=== PATIENT | male | born 1945 | race Asian ===

== ENCOUNTER 2022-06-27 17:33 | Emergency (ER) | payer MEDICARE, MEDICAID, SELFPAY ==
[2022-06-27 17:59] VITALS: BP 133/79; PULSE 82; RESP 20; TEMP 37.4; O2SAT 97; BMI 23.4
--- NOTE | 2022-06-27 18:04 | ED_ITS ---
HPI - General Adult General Date Seen: 06/27/22 Chief complaint: Weakness Stated complaint: FATIGUE,BODY PAIN Time Seen by Provider: 06/27/22 17:37 Source: patient and family History of Present Illness HPI narrative: Patient is a 77-year-old male who I have seen on a number of occasions previously. He is here with his daughter who typically interprets for him. She notes that for the past couple of weeks he has been fatigued, somewhat weak, and his complained of diffuse body pain. He apparently had some gout flare in his fingers, last week they called his primary doctor who gave him a 5 day course of prednisone. He felt better while on the prednisone but now that that is done has been having trouble again. No reported fevers or focal chest pain. He has had some nausea, no vomiting. No diarrhea. No abdominal pain. Does not sound he has had any specific other joints which have been swollen or red. I have seen him in the past with similar symptoms, and he seems to get better while on prednisone. She says that up until today he had been up and walking around but today he did not want to get up, which is why she brought him in. Related Data Home Medications Medication Instructions Recorded Confirmed atorvastatin 20 mg tablet 20 mg PO .Bedtime 06/21/22 06/21/22 lisinopril 10 mg tablet 10 mg PO DAILY 06/21/22 06/21/22 metoprolol succinate 25 mg mg PO DAILY 06/21/22 06/21/22 tablet,extended release 24 hr nitroglycerin 0.4 mg sublingual 0.4 mg sublingual ONCE PRN 06/21/22 06/21/22 tablet triamcinolone acetonide 0.5 % 1 applic topical PRN 06/21/22 06/21/22 topical cream Allergies Allergy/AdvReac Type Severity Reaction Status Date / Time No Known Drug Allergies Allergy Verified 06/21/22 08:13 Review of Systems Status of ROS: Reports: 10 or more systems reviewed and unremarkable except as noted in History and below [facility] Medical History (Updated 06/27/22 @ 19:38 by Yola Staples MD) Arthritis CAD (coronary artery disease) Surgical History History of cataract extraction History of cholecystectomy Social History Smoking Status: Never smoker How often do you have a drink containing alcohol: never AUDIT-C Alcohol total score: 0 Non-prescribed substance use: denies use Exam Narrative: Exam Narrative: Vital signs as noted above. In general, an alert, nontoxic male. He was able to transfer from the wheelchair to the bed. Is lying in the bed with his eyes closed. Head: Normocephalic, atraumatic. Eyes: Pupils are equal reactive. Extraocular movements are full. Conjunctivae are normal. ENT: Mucous membranes are moist. Throat is normal. Neck: Supple without lymphadenopathy. Heart: Regular rate and rhythm. No murmur or rub. Lungs: Clear bilaterally. No increased work of breathing, crackles or wheezes. Abdomen: Soft and nontender. No organomegaly. Extremities: Well perfused. No edema. No calf tenderness. Pulses intact. Neurologic: Patient is alert and oriented to person and place. Speech is fluent. Face is symmetric. Moves all extremities equally. Affect: Normal. Skin: Warm and dry. Well perfused. Const: Vital Signs, click to edit/add: Vital Signs - 24 hr 06/27/22 17:59 Temperature 99.3 F Pulse Rate [Pulse Oximeter] 82 Respiratory Rate 20 Blood Pressure [Ri ght Upper Arm] 133/79 Pulse Oximetry 97 Oxygen Delivery Me thod Room Air Documenting provider has reviewed patient's vital signs: yes Course Course Hospital Course: We will place an IV and give 500 mL of normal saline while awaiting labs. EKG and troponin given his cardiac history though my suspicion for this being an acute cardiac event is rather low since his symptoms have been persistent for the past couple of weeks. Not febrile here, will rule out an acute infection, check COVID, flu and RSV swabs. Lungs are clear, O2 sats are normal. At this time I do not see reason to do a chest x-ray. Labs are all normal. EKG by my review showed a normal sinus rhythm, ventricular rate of 77. No acute ST segment changes. He has had fluids here, COVID is negative. We will give some Solu-Medrol IV and prescribed prednisone taper for home. This typically is helpful for him. If he is not feeling better, follow up with primary care. Return to the ER for acute worsening such as high fevers, vomiting, chest pain. Vital Signs Vital signs: Initial Vital Signs Temperature 99.3 F 06/27/22 17:59 Temperature Source Temporal Artery Scan 06/27/22 17:59 Pulse Rate 82 06/27/22 17:59 Respiratory Rate 20 06/27/22 17:59 Blood Pressure 133/79 06/27/22 17:59 Blood Pressure Mean 97 06/27/22 17:59 Blood Pressure Position Supine 06/27/22 17:59 Pulse Oximetry 97 06/27/22 17:59 Oxygen Delivery Method 06/27/22 17:59 Vital Signs Temperature 99.3 F 06/27/22 17:59 Pulse Rate 82 06/27/22 17:59 Respiratory Rate 20 06/27/22 17:59 Blood Pressure 133/79 06/27/22 17:59 Pulse Oximetry 97 06/27/22 17:59 Oxygen Delivery Method 06/27/22 17:59 Temperature 99.3 F 06/27/22 17:59 Pulse Rate 82 06/27/22 17:59 Respiratory Rate 20 06/27/22 17:59 Blood Pressure 133/79 06/27/22 17:59 Pulse Oximetry 97 06/27/22 17:59 Oxygen Delivery Method 06/27/22 17:59 Medical Decision Making Lab Data Labs: Lab Results 06/27/22 06/27/22 06/27/22 Range/Units 18:15 18:15 18:15 WBC 6.15 (4.50-11.00) K/uL RBC 4.84 (4.30-5.90) m/uL Hgb 13.8 (13.5-17.5) gm/dL Hct 41.3 (37.0-53.0) % MCV 85 (80-100) fL MCH 29 (26-34) pg MCHC 33 (32-36) gm/dL RDW Coeff of Mickey 13.1 (11.5-15.5) % Plt Count 212 (140-440) K/uL Neut % (Auto) 59.0 (42.0-72.0) % Lymph % (Auto) 31.4 (20-44) % Archer % (Auto) 7.6 (0.0-11.0) % Eos % (Auto) 1.3 (0.0-7.0) % Baso % (Auto) 0.5 (0.0-3.0) % Neut # (Auto) 3.63 (1.7-7.0) K/uL Lymph # (Auto) 1.93 (0.90-2.90) K/uL Archer # (Auto) 0.50 (0.00-0.90) K/UL Eos # (Auto) 0.08 (0.00-0.50) K/uL Baso # (Auto) 0.03 (0.00-0.30) K/uL Abs Immat Gran (auto) 0.01 (0.00-0.30) K/uL Sodium 136 (135-149) mmol/L Potassium 4.0 (3.6-5.1) mmol/L Chloride 107 (96-114) mmol/L Carbon Dioxide 25 (20-32) mmol/L BUN 14 (7-30) mg/dL Creatinine 0.9 (0.5-1.5) mg/dL Estimated Creat Clear 42.36 Estimated GFR 87 ml/min Glucose 99 (60-115) mg/dL Lactate (0.5-1.9) mmol/L Calcium 9.1 (8.4-10.6) mg/dL Total Bilirubin (0.1-1.5) mg/dL Direct Bilirubin (0.0-0.5) mg/dL AST (12-35) U/L ALT (4-50) U/L Alkaline Phosphatase (40-150) U/L C-Reactive Protein 0.7 (0.5-1.0) mg/dL Total Protein (6.0-8.3) g/dL Albumin (3.3-5.0) g/dL SARS-CoV-2 (PCR) Negative SARS-CoV-2 (Negative) Influenza Type A (PCR) Negative PCR FLU A (Negative) Influenza Type B (PCR) Negative PCR FLU B (Negative) RSV (PCR) Negative PCR RSV (Negative) POC Troponin I (0.01-0.04) ng/ml 06/27/22 06/27/22 06/27/22 Range/Units 18:15 18:15 18:15 WBC (4.50-11.00) K/uL RBC (4.30-5.90) m/uL Hgb (13.5-17.5) gm/dL Hct (37.0-53.0) % MCV (80-100) fL MCH (26-34) pg MCHC (32-36) gm/dL RDW Coeff of Mickey (11.5-15.5) % Plt Count (140-440) K/uL Neut % (Auto) (42.0-72.0) % Lymph % (Auto) (20-44) % Archer % (Auto) (0.0-11.0) % Eos % (Auto) (0.0-7.0) % Baso % (Auto) (0.0-3.0) % Neut # (Auto) (1.7-7.0) K/uL Lymph # (Auto) (0.90-2.90) K/uL Archer # (Auto) (0.00-0.90) K/UL Eos # (Auto) (0.00-0.50) K/uL Baso # (Auto) (0.00-0.30) K/uL Abs Immat Gran (auto) (0.00-0.30) K/uL Sodium (135-149) mmol/L Potassium (3.6-5.1) mmol/L Chloride (96-114) mmol/L Carbon Dioxide (20-32) mmol/L BUN (7-30) mg/dL Creatinine (0.5-1.5) mg/dL Estimated Creat Clear Estimated GFR ml/min Glucose (60-115) mg/dL Lactate 1.2 (0.5-1.9) mmol/L Calcium (8.4-10.6) mg/dL Total Bilirubin 0.4 (0.1-1.5) mg/dL Direct Bilirubin 0.2 (0.0-0.5) mg/dL AST 45 H (12-35) U/L ALT 22 (4-50) U/L Alkaline Phosphatase 97 (40-150) U/L C-Reactive Protein (0.5-1.0) mg/dL Total Protein 6.8 (6.0-8.3) g/dL Albumin 3.8 (3.3-5.0) g/dL SARS-CoV-2 (PCR) (Negative) Influenza Type A (PCR) (Negative) Influenza Type B (PCR) (Negative) RSV (PCR) (Negative) POC Troponin I 0.00 L (0.01-0.04) ng/ml Discharge Plan Discharge Clinical Impression: Malaise and fatigue Patient Disposition: Home, Self-Care Condition: Stable Instructions: Fatigue (ED) Additional Instructions: Prednisone taper as prescribed. Follow up with primary care as needed for ongoing symptoms. Return for worsening. Prednisone: 3 tabs daily x3 days, then 2 tabs daily x3 days, then 1 tab daily x3 days. Prescriptions: No Action nitroglycerin 0.4 mg tablet, sublingual 0.4 mg sublingual ONCE PRN Rx Instructions: Take 1 tab every 5 min as needed for chest pain. atorvastatin 20 mg tablet 20 mg PO .Bedtime triamcinolone acetonide 0.5 % cream 1 applic topical PRN metoprolol succinate 25 mg tablet extended release 24 hr PO DAILY lisinopril 10 mg tablet 10 mg PO DAILY Follow Up/Referrals: Florentino Luna MD [Primary Care Provider] - Stand Alone Forms: Dovetail Info Instructions
[2022-06-27] MEDS: 0.9 % SODIUM CHLORIDE 500 ML 500 ML IV (18:20)
[2022-06-27 18:30] LABS: Lactate* 1.2 mmol/L (0.5-1.9)
--- OUTSIDE RECORDS SUMMARY | 2022-06-27 18:31 | XMS_ITS | Clinical Summary ---
:1945 Author Organization [facility] Address [address] [place] [address]. [place] [address] Care Team Providers Name Role Phone Florentino Luna Primary Care Provider Allergies No known active allergies Medications Medication Sig Dispensed Refills Start Date End Date Status atorvastatin (LIPITOR) Take 20 mg by 0 Active 20 MG tablet mouth daily lisinopril (ZESTRIL) 10 Take 10 mg by 0 Active MG tablet mouth daily as needed nitroGLYcerin Place 0.4 mg 0 Act vaishnavi (NITROSTAT) 0.4 MG under the tongue sublingual tablet every 5 minutes as needed for chest pain For chest pain place 1 tablet under the tongue every 5 minutes for 3 doses. If symptoms persist 5 minutes after 1st dose call 911. acetaminophen (TYLENOL) Take 2 tablets 30 tablet 0 02/01/2022 Active 325 MG (650 mg) by mouth tabletIndications: every 6 hours as Abscess of finger of needed for mild left hand pain or other (and adjunct with moderate or severe pain or per patient request) aspirin (ASA) 81 MG EC Take 1 tablet (81 60 tablet 0 2 Active tabletIndications: VTE mg) by mouth 2 Prophylaxis times daily oxyCODONE (ROXICODONE) Take 0.5-1 10 tablet 0 02/01/2022 Active 5 MG tabletIndications: tablets (2.5-5 Abscess of finger of mg) by mouth left hand every 4 hours as needed for moderate to severe pain Active Problems Problem Noted Date Abdominal pain, generalized 01/29/2022 Acute renal insufficiency 01/29/2022 Abscess of finger of left hand 01/29/2022 Elevated lactic acid level 01/29/2022 Acute pancreatitis, unspecified 12/11/2015 Social History Tobacco Use Types Packs/Day Years Used Date Never Assessed Sex Assigned at Date Recorded Not on file Last Filed Vital Signs Vital Sign Reading Time Taken Comments Blood Pressure 116/86 02/01/2022 10:10 AM CDT Pulse 74 02/01/2022 10:10 AM CDT Temperature 36.8 ??C (98.3 ??F) 02/01/2022 10:10 AM CDT Respiratory Rate 20 02/01/2022 10:10 AM CDT Oxygen Saturation 97% 02/01/2022 10:10 AM CDT Inhaled Oxygen Concentration - - Weight 58.5 kg (129 lb) 01/30/2022 1:09 PM CDT Height 152.4 cm (5') 01/30/2022 1:09 PM CDT Body Mass Index 25.19 01/30/2022 1:09 PM CDT Plan of Treatment Health Maintenance Due Date Last Done Comments ADVANCE CARE PLANNING 1945 ANNUAL REVIEW OF HM ORDERS 1945 LIPID 1978 ZOSTER IMMUNIZATION (1 of 1993 2) FALL RISK ASSESSMENT 01/06/2008 MEDICARE ANNUAL WELLNESS 01/06/2008 VISIT COVID-19 Vaccine (3 - 05/01/2021 11/29/2020, 11/08/2020 Booster for Pfizer series) PHQ-2 (once per calendar 09/26/2021 year) INFLUENZA VACCINE (#1) 2022 11/11/2021, 07/28/2020, 06/18/2019, Additional history exists DTAP/TDAP/TD IMMUNIZATION 12/27/2027 12/26/2017, 02/22/1980 , (2 - Td or Tdap) 07/17/1979 HEPATITIS C SCREENING Completed 12/12/2015 Pneumococcal Vaccine: 65+ Completed 11/11/2021, 07/28/2020 , Years 12/26/2017 HEPATITIS B IMMUNIZATION Aged Out No long er eligible based on patient 's age to complete this topic IPV IMMUNIZATION Aged Out No longer eligi ble based on patient 's age to complete this topic MENINGITIS IMMUNIZATION Aged Out No longe r eligible based on patient 's age to complete this topic Insurance Payer Benefit Plan / Subscriber ID Effective Dates Phone Addre ss Type Group [facility] [id number] 2021-Nicanor [phone] [address] HMO t 0 [place] [address] MEDICARE MEDICARE [id number] 2015-Prese [phone] ATTN CL AIMS Medicare nt 0 [address] [place] [address] Advance Directives For more information, please contact: [phone] Latest Code Status on File Code Status Date Activated Date Inactivated Comments Full Code 01/30/2022 1:13 AM 02/01/2022 4:16 PM All basic and advanced life-sustaining interventions ar e performed as appropriate Code status determined by: Discussion with patient/ legal de cision maker Full Code 12/11/2015 4:17 AM 12/12/2015 6:39 PM Care Teams Pipe Joints Supervisor Relationship Specialty Start Date End Date Florentino Luna PCP - General Family Medicine 01/31/22 [facility] [address] [place] [id number]
--- OUTSIDE RECORDS SUMMARY | 2022-06-27 18:31 | XMS_ITS | Clinical Summary ---
:1945 Author Organization [facility] [place] [address] Care Team Providers Name Role Phone Feliciano Lynch MD Primary Care Provider Allergies No known active allergies Medications Medication Sig Dispensed Refills Start Date End Date Status atorvastatin (LIPITOR) Take 1 tablet by 30 tablet 2 05/31/2016 Active 20 mg mouth at bedtime. tabletIndications: ST elevation myocardial infarction involving right coronary artery (HC) nitroglycerin Place 1 tablet 25 tablet 2 05/31/2016 Active (NITROSTAT) 0.4 mg under the tongue sublingual every 5 minutes if tabletIndications: ST needed for Chest elevation myocardial Pain (first choice infarction involving for chest pain, up right coronary artery to 3 doses). (HC) metoprolol succinate Take 25 mg by 0 12/21/2017 Active (TOPROL XL) 25 mg mouth once daily. Sustained-Release tablet triamcinolone 0.5% Apply topically to 0 12/21/2017 Active (ARISTOCORT) 0.5 % affected area(s) 2 cream times daily if needed. diclofenac (VOLTAREN) Take 75 mg by 0 12/21/2017 Active 75 mg delayed-release mouth once daily tablet if needed. aspirin (ECOTRIN) 81 Take 81 mg by 0 Active mg enteric coated mouth once daily. tablet MAPAP ARTHRITIS PAIN TAKE 1 TABLET BY 4 05/04/2018 Active 650 mg MOUTH EVERY 6 8 Extended-Release HOURS NEEDED tablet FOR PAIN IB HNUB NOJ 1 LUB TXHUA 6 8 TEEV YOG MOB gabapentin (NEURONTIN) TAKE 1 CAPSULE BY 8 Active 300 mg capsule MOUTH TWICE DAILY NEEDED FOR NECK PAIN IB ZAUG NOJ 1 LUB, IB HNUB NOJ 2 ZAUG YOG MOB capsaicin (ZOSTRIX) APPLY TO THE 4 05/04/2018 Active 0.025 % cream AFFECTED AREA TWICE DAILY NEEDED 1 HNUB PLEEV 2 ZAUG SABINE THAJ TSHAM MOB LOS TAU clopidogrel (PLAVIX) TAKE 1 TABLET BY 4 05/04/2018 Active 75 mg tablet MOUTH EVERY DAY 1 HNUB NOJ 1 LUB KOM NTSHAV TXOB NPLAUM lisinopril (PRINIVIL; Take 10 mg by 0 Active ZESTRIL) 10 mg tablet mouth once daily. 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 onary artery 05/30/2016 ASHD (arteriosclerotic heart disease) 05/30/2016 CVA (cerebral infarction) 01/15/2010 Immunizations Name Administration Dates Next Due Influenza, IIV3 (Age >=3 years) 07/17/2012 Pneumococcal conj 13-Valent (Prevnar 13) 12/26/2017 Td (Age >=7 Years) 02/22/1980, 07/17/1979 Tdap 12/26/2017 Family History Medical History Relation Name Comments Unknown Father Unknown Mother Other Other No pertinent pas t family medical history Relation Name Status Comments Father Mother Other Social History Tobacco Use Types Packs/Day Years Used Date Never Smoker Smokeless Tobacco: Never Used Alcohol Use Standard Drinks/Week Comments Yes 0 (1 standard drink = 0.6 oz pure alcoho l) Sex Assigned at Date Recorded Not on file Obstetrics History Last Filed Vital Signs Vital Sign Reading Time Taken Comments Blood Pressure 142/67 09/11/2019 7:26 AM 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 Pulse 61 09/11/2019 7:26 AM 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 Temperature 36.7 ??C (98.1 ??F) 09/11/2019 7:26 AM 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 Respiratory Rate 16 09/11/2019 7:26 AM 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 Oxygen Saturation 96% 09/11/2019 7:26 AM 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 Inhaled Oxygen Concentration - - Weight 53.3 kg (117 lb 8.1 oz) 09/07/2019 6:00 AM 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 Height 155.6 cm (5' 1.25) 09/05/2019 10:49 PM 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 Body Mass Index 22.02 09/05/2019 10:49 PM 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 Plan of Treatment Health Maintenance Due Date Last Done Comments COVID-19 vaccine series (#1) 1945 Zoster (shingles) series for age 0401/05/1993 50+ (1 of 2) Medicare Wellness for age 65+ 01/06/2008 Depression screening for age 12+ 01/26/2018 01/26/2017 Pneumococcal series for age 65+ (2 12/26/2018 12/26/2017 - PPSV23 or PCV20) BMI (ht and wt on same day) for 06/01/2019 06/01/2018, 10/2017, age 18+ 01/26/2017, Additional history exists Influenza for age 65+ 05/27/2022 07/17/2012 Tetanus booster 12/27/2027 12/26/2017, 02/22/1980, 07/17/1979 Tdap Completed 12/26/2017 Hepatitis C screening for age Completed 09/06/2019 18-79 Medical Devices Implanted 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 Device Shelf Model / Identifier Expiration Serial / Lot Date Iol [place] +20.5 Tecnis Zcb00 - [id number] Left: Mojica M edical 09/05/2021 ZCB00# / Implanted: Qty: 1 on 01/04/2018 by Venkata Manning MD at [facility] [employer] [id number] / Iol [place] +20 Tecnis Zcb00 - [id number] Right: Mojica Med ical 10/15/2021 [id number]# / Implanted: Qty: 1 on 01/18/2018 by Venkata Manning MD at [facility] [employer] [id number] / Results Not on filefrom Last 3 Months Insurance Payer Benefit Plan / Subscriber ID Effective Dates Phone Addre ss Type Group MEDICARE PART A MEDICARE PART A [id number] 2007-Present ATTN: CLAIMS - HB USE ONLY HB ONLY [address] [place] [address] MEDICARE PART B MEDICARE PART B [id number] 2007-Present ATTN: CLAIMS - HB USE ONLY HB ONLY [address] [place] [address] MEDICARE - PB MEDICARE PB [id number] 2007-Present ATT N: CLAIMS USE ONLY ONLY [address] [facility] [place] [address] UCARE [place] [facility]ARE [facility] [id number] 2021-Present [address] [place] [address] Advance Directives Latest Code Status on File Code Status Date Activated Date Inactivated Comments Full Code 09/06/2019 1:37 AM 09/11/2019 3:05 PM With famil y Code Status Discussion: Discussed Full Code 01/18/2018 10:42 AM 01/18/2018 5:22 PM Full Code 01/04/2018 12:52 PM 01/04/2018 5:34 PM Full Code 05/29/2016 8:46 PM 05/31/2016 4:40 PM Full Code 01/14/2010 2:11 PM 01/15/2010 6:20 PM Care Teams Truck Farmer Relationship Specialty Start Date End Date Feliciano Lynch MD PCP - General Family Practice 01/26/[address] [place] [id number]
--- OUTSIDE RECORDS SUMMARY | 2022-06-27 18:32 | XMS_ITS | Encounter Summary ---
:1945 Author Organization [place] Address [facility] [place] [address] Care Team Providers Name Role Phone No Ref-Primary, Primary Care Provider [phone] Florentino Luna Primary Care Provider Reason for Visit Reason Comments Abdominal Pain Auth/Cert Specialty Diagnoses / Procedures Referred By Contact Refer red To Contact Med Surg Diagnoses Abdominal pain, generalized Acute renal insufficiency Abscess of finger of left hand Elevated lactic acid level Abdominal pain, generalized Acute renal insufficiency Elevated lactic acid level Abscess of finger of left hand Observation Dept [address] [place], [place] [address] Phone: Referral ID Status Reason Start Date Expiration Date Visits Requ ested Visits Authorized [id number] 1 1 Encounter Details Date Type Department Care Team Description [facility] [address] [place] [address] Abdominal pain, generalized; 02/01/2022 Encounter [facility] Alba Frey DO [facility] [address] [place] [address] Acute renal insufficiency; Dept Ashely Petit MD [address] [place], [place] [address] Elevated lactic acid level; [address] O[address]fe MD [facility] [address] [place] [address] Abscess of finger of left hand [place], [place] Dontae Lowe MD [address] [place], [place] [id number] Social History Tobacco Use Types Packs/Day Years Used Date Never Assessed Sex Assigned at Date Recorded Not on file COVID-19 Exposure Response Date Recorded In the last 10 days, have you been in contact with No / Unsu re 01/29/2022 8:39 PM CDT someone who was confirmed or suspected to have Coronavirus/COVID-19? documented as of this encounter Last Filed Vital Signs Vital Sign Reading [...] Mass Index 25.19 01/30/2022 1:09 PM CDT documented in this encounter Discharge Summaries Jessica Felix PA-C - 02/01/2022 1:33 PM CDT Patient's son expressed to me that patient wanted to leave this morning despite infectious disease recommendation to stay until final culture data from abscess drainage yesterday. Despite conversation through [facility] interpretor patient is adamant that he wants to leave. He understands that his infection could get worse or he could develop sepsis. He expresses understanding and would like to leave. Per Dr. Graf note I have prescribed 3 weeks of Augment and sent it to [facility] in [place]. Patient was discharged AGAINST MEDICAL ADVICE documented in this encounter Discharge Instructions Discharge InstructionsOlivia Armijo RN - 02/01/2022 1:47 PM CDT Keep dressings intact Abx per ID recs Recommend resuming allopurinol or discuss gouty treatment with primary care provider. Follow-up with Dr Jeong later this week for recheck. documented in this encounter Medications at Time of Discharge Medication Sig Dispensed Refills Start Date End Date acetaminophen (TYLENOL) Take 2 tablets (650 30 tablet 0 05/2022 325 MG tabletIndications: mg) by mouth every 6 Abscess of finger of left hours as needed for hand mild pain or other (and adjunct with moderate or severe pain or per patient request) aspirin (ASA) 81 MG EC Take 1 tablet (81 60 tablet 0 2021 tabletIndications: VTE mg) by mouth 2 times Prophylaxis daily atorvastatin (LIPITOR) 20 Take 20 mg by mouth 0 MG tablet daily lisinopril (ZESTRIL) 10 Take 10 mg by mouth 0 MG tablet daily as needed nitroGLYcerin (NITROSTAT) Place 0.4 mg under 0 0.4 MG sublingual tablet the tongue every 5 minutes as needed for chest pain For chest pain place 1 tablet under the tongue every 5 minutes for 3 doses. If symptoms persist 5 minutes after 1st dose call 911. oxyCODONE (ROXICODONE) 5 Take 0.5-1 tablets 10 tablet 0 05/2022 MG tabletIndications: (2.5-5 mg) by mouth Abscess of finger of left every 4 hours as hand needed for moderate to severe pain amoxicillin-clavulanate Take 1 tablet by 42 tablet 0 202102/22/2022 (AUGMENTIN) 875-125 MG mouth 2 times daily tabletIndications: for 21 days Abscess of finger of left hand documented as of this encounter Progress Notes Olivia Armijo RN - 02/01/2022 2:13 PM CDT Patient's After Visit Summary was reviewed with patient and/or son Patient verbalized understanding of After Visit Summary, recommended follow up and was given an opportunity to ask questions. Discharge medications sent home with patient/family: No Discharged with son Pt left AGAINST MEDICAL ADVISE. [facility] Worker used for through communications and discharge summary. Tavia Lauren PA-C - 02/01/2022 1:25 PM CDT Orthopedic Surgery Mery S Marva 02/01/2022 Admit Date: 01/29/2022 POD: 1 Day Post-Op Procedure(s): Left small finger (distal interphalangeal) joint irrigation, debridement, and primary fusion. Alert and oriented. Patient resting comfortably - reports no pain in finger Patient requesting to leave AMA. Vital Sign Ranges Temperature Temp Av.2 ??F (36.8 ??C) Min: 98 ??F (36.7 ??C) Max: 98.4 ??F (36.9 ??C) Blood pressure Systolic (24hrs), Av , Min:116 , Max:154 Diastolic (24hrs), Av, Min:61, Max:86 Pulse Pulse Av.5 Min: 54 Max: 74 Respirations Resp Av.7 Min: 16 Max: 20 Pulse oximetry SpO2 Av.8 % Min: 95 % Max: 97 % Dressings changed today Sutures intact - no purulent drainage or significant erythema. Unable to flex finger Labs: Recent Labs Lab Test 02/01/22 0809 01/31/22 0558 01/30/22 0804 WBC 16.4* 9.4 14.6* Recent Labs Lab Test 02/01/22 0809 01/31/22 0558 01/30/22 0804 HGB 14.8 11.8* 12.5* Recent Labs Lab Test 12/11/15 0012 INR 1.03 Recent Labs Lab Test 02/01/22 0809 01/31/22 0558 01/30/22 0804 PLT 255 172 192 1. PLAN: Keep dressings intact Abx per ID recs Recommend resuming allopurinol or discuss gouty treatment with primary care provider. Follow-up with Dr Jeong later this week for recheck. Tavia Lauren PA-C Skylar Avalos, OTR - 02/01/2022 9:52 AM CDT 02/01/22 0900 Quick Adds Type of Visit Initial Occupational Therapy Evaluation Living Environment People in Home child(kosta), adult Current Living Arrangements mobile home Home Accessibility stairs to enter home Number of Stairs, Main Entrance 4 Stair Railings, Main Entrance railings safe and in good condition Transportation Anticipated family or friend will provide Living Environment Comments Pt lives in a mobile home with son and his family. Pt has 4 steps to enter, home is all on one level once inside. Pt has tub shower and standard toilet, son reports his granddaughter acts as his caregiver and assists with bathing/dressing in the mornings as needed. Self-Care Usual Activity Tolerance moderate Current Activity Tolerance moderate Equipment Currently Used at Home cane, straight;walker, standard Fall history within last six months no Activity/Exercise/Self-Care Comment Pt owns a cane and walker, does not use at baseline. 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, has assistance with other IADLs from family General Information Onset of Illness/Injury or Date of Surgery 01/29/22 Referring Physician Lorena Padilla PA-C Patient/Family Therapy Goal Statement (OT) To return home this date Additional Occupational Profile Info/Pertinent History of Current Problem 77 year old Hmong speakingmale with PMH including CAD (prior stent), gout, DJD, HTN, HLD and prior pancreatitis who was admitted on 01/30/2022 with abdominal bloating and 2 days of constipation as well as 2 weeks of left fifth finger swelling and pain and drainage and was found to have acute kidney injury, lactic acidosis and abscess of the left fifth finger. Existing Precautions/Restrictions fall Limitations/Impairments (Language barrier) Left Upper Extremity (Weight-bearing Status) weight-bearing as tolerated (WBAT) Cognitive Status Examination Orientation Status orientation to person, place and time Affect/Mental Status (Cognitive) WFL Follows Commands WFL Cognitive Status Comments Pt appears cognitively intact, good safety awareness during mobility Visual Perception Visual Impairment/Limitations WFL Sensory Sensory Quick Adds No deficits were identified Pain Assessment Patient Currently in Pain No Posture Posture not impaired Range of Motion Comprehensive Comment, General Range of Motion LUE limited due to splint/post surgical precautions, LLE limited due to chronic L knee injury, RUE and LE WFL Strength Comprehensive (MMT) Comment, General Manual Muscle Testing (MMT) Assessment UE and LE WFL Coordination Coordination Comments Mild UE limitations due to splint Bed Mobility Comment (Bed Mobility) SBA Transfers Transfer Comments SBA Balance Balance Comments Intact Activities of Daily Living BADL Assessment/Intervention bathing;lower body dressing;toileting Bathing Assessment/Intervention Comment, (Bathing) Min assist for transfer Lower Body Dressing Assessment/Training Comment, (Lower Body Dressing) Min assist Toileting Comment, (Toileting) SBA Clinical Impression Criteria for Skilled Therapeutic Interventions Met (OT) Yes, treatment indicated OT Diagnosis Decline in ADL independence and safety Influenced by the following impairments L digit injury OT Problem List-Impairments impacting ADL problems related to;range of motion (ROM);post-surgical precautions Assessment of Occupational Performance 1-3 Performance Deficits Identified Performance Deficits Decline in ADL independence Planned Therapy Interventions (OT) ADL retraining;home program guidelines Clinical Decision Making Complexity (OT) low complexity Anticipated Equipment Needs Upon Discharge (OT) (N/A) Risk & Benefits of therapy have been explained evaluation/treatment results reviewed;care plan/treatment goals reviewed;risks/benefits reviewed;current/potential barriers reviewed;participants voiced agreement with care plan;participants included;patient;son OT Discharge Planning OT Discharge Recommendation (DC Rec) home with assist OT Rationale for DC Rec Patient appears safe and able to discharge home with intermittent assist from caregivers (as is his baseline) Defer to MD for further hand therapy recommendations. OT Brief overview of current status CGA-SBA for all transfers Total Evaluation Time (Minutes) Total Evaluation Time (Minutes) 9 OT Goals Therapy Frequency (OT) One time eval and treatment OT Predicted Duration/Target Date for Goal Attainment 02/01/22 OT Goals Lower Body Dressing;Toilet Transfer/Toileting;OT Goal 1 OT: Lower Body Dressing Supervision/stand-by assist;within precautions;Goal Met OT: Toilet Transfer/Toileting Supervision/stand-by assist;within precautions;Goal Met OT: Goal 1 Patient will demonstrate understanding of ROM exercises per MD to ensure joint mobility needed for ADL independence. (Goal met) Beryl Felix PA - 01/31/2022 12:07 PM CDT [facility] Hospitalist Progress Note ISAÍAS Currie 01/31/2022 Reason for Stay (Diagnosis): Finger abscess, constipation, acute kidney injury Assessment and Plan: Summary of Stay: Mery Durham is a 77 year old Hmong speaking male with PMH including CAD (prior stent), gout, DJD, HTN, HLD and prior pancreatitis who was admitted on 01/30/2022 with abdominal bloating and 2 days of constipation as well as 2 weeks of left fifth finger swelling and pain and drainage and was found to have acute kidney injury, lactic acidosis and abscess of the left fifth finger. He underwent I&D in the emergency room and started on Unasyn. Kidney function normalized with IVfluids. Abd pain resolved with several large sized BMs. ?? 1. Left 5th finger DIP septic arthritis with sepsis Patient developed pain and swelling in the left fifth finger about 2 weeks ago. Progressive. 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 XR showed degenerative changes and soft tissue swelling but no fracture or dislocation. Underwent limited I&D in ED and empirically started on Unasyn. While did not appear systemically ill, met sepsis criteria based on WBC 18.5, left shift, and lactate 4.9. Leukocytosis and lactic acidosis normalized with fluids and antibiotics. -- Going to OR today with [facility] Hand Surgeon Dr Jeong -- Continue Unasyn -- Follow blood and fluid cultures -- Keep finger elevated as above -- OT evaluation tomorrow ?? 2. Acute kidney injury, normalized Patient and family unaware of prior renal disease. Last creatinine in our system was 2016 and 0.79 and in Care everywhere was 0.88 in 2019. Cr on admission 2.05. Admission CT negative for acute intraabdominal process. -- Cr 2.05 >> 1.29 >> 0.92 with IV fluids -- Minimize nephrotoxins -- Continue to hold PRODUCT FINISHER lisinopril - BMP in the morning ?? 3. Coronary artery disease/hypertension/hyperlipidemia: H/o STEMI 11/2015 resulting in SD to dRCA. Echo at that time showed an EF of 61% and no valvular disease. -- PRODUCT FINISHER lisinopril on hold for NEETA. PRODUCT FINISHER atorvastatin on hold for mild transaminitis -- Compensated ?? 4. 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 Previously on allopurinol but has not been taking it. -- Defer to [facility] for crystal analysis -- If no e/o gout flare, consider resuming allopurinol. 5. Abdominal pain / Mild transaminitis: Mild ALT and AST elevation on admission although levels are improved from 2016 when he was hospitalized for pancreatitis. Prior cholecystectomy. Presented with abdominal pain and bloating however CT Abd/Pelv negative for acute intraabdominal process. -- Abd pain/bloating resolved after several large BMs -- PRODUCT FINISHER atorvastatin on hold for transaminitis -- Recheck LFTs in AM and if normalizing, consider restarting statin 6. Hypocalcemia Etiology unclear. Calcium 7.5. Asymptomatic thus far. Did not check ionized calcium level. -- Replace with 2g calcium gluconate -- Recheck calcium and ionized calcium in AM ?? Diet: ADAT after surgery DVT Prophylaxis: Low Risk/Ambulatory with no VTE prophylaxis indicated Code Status: Full code Disposition: Home in 1-3 days pending intraop findings, cultures, and ID recommendations JAH Lugo Pager: [phone] Interval History (Subjective): Patient doing relatively well. Abdominal pain/bloating has resolved with BMs. Going down to the OR today with [facility] for I&D of finger. Afebrile. Vital stable. On Unasyn. Physical Exam: Last Vital Signs: BP (!) 143/70 Pulse 74 Temp 97.9 ??F (36.6 ??C) (Oral) Resp 16 Ht 1.524 m (5') Wt 58.5 kg (129 lb) SpO2 94% BMI 25.19 kg/m?? GENERAL: Pleasant, cooperative, alert. Son at bedside acting as adjunct teacher HEENT: Normocephalic, atraumatic. Extra occular mm intact. Sclera clear. PERRL. PULMONOLOGY: Clear CARDIAC: Regular ABDOMEN: Soft, nontender MUSCULOSKELETAL: Moving x 4 spontaneously. Tophaceous deposits in hands/fingers. Left 5th digit swollen and erythematous but no purulence, fluctuance, or nail changes. NEURO: Alert and oriented to self and son. CN II-XII grossly intact and symmetric. No gross focal deficits. Medications: All current medications were reviewed with changes reflected in problem list. Data: All new lab and imaging data was reviewed. Labs: No results for input(s): CULT in the last 168 hours. Recent Labs Lab 01/31/22 0558 NA 144 POTASSIUM 4.0 CHLORIDE 115* CO2 23 ANIONGAP 6 GLC 90 BUN 28 CR 0.92 GFRESTIMATED 85 ALBERTA 7.5* Recent Labs Lab 01/31/22 0558 WBC 9.4 HGB 11.8* HCT 36.8* MCV 90 PLT 172 Imaging: Results for orders placed or performed during the hospital encounter of 01/29/22 Fingers XR, 2-3 views, left Narrative EXAM: XR FINGER LEFT G/E 2 VIEWS LOCATION: [facility] DATE/TIME: 01/29/2022 10:34 PM INDICATION: Left little finger swelling and pain. Evaluate for fracture. COMPARISON: None. Impression IMPRESSION: No acute fracture or dislocation. Degenerative changes involving several IP joints of the left hand, narrowing worse at the DIP joints of the 2-5 digits. Mild soft tissue swelling and deformity about the DIP joints of the 2-5 digits, more apparent at the fifth digit. Prior healed fracture deformity of the middle phalanx of the fifth digit and the fifth metacarpal. Degenerative changes at the radiocarpal, STT, first CMC and first MCP joints. CT Abdomen Pelvis w/o Contrast Narrative EXAM: CT ABDOMEN PELVIS W/O CONTRAST LOCATION: [facility] DATE/TIME: 01/29/2022 10:30 PM INDICATION: Abdominal distension COMPARISON: 12/11/2015 TECHNIQUE: CT scan of the abdomen and pelvis was performed without IV contrast. Multiplanar reformats were obtained. Dose reduction techniques were used. CONTRAST: None. FINDINGS: LOWER CHEST: Bibasilar atelectasis or scarring, unchanged. At least moderate coronary artery calcification. HEPATOBILIARY: No biliary dilatation. PANCREAS: Atrophic without ductal dilatation SPLEEN: Unremarkable ADRENAL GLANDS: Unremarkable KIDNEYS/BLADDER: No evidence of nephroureterolithiasis. Normal bladder contour. BOWEL: No bowel obstruction. Scattered uncomplicated colonic diverticula. LYMPH NODES: No significant retroperitoneal adenopathy. VASCULATURE: Moderate atherosclerotic calcification without abdominal aortic aneurysm. 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 PELVIC ORGANS: Mild prostatic hypertrophy. No free fluid. MUSCULOSKELETAL: Fat-containing bilateral inguinal hernias, left greater than right. Moderate multilevel spondylosis and facet arthropathy.. Impression IMPRESSION: 1. No evidence of nephroureterolithiasis or bowel obstruction. 2. Additional findings as above. Associated attestation - Dontae Lowe MD - 02/04/2022 8:56 AM CDT Physician Attestation I, Dontae Lowe MD, have reviewed and discussed with the advanced practice provider their history, physical and plan for Mery Durham. I did not participate in a shared visit by interviewing or examining the patient and this should be billed as an advanced practice provider only visit. Dontae Lowe MD Date of Service (when I saw the patient): I did not personally see this patient today. Irma Weston RN - 01/31/2022 11:34 AM CDT No primary MD listed. Son said to call his Dtg. I left her a . He thinks his primary MD is in [place]. Verena Weston RAISIN WASHER Director It Inpatient Care Coordination [facility] [phone] Sergei Dover MD - 01/30/2022 1:34 PM CDT [facility] Hospitalist Progress Note Sergei Dover MD 01/30/22 Reason for Stay (Diagnosis): Finger abscess, constipation, acute kidney injury Assessment and Plan: Summary of Stay: Mery Durham is a 77 year old Hmong speaking male with PMH including CAD (prior stent), gout, DJD, HTN, HLD and prior pancreatitis who was admitted on 01/30/2022 with abdominal bloating and 2 days of constipation as well as 2 weeks of left fifth finger swelling and pain and drainage and was found to have acute kidney injury, lactic acidosis and abscess of the left fifth finger. He underwent I&D in the emergency room and started on Unasyn. Kidney function appears to be normalizing with IV fluids. We are awaiting orthopedic surgery input regarding potential for further source control. ?? 1. Abscess of the left fifth finger status post I&D in the ER: Patient developed pain and swelling in the left fifth finger about 2 weeks prior to admission. It has been progressive. No known injury or trauma but does have significant underlying DJD. He also has history of tophaceous gout. X-ray showed degenerative changes and soft tissue swelling but no fracture or dislocation. Patient is statuspost I&D in the emergency room. He is afebrile and has not had systemic symptoms but WBC was 18.5 and lactic acid was elevated at 4.9. -Continue Unasyn -Follow-up blood culture (does not appear that anything from the finger was sent for culture and currently there is nothing draining) -Orthopedic consult to ensure no further procedures needed ?? 2. Acute kidney injury: Appears to be prerenal in nature Patient and his family are unaware of any renal disease. Last creatinine in our system was 2016 and 0.79. Care everywhere there is a creatinine from 2019 which is 0.88. Creatinine on admission elevated at 2.05 but this has trended down rapidly with IV fluids. CT obtained which shows no acute pathology. -Normal saline at 100 cc/h -BMP in the morning -Avoid nephrotoxic agents -Hold lisinopril ?? 3. Coronary artery disease/hypertension/hyperlipidemia: patient had an ST elevation PR in 11/2015. Hehad a 99% distal RCA lesion and is status post SD. Echo at that time showed an EF of 61% and no valvular disease. He has not had any recent chest pain or shortness of breath. Prior to admission he is on atorvastatin 20 mg daily and lisinopril 10 mg daily. As above he has acute kidney injury so we will hold lisinopril. Can continue atorvastatin. ?? 4. Gout: Patient reports he typically has gout symptoms and his toes, ankles and knees. Has never had a gout flare in his hand that he is aware of. He does have a prescription for allopurinol but has not been taking this recently. ?? 5. Lactic acidosis: Resolving. Lactic acid was elevated at 4.9. This seems out of a portion to his history and exam. CT abdomen showed no acute pathology. He does have an abscess of the left fifth finger which was drained as above. 6. Mild transaminitis: Mild elevation in his ALT and AST. This is improved from 2016 when he was here for pancreatitis. He does have history of cholecystectomy. He had abdominal bloating but no abdominal pain. CT abdomen benign. Can follow up in the OP setting. ?? Diet: Regular DVT Prophylaxis: Low Risk/Ambulatory with no VTE prophylaxis indicated Krueger Catheter: Not present Code Status: Full code Disposition: Home tomorrow with oral antibiotics if no surgery is planned. Interval History (Subjective): Patient was admitted by my colleague around midnight Seen and examined upon arrival to the medical floor as he was boarding in the ER Kidney function better, afebrile Family updated at the bedside Awaiting orthopedic surgery evaluation White blood count trending down Physical Exam: Last Vital Signs: BP (!) 153/70 (BP Location: Right arm) Pulse 65 Temp 97.9 ??F (36.6 ??C) (Oral) Resp 15 Ht 1.524 m (5') Wt 58.5 kg (129 lb) SpO2 99% BMI 25.19 kg/m?? General: Alert, awake, no acute distress. HEENT: NC/AT, eyes anicteric, external occular movements intact, face symmetric. Cardiac: RRR, S1, S2. No murmurs appreciated. Pulmonary: Normal chest rise, normal work of breathing. Lungs CTA BL Abdomen: soft, non-tender, non-distended. Bowel Sounds Present. No guarding. Extremities: Tophaceous deposits in hands/fingers. Left fifth finger with some erythema and swellingbut no discharge. No deformities. Warm, well perfused. Skin: no rashes or lesions noted. Warm and Dry. Neuro: No focal deficits noted. Speech clear. Coordination and strength grossly normal. Psych: Appropriate affect. Medications: All current medications were reviewed with changes reflected in problem list. Data: All new lab and imaging data was reviewed. Labs: No results for input(s): CULT in the last 168 hours. Recent Labs Lab 01/30/22 0804 NA 143 POTASSIUM 5.1 CHLORIDE 116* CO2 22 ANIONGAP 5 GLC 119* BUN 42* CR 1.29* GFRESTIMATED 56* ALBERTA 7.8* Recent Labs Lab 01/30/22 0804 WBC 14.6* HGB 12.5* HCT 38.7* MCV 89 PLT 192 Imaging: Results for orders placed or performed during the hospital encounter of 01/29/22 Fingers XR, 2-3 views, left Narrative EXAM: XR FINGER LEFT G/E 2 VIEWS LOCATION: [facility] DATE/TIME: 01/29/2022 10:34 PM INDICATION: Left little finger swelling and pain. Evaluate for fracture. COMPARISON: None. Impression IMPRESSION: No acute fracture or dislocation. Degenerative changes involving several IP joints of the left hand, narrowing worse at the DIP joints of the 2-5 digits. Mild soft tissue swelling and deformity about the DIP joints of the 2-5 digits, more apparent at the fifth digit. Prior healed fracture deformity of the middle phalanx of the fifth digit and the fifth metacarpal. Degenerative changes at the radiocarpal, STT, first CMC and first MCP joints. CT Abdomen Pelvis w/o Contrast Narrative EXAM: CT ABDOMEN PELVIS W/O CONTRAST LOCATION: [facility] DATE/TIME: 01/29/2022 10:30 PM INDICATION: Abdominal distension COMPARISON: 12/11/2015 TECHNIQUE: CT scan of the abdomen and pelvis was performed without IV contrast. Multiplanar reformats were obtained. Dose reduction techniques were used. CONTRAST: None. FINDINGS: LOWER CHEST: Bibasilar atelectasis or scarring, unchanged. At least moderate coronary artery calcification. HEPATOBILIARY: No biliary dilatation. PANCREAS: Atrophic without ductal dilatation SPLEEN: Unremarkable ADRENAL GLANDS: Unremarkable KIDNEYS/BLADDER: No evidence of nephroureterolithiasis. Normal bladder contour. BOWEL: No bowel obstruction. Scattered uncomplicated colonic diverticula. LYMPH NODES: No significant retroperitoneal adenopathy. VASCULATURE: Moderate atherosclerotic calcification without abdominal aortic aneurysm. 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 PELVIC ORGANS: Mild prostatic hypertrophy. No free fluid. MUSCULOSKELETAL: Fat-containing bilateral inguinal hernias, left greater than right. Moderate multilevel spondylosis and facet arthropathy.. Impression IMPRESSION: 1. No evidence of nephroureterolithiasis or bowel obstruction. 2. Additional findings as above. Sergei Dover MD , MD. documented in this encounter H&P Notes PetitAshely MD - 01/29/2022 11:50 PM CDT [facility] Hospitalist Admission Note Name: Mery Durham Date of : 1945 Age: [age] year old Date of admission: 01/29/2022 Primary care provider: No Ref-Primary, Physician Chief Complaint: Bloating, left 5th finger pain/infection Assessment and Plan: Mery Durham is a 77 year old Hmong speaking male with PMH including CAD (prior stent), gout, DJD, HTN, HLD and prior pancreatitis who was admitted on 01/30/2022 with abdominal bloating and 2 days of constipation as well as 2 weeks of left fifth finger swelling and pain and drainage and was found to have acute kidney injury, lactic acidosis and abscess of the left fifth finger. 1. Abscess of the left fifth finger status post I&D in the ER: Patient developed pain and swelling in the left fifth finger about 2 weeks ago. It has been progressive. No known injury or trauma butdoes have significant underlying DJD. He also has history of gout. X-ray showed degenerative changesand soft tissue swelling but no fracture or dislocation. Patient is status post I&D in the emergency room. He is afebrile and has not had systemic symptoms but WBC is 18.5 and lactic acid was elevated at 4.9. He was given Unasyn in the emergency room. -Continue Unasyn -Follow-up blood culture (does not appear that anything from the finger was sent for culture and currently there is nothing draining) -Orthopedic consult to ensure no further procedures needed 2. Acute kidney injury: Patient and his family are unaware of any renal disease. Last creatinine in our system was 2016 and 0.79. Care everywhere there is a creatinine from 2019 which is 0.88. The patient's daughter tells me he is supposed to go into clinic soon to check his kidney function. Creatinine today is elevated at 2.05. He reports he has been urinating fine. CT obtained which shows no acute pathology. He is on lisinopril which could be worsening his renal function. He received 2 L normal saline in the ER. -Normal saline at 125 cc/h -Check FeNa -BMP in the morning -Avoid nephrotoxic agents -Hold lisinopril 3. Coronary artery disease/hypertension/hyperlipidemia: P patient had an ST elevation PR in 11/2015. He had a 99% distal RCA lesion and is status post SD. Echo at that time showed an EF of 61% and no valvular disease. He has not had any recent chest pain or shortness of breath. Prior to admission he is on atorvastatin 20 mg daily and lisinopril 10 mg daily. As above he has acute kidney injury so we will hold lisinopril. Can continue atorvastatin. 4. Gout: Patient reports he typically has gout symptoms and his toes, ankles and knees. Has never had a gout flare in his hand that he is aware of. He does have a prescription for allopurinol but has not been taking this recently. 5. Lactic acidosis: Lactic acid was elevated at 4.9. This seems out of a portion to his history and exam. He does have acute kidney injury. CT abdomen showed no acute pathology. He does have an abscessof the left fifth finger which was drained as above. He received IV fluids in the emergency room andwe will recheck a lactic acid to ensure that it is improving. He is on Unasyn as above for his finger infection. His lactic acid was repeated after IV fluids and is improving to 2.1. -Repeat lactic acid upon arrival to the floor 6. Mild transaminitis: Mild elevation in his ALT and AST. This is improved from 2016 when he was here for pancreatitis. He does have history of cholecystectomy. He had abdominal bloating but no abdominal pain. CT abdomen benign. Can follow up in the OP setting. Diet: Regular DVT Prophylaxis: Low Risk/Ambulatory with no VTE prophylaxis indicated Krueger Catheter: Not present Code Status: Full code Disposition Plan Expected Discharge: Admit to observation status Anticipated discharge location: Awaiting care coordination huddle Delays: Entered: Ashely Petit MD 01/29/2022, 11:49 PM The patient's care was discussed with the Bedside Nurse, Patient and Patient's Family. Ashely Petit MD [facility] Clinically Significant Risk Factors Present on Admission # Hypoalbuminemia: Albumin = 2.8 g/dL (Ref range: 3.4 - 5.0 g/dL) on admission, will monitor as appropriate History of Present Illness: Mery Durham is a 77 year old Hmong speaking male with PMH including CAD (prior stent), gout, DJD, HTN, HLD and prior pancreatitis who was admitted on 01/30/2022 with abdominal bloating and 2 days of constipation as well as 2 weeks of left fifth finger swelling and pain and drainage and was found to have acute kidney injury, lactic acidosis and abscess of the left fifth finger. History was obtained through patient interview, chart review and discussion with Dr. Sky in the ER. The patient's daughter and are at the bedside. The patient's daughter does help interpret for the patient. He states that he had abdominal bloating. He has not had a bowel movement for the past 2 days. He has not had abdominal pain, nausea or vomiting. He also has pain in his left fifth finger. Pain and swelling started all of a sudden about 2 weeks ago. He does not recall any injury or trauma. Over that time it has been progressive and he had a spot that was raised and hurt. He used an herbal wrap and then tried poking it himself to relieve the tension. He did get a small amount of pus from that. He has never experienced a joint infection that he is aware of. He does have history of gout buttypically gets flares in his toes, ankles and knees. He has not had fevers, chills, chest pain, shortness of breath, dizziness, hematuria or dysuria. He does have chronic arthritis and when his neck pain is bothering him a lot he will get a little bit lightheaded. He states he has been eating and drinking fine. He has been urinating fine. His family is not aware of any kidney problems. His daughter states he is feels to going to see his primary care doctor soon to check his kidney function. Past Medical History: 1. Coronary artery disease 2. Gout 3. Hypertension 4. Hyperlipidemia Past Surgical History: 1. Cholecystectomy Social History: Social History Tobacco Use ??? Smoking status: Not on file ??? Smokeless tobacco: Not on file Substance Use Topics ??? Alcohol use: Not on file Social History Social History Narrative ??? Not on file Denies alcohol or tobacco use. Lives with . Family History: Unaware of any cardiac history in his parents. Allergies: No Known Allergies Medications: 1. Atorvastatin 20 mg daily 2. Lisinopril 10 mg daily Patient also has a prescription for allopurinol and nitroglycerin but has not been using either of these Review of Systems: A Comprehensive greater than 10 system review of systems was carried out. Pertinent positives and negatives are noted above. Otherwise negative for contributory information. Physical Exam: Blood pressure 128/69, pulse 72, temperature 97.5 ??F (36.4 ??C), temperature source Oral, resp. rate 20, SpO2 100 %. Wt Readings from Last 1 Encounters: 12/11/15 58.7 kg (129 lb 8 oz) Exam: General: Alert, awake, no acute distress. HEENT: NC/AT, eyes anicteric and without injection, EOMI, face symmetric. Dentition WNL, MMM. Cardiac: RRR, normal S1, S2. No murmurs/g/r. No LE edema Pulmonary: Normal chest rise, normal work of breathing. Lungs CTAB without crackles or wheezing Abdomen: soft, non-tender, non-distended. Normoactive BS. No guarding or rebound tenderness. Extremities: degenerative changes of fingers. Left 5th finger no longer with discernable abscess (s/p drainage in the ER). Warm, well perfused. Skin: Erythematous rash on the left arm. Warm and Dry. Neuro: No focal deficits noted. Speech clear. Coordination and strength grossly normal. Psych: Appropriate affect. Alert and oriented x3 Data Reviewed Today: Imaging: Results for orders placed or performed during the hospital encounter of 01/29/22 Fingers XR, 2-3 views, left Narrative EXAM: XR FINGER LEFT G/E 2 VIEWS LOCATION: [facility] DATE/TIME: 01/29/2022 10:34 PM INDICATION: Left little finger swelling and pain. Evaluate for fracture. COMPARISON: None. Impression IMPRESSION: No acute fracture or dislocation. Degenerative changes involving several IP joints of the left hand, narrowing worse at the DIP joints of the 2-5 digits. Mild soft tissue swelling and deformity about the DIP joints of the 2-5 digits, more apparent at the fifth digit. Prior healed fracture deformity of the middle phalanx of the fifth digit and the fifth metacarpal. Degenerative changes at the radiocarpal, STT, first CMC and first MCP joints. CT Abdomen Pelvis w/o Contrast Narrative EXAM: CT ABDOMEN PELVIS W/O CONTRAST LOCATION: [facility] DATE/TIME: 01/29/2022 10:30 PM INDICATION: Abdominal distension COMPARISON: 12/11/2015 TECHNIQUE: CT scan of the abdomen and pelvis was performed without IV contrast. Multiplanar reformats were obtained. Dose reduction techniques were used. CONTRAST: None. FINDINGS: LOWER CHEST: Bibasilar atelectasis or scarring, unchanged. At least moderate coronary artery calcification. HEPATOBILIARY: No biliary dilatation. PANCREAS: Atrophic without ductal dilatation SPLEEN: Unremarkable ADRENAL GLANDS: Unremarkable KIDNEYS/BLADDER: No evidence of nephroureterolithiasis. Normal bladder contour. BOWEL: No bowel obstruction. Scattered uncomplicated colonic diverticula. LYMPH NODES: No significant retroperitoneal adenopathy. VASCULATURE: Moderate atherosclerotic calcification without abdominal aortic aneurysm. 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 PELVIC ORGANS: Mild prostatic hypertrophy. No free fluid. MUSCULOSKELETAL: Fat-containing bilateral inguinal hernias, left greater than right. Moderate multilevel spondylosis and facet arthropathy.. Impression IMPRESSION: 1. No evidence of nephroureterolithiasis or bowel obstruction. 2. Additional findings as above. Labs: Recent Labs Lab 01/29/222037 WBC 18.5* HGB 14.1 HCT 43.8 MCV 90 PLT 202 Recent Labs Lab 01/29/222037 NA 140 POTASSIUM 4.0 CHLORIDE 107 CO2 22 ANIONGAP 11 GLC 229* BUN 44* CR 2.05* GFRESTIMATED 32* ALBERTA 8.6 PROTTOTAL 6.2* ALBUMIN 2.8* BILITOTAL 0.7 ALKPHOS 99 AST 65* ALT 91* Recent Labs Lab 01/29/228 01/29/222056 LACT 2.1* 4.9* Ashely Petit MD Hospitalist [facility] documented in this encounter Consult Notes Qasim Graf MD - 02/01/2022 2:13 PM CDT Consult Date: 02/01/2022 INFECTIOUS DISEASE CONSULTATION IMPRESSION: 1. A 77-year-old male, left fifth finger tophaceous gout worsening with now inflammatory process, probable secondary infection, likely tenosynovitis. He has had a full I and D with culture growing gram-positive organisms. Full information to follow. 2. Tophaceous gout, multiple joints. 3. Mild clinical sepsis at admission including renal insufficiency. Blood cultures negative. 4. Acute renal failure, clinically improved. 5. Coronary artery disease. RECOMMENDATIONS: 1. Lengthy discussion with the patient via son as an adjunct teacher. The patient is quite insistent he is going to leave the hospital no matter what we do. Obviously ideally stay until cultures back. IV antibiotics for now. Depending on culture results at least some potential outpatient IV antibiotics. The patient is resistant to this idea and insisting on going. 2. If the patient leaves currently, I would treat him orally with Augmentin 875 b.i.d. for 3 weeks. 3. If he stays, continue the IV and reconsider options as we go forward. 4. I will follow up on the culture as an outpatient and adjust if Augmentin not the right choice here, as well as on how he is doing clinically. Orthopedics obviously will follow up as well. If he is not clinically improving, we will have to reconsider including possible IV antibiotics. HISTORY OF PRESENT ILLNESS: This 77-year-old male is seen in consultation. He presented with progressive increasing left fifth finger inflammation and pain at presentation. He had trouble with tophaceous gout and indeed has crystals present, but also signs of tenosynovitis and deeper infection. He hadrenal insufficiency, some signs of clinical sepsis including leukocytosis. Admission blood cultures have been negative. No other signs of infected site. He feels completely well now including complete resolution of the pain in the finger and thus is quite insistent he is going to leave the hospital. Does not see why he needs to be here severe if the pain has been improved. He has not had a history ofmajor infection problems historically. PAST MEDICAL HISTORY: History of tophaceous gout, mainly in his lower extremities, history of coronary artery disease, and acute renal insufficiency. ALLERGIES: NONE. SOCIAL AND FAMILY HISTORY: A [place] immigrant, feels okay at this point. No recent exposures. No known TB. MEDICATIONS: As listed. REVIEW OF SYSTEMS: Pain has completely resolved. Denies any fevers, chills, sweats or other symptoms. PHYSICAL EXAMINATION: GENERAL: The patient appears his stated age, looks well. VITAL SIGNS: All normal, including being afebrile. HEART AND LUNGS: Unremarkable. ABDOMEN: Soft, nontender. EXTREMITIES: The finger is completely wrapped. No signs of proximal infection as to facial gout chains in other locations. LABORATORY DATA: Culture is pending, but preliminarily growing gram-positive organisms. Thank you very much for the consultation. I will follow the patient with you. Qasim Graf MD MT: CYRUS Name: MERY DURHAM Account: [id number] : 1945 Consult Date: 02/01/2022 Document: [id number] Qasim Graf MD - 02/01/2022 11:49 AM CDT ID consult dictated IMP 1 77 yo male L 5th finger gout and secondary infection I and D , gramstain +cx pending REc await cx unasyn for now , likely correct plan at least some Iv, Pt demanding to leave now if he goes AMA would do 3 weeks po augmentin will Follow-up on final cx and adjust, otherwise here on IV IAT Andrew Fischer MD - 01/30/2022 4:10 PM CDT Consult Date: 01/30/2022 REASON FOR CONSULTATION: Possible septic joint, left fifth finger DIP joint. This consult was asked for by Dr. Juni Dover. HISTORY OF PRESENT ILLNESS: Mr. Durham is a very pleasant 77-year-old gentleman with a history of goutand DJD, who was admitted to the hospital on 01/30/2022 with 2 days of constipation and 2 weeks of aleft 5th finger swelling and pain and drainage. He underwent I and D of the finger in the Emergency Room was started on Unasyn. He was somewhat dehydrated. Kidney function appears to be normalized withIV fluids, but he was admitted for evaluation. The pain in his finger has been somewhat progressive.He has a degenerative deformity of the DIP joint. He has also history of tophaceous gout, but he is still quite tender to palpation around the distal IP joint. We were asked to evaluate for definitive c are of the finger. PAST MEDICAL AND SURGICAL MEDICAL HISTORY: Significant for coronary artery disease, gout, hypertension, hyperlipidemia, and a history of cholecystectomy. SOCIAL HISTORY: Noncontributory. FAMILY HISTORY: Noncontributory. ALLERGIES: NO KNOWN DRUG ALLERGIES. MEDICATIONS: He is on: 1. Atorvastatin. 2. Lipitor. 3. He also is on allopurinol, but does not take it. REVIEW OF SYSTEMS: A 10-point review of systems is positive for recent constipation and progressive left finger pain at the DIP joint. PHYSICAL EXAMINATION: He is alert, oriented, lying in his hospital bed, in no apparent distress. He is afebrile. Vital signs are stable. No obvious head trauma. Right and left upper extremities: The hands have multiple angular deformities of all of the fingers at the DIP and PIP joints, but these are e ssentially nontender. He is unable to flex his left little finger. He is tender over the DIP joint. There is a small radial opening with some purulent drainage from it. Otherwise, sensation is intact radial, ulnar, median nerve distribution throughout and he has otherwise full function. No other tenderness to palpation. Right and left lower extremities are within normal limits. Skin is clean, dry, and intact. Palpable dorsalis pedis pulses. Superficial peroneal, deep peroneal, saphenous, tibial, andsural nerves all function. He has palpable radial pulses as well in both upper extremities. IMAGING: X-rays of his left hand show no acute fracture or dislocation. Degenerative changes of the IP joints and worse at the DIP joints of especially digits 2 through 5. Degenerative changes in the mid carpal joint as well. LABORATORY DATA: On admission, white blood cell count 18.5, hemoglobin 14.1. Sodium 140, potassium 4.0. Lactic acid 2.1. IMPRESSION AND PLAN: I had a long discussion with the patient and his son as well as my partner, Yesenia Jeong MD he is currently on Unasyn. If the antibiotics fail to improve the situation, I think with the drainage of purulent material from his wound, he likely needs an incision and drainage. We will plan for surgery tomorrow with my partner, Yesenia Jeong MD. Discussed the situation with Dr. Jeong. Will reevaluate in the morning. If his symptoms significantly improve just on antibiotics alone, he will maybe be able to avoid surgical intervention. They are happy with this plan of care. I will make the patient n.p.o. tomorrow with a plan for surgery if necessary. Andrew Fischer MD MT: GABBY Name: MERY DURHAM Account: [id number] : 1945 Consult Date: 01/30/2022 Document: [id number] documented in this encounter ED Notes Thi Lovell RN - 01/30/2022 9:01 AM CDT Pt resting in bed. Son at bedside. Pt ambulated to bathroom independently. BMX1, soft. Pt tolerated breakfast, Regular diet. IVF infusing at 125ml/hr. Call light within reach. 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 Transfer: are SBA with no assistive devices Bathroom: Luz Maria Pain: denying pain. Telemetry Monitoring: No Treatment:Unasyn, IVF, Ortho surgery consult Discharge Plans: tbd - Blood pressure 133/68, pulse 77, temperature 97.9 ??F (36.6 ??C), temperature source Oral, resp. rate 18, height 1.524 m (5'), weight 56.7 kg (125 lb), SpO2 97 %. Brandyn Padilla RN - 01/30/2022 1:04 AM CDT Bed: ED27 Expected date: Expected time: Means of arrival: Comments: 37 Chacha Stoner RN - 01/30/2022 12:41 AM CDT [facility] ED Nurse Handoff Report Mery Durham is a 77 year old male ED Chief complaint: Abdominal Pain . ED Diagnosis: Final diagnoses: Abdominal pain, generalized Acute renal insufficiency Elevated lactic acid level Abscess of finger of left hand Allergies: No Known Allergies Code Status: Full Code Activity level - Baseline/Home: Independent. Activity Level - Current: Independent. Lift room needed: No. Bariatric: No Leadite Worker Needed: Yes Isolation: No. Infection: Not Applicable COVID r/o and special precautions. Vital Signs: Vitals: 01/29/22 2330 01/29/22 2345 01/30/22 0000 01/30/22 0040 BP: 125/73 (!) 152/73 130/66 Pulse: 79 86 78 Resp: Temp: TempSrc: SpO2: 99% 99% 100% Weight: 56.7 kg (125 lb) Height: 1.524 m (5') Cardiac Rhythm: , Pain level: Patient confused: No. Patient Falls Risk: Yes. Elimination Status: Has voided Patient Report - Initial Complaint: Abdominal pain. Focused Assessment: Mery Durham is a 77 year old male with history of acute pancreatitis who presents abdominal pain, constipation. Pt. Also states pain to left hand 5th digit swelling, with discharge after poking with a needle at home. VVS. Tests Performed: labs, x-ray, CT. Abnormal Results: Labs Ordered and Resulted from Time of ED Arrival to Time of ED Departure COMPREHENSIVE METABOLIC PANEL - Abnormal Result Value Sodium 140 Potassium 4.0 Chloride 107 Carbon Dioxide (CO2) 22 Anion Gap 11 Urea Nitrogen 44 (*) Creatinine 2.05 (*) Calcium 8.6 Glucose 229 (*) Alkaline Phosphatase 99 AST 65 (*) ALT 91 (*) Protein Total 6.2 (*) Albumin 2.8 (*) Bilirubin Total 0.7 GFR Estimate 32 (*) CBC WITH PLATELETS AND DIFFERENTIAL - Abnormal WBC Count 18.5 (*) RBC Count 4.89 Hemoglobin 14.1 Hematocrit 43.8 MCV 90 MCH 28.8 MCHC 32.2 RDW 12.7 Platelet Count 202 % Neutrophils 80 % Lymphocytes 7 % Monocytes 9 % Eosinophils 0 % Basophils 0 % Immature Granulocytes 4 NRBCs per 100 WBC 0 Absolute Neutrophils 14.8 (*) Absolute Lymphocytes 1.2 Absolute Monocytes 1.7 (*) Absolute Eosinophils 0.0 Absolute Basophils 0.0 Absolute Immature Granulocytes 0.7 (*) Absolute NRBCs 0.0 LACTIC ACID WHOLE BLOOD - Abnormal Lactic Acid 4.9 (*) LACTIC ACID WHOLE BLOOD - Abnormal Lactic Acid 2.1 (*) LIPASE - Normal Lipase 226 TROPONIN I - Normal Troponin I High Sensitivity 18 BLOOD CULTURE BLOOD CULTURE Fingers XR, 2-3 views, left Final Result IMPRESSION: No acute fracture or dislocation. Degenerative changes involving several IP joints of the left hand, narrowing worse at the DIP joints of the 2-5 digits. Mild soft tissue swelling and deformity about the DIP joints of the 2-5 digits, more apparent at the fifth digit. Prior healed fracture deformity of the middle phalanx of the fifth digit and the fifth metacarpal. Degenerative changes at the radiocarpal, STT, first CMC and first MCP joints. CT Abdomen Pelvis w/o Contrast Final Result IMPRESSION: 1. No evidence of nephroureterolithiasis or bowel obstruction. 2. Additional findings as above. Treatments provided: IV abx, IV fluids Family Comments: at bedside OBS brochure/video discussed/provided to patient: Yes ED Medications: Medications bupivacaine (MARCAINE) 0.5 % injection (has no administration in time range) lidocaine 1 % 0.1-1 mL (has no administration in time range) lidocaine (LMX4) cream (has no administration in time range) sodium chloride (PF) 0.9% PF flush 3 mL (has no administration in time range) sodium chloride (PF) 0.9% PF flush 3 mL (3 mLs Intracatheter Given 01/29/222117) 0.9% sodium chloride BOLUS (0 mLs Intravenous Stopped 5/6/22 2241) ampicillin-sulbactam (UNASYN) 3 g vial to attach to NS 100 mL bag (0 g Intravenous Stopped 01/29/22 2350) 0.9% sodium chloride BOLUS (1,000 mLs Intravenous New Bag 01/29/22 2300) Drips infusing: No For the majority of the shift, the patient's behavior Green. Interventions performed were n/a. Sepsis treatment initiated: No Patient tested for COVID 19 prior to admission: NO ED Nurse Name/Phone Number: Chacha Stoner RN, 12:41 AM Chacha Stoner RN - 01/29/2022 8:02 PM CDT Triage Assessment Row Name 01/29/222001 Triage Assessment (Adult) Airway WDL WDL Respiratory WDL Respiratory WDL WDL Skin Circulation/Temperature WDL Skin Circulation/Temperature WDL X Cognitive/Neuro/Behavioral WDL Cognitive/Neuro/Behavioral WDL WDL Chacha Stoner RN - 01/29/2022 7:57 PM CDT Pt. Brought in via ambulance. No BM for 72 hours. Pt. States LLQ- to mid abdominal pain. IV started and IV fluids given. Pt. Left hand fifth digit swollen, pt. Unable to move distal end. Latosha Simmons RN - 01/29/2022 7:54 PM CDT Bed: ED37 Expected date: Expected time: Means of arrival: Comments: M health-77 y/o M Tor Sky MD - 01/29/2022 7:54 PM CDTAssociated Order(s): - Incision/Drainage; Digital Block History Chief Complaint: Abdominal Pain The patient was interviewed via the mom adjunct teacher however the patient's daughter also interpreted. ANAID Durham is a 77 year old male with history of acute pancreatitis who presents with week of abdominal swelling without pain and constipation and left fifth finger pain for past few days. He has had drainage from his left right finger after poking it. He endorses body aches but denies fever and chills. Patient's had no nausea or vomiting some slight decrease in his p.o. intake. There is been no recent trauma. His daughter denies that there is been any recent new medicines. The patient said that he has had deformity of his left hand since the war but it looks more swollen and more painful and worsewhen he uses it. Review of Systems Constitutional: Negative for chills and fever. Gastrointestinal: Positive for abdominal distention and constipation. Musculoskeletal: Positive for myalgias. All other systems reviewed and are negative. Allergies: No known drug allergies Medications: Lipitor Nitrostat Toprol Gabapentin Plavix Lisinopril Past Medical History: Acute pancreatitis arteriosclerotic heart disease CVA Suicidal ideation PR Past Surgical History: Cholecystectomy Cataract extraction Social History: Marital status: Presents via EMS Presents with daughter Physical Exam Patient Vitals for the past 24 hrs: BP Temp Temp src Pulse Resp SpO2 01/29/22 2300 128/69 -- -- 72 -- -- 01/29/22 2200 117/59 -- -- 77 -- 100 % 01/29/22 2100 123/60 -- -- 78 -- 97 % 01/29/22 2000 107/61 97.5 ??F (36.4 ??C) Oral 76 20 99 % Physical Exam General: The patient is alert, in no respiratory distress. HENT: Mucous membranes moist. Cardiovascular: Regular rate and rhythm. Good pulses in all four extremities. Normal capillary refill and skin turgor. Respiratory: Lungs are clear. No nasal flaring. No retractions. No wheezing, no crackles. Gastrointestinal: Abdomen soft. No guarding, no rebound. No palpable hernias. Abdominal was full butnon tender. Musculoskeletal: left 5th finger distal phalanx dorsal swelling with erythema, tenderness, and smallpus laterally. Skin: No rashes or petechiae. Neurologic: The patient is alert. GCS 15. No testable cranial nerve deficit. Follows commands. Good strength in all extremities. No gross neurologic deficit. Gross sensation intact. Pupils are round and reactive. No meningismus. Lymphatic: No cervical adenopathy. No lower extremity swelling. Psychiatric: The patient is non-tearful. Emergency Department Course Imaging: Fingers XR, 2-3 views, left Final Result IMPRESSION: No acute fracture or dislocation. Degenerative changes involving several IP joints of the left hand, narrowing worse at the DIP joints of the 2-5 digits. Mild soft tissue swelling and deformity about the DIP joints of the 2-5 digits, more apparent at the fifth digit. Prior healed fracture deformity of the middle phalanx of the fifth digit and the fifth metacarpal. Degenerative changes at the radiocarpal, STT, first CMC and first MCP joints. CT Abdomen Pelvis w/o Contrast Final Result IMPRESSION: 1. No evidence of nephroureterolithiasis or bowel obstruction. 2. Additional findings as above. Report per radiology Laboratory: Labs Ordered and Resulted from Time of ED Arrival to Time of ED Departure COMPREHENSIVE METABOLIC PANEL - Abnormal Result Value Sodium 140 Potassium 4.0 Chloride 107 Carbon Dioxide (CO2) 22 Anion Gap 11 Urea Nitrogen 44 (*) Creatinine 2.05 (*) Calcium 8.6 Glucose 229 (*) Alkaline Phosphatase 99 AST 65 (*) ALT 91 (*) Protein Total 6.2 (*) Albumin 2.8 (*) Bilirubin Total 0.7 GFR Estimate 32 (*) CBC WITH PLATELETS AND DIFFERENTIAL - Abnormal WBC Count 18.5 (*) RBC Count 4.89 Hemoglobin 14.1 Hematocrit 43.8 MCV 90 MCH 28.8 MCHC 32.2 RDW 12.7 Platelet Count 202 % Neutrophils 80 % Lymphocytes 7 % Monocytes 9 % Eosinophils 0 % Basophils 0 % Immature Granulocytes 4 NRBCs per 100 WBC 0 Absolute Neutrophils 14.8 (*) Absolute Lymphocytes 1.2 Absolute Monocytes 1.7 (*) Absolute Eosinophils 0.0 Absolute Basophils 0.0 Absolute Immature Granulocytes 0.7 (*) Absolute NRBCs 0.0 LACTIC ACID WHOLE BLOOD - Abnormal Lactic Acid 4.9 (*) LIPASE - Normal Lipase 226 TROPONIN I - Normal Troponin I High Sensitivity 18 LACTIC ACID WHOLE BLOOD BLOOD CULTURE BLOOD CULTURE [facility] Digital Block Date/Time: 01/29/2022 11:08 PM Performed by: Tor Sky MD Authorized by: Tor Sky MD INDICATION Indications: Pain relief LOCATION Block location: Finger Finger blocked: L little finger PRE-PROCEDURE DETAILS Neurovascular status: intact Skin preparation: Alcohol and povidone-iodine ANESTHESIA (see MAR for exact dosages) Needle gauge: 24 G Anesthetic injected: Procaine 0.5% w/o epi Technique: volar entry. Injection procedure: Negative aspiration for blood POST-PROCEDURE DETAILS Outcome: Anesthesia achieved [facility] PROCEDURE: -Incision/Drainage Date/Time: 01/29/2022 11:10 PM Performed by: Tor Sky MD Authorized by: Tor Sky MD Risks, benefits and alternatives discussed. LOCATION: Type: Abscess Location: Upper extremity Upper extremity location: Finger Finger location: L small finger PRE-PROCEDURE DETAILS: Skin preparation: Betadine PROCEDURE TYPE: Complexity: Simple ANESTHESIA (see [facility] for exact dosages): Anesthesia method: None PROCEDURE DETAILS: Needle aspiration: yes Needle size: 18 G Incision types: Stab incision Incision depth: Subcutaneous Scalpel blade: 11 Wound management: Probed and deloculated Drainage: Purulent Drainage amount: Scant Wound treatment: Wound left open Packing materials: None PROCEDURE Describe Procedure: mediolateral surface Emergency Department Course: Reviewed: I reviewed nursing notes, vitals, past medical history and Care Everywhere Assessments: 1955 I obtained history and examined the patient as noted above. 2023 I rechecked the patient. Performed rectal exam. 2201 I rechecked the patient. Consults: [address] Petit of the Hospitalist service from [facility] regarding patient's presentation, findings, and plan of care. Interventions: 2117 Sodium chloride bolus, 1000 ml, IV 2299 Sodium chloride bolus, 1000 ml, IV 2310 Unasyn, 3 g, IV Disposition: The patient was admitted to the hospital under the care of Dr. Petit. Impression & Plan [facility] Diagnoses: The Lactic acid level is elevated due to infection of finger, at this time there is no sign of severe sepsis or septic shock. and None Medical Decision Making: The patient reported that he felt bloated and uncomfortable. With the patient not passing stool I was concerned about things such as obstruction especially with his positive lactic acid. I did considermesenteric ischemia UTI URI however I felt most likely his infection was located in his left small finger. The patient has been attributing it to gout but has been poking it with a needle which may have caused a secondary infection. When I did drain the area after the digital block I went through the same area the patient had punctured already. Pus was obtained I went laterally as well to make sure there was not a second pocket. It all appeared to be external to the joint. It was on the dorsal surfac e and did not appear to be related to the tendon. An x-ray was performed look for signs of fracture due to sitting a little pain. I did extensively cleaned the dirt off his finger with alcohol prior toany of the drainage above. The patient's lactic acid level is elevated and he has acute renal insufficiency. I wonder if this may not be dehydration related. He does not meet sepsis criteria but antibiotics were started early and the patient was admitted to observation status to ensure his condition improves. Aggressive hydration was started due to his renal insufficiency. Diagnosis: ICD-10-CM 1. Abdominal pain, generalized R10.84 2. Acute renal insufficiency N28.9 3. Elevated lactic acid level R79.89 4. Abscess of finger of left hand L02.512 Scribe Disclosure: I, Daniel Luisa, am serving as a scribe at 7:55 PM on 01/29/2022 to document services personally performed by Tor Sky MD based on my observations and the provider's statements to me. Tor Sky MD 01/29/22 5013 documented in this encounter Miscellaneous Notes Plan of Care - Skylar Avalos OTR - 02/01/2022 1:28 PM CDT Occupational Therapy Discharge Summary Reason for therapy discharge: All goals and outcomes met, no further needs identified. Progress towards therapy goal(s). See goals on Care Plan in [facility] electronic health record for goal details. Goals met Therapy recommendation(s): Defer to MD regarding further hand therapy needs. Pt appears safe and able to return home with intermittent family assist as is his baseline. Pt has met all OT inpatient goals at this time. Plan of Care - KALPANA OCAMPO - 02/01/2022 5:14 AM CDT Care from [id number] Inpatient Progress Note: For complete assessment see flow sheet documentation. Vital signs: Temp: 98 ??F (36.7 ??C) Temp src: Oral BP: 128/67 Pulse: 54 Resp: 16 SpO2: 96 % O2 Device: Nasal cannula Oxygen Delivery: 2 LPM Height: 152.4 cm (5') Weight: 58.5 kg (129 lb) Estimated body mass index is 25.19 kg/m?? as calculated from the following: Height as of this encounter: 1.524 m (5'). Weight as of this encounter: 58.5 kg (129 lb). Orientation: A&O x 4 Hmong speaking. Indep in the room. Left fifth finger had I & D . Unableto assess as remains in cast/wrap. No discharge seen or noted. Pt remains afebrile. Scheduled Unasyngiven. Orthopedic following. Pt denies having any pain and said he feels all better. Pt urinating WNL. Will continue to monitor and provide cares. Kalpana Ocampo RN Plan of Care - Chava Mcghee RN - 01/31/2022 10:40 PM CDT BP (!) 153/68 (BP Location: Right arm) Pulse 57 Temp 98.1 ??F (36.7 ??C) (Oral) Resp 18 Ht 1.524 m (5') Wt 58.5 kg (129 lb) SpO2 95% BMI 25.19 kg/m?? Neuro: alert and orientedx4 Cardiac: WDL Lungs: WDL GI: WDL : WDL Pain: denies pain this evening IV: SL between abx Meds: unasyn, miralax Labs/tests: Diet: clears advance as tolerated Activity: independent Misc: pt to keep L hand elevated, can apply ice as needed Plan: continue unasyn, cultures pending Spoke with pt's daughter this evening, would like an update in the AM after doctors complete rounds.Name: Silver #[phone] [address] has [address]no in place, O2 sats 95% on RA. Pt was a bit hypertensive this evening 157/68. Has PRN hydralazine ordered for SBP >180. Pt and family requested melatonin for bedtime. Pt is resting now. Continuing to monitor and provide cares. Plan of Care - Dominique Jaimes RN - 01/31/2022 2:49 PM CDT PRIMARY DIAGNOSIS: SOFT TISSUE INFECTIONS OUTPATIENT/OBSERVATION GOALS TO BE MET BEFORE DISCHARGE: 1. Vitals sign stable or return to baseline: Yes 2. Tolerating oral antibiotics or has home infusion set up if applicable: Yes 3. Pain status: Improved-controlled with oral pain medications. 4. 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 Nurse to notify provider when observation goals have been met and patient is ready for discharge.Goal Outcome Evaluation: Pt resting after I and d procedure of left fourth digit. Pt dressing remains dry and intact, fingerswarm and good cmv. Pt tolerating iv abx. Pt son at bedside to assist with interpretation. Op Note - Mandi Jeong MD - 01/31/2022 10:33 AM CDT Procedure Date: 01/31/2022 PREOPERATIVE DIAGNOSIS: Left small finger DIP (distal interphalangeal) septic joint. POSTOPERATIVE DIAGNOSES: 1. Gout. 2. Secondary septic joint of the DIP (distal interphalangeal) joint. 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 PROCEDURES: Left small finger DIP (distal interphalangeal) joint irrigation, debridement, and primary fusion. SURGEON: Mandi Jeong MD OPEN CLAIMS REPRESENTATIVE: Lorena Padilla PA-C ANESTHESIA: General with a digital block. Surgical site was signed by me and confirmed at the timeout. Informed consent was obtained in the holding area with an adjunct teacher and his son present. Prophylactic antibiotics as the patient had been on antibiotics over the last 24 hours, but preoperative antibiotics were held for cultures. SPECIMENS: Gouty tissue was sent for identification, as well as the joint aspirate for Gram stain, aerobic and anaerobic cultures. DESCRIPTION OF PROCEDURE: The patient was brought to the operating room, given a general anesthetic,then his left hand was prepped and draped in the normal standard manner with a Betadine scrub and prep. A digital block was given of lidocaine and Marcaine, no epinephrine. An H-type incision was made distally over the DIP joint, and on the ulnar side, he had a broken, open wound and once we entered the subcutaneous tissue, white classic gouty tophi were immediately evident. So, the skin was elevatedup proximally and distally. The extensor mechanism was basically completely gone and eroded away from the tophi, except for just a small band on the radial side, which was insufficient for extending the finger. There was no articular cartilage on either side of the joint, so that extensor mechanism and all gouty tophi were debrided. The joint was completely debrided down to good bleeding subchondral bone. The area was irrigated out copiously, as he did have indra pus in the joint as well. Once this was done and the soft tissues that contained gouty tophi were debrided, including the skin in that corner, we had to shift the skin ulnarly to cover the defect where the tophi broke through and given the fact that it was slightly shortened up, allowed us to get skin coverage over the joint. He will be held in extension in a solid splint for 3 months in hopes to create a solid fusion there, given that he had no extensor mechanism prior with the gouty tophi. He was given a digital block of Marcaine. The tourniquet was let down. He did have healthy, bleeding tissue. The skin was closed with 4-0 nylon. Sterile dressing and a splint were applied. The patient was transferred to recovery room in stable condition. He will need to be seen by Infectious Disease due to the fact that he had a septic arthritison top of the gouty arthritis, so he will need antibiotic coverage for that in order to prevent osteomyelitis. Mandi Jeong MD MT: [facility] Name: MERY DURHAM MRN: [id number] Account: [id number] : 1945 Procedure Date: 01/31/2022 Document: [id number] Brief Op Note - Mandi Jeong MD - 01/31/2022 10:26 AM CDT [facility] Brief Operative Note Pre-operative diagnosis: Septic finger, left [L03.012] Post-operative diagnosis Gout, severe arthritis at DIP joint Procedure: Procedure(s): Irrigation and debridement left fifth finger and primary fusion of left 5th finger joint Surgeon: Surgeon(s) and Role: * Mandi Jeong MD - Primary * Lorena Padilla PA-C - Assisting Anesthesia: General Estimated Blood Loss: Less than 10 ml Drains: None Specimens: ID Type Source Tests Collected by Time Destination A : Left 5th DIP joint Synovial fluid Finger, Left CRYSTAL ID SYNOVIAL FLUID Mandi Jeong MD 01/31/2022 8:35 AM B : Left 5th DIP Joint Tissue Finger, Left ANAEROBIC BACTERIAL CULTURE ROUTINE, GRAM STAIN, AEROBIC BACTERIAL CULTURE ROUTINE Mandi Jeong MD 01/31/2022 9:50 AM BREVISED : Left 5th DIP Joint Tissue Finger, Left AFB CULTURE AND STAIN NON BLOOD, ANAEROBIC BACTERIAL CULTURE ROUTINE, GRAM STAIN, AEROBIC BACTERIAL CULTURE ROUTINE Mandi Jeong MD 01/31/2022 10:09 AM Findings: None. Complications: None. Implants: * No implants in log * Plan of Care - KALPANA OCAMPO - 01/31/2022 12:10 AM CDT Care from [id number] Inpatient Progress Note: For complete assessment see flow sheet documentation. Vital signs: Temp: 98.4 ??F (36.9 ??C) Temp src: Oral BP: 123/52 Pulse: 54 Resp: 18 SpO2: 96 % O2 Device: None (Room air) Height: 152.4 cm (5') Weight: 58.5 kg (129 lb) Estimated body mass index is 25.19 kg/m?? as calculated from the following: Height as of this encounter: 1.524 m (5'). Weight as of this encounter: 58.5 kg (129 lb). Orientation: A&O x 4 Hmong speaking. Indep in the room. Left fifth finger possible I & D today. Finger farzana in color. Pt remains afebrile. Scheduled Unasyn given. NPO since midnight for potential procedure. Orthopedic following. Pt has been resting thru the night until 5 aly when pain in his finger was too much for him not allowing him to sleep. PRN Tylenol given. Pt offered ice as well to try to help with the swelling, but pt declined stating ice makes it feel worse. Will continue to monitor and provide cares. Kalpana Ocampo RN Plan of Care - Chava Mcghee RN - 01/30/2022 10:11 PM CDT Goal Outcome Evaluation: [id number] VSS on RA. A&Ox4. Pt received dose of unasyn this evening. Denies pain. Has been resting comfortably in room this evening. Up independently in room. Plan for pt to possibly get I&D tomorrow. Will continue monitoring and providing cares. Utilization Review - Angela Lozano MD - 01/30/2022 4:13 PM CDT Admission Status; Secondary Review Determination Under the authority of the Utilization Management Committee, the utilization review process indicated a secondary review on the above patient. The review outcome is based on review of the medical records, discussions with staff, and applying clinical experience noted on the date of the review. (x) Inpatient Status Appropriate - This patient's medical care is consistent with medical managementfor inpatient care and reasonable inpatient medical practice. RATIONALE FOR DETERMINATION 77 yo man with CAD h/o stent placement, hypertension, gout who presented with 10/10 finger pain, leukocytosis to 18,500, lactate 4.9 and acute renal failure with creatinine 2.05. I&D performed in Emergency Department. Blood cultures pending. Started on IV unasyn q 6 hours. Orthopedic surgery consultation requested. Remains on continuous IV fluids due to acute renal failure with suspected prerenaletiology plus being on SAM inhibitor and initial lactate 4.9. Not discharging today since has ongoing need for IV fluids due to tenuous renal function and for IV antibiotics 4 times daily. Inpatient admission is appropriate based on the Medicare guidelines. This document was produced using voice recognition software. The information on this document is developed by the utilization review team in order for the business office to ensure compliance. This only denotes the appropriateness of proper admission status and does not reflect the quality of care rendered. The definitions of Inpatient Status and Observation Status used in making the determination above are those provided in the CMS Coverage Manual, Chapter 1 and Chapter 6, section 70.4. Sincerely, Angela Lozano MD Utilization Review Physician Advisor [facility]. Plan of Care - Amelia Bruce RN - 01/30/2022 3:00 PM CDT PRIMARY DIAGNOSIS: SOFT TISSUE INFECTIONS OUTPATIENT/OBSERVATION GOALS TO BE MET BEFORE DISCHARGE: 1. Vitals sign stable or return to baseline: Yes 2. Tolerating oral antibiotics or has home infusion set up if applicable: No 3. Pain status: Pain free. 4. 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 Son at bedside, assisted with interpreting as no iPads were available. Denies pain. (L) pinky swollen, skin darkened. VSS. Tolerating regular diet. Up with SBA. IVF continued. Unasyn continued. Ortho saw; likely I&D tomorrow. Please review provider order for any additional goals. Nurse to notify provider when observation goals have been met and patient is ready for discharge. Pharmacy-Admission Medication History - Angie Tenorio - 01/30/2022 11:20 AM CDT Admission medication history interview status for this patient is complete. See [facility] admission navigator for allergy information, prior to admission medications and immunization status. 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 Additional medication history information: Patient said that he takes 2 medications, one for blood pressure and one for his heart. He confirmed he takes his atorvastatin daily, but only takes his lisinopril prn if his systolic blood pressure is above goal range 120-150 mmHg. He said he takes his bloodpressure daily and his last dose of lisinopril was a few days ago. Medication reconciliation/reorder completed by provider prior to medication history? Y (Y/N) Prior to Admission medications Medication Sig Last Dose Taking? Auth Provider atorvastatin (LIPITOR) 20 MG tablet Take 20 mg by mouth daily 01/29/2022 at Unknown time Yes Unknown, Entered By History lisinopril (ZESTRIL) 10 MG tablet Take 10 mg by mouth daily as needed Past Week at Unknown time Yes Unknown, Entered By History nitroGLYcerin (NITROSTAT) 0.[address] 0.4 mg under the tongue every 5 minutes as needed for chest pain For chest pain place 1 tablet under the tongue every 5 minutes for 3 doses. If symptoms persist 5 minutes after 1st dose call 911. 01/30/2022 at Unknown time Yes Unknown, Entered By History Associated attestation - Raymond Whitehead RP - 01/30/2022 12:28 PM CDT Medication reconciliation completed by clinical pharmacy manager. documented in this encounter Plan of Treatment Not on filedocumented as of this encounter Procedures Procedure Name Priority Date/Time Associated Comments Diagnosis CBC WITH PLATELETS AND Routine 02/01/2022 8:09 AM Results for this DIFFERENTIAL CDT procedure are i n the results section. CBC WITH PLATELETS & Routine 02/01/2022 8:09 AM R esults for this DIFFERENTIAL CDT procedure are i n the results section. ERYTHROCYTE Add-On 02/01/2022 8:09 AM Results f or this SEDIMENTATION RATE CDT procedure are in AUTO the results section. CRP INFLAMMATION Add-On 02/01/2022 8:09 AM Resul ts for this CDT procedure are i n the results section. COMPREHENSIVE Routine 02/01/2022 8:09 AM Results for this METABOLIC PANEL CDT procedure ar e in the results section. IONIZED CALCIUM Routine 02/01/2022 8:09 AM Result s for this CDT procedure are i n the results section. AFB CULTURE AND STAIN STAT 01/31/2022 9:50 AM Results for this NON-BLOOD CDT procedure are i n NON-RESPIRATORY the results section. AEROBIC BACTERIAL STAT 01/31/2022 9:50 AM Resu lts for this CULTURE ROUTINE CDT procedure ar e in the results section. GRAM STAIN STAT 01/31/2022 9:50 AM Results f or this CDT procedure are i n the results section. ANAEROBIC BACTERIAL STAT 01/31/2022 9:50 AM Re sults for this CULTURE ROUTINE CDT procedure ar e in the results section. AFB CULTURE AND STAIN STAT 01/31/2022 9:50 AM Results for this NON BLOOD CDT procedure are i n the results section. IRRIGATION AND 01/31/2022 9:04 AM Septic finger, left DEBRIDEMENT, FINGER CDT CRYSTAL ID SYNOVIAL STAT 01/31/2022 8:35 AM Re sults for this FLUID CDT procedure are i n the results section. MAGNESIUM Add-On 01/31/2022 5:58 AM Results f or this CDT procedure are i n the results section. LACTIC ACID WHOLE Routine 01/31/2022 5:58 AM Resu lts for this BLOOD CDT procedure are i n the results section. BASIC METABOLIC PANEL Routine 01/31/2022 5:58 AM Results for this CDT procedure are i n the results section. CBC WITH PLATELETS Routine 01/31/2022 5:58 AM Res ults for this CDT procedure are i n the results section. BASIC METABOLIC PANEL STAT 01/30/2022 8:04 AM Results for this CDT procedure are i n the results section. CBC WITH PLATELETS STAT 01/30/2022 8:04 AM Res ults for this CDT procedure are i n the results section. FRACTIONAL EXCRETION STAT 01/30/2022 6:26 AM R esults for this OF SODIUM CDT procedure are i n the results section. FRACTIONAL EXCRETION STAT 01/30/2022 6:26 AM R esults for this OF SODIUM CDT procedure are i n the results section. COVID-19 VIRUS STAT 01/30/2022 12:57 Results f or this (CORONAVIRUS) BY PCR AM CDT procedu re are in the results section. LACTIC ACID WHOLE STAT 01/29/2022 11:38 Result s for this BLOOD PM CDT procedure are i n the results section. MS DRAINAGE FINGER Routine 01/29/2022 11:10 Resul ts for this ABSCESS, SIMPLE PM CDT procedure ar e in the results section. DIGITAL BLOCK Routine 01/29/2022 11:08 Results fo r this PM CDT procedure are i n the results section. XR FINGER LEFT G/E 2 STAT 01/29/2022 10:46 Res ults for this VIEWS PM CDT procedure are i n the results section. CT ABDOMEN PELVIS W/O STAT 01/29/2022 10:37 Re sults for this CONTRAST PM CDT procedure are i n the results section. BLOOD CULTURE STAT 01/29/2022 9:02 PM Results for this CDT procedure are i n the results section. LACTIC ACID WHOLE STAT 01/29/2022 8:57 PM Resu lts for this BLOOD CDT procedure are i n the results section. BLOOD CULTURE STAT 01/29/2022 8:57 PM Results for this CDT procedure are i n the results section. CBC WITH PLATELETS AND STAT 01/29/2022 8:38 PM Results for this DIFFERENTIAL CDT procedure are i n the results section. CBC WITH PLATELETS & STAT 01/29/2022 8:38 PM R esults for this DIFFERENTIAL CDT procedure are i n the results section. TROPONIN I STAT 01/29/2022 8:38 PM Results f or this CDT procedure are i n the results section. LIPASE STAT 01/29/2022 8:38 PM Results f or this CDT procedure are i n the results section. COMPREHENSIVE STAT 01/29/2022 8:38 PM Results for this METABOLIC PANEL CDT procedure ar e in the results section. documented in this encounter Results CRP inflammation (02/01/2022 8:09 AM CDT) Analysis Performed At Patho logist Time Signature CRP Inflammation 7.0 0.0 - 8.0 02/01/2022 [facility] Y mg/L 1:39 PM CDT Specimen Anatomical Collection Method / Collection Time Recei logan Time (Source) Location / Volume Laterality Blood STRUCTURE OF RIGHT Venipuncture / 02/01/2022 8:09 05/0 05/2022 8:45 UPPER LIMB / Unknown AM CDT AM CDT Unknown Qasim Grfa MD LAB - BLOOD ORDERABLES Performing Organization Address City/[facility]/[place] [address] Care Lab [address] Lab (1st floor, no room number) Erythrocyte sedimentation rate auto (02/01/2022 8:09 AM CDT) [facility] gist Method Time Signature Erythrocyte 13 0 - 20 02/01/2022 LABORATORY Sedimentation Rate mm/hr 2:10 PM CDT Specimen Anatomical Collection Method / Collection Time Recei logan Time (Source) Location / Volume Laterality Blood STRUCTURE OF RIGHT Venipuncture / 02/01/2022 8:09 05/0 05/2022 8:45 UPPER LIMB / Unknown AM CDT AM CDT Unknown Qasim Graf MD LAB - BLOOD ORDERABLES Performing Organization Address City/[facility]/[place] [address] Care Lab [address] Lab (1st floor, no room number) (ABNORMAL) CBC with platelets and differential (02/01/2022 8:09 AM CDT) [facility] Signature WBC Count 16.4 (H) 4.0 - 02/01/2022 [facility] 11.0 10:17 AM CDT 10e3/uL RBC Count 5.14 4.40 - 02/01/2022 [facility] 5.90 10:17 AM CDT 10e6/uL Hemoglobin 14.8 13.3 - 02/01/2022 [facility] 17.7 g/dL 10:17 AM CDT Hematocrit 45.5 40.0 - 02/01/2022 [facility] 53.0 % 10:17 AM CDT MCV 89 78 - 100 02/01/2022 [facility] fL 10:17 AM CDT MCH 28.8 26.5 - 02/01/2022 [facility] 33.0 pg 10:17 AM CDT MCHC 32.5 31.5 - 02/01/2022 [facility] 36.5 g/dL 10:17 AM CDT RDW 12.6 10.0 - 02/01/2022 [facility] 15.0 % 10:17 AM CDT Platelet Count 255 150 - 450 02/01/2022 [facility] 10e3/uL 10:17 AM CDT % Neutrophils 82 % 02/01/2022 [facility] 10:17 AM CDT % Lymphocytes 13 % 02/01/2022 [facility] 10:17 AM CDT % Monocytes 4 % 02/01/2022 [facility] 10:17 AM CDT % Eosinophils 0 % 02/01/2022 [facility] 10:17 AM CDT % Basophils 0 % 02/01/2022 [facility] 10:17 AM CDT % Immature 1 % 02/01/2022 [facility] Granulocytes 10:17 AM CDT NRBCs per 100 0 <1 /100 02/01/2022 [facility] WBC 10:17 AM CDT Absolute 13.5 (H) 1.6 - 8.3 02/01/2022 [facility] Neutrophils 10e3/uL 10:17 AM CDT Absolute 2.1 0.8 - 5.3 02/01/2022 [facility] Lymphocytes 10e3/uL 10:17 AM CDT Absolute 0.7 0.0 - 1.3 02/01/2022 [facility] Monocytes 10e3/uL 10:17 AM CDT Absolute 0.0 0.0 - 0.7 02/01/2022 [facility] Eosinophils 10e3/uL 10:17 AM CDT Absolute 0.0 0.0 - 0.2 02/01/2022 [facility] Basophils 10e3/uL 10:17 AM CDT Absolute 0.1 <=0.4 02/01/2022 [facility] Immature 10e3/uL 10:17 AM CDT Granulocytes Absolute NRBCs 0.0 10e3/uL 02/01/2022 [facility] 10:17 AM CDT Specimen Anatomical Collection Method / Collection Time Recei logan Time (Source) Location / Volume Laterality Blood STRUCTURE OF RIGHT Venipuncture / 02/01/2022 8:09 05/0 05/2022 8:45 UPPER LIMB / Unknown AM CDT AM CDT Unknown Beryl METZ LAB - BLOOD ORDERABLES Performing Organization Address City/State/ZIP Code [place] [address] Care Lab [address] Lab (1st floor, no room number) Ionized Calcium (02/01/2022 8:09 AM CDT) P athologist Signature Calcium Ionized 4.5 4.4 - 5.2 02/01/2022 [facility] mg/dL 8:49 AM CDT Specimen Anatomical Collection Method / Collection Time Recei logan Time (Source) Location / Volume Laterality Blood STRUCTURE OF RIGHT Venipuncture / 02/01/2022 8:09 05/0 05/2022 8:45 UPPER LIMB / Unknown AM CDT AM CDT Unknown Beryl METZ LAB - BLOOD ORDERABLES Performing Organization Address City/State/ZIP Code [place] [address] Care Lab [address] Lab (1st floor, no room number) (ABNORMAL) Comprehensive metabolic panel (02/01/2022 8:09 AM CDT) Patholo gist Method Time Signature Sodium 136 133 - 144 02/01/2022 [facility] mmol/L 9:17 AM CDT Potassium 4.2 3.4 - 5.3 02/01/2022 [facility] mmol/L 9:17 AM CDT Chloride 106 94 - 109 02/01/2022 [facility] mmol/L 9:17 AM CDT Carbon Dioxide 24 20 - 32 02/01/2022 [facility] (CO2) mmol/L 9:17 AM CDT Anion Gap 6 3 - 14 02/01/2022 [facility] mmol/L 9:17 AM CDT Urea Nitrogen 29 7 - 30 02/01/2022 [facility] mg/dL 9:17 AM CDT Creatinine 1.06 0.66 - 02/01/2022 [facility] 1.25 mg/dL 9:17 AM CDT Calcium 8.6 8.5 - 10.1 02/01/2022 LABORATORY mg/dL 9:17 AM CDT Glucose 216 (H) 70 - 99 02/01/2022 [facility] mg/dL 9:17 AM CDT Alkaline 93 40 - 150 02/01/2022 LABORATORY Phosphatase U/L 9:17 AM CDT AST 31 0 - 45 U/L 02/01/2022 [facility] 9:17 AM CDT ALT 54 0 - 70 U/L 02/01/2022 [facility] 9:17 AM CDT Protein Total 6.2 (L) 6.8 - 8.8 02/01/2022 [facility] g/dL 9:17 AM CDT Albumin 2.7 (L) 3.4 - 5.0 02/01/2022 [facility] g/dL 9:17 AM CDT Bilirubin Total 1.0 0.2 - 1.3 02/01/2022 [facility] mg/dL 9:17 AM CDT GFR Estimate 71 >60 02/01/2022 LABORATORY mL/min/1.7 9:17 AM CDT 3m2 Comment: Effective September 15, 2021 eGF Rcr in adults is calculated using the 2020 CKD-EPI creatinine equation which includ es age and gender (Jacobo et al., NEJM, DOI: 10.1056/MWWDrx4623756) Specimen Anatomical Collection Method / Collection Time Recei logan Time (Source) Location / Volume Laterality Blood STRUCTURE OF RIGHT Venipuncture / 02/01/2022 8:09 05/0 05/2022 8:45 UPPER LIMB / Unknown AM CDT AM CDT Unknown Beryl METZ LAB - BLOOD ORDERABLES Performing Organization Address City/State/ZIP Code [place] [phone] Care Lab [address] Lab (1st floor, no room number) Acid-Fast Bacilli Culture and Stain (01/31/2022 9:50 AM CDT) P athologist Signature Acid Fast Stain 03/29/2022 [facility] 11:01 PM CDT Comment: Quantity of specimen not suffic ient for Acid Fast Stain. No stain performed. Acid Fast Stain 03/29/2022 11:01 PM CDT [facility] Comment: Quantity of specimen not suffic ient for Acid Fast Stain. No stain performed. Acid Fast Stain 03/29/2022 11:01 PM CDT [facility] Comment: Quantity of specimen not suffic ient for Acid Fast Stain. No stain performed. Acid Fast Stain 03/29/2022 11:01 PM CDT [facility] Comment: Quantity of specimen not suffic ient for Acid Fast Stain. No stain performed. Specimen (Source) Anatomical Collection Method Collection Time Re ceived Time Location / / Volume Laterality Tissue STRUCTURE OF Non-blood 01/31/2022 9:50 AM FINGER OF LEFT Collection / CDT HAND / Unknown Unknown Narrative [facility] - 03/29/2022 11:01 PM CDT Culture negative for acid fast bacilli Performed by [employer] [address] [place] [address] [email or web address], Stanislav Poon MD, PHD, Lab. Director Mandi Jeong MD LAB - [facility] Organization Address City/State/ZIP Code Phon e Number [employer] LICENSE OF [facility] [employer] [place], [place] [phone] [address] [facility] [phone] (ABNORMAL) Tissue Aerobic Bacterial Culture Routine (01/31/2022 9:50 AM CDT) Patholo gist Method Time Signature Culture 3+ Streptococcus MARCO ANTONIO 02/03/2022 [facility] agalactiae (Group 10:29 AM LABORATORY B Streptococcus) CDT (A) Culture 1+ Staphylococcus 02/03/2022 [facility] aureus (A) 10:29 AM LABORATORY CDT Culture 1+ Staphylococcus 02/03/2022 [facility] haemolyticus (A) 10:29 AM LABORATORY CDT Comment: Susceptibilities not routinely done Specimen Anatomical Collection Method Collection Time Receive d Time (Source) Location / / Volume Laterality Tissue STRUCTURE OF Non-blood 01/31/2022 9:50 AM 9:56 FINGER OF LEFT Collection / CDT AM CDT HAND / Unknown Unknown Organism Antibiotic Method Susceptibility Streptococcus agalactiae (Group B Ampicillin MARCO ANTONIO 0.12 ug/mL: Susceptible Streptococcus) Streptococcus agalactiae (Group B Penicillin MARCO ANTONIO 0.06 ug/mL: Susceptible Streptococcus) Streptococcus agalactiae (Group B Clindamycin MARCO ANTONIO <=0.06 ug/mL: Susceptible Streptococcus) Streptococcus agalactiae (Group B Erythromycin MARCO ANTONIO <=0.06 ug/mL: Susceptible Streptococcus) Streptococcus agalactiae (Group B Cefotaxime MARCO ANTONIO <=0.25 ug/mL: Susceptible Streptococcus) Streptococcus agalactiae (Group B Ceftriaxone MARCO ANTONIO <=0.25 ug/mL: Susceptible Streptococcus) Streptococcus agalactiae (Group B Vancomycin MARCO ANTONIO 0.5 ug/mL: Susceptible Streptococcus) Staphylococcus aureus Oxacillin MARCO ANTONIO 0.5 ug/mL: Susceptible Comment: Oxacillin susceptib le isolates are susceptible to cephalosporins (example: cefazolin and cephalexin) an d beta lactam combination agents. Oxacillin resistant isolates are resistant to th marcela agents. Staphylococcus aureus Gentamicin MARCO ANTONIO <=0.5 ug/m L: Susceptible Staphylococcus aureus Erythromycin MARCO ANTONIO <=0.25 ug/ mL: Susceptible Staphylococcus aureus Clindamycin MARCO ANTONIO <=0.25 ug/ mL: Susceptible Staphylococcus aureus Vancomycin MARCO ANTONIO 1.0 ug/mL: Susceptible Staphylococcus aureus Tetracycline MARCO ANTONIO <=1.0 ug/m L: Susceptible Staphylococcus aureus Trimethoprim/Sulfamethoxazole MARCO ANTONIO <=0.5/9.5 ug/mL: Susceptible Mandi Jeong MD LAB - MICRO GENERAL [facility] Performing Organization Address City/State/ZIP Code Phon e Number [facility]ORATORY [facility] [place] [phone] Diag. Lab [address] [facility], [address] (ABNORMAL) Gram Stain (01/31/2022 9:50 AM CDT) [facility] Method Time Signature Gram Stain 2+ Gram 01/31/2022 [facility] Result positive 12:45 PM CDT LABORATORY cocci (A) Gram Stain 2+ WBC seen 01/31/2022 [facility] Result (A) 12:45 PM CDT LABORATORY Specimen Anatomical Collection Method Collection Time Receive d Time (Source) Location / / Volume Laterality Tissue STRUCTURE OF Non-blood 01/31/2022 9:50 AM 2 9:56 FINGER OF LEFT Collection / CDT AM CDT HAND / Unknown Unknown Mandi Jeong MD LAB - MICRO [facility] Performing Organization Address City/State/ZIP Code Phon e Number [facility]ORATORY [facility] [place] [address] Diag. Lab [address] [facility], [address] Anaerobic Bacterial Culture Routine (01/31/2022 9:50 AM CDT) [facility] [place] Method Time Signature Culture No anaerobic MARCO ANTONIO 02/07/2022 [facility] organisms 8:31 AM CDT LABORATORY isolated Specimen Anatomical Collection Method Collection Time Receive d Time (Source) Location / / Volume Laterality Tissue STRUCTURE OF Non-blood 01/31/2022 9:50 AM 2 9:55 FINGER OF LEFT Collection / CDT AM CDT HAND / Unknown Unknown Mandi Jeong MD LAB - MICRO [facility] Performing Organization Address City/[facility] Code Phon e Number [facility]ORATORY [facility] [place] [address] Diag. Lab [address] [facility], [address] (ABNORMAL) Crystal ID Synovial Fluid (01/31/2022 8:35 AM CDT) [facility] Method Time Signature Crystals Positive for No clinically MARCO ANTONIO 01/31/2022 [facility] Analysis extracellular significant 11:43 AM LABORATORY crystals, crystals seen. CDT consistent with monosodium urate crystals. (A) Specimen Anatomical Collection Method Collection Time Receive d Time (Source) Location / / Volume Laterality Synovial fluid STRUCTURE OF Non-blood 01/31/2022 8:35 AM 022 9:56 FINGER OF LEFT Collection / CDT AM CDT HAND / Unknown Unknown Narrative [facility] - 01/31/2022 11:43 AM CDT Examination of slide preparation(s) of the specimen under polarized light demonstrates needle-shaped crystals with a birefringent pattern consistent with gout (monosodium urate). ??Clinical correlation is recommended. Mandi Jeong MD LAB - BODY FLUIDS ORDERA BLES Performing Organization Address City/State/ZIP Code [place] [address] Care Lab [address] Lab (1st floor, no room number) Magnesium (01/31/2022 5:58 AM CDT) P athologist Signature Magnesium 1.9 1.6 - 2.3 01/31/2022 [facility] mg/dL 1:31 PM CDT Specimen Anatomical Collection Method / Collection Time Recei logan Time (Source) Location / Volume Laterality Blood STRUCTURE OF RIGHT Venipuncture / 01/31/2022 5:58 05/0 04/2022 6:18 UPPER LIMB / Unknown AM CDT AM CDT Unknown Beryl METZ LAB - BLOOD ORDERABLES Performing Organization Address City/State/ZIP Code [place] [address] Care Lab [address] Lab (1st floor, no room number) (ABNORMAL) CBC with platelets (01/31/2022 5:58 AM CDT) Patholo gist Method Time Signature WBC Count 9.4 4.0 - 11.0 01/31/2022 [facility] 10e3/uL 6:21 AM CDT RBC Count 4.10 (L) 4.40 - 01/31/2022 [facility] 5.90 6:21 AM CDT 10e6/uL Hemoglobin 11.8 (L) 13.3 - 01/31/2022 [facility] 17.7 g/dL 6:21 AM CDT Hematocrit 36.8 (L) 40.0 - 01/31/2022 [facility] 53.0 % 6:21 AM CDT MCV 90 78 - 100 01/31/2022 [facility] fL 6:21 AM CDT MCH 28.8 26.5 - 01/31/2022 [facility] 33.0 pg 6:21 AM CDT MCHC 32.1 31.5 - 01/31/2022 [facility] 36.5 g/dL 6:21 AM CDT RDW 13.0 10.0 - 01/31/2022 [facility] 15.0 % 6:21 AM CDT Platelet Count 172 150 - 450 01/31/2022 [facility] 10e3/uL 6:21 AM CDT Specimen Anatomical Collection Method / Collection Time Recei logan Time (Source) Location / Volume Laterality Blood STRUCTURE OF RIGHT Venipuncture / 01/31/2022 5:58 05/0 04/2022 6:18 UPPER LIMB / Unknown AM CDT AM CDT Unknown Sergei Dover MD LAB - BLOOD ORDERABLES Performing Organization Address City/State/ZIP Code [place] [phone] Care Lab [address] Lab (1st floor, no room number) (ABNORMAL) Basic metabolic panel (01/31/2022 5:58 AM CDT) Analysis Performed At Patho logist Time Signature Sodium 144 133 - 144 01/31/2022 LABORATORY mmol/L 6:35 AM CDT Potassium 4.0 3.4 - 5.3 01/31/2022 LABORATORY mmol/L 6:35 AM CDT Chloride 115 (H) 94 - 109 01/31/2022 LABORATORY mmol/L 6:35 AM CDT Carbon Dioxide 23 20 - 32 01/31/2022 LABORATORY (CO2) mmol/L 6:35 AM CDT Anion Gap 6 3 - 14 01/31/2022 LABORATORY mmol/L 6:35 AM CDT Urea Nitrogen 28 7 - 30 01/31/2022 LABORATORY mg/dL 6:35 AM CDT Creatinine 0.92 0.66 - 01/31/2022 LABORATORY 1.25 mg/dL 6:35 AM CDT Calcium 7.5 (L) 8.5 - 10.1 01/31/2022 LABORATORY mg/dL 6:35 AM CDT Glucose 90 70 - 99 01/31/2022 LABORATORY mg/dL 6:35 AM CDT GFR Estimate 85 >60 01/31/2022 LABORATORY mL/min/1.7 6:35 AM CDT 3m2 Comment: Effective September 15, 2021 eGF Rcr in adults is calculated using the 2020 CKD-EPI creatinine equation which includ es age and gender (Jacobo et al., NEJM, DOI: 10.1056/QCLSzf6403212) Specimen Anatomical Collection Method / Collection Time Recei logan Time (Source) Location / Volume Laterality Blood STRUCTURE OF RIGHT Venipuncture / 01/31/2022 5:58 05/0 04/2022 6:18 UPPER LIMB / Unknown AM CDT AM CDT Unknown Sergei Dover MD LAB - BLOOD ORDERABLES Performing Organization Address City/State/ZIP Code [place] [phone] Care Lab [address] Lab (1st floor, no room number) Lactic acid whole blood (01/31/2022 5:58 AM CDT) P athologist Signature Lactic Acid 0.8 0.7 - 2.0 01/31/2022 [facility] mmol/L 6:11 AM CDT Specimen Anatomical Collection Method / Collection Time Recei logan Time (Source) Location / Volume Laterality Blood STRUCTURE OF RIGHT Venipuncture / 01/31/2022 5:58 05/0 04/2022 6:09 UPPER LIMB / Unknown AM CDT AM CDT Unknown Ashely Petit MD LAB - BLOOD ORDERABLES Performing Organization Address City/[facility]/ZIP Code [place] [address] Care Lab [address] Lab (1st floor, no room number) (ABNORMAL) CBC with platelets (01/30/2022 8:04 AM CDT) Patholo gist Method Time Signature WBC Count 14.6 (H) 4.0 - 11.0 01/30/2022 [facility] 10e3/uL 8:16 AM CDT RBC Count 4.36 (L) 4.40 - 01/30/2022 [facility] 5.90 8:16 AM CDT 10e6/uL Hemoglobin 12.5 (L) 13.3 - 01/30/2022 [facility] 17.7 g/dL 8:16 AM CDT Hematocrit 38.7 (L) 40.0 - 01/30/2022 [facility] 53.0 % 8:16 AM CDT MCV 89 78 - 100 01/30/2022 [facility] fL 8:16 AM CDT MCH 28.7 26.5 - 01/30/2022 [facility] 33.0 pg 8:16 AM CDT MCHC 32.3 31.5 - 01/30/2022 [facility] 36.5 g/dL 8:16 AM CDT RDW 13.0 10.0 - 01/30/2022 [facility] 15.0 % 8:16 AM CDT Platelet Count 192 150 - 450 01/30/2022 [facility] 10e3/uL 8:16 AM CDT Specimen Anatomical Collection Method / Collection Time Recei logan Time (Source) Location / Volume Laterality Blood STRUCTURE OF LEFT Venipuncture / 01/30/2022 8:04 01/30 8:12 HAND / Unknown Unknown AM CDT AM CDT Ashely Petit MD LAB - BLOOD ORDERABLES Performing Organization Address City/State/ZIP Code [place] [phone] Care Lab [address] Lab (1st floor, no room number) (ABNORMAL) Basic metabolic panel (01/30/2022 8:04 AM CDT) P athologist Signature Sodium 143 133 - 144 01/30/2022 [facility] mmol/L 8:41 AM CDT Potassium 5.1 3.4 - 5.3 01/30/2022 [facility] mmol/L 8:41 AM CDT Comment: Specimen slightly hemolyzed, po tassium may be falsely elevated. Chloride 116 (H) 94 - 109 mmol/L 01/30/2022 8:41 AM [facility] BORATORY CDT Carbon Dioxide (CO2) 22 20 - 32 mmol/L 01/30/2022 8:4 1 AM [facility] LABORATORY CDT Anion Gap 5 3 - 14 mmol/L 01/30/2022 8:41 AM RH LABO RATORY CDT Urea Nitrogen 42 (H) 7 - 30 mg/dL 01/30/2022 8:41 AM RH L ABORATORY CDT Creatinine 1.29 (H) 0.66 - 1.25 mg/dL 01/30/2022 8:41 AM [facility] LABORATORY CDT Calcium 7.8 (L) 8.5 - 10.1 mg/dL 01/30/2022 8:41 AM RH L ABORATORY CDT Glucose 119 (H) 70 - 99 mg/dL 01/30/2022 8:41 AM [facility] LABO RATORY CDT GFR Estimate 56 (L) >60 mL/min/1.73m2 01/30/2022 8:41 AM [facility] CDT Comment: Effective September 15, 2021 eGF Rcr in adults is calculated using the 2020 CKD-EPI creatinine equation which includ es age and gender (Jacobo et al., NEJM, DOI: 10.1056/EOEWxd5819875) Specimen Anatomical Collection Method / Collection Time Recei logan Time (Source) Location / Volume Laterality Blood STRUCTURE OF LEFT Venipuncture / 01/30/2022 8:04 01/30 8:11 HAND / Unknown Unknown AM CDT AM CDT Ashely Petit MD LAB - BLOOD ORDERABLES Performing Organization Address City/State/ZIP Code [place] [address] Care Lab [address] Lab (1st floor, no room number) Fractional Excretion of Sodium (01/30/2022 6:26 AM CDT) P athologist Signature %FENA 0.8 % 01/30/2022 9:39 [facility] LAB[facility] AM CDT Comment: Adult: ?<1 percent Indicates prerenal azotemia >3 percent Suggests acute tubular necrosis Neonates: <2.5 percent Suggest prerenal azotemia >2.5 percent Suggest acute tubular necrosis Sodium Urine mmol/L 82 mmol/L 01/30/2022 9:39 AM C DT [facility] LAB[facility] Creatinine Urine mg/dL 90 mg/dL 01/30/2022 9:39 A M CDT [facility] Specimen Anatomical Collection Method Collection Time Receive d Time (Source) Location / / Volume Laterality Urine URINE SPECIMEN Non-blood 01/30/2022 6:26 AM 022 6:49 OBTAINED BY CLEAN Collection / CDT AM CDT CATCH PROCEDURE / Unknown Unknown Ashely Petit MD LAB - URINE ORDERABLES Performing Organization Address City/[facility]/ZIP Code [place] [phone] Care Lab [address] Lab (1st floor, no room number) Asymptomatic COVID-19 Virus (Coronavirus) by PCR Nasopharyngeal (01/30/2022 12:57 AM CDT) Analysis Performed At Patho logist Time Signature SARS CoV2 PCR Negative Negative 01/30/2022 LABORATORY 1:45 AM CDT Comment: NEGATIVE: SARS-CoV-2 (COVID-19) RNA not detected, presumed negative. Specimen Anatomical Location / Collection Method Collection Kyle e Received Time (Source) Laterality / Volume Swab NASOPHARYNGEAL Non-blood 01/30/2022 12:57 1:08 STRUCTURE / Unknown Collection / AM CDT AM CDT Unknown Narrative LABORATORY - 01/30/2022 1:45 AM CDT Testing was performed using the Xpert Xpress SARS-CoV-2 Assay on the [employer]. A dditional information about this Emergency Use Authorization (EUA) a ssay can be found via the Lab Guide. This test should be ordered for t he detection of SARS-CoV-2 in individuals who meet SARS-CoV-2 clinical and/or epidemiological criteria. Test performance is unknown in asymptomatic patients. This test is for in vitro diagnostic use unde r the FDA EUA for laboratories certified under CLIA to per form high complexity testing. This test has not been FDA cleared or ap proved. A negative result does not rule out the presence of PCR in hibitors in the specimen or target RNA in concentration below the li armin of detection for the assay. The possibility of a false negati ve should be considered if the patient's recent exposure or clinica l presentation suggests COVID-19. This test was validated by the [facility]. This laboratory is certified under the Clinical Laboratory Improvement Amendments of 1988 (CLIA-88) as qualified to perform high complexity laboratory testing. Ashely Petit MD LAB - MICRO GENERAL ORDERABL ES Performing Organization Address City/[facility]/ZIP Code [place] [address] Care Lab [address] Lab (1st floor, no room number) (ABNORMAL) Lactic acid whole blood (01/29/2022 11:38 PM CDT) P athologist Signature Lactic Acid 2.1 (H) 0.7 - 2.0 01/30/2022 LABORATORY mmol/L 12:24 AM CDT Specimen Anatomical Collection Method / Collection Time Recei logan Time (Source) Location / Volume Laterality Blood STRUCTURE OF RIGHT Venipuncture / 01/29/2022 11:38 02/2022 UPPER LIMB / Unknown PM CDT 11:42 PM CDT Unknown Tor Sky MD LAB - BLOOD ORDERABLES Performing Organization Address City/State/ZIP Code [place] [address] Care Lab [address] Lab (1st floor, no room number) MS DRAINAGE FINGER ABSCESS, SIMPLE (01/29/2022 11:10 PM CDT) Narrative Tor Sky MD - 01/29/2022 1 1:10 PM CDT Tor Sky MD ? 01/29/2022 11:54 PM [facility] PROCEDURE: -Incision/Drainage Date/Time: 01/29/2022 11:10 PM Performed by: Tor Sky MD Authorized by: Tor Sky MD Risks, benefits and alternatives discuss ed. LOCATION: ?Type: ??Abscess ??Location: ??Upper extremity ??Upper extremity location: ??Finger ??Finger location: ??L small finger PRE-PROCEDURE DETAILS: ??Skin preparation: ??Betadine PROCEDURE TYPE: ??Complexity: ??Simple ANESTHESIA (see MAR for exact dosages): ??Anesthesia method: ??None PROCEDURE DETAILS: ??Needle aspiration: yes ?Needle size: ??18 G ??Incision types: ??Stab incision ??Incision depth: ??Subcutaneous ??Scalpel blade: ??11 ??Wound management: ??Probed and delocu lated ??Drainage: ??Purulent ??Drainage amount: ??Scant ??Wound treatment: ??Wound left open ??Packing materials: ??None PROCEDURE Describe Procedure: mediolateral surface Tor Sky MD PROCEDURE/MINOR SURGICAL ORD ERABLES Digital Block (01/29/2022 11:08 PM CDT) Narrative Tor Sky MD - 01/29/2022 1 1:08 PM CDT Tor Sky MD ? 01/29/2022 11:54 PM [facility] Digital Block Date/Time: 01/29/2022 11:08 PM Performed by: Tor Sky MD Authorized by: Tor Sky MD INDICATION ??Indications: ??Pain relief LOCATION ??Block location: ??Finger ??Finger blocked: ??L little finger PRE-PROCEDURE DETAILS ??Neurovascular status: intact ?Skin preparation: ??Alcohol and povid one-iodine ANESTHESIA (see MAR for exact dosages) ??Needle gauge: ??24 G ??Anesthetic injected: ??Procaine 0.5% w/o epi ??Technique: volar entry. ??Injection procedure: ??Negative aspir ation for blood POST-PROCEDURE DETAILS ??Outcome: ??Anesthesia achieved Tor Sky MD PROCEDURE/MINOR SURGICAL ORD ERABLES Fingers XR, 2-3 views, left (01/29/2022 10:46 PM CDT) Anatomical Region Laterality Modality Hand, Left Hand Left Digital Radiography Specimen (Source) Anatomical Collection Method Collection Time Re ceived Time Location / / Volume Laterality 01/29/2022 10:34 PM CDT Impressions 01/29/2022 11:03 PM CDT IMPRESSION: No acute fracture or dislocation. Degenerative changes involving several IP joints of the left hand, narrowing worse at the DIP joints of the 2-5 digits. Mild soft tissue swelling and deform ity about the DIP joints of the 2-5 digi ts, more apparent at the fifth digit. Prior heale d fracture deformity of the middle phalanx of the fifth digit and the fifth metacarpal. Degenerative changes at the radiocarpal, STT, first CMC and first MCP joints. Narrative 01/29/2022 11:03 PM CDT EXAM: XR FINGER LEFT G/E 2 VIEWS LOCATION: [facility] DATE/TIME: 01/29/2022 10:34 PM INDICATION: Left little finger swelling and pain. Evaluate for fracture. COMPARISON: None. Procedure Note Zeny Hinton MD - 01/29/2022Formatt ing of this note might be different from the original. EXAM: XR FINGER LEFT G/E 2 VIEWS LOCATION: [facility] DATE/TIME: 01/29/2022 10:34 PM INDICATION: Left little finger swelling and pain. Evaluate for fracture. COMPARISON: None. IMPRESSION: No acute fracture or disloca tion. Degenerative changes involving several IP joints of the left hand, narrowing worse at the DIP joints of the 2-5 digits. Mild soft tissue swelling and deformity about the DIP joints of the 2-5 digits, more apparent at the fifth digit. Prior heale d fracture deformity of the middle phalanx of the fifth digit and the fifth metacarpal. Degenerative changes at the radiocarpal, STT, first CMC and first MCP joints. Tor Sky MD IMG DIAGNOSTIC IMAGING ORDER [place] CT Abdomen Pelvis w/o Contrast (01/29/2022 10:37 PM CDT) Anatomical Region Laterality Modality Abdomen/Pelvis, SUBRAD CT BODY, UMP CT ABDOMEN PELVIS, Computed Tomography RAD CT Specimen (Source) Anatomical Collection Method Collection Time Re ceived Time Location / / Volume Laterality 01/29/2022 10:30 PM CDT Impressions 01/29/2022 10:46 PM CDT IMPRESSION: 1. ??No evidence of nephroureterolithias is or bowel obstruction. 2. ??Additional findings as above. Narrative 01/29/2022 10:46 PM CDT EXAM: CT ABDOMEN PELVIS W/O CONTRAST LOCATION: [facility] DATE/TIME: 01/29/2022 10:30 PM INDICATION: Abdominal distension COMPARISON: 12/11/2015 TECHNIQUE: CT scan of the abdomen and pe lvis was performed without IV contrast. Multiplanar reformats were obtained. Dose reduction techniques were used. CONTRAST: None. FINDINGS: LOWER CHEST: Bibasilar atelectasis or sc arring, unchanged. At least moderate coronary artery calcification. HEPATOBILIARY: No biliary dilatation. PANCREAS: Atrophic without ductal dilata tion SPLEEN: Unremarkable ADRENAL GLANDS: Unremarkable KIDNEYS/BLADDER: No evidence of nephrour eterolithiasis. Normal bladder contour. BOWEL: No bowel obstruction. Scattered u ncomplicated colonic diverticula. LYMPH NODES: No significant retroperiton eal adenopathy. VASCULATURE: Moderate atherosclerotic ca lcification without abdominal aortic aneurysm. 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 PELVIC ORGANS: Mild prostatic hypertroph y. No free fluid. MUSCULOSKELETAL: Fat-containing bilatera l inguinal hernias, left greater than right. Moderate multilevel spondylosis and facet arthropathy.. Procedure Note Jarret Mackenzie MD - 01/29/2022Formatt ing of this note might be different from the original. EXAM: CT ABDOMEN PELVIS W/O CONTRAST LOCATION: [facility] DATE/TIME: 01/29/2022 10:30 PM INDICATION: Abdominal distension COMPARISON: 12/11/2015 TECHNIQUE: CT scan of the abdomen and pe lvis was performed without IV contrast. Multiplanar reformats were obtained. Dose reduction techniques were used. CONTRAST: None. FINDINGS: LOWER CHEST: Bibasilar atelectasis or sc arring, unchanged. At least moderate coronary artery calcification. HEPATOBILIARY: No biliary dilatation. PANCREAS: Atrophic without ductal dilata tion SPLEEN: Unremarkable ADRENAL GLANDS: Unremarkable KIDNEYS/BLADDER: No evidence of nephrour eterolithiasis. Normal bladder contour. BOWEL: No bowel obstruction. Scattered u ncomplicated colonic diverticula. LYMPH NODES: No significant retroperiton eal adenopathy. VASCULATURE: Moderate atherosclerotic ca lcification without abdominal aortic aneurysm. 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 PELVIC ORGANS: Mild prostatic hypertroph y. No free fluid. MUSCULOSKELETAL: Fat-containing bilatera l inguinal hernias, left greater than right. Moderate multilevel spondylosis and facet arthropathy.. IMPRESSION: 1. No evidence of nephroureterolithiasis or bowel obstruction. 2. Additional findings as above. Tor Sky MD IMG CT ORDERABLES Blood Culture Arm, Right (01/29/2022 9:02 PM CDT) athologist Signature Culture No Growth 02/04/2022 [facility] ID[facility] 1:18 AM CDT LABORATORY Specimen Anatomical Collection Method / Collection Time Recei logan Time (Source) Location / Volume Laterality Blood STRUCTURE OF RIGHT Venipuncture / 01/29/2022 9:02 05/0 02/2022 9:16 UPPER LIMB / Unknown PM CDT PM CDT Unknown Tor Sky MD LAB - MICRO GENERAL ORDERABL ES Performing Organization Address City/[facility]/ZIP Code Phon e Number [facility] ID[facility] LABORATORY [facility] [place] [address] Diag. Lab [address] [facility], [address] Blood Culture Hand, Left (01/29/2022 8:57 PM CDT) P athologist Signature Culture No Growth 02/04/2022 [facility] IDD 1:18 AM CDT LABORATORY Specimen Anatomical Collection Method / Collection Time Recei logan Time (Source) Location / Volume Laterality Blood STRUCTURE OF LEFT Venipuncture / 01/29/2022 8:57 01/29 9:16 HAND / Unknown Unknown PM CDT PM CDT Tor Sky MD LAB - MICRO GENERAL ORDERABL ES Performing Organization Address City/[facility]/ZIP Code Phon e Number [facility] ID[facility] LABORATORY [facility] [place] [phone] Diag. Lab [address] [facility], [address] (ABNORMAL) Lactic acid whole blood (01/29/2022 8:57 PM CDT) P athologist Signature Lactic Acid 4.9 (HH) 0.7 - 2.0 01/29/2022 [facility]AT[facility] mmol/L 10:19 PM CDT Specimen Anatomical Collection Method / Collection Time Recei logan Time (Source) Location / Volume Laterality Blood STRUCTURE OF LEFT Venipuncture / 01/29/2022 8:57 01/29 9:16 HAND / Unknown Unknown PM CDT PM CDT Tor Sky MD LAB - BLOOD ORDERABLES Performing Organization Address City/State/ZIP Code Phon [place] [address] Care Lab [address] Lab (1st floor, no room number) (ABNORMAL) CBC with platelets and differential (01/29/2022 8:38 PM CDT) [facility] Method Time Signature WBC Count 18.5 (H) 4.0 - 01/29/2022 [facility] 11.0 8:52 PM CDT 10e3/uL RBC Count 4.89 4.40 - 01/29/2022 [facility] 5.90 8:52 PM CDT 10e6/uL Hemoglobin 14.1 13.3 - 01/29/2022 [facility] 17.7 g/dL 8:52 PM CDT Hematocrit 43.8 40.0 - 01/29/2022 [facility] 53.0 % 8:52 PM CDT MCV 90 78 - 100 01/29/2022 [facility] fL 8:52 PM CDT MCH 28.8 26.5 - 01/29/2022 [facility] 33.0 pg 8:52 PM CDT MCHC 32.2 31.5 - 01/29/2022 [facility] 36.5 g/dL 8:52 PM CDT RDW 12.7 10.0 - 01/29/2022 [facility] 15.0 % 8:52 PM CDT Platelet Count 202 150 - 450 01/29/2022 [facility] 10e3/uL 8:52 PM CDT % Neutrophils 80 % 01/29/2022 [facility] 8:52 PM CDT % Lymphocytes 7 % 01/29/2022 [facility] 8:52 PM CDT % Monocytes 9 % 01/29/2022 [facility] 8:52 PM CDT % Eosinophils 0 % 01/29/2022 [facility] 8:52 PM CDT % Basophils 0 % 01/29/2022 [facility] 8:52 PM CDT % Immature 4 % 01/29/2022 [facility] Granulocytes 8:52 PM CDT NRBCs per 100 0 <1 /100 01/29/2022 [facility] WBC 8:52 PM CDT Absolute 14.8 (H) 1.6 - 8.3 01/29/2022 [facility] Neutrophils 10e3/uL 8:52 PM CDT Absolute 1.2 0.8 - 5.3 01/29/2022 [facility] Lymphocytes 10e3/uL 8:52 PM CDT Absolute 1.7 (H) 0.0 - 1.3 01/29/2022 [facility] Monocytes 10e3/uL 8:52 PM CDT Absolute 0.0 0.0 - 0.7 01/29/2022 [facility] Eosinophils 10e3/uL 8:52 PM CDT Absolute 0.0 0.0 - 0.2 01/29/2022 [facility] Basophils 10e3/uL 8:52 PM CDT Absolute 0.7 (H) <=0.4 01/29/2022 [facility] Immature 10e3/uL 8:52 PM CDT Granulocytes Absolute NRBCs 0.0 10e3/uL 01/29/2022 [facility] 8:52 PM CDT Specimen Anatomical Collection Method / Collection Time Recei logan Time (Source) Location / Volume Laterality Blood STRUCTURE OF LEFT Venipuncture / 01/29/2022 8:38 01/29 8:49 UPPER LIMB / Unknown PM CDT PM CDT Unknown Tor Sky MD LAB - BLOOD ORDERABLES Performing Organization Address City/[facility] Code Ph[place] [phone] Care Lab [address] Lab (1st floor, no room number) Troponin I (01/29/2022 8:38 PM CDT) P athologist Signature Troponin I High 18 <79 ng/L 01/29/2022 [facility] Sensitivity 9:12 PM CDT Comment: This Troponin-I result was obta ined using a Siemens Dimension [place] High Sensitivity Troponin-I assay (TNIH). Eff ective 08/18/21, nine labs/sites in the [facility] switched from a Siemens [place] Contemporary Troponin I assay (CTNI) to a Siemens [place] High-Sensitivity Troponi n I assay (TNIH). Specimen Anatomical Collection Method / Collection Time Recei logan Time (Source) Location / Volume Laterality Blood STRUCTURE OF LEFT Venipuncture / 01/29/2022 8:38 01/29 8:49 UPPER LIMB / Unknown PM CDT PM CDT Unknown Tor Sky MD LAB - BLOOD ORDERABLES Performing Organization Address City/[facility]/ZIP Code [place] [phone] Care Lab [address] Lab (1st floor, no room number) Lipase (01/29/2022 8:38 PM CDT) athologist Signature Lipase 226 73 - 393 U/L 01/29/2022 [facility] 9:12 PM CDT Specimen Anatomical Collection Method / Collection Time Recei logan Time (Source) Location / Volume Laterality Blood STRUCTURE OF LEFT Venipuncture / 01/29/2022 8:38 01/29 8:49 UPPER LIMB / Unknown PM CDT PM CDT Unknown Tor Sky MD LAB - BLOOD ORDERABLES Performing Organization Address City/State/ZIP Code [place] [address] Care Lab [address] Lab (1st floor, no room number) (ABNORMAL) Comprehensive metabolic panel (01/29/2022 8:38 PM CDT) athologist Signature Sodium 140 133 - 144 01/29/2022 [facility] mmol/L 9:12 PM CDT Potassium 4.0 3.4 - 5.3 01/29/2022 [facility] mmol/L 9:12 PM CDT Comment: Specimen slightly hemolyzed, po tassium may be falsely elevated. Chloride 107 94 - 109 mmol/L 01/29/2022 9:12 PM [facility] BORATORY CDT Carbon Dioxide (CO2) 22 20 - 32 mmol/L 01/29/2022 9:1 2 PM [facility] LABORAT[facility] CDT Anion Gap 11 3 - 14 mmol/L 01/29/2022 9:12 PM [facility] LABO RATORY CDT Urea Nitrogen 44 (H) 7 - 30 mg/dL 01/29/2022 9:12 PM RH L ABORATORY CDT Creatinine 2.05 (H) 0.66 - 1.25 mg/dL 01/29/2022 9:12 PM [facility] CDT Calcium 8.6 8.5 - 10.1 mg/dL 01/29/2022 9:12 PM [facility] L ABORATORY CDT Glucose 229 (H) 70 - 99 mg/dL 01/29/2022 9:12 PM [facility] LAB[facility]AT[facility] CDT Alkaline Phosphatase 99 40 - 150 U/L 01/29/2022 9:12 PM [facility] CDT AST 65 (H) 0 - 45 U/L 01/29/2022 9:12 PM [facility] LABORAT ORY CDT ALT 91 (H) 0 - 70 U/L 01/29/2022 9:12 PM [facility] LABORAT ORY CDT Protein Total 6.2 (L) 6.8 - 8.8 g/dL 01/29/2022 9:12 PM [facility] CDT Albumin 2.8 (L) 3.4 - 5.0 g/dL 01/29/2022 9:12 PM [facility] LAB ORATORY CDT Bilirubin Total 0.7 0.2 - 1.3 mg/dL 01/29/2022 9:12 PM [facility] CDT GFR Estimate 32 (L) >60 mL/min/1.73m2 01/29/2022 9:12 PM [facility] CDT Comment: Effective September 15, 2021 eGF Rcr in adults is calculated using the 2020 CKD-EPI creatinine equation which includ es age and gender (Jacobo et al., NEJM, DOI: 10.1056/HMSIsx8046664) Specimen Anatomical Collection Method / Collection Time Recei logan Time (Source) Location / Volume Laterality Blood STRUCTURE OF LEFT Venipuncture / 01/29/2022 8:38 01/29 8:49 UPPER LIMB / Unknown PM CDT PM CDT Unknown Tor Sky MD LAB - BLOOD ORDERABLES Performing Organization Address City/State/ZIP Code [place] [phone] Care Lab [address] Lab (1st floor, no room number) documented in this encounter Visit Diagnoses Diagnosis Abscess of finger of left hand - Primary Cellulitis and abscess of finger, unspec ified Abdominal pain, generalized Acute renal insufficiency Unspecified disorder of kidney and urete r Elevated lactic acid level Other nonspecific abnormal serum enzyme levels documented in this encounter Admitting Diagnoses Diagnosis Abscess of finger of left hand Cellulitis and abscess of finger, unspec ified documented in this encounter Administered Medications Inactive Administered Medications - up to 3 most recent administrations Medication Order MAR Action Action Date Dose Rate Site 0.9% sodium chloride BOLUS New Bag 01/29/2022 9:18 PM CDT 1,000 mLs 1000 mL/hr Intravenous, 1,000 mL, ONCE, at 1,000 mL/hr, Administer over 1 Hours, On Tue01/29/22 at 2045, For 1 dose 0.9% sodium chloride BOLUS New Bag 01/29/2022 11:00 PM 1,000 mLs 1000 mL/hr Intravenous, 1,000 mL, ONCE, at CDT 1,000 mL/hr, Administer over 1 Hours, On Tue01/29/22 at 2240, For 1 dose acetaminophen (TYLENOL) Suppository 650 mg 650 mg, Rectal, EVERY 6 HOURS PRN, mild pain, other, and adjunct with moderate or severe pain or per patient request, Star ting on 01/30/22 at 0113, Alternate with ibuprofen if ordered. Maximum acetaminop hen dose from all sources = 75 mg/kg/day not to exceed 4 grams/day. acetaminophen (TYLENOL) tablet 650 mg Given 01/31/2022 5:35 AM CDT 650 mg 650 mg, Oral, EVERY 6 HOURS PRN, mild pain, other, and adjunct with moderate or severe pain or per patient request, Starting on 01/30/22 at 0113, Alternate with ibuprofen if ordered. Maximum acetaminophen dose from all sources = 75 mg/kg/day not to exceed 4 grams/day. ampicillin-sulbactam (UNASYN) 3 g vial to New Bag 01/29/2022 11:11 PM CDT 3 g attach to NS 100 mL bag STAT, 3 g, Intravenous, ONCE, On Tue01/29/22 at 2245, For 1 dose, Indications: Skin and Soft Tissue Infection ampicillin-sulbactam (UNASYN) 3 g vial to New Bag 02/01/2022 6:32 AM CDT 3 g attach to NS 100 mL bag Routine, 3 g, Intravenous, EVERY 6 HOURS, First dose on 01/30/22 at 0115, Indications: Abscess New Bag 02/01/2022 12:47 AM CDT 3 g New Bag 01/31/2022 6:09 PM CDT 3 g ampicillin-sulbactam (UNASYN) 3 g vial to New Bag 02/01/2022 1:19 PM CDT 3 g attach to NS 100 mL bag Routine, 3 g, Intravenous, EVERY 6 HOURS, First dose on Tue02/01/22 at 1200, Indications: Bone and/or Joint Infection aspirin EC tablet 81 mg Given 02/01/2022 7:46 AM CDT 81 mg 81 mg, Oral, 2 TIMES DAILY, First dose on Tue02/01/22 at 0800, Indications: VTE Prophylaxis, DO NOT CRUSH. bisacodyl (DULCOLAX) Suppository 10 mg 10 mg, Rectal, DAILY PRN, constipation, Starting on Tue01/31/22 at 1204, Hold for loose stools. calcium gluconate 2 g in 100 mL sodium chloride Given 01/31/2022 1:10 PM CDT 2 g intermittent infusion (premix) 2 g, Intravenous, Administer over 60 Minutes, ONCE, On Tue01/31/22 at 1200, For 1 dose, Do not infuse in the same IV line as phosphate-containing solutions ceFAZolin (ANCEF) 1 g vial to attach to NS 100 New Bag 0 02/01/2022 5:48 AM CDT 1 g ml bag for ADULT or 50 ml bag for PEDS Routine, 1 g, Intravenous, EVERY 8 HOURS, First dose on Tue02/01/22 at 0530, For 2 doses, First post-op dose due 8 hours after intra-op dose, see eMAR., Indications: Perioperative Pharmacoprophylaxis fentaNYL (PF) (SUBLIMAZE) injection 50 m cg Given 01/31/2022 10:53 AM CDT 50 mcg 50 mcg, Intravenous, EVERY 5 MIN PRN, moderate to severe pain, Starting on Tue01/31/22 at 0830, Administer fentaNYL (SUBLIMAZE) for acute pain control. Move to HYDROmorphone (DILAUDID): - IF patient has received up to 6 doses (300 mcg) of fentaNYL (SUBLIMAZE), OR - IF severe pain (pain score greater than or equal to seven (7) or inability of patient to participate in post op recovery due to pain) AFTER 2 doses fentaNYL (SUBLIMAZE). WAIT 5 minutes AFTER last fentaNYL (SUBLIMAZE) dose before administering HYDROmorphone (DILAUDID). Postop Anesthesia Phase I only. Notify Provider to assess for uncontrolled pain or analgesic side effects. Do NOT revert back to fentanyl (SUBLIMAZE) after moving to HYDROmorphone (DILAUDID)., PACU Given 01/31/2022 10:38 AM CDT 50 mcg Given 01/31/2022 10:32 AM CDT 50 mcg hydrALAZINE (APRESOLINE) injection 10 mg 10 mg, Intravenous, EVERY 4 HOURS PRN, high blood pres sure, give for SBP > 180, Starting on Tue01/31/22 at 1839 hydrALAZINE (APRESOLINE) injection 5-10 mg Given 01/31/2022 10:28 AM CDT 10 mg 5-10 mg, Intravenous, EVERY 10 MIN PRN, other, for Systolic Blood Pressure greater than 160 mmHg, HR less than 60, Administer over 1 Minutes, Starting on Tue01/31/22 at 0830, Max cumulative dose = 20 mg. FOR USE IN PACU ONLY., PACU HYDROmorphone (DILAUDID) injection 0.2 m g 0.2 mg, Intravenous, EVERY 2 HOURS PRN, other, moderate pain (pain rating 4-6) IF patient unable to take oral pain medication or pain no t controlled with oral analgesics, Starting on Tue02/01/22 at 05 00, Hold IV PRN opioid dose for analgesic side effects. Notify provider to assess for uncontroll ed pain or analgesic side effects. HYDROmorphone (DILAUDID) injection 0.4 m g 0.4 mg, Intravenous, EVERY 2 HOURS PRN, other, severe pain (pain rating 7-10) IF patient unable to take oral pain medication or pain no t controlled with oral analgesics, Starting on Tue02/01/22 at 05 00, Hold IV PRN opioid dose for analgesic side effects. Notify provider to assess for uncontroll ed pain or analgesic side effects. lidocaine (LMX4) cream Topical, EVERY 1 HOUR PRN, pain, with VAD insertion, S tarting on Tue01/29/22 at 2039, Apply at least 30 minutes prior to VAD insertion in divided doses as needed for size of site for insertion. MAX Dose: 2.5 g (?? of 5 g tube) Do NOT give if patient has a history of allergy to any local anesthetic or any liliya product. Do NOT use both lidocaine intradermal/subcu taneous injection and the lidocaine cream on the same site. lidocaine 1 % 0.1-1 mL 0.1-1 mL, Other, EVERY 1 HOUR PRN, mild pain with VAD insertion, Starting on Tue01/29/22 at 2039, MAX dose 1 mL subcutaneous OR intrader mal along the side of the vein in divided doses as needed for VAD insertion. Do NOT give if patient has a history of allergy to any local anesthet ic or any liliya product. Do NOT use both lidocaine intradermal/subcutaneous injec tion and the lidocaine cream on the same site. lisinopril (ZESTRIL) tablet 2.5 mg 2.5 mg, Oral, DAILY, First dose on 01/31/22 at 1200 melatonin tablet 1 mg Given 01/31/2022 8:08 PM CDT 1 mg 1 mg, Oral, AT BEDTIME PRN, sleep, Starting on 01/30/22 at 0113, Do not give unless at least 6 hours of uninterrupted sleep is expected. naloxone (NARCAN) injection 0.2 mg 0.2 mg, Intravenous, EVERY 2 MIN PRN, op ioid reversal, Starting on 01/31/22 at 0844, Administer intravenous route when available and notify provider when administered. For unintended sedation or respiratory depression if all of the below criteria are met: ~ respiratory rate LES S than or EQUAL to 8. ~SaO2 less than 92% and or/end-tidal CO2 is greater than 50. ~ the patient is receiving an opioid, has unintended sedations assessed as RASS (-3), and is cur rently not on mechanical ventilation. RASS scale moderate (-3) is movement or eye opening to voice but no eye contact. Patient Monitoring Once the patient has demonstrated a response to the naloxone, continue to monitor respiratory rate, depth, oxygen saturation and end-tidal CO2 (if available) every 15 mi nutes x 2, then every 30 minutes x 2, then every 1 hour x 1 after each naloxone dose. Consider tr ansfer to ICU if patient respiratory parameters have not improved after 4 nalox one doses. naloxone (NARCAN) injection 0.2 mg 0.2 mg, Intramuscular, EVERY 2 MIN PRN, opioid reversal, Starting on 01/31/22 at 0844, Administer intramuscular if an int ravenous route is not available and notify provider when administered. For unintend ed sedation or respiratory depression if all of the below criteria are met: ~ respiratory rate LESS than or EQUAL to 8. ~SaO2 less than 92% and or/end-tidal CO2 is greater th an 50. ~ the patient is receiving an opioid, has unintended sedations assessed as RASS (-3), and is currently not on mechanical ventilation. RASS scale moderate (-3) is movement or eye opening to voice but no eye contact. Patient Monitoring Once the patient has demonstrated a response to the naloxone, continue to m onitor respiratory rate, depth, oxygen saturation and end-tidal CO2 (if availab le) every 15 minutes x 2, then every 30 minutes x 2, then every 1 hour x 1 after each naloxone dose. Consider transfer to ICU if patient respiratory parameters have not improved after 4 naloxone doses. naloxone (NARCAN) injection 0.4 mg 0.4 mg, Intravenous, EVERY 2 MIN PRN, op ioid reversal, Starting on 01/31/22 at 0844, Administer intravenous route when available and notify provider when administered. For unintended sedation or respiratory depression if all of the below criteria are met: ~ respiratory rate LES S than or EQUAL to 8. ~ SaO2 less than 92% and or/end-tidal CO2 is greater than 50. ~ the patient is receiving an opioid, has unintended sedation assessed as RASS (-4 ) or (-5) and patient is currently not on mechanical ventilation. RASS scale (-4) is deep sedation with no response to voice but movement or eye opening to physical stimulation. R ASS scale (-5) is unarousable. Patient Monitoring Once the patient has demonstrated a response to the naloxone, continue to monitor respiratory rate, depth, oxygen saturation and end-tidal CO2 (if available) every 15 mi nutes x 2, then every 30 minutes x 2, then every 1 hour x 1 after each naloxone dose. Consider tr ansfer to ICU if patient respiratory parameters have not improved after 4 nalox one doses. naloxone (NARCAN) injection 0.4 mg 0.4 mg, Intramuscular, EVERY 2 MIN PRN, opioid reversal, Starting on 01/31/22 at 0844, Administer intramuscular if an int ravenous route is not available and notify provider when administered. For unintend ed sedation or respiratory depression if all of the below criteria are met: ~ res piratory rate LESS than or EQUAL to 8. ~ SaO2 less than 92% and or/end-tidal CO2 is greater bashir n 50. ~ the patient is receiving an opioid, has unintended sedation assessed as RASS (-4) or (-5) and patient is currently not on mechanical ventilation. RA SS scale (-4) is deep sedation with no response to voice but movement or eye opening to physical stimulation. RASS scale (-5) is unarousa ble. Patient Monitoring Once the patient has demonstrated a response to the nalox one, continue to monitor respiratory rate, depth, oxygen saturation and end-tidal CO2 (if availab le) every 15 minutes x 2, then every 30 minutes x 2, then every 1 hour x 1 after each naloxone dose. Consider transfer to ICU if patient respiratory parameters have not improved after 4 naloxone doses. ondansetron (ZOFRAN ODT) ODT tab 4 mg 4 mg, Oral, EVERY 6 HOURS PRN, nausea, v omiting, Starting on Tue02/01/22 at 0500, This is Step 1 of nausea and vomiting management. If n ausea not resolved in 15 minutes, go to Step 2 prochlorperazine (COMPAZINE). Do not push through foil backing. Peel back foil and gently remove. Place on to ngue immediately. Administration with liquid unnecessary W ith dry hands, peel back foil backing and gently remove tablet. Do not push oral d isintegrating tablet through foil backing. Administer immediately on tongue and oral disintegrati ng tablet dissolves in seconds, then swallow with saliva. Liquid not required . ondansetron (ZOFRAN) injection 4 mg 4 mg, Intravenous, EVERY 6 HOURS PRN, nausea, vomiting , Administer over 2-5 Minutes, Starting on Tue02/01/22 at 0500, This is Step 1 of nausea and vomiting management. If nausea not resolved in 15 minutes, go t o Step 2 prochlorperazine (COMPAZINE). Irritant. oxyCODONE IR (ROXICODONE) half-tab 2.5-5 mg 2.5-5 mg, Oral, EVERY 4 HOURS PRN, moder ate to severe pain, Starting on 01/31/22 at 1207 polyethylene glycol (MIRALAX) Packet 17 g Given 02/01/2022 7:46 AM CDT 17 g 17 g, Oral, 2 TIMES DAILY, First dose (after last modification) on 01/31/22 at 2000, IF more than 1 constipation PRN medication is ordered, administer step-tavera as indicated, moving to the next step ONLY if prior step ineffective. Step 1: senna-docusate (SENOKOT-S; PERICOLACE) OR bisacodyl (DULCOLAX) EC tablet Step 2: magnesium hydroxide (MILK OF MAGNESIA) OR polyethylene glycol (MIRALAX/GLYCOLAX) Step 3: bisacodyl (DULCOLAX) suppository Step 4: sodium phosphate (FLEET ENEMA) 1 Packet = 17 grams. Mix each gram with at least 1/2 ounce (15 mL) of water - 8 ounces for 17 g dose, 4 ounces for 8.5 g dose, 2 ounces for 4 g dose. Follow with the same volume of water. Hold for loose stools unless being administered as part of a bowel prep regimen or bowel clean out. Given 01/31/2022 8:08 PM CDT 17 g prochlorperazine (COMPAZINE) injection 5 mg 5 mg, Intravenous, EVERY 6 HOURS PRN, nausea, vomiting , Administer over 1-2 Minutes, Starting on 01/30/22 at 0113, Give IF patient unable to tolerate oral medication. This is Step 2 of nausea and vomiting management. Give if nausea not resolved 15 minutes after giving ondanse jake (ZOFRAN). If nausea not resolved in 15-30 minutes, Notify provider. prochlorperazine (COMPAZINE) suppository 12.5 mg 12.5 mg, Rectal, EVERY 12 HOURS PRN, toño sea, vomiting, Starting on 01/30/22 at 0113, This is Step 2 of nausea and vomit ing management. Give if nausea not resolved 15 minutes after giving ondansetron (ZOFRAN). If nause a not resolved in 15-30 minutes, Notify provider. prochlorperazine (COMPAZINE) tablet 5 mg 5 mg, Oral, EVERY 6 HOURS PRN, vomiting, Starting on 01/30/22 at 0113, This is Step 2 of nausea and vomiting management . Give if nausea not resolved 15 minutes after giving ondansetron (ZOFRAN). If na usea not resolved in 15-30 minutes, Notify provider. senna-docusate (SENOKOT-S/PERICOLACE) 8. 6-50 MG per tablet 1 tablet 1 tablet, Oral, 2 TIMES DAILY PRN, const ipation, Starting on 01/30/22 at 0113, If no bowel movement in 24 hours, increase to 2 tablets b y mouth. IF more than 1 constipation PRN medication is ordered, administer step-tavera as indicated, moving to the next step ONLY if prior step inef fective. Step 1: senna-docusate (SENOKOT-S; PERICOLACE) OR bisacodyl (DULCOLAX) EC t ablet Step 2: magnesium hydroxide (MILK OF MAGNESIA) OR polyethylene glycol (MIRALA X/GLYCOLAX) Step 3: bisacodyl (DULCOLAX) suppository Step 4: sodium phosphate (FLEET ENEMA) Hol d for loose stools. senna-docusate (SENOKOT-S/PERICOLACE) Given 02/01/2022 7:46 AM C DT 1 tablet 8.6-50 MG per tablet 1 tablet 1 tablet, Oral, 2 TIMES DAILY, First dose on 02/01/22 at 0800, To prevent constipation. Hold for loose stools Hold for loose stools. senna-docusate (SENOKOT-S/PERICOLACE) 8. 6-50 MG per tablet 2 tablet 2 tablet, Oral, 2 TIMES DAILY PRN, const ipation, Starting on 01/30/22 at 0113, IF more than 1 constipation PRN medication is ordered, ad brand designer step-tavera as indicated, moving to the next step ONLY if prior step ineffective. Step 1: senna-docusate (SENOKOT-S; PERICOLACE) O R bisacodyl (DULCOLAX) EC tablet Step 2: magnesium hydroxide (MILK OF MAGNESIA) O R polyethylene glycol (MIRALAX/GLYCOLAX) Step 3: bisacodyl (DULCOLAX) suppository Step 4: sodiu m phosphate (FLEET ENEMA) Hold for loose stools. sodium chloride (PF) 0.9% PF flush 3 mL 3 mL, Intracatheter, EVERY 8 HOURS, First dose on Tue01/29/22 at 2044, to lock peripheral IV dormant line sodium chloride (PF) 0.9% PF flush 3 mL Given 01/29/2022 9:18 PM CDT 3 mLs 3 mL, Intracatheter, EVERY 1 MIN PRN, line flush, other, to ensure patency or to lock dormant line, Starting on Tue01/29/22 at 2040 sodium chloride 0.9% infusion New Bag 01/30/2022 10:26 PM CDT 100 mL/hr at 100 mL/hr, Intravenous, CONTINUOUS, Starting on 01/30/22 at 0115, Until 01/31/22 at 1156 Rate/Dose Verify 01/30/2022 7:49 PM CDT 100 mL/hr Rate/Dose Change 01/30/2022 2:31 PM CDT 100 mL/hr documented in this encounter Active and Recently Administered Medications Times are shown in CDT. Scheduled Medication Order 01/30/2022 01/31/2022 02/01/2022 ampicillin-sulbactam (UNASYN) 3 g vial to attach to NS 100 mL bag (CANCELED) 0424 (Canceled Entry - Provider: Hernandez Valdovinos)0625 (New Bag - Provider: Hernandez Valdovinos)0734 (Stopped - Provider: Thi Lovell, RN)1229 (New Bag - Provider: Thi Lovell, DIANE)1315 (Stopped - Provider: Amelia Bruce RN) 0000 (New Bag - Provider: KALPANA OCAMPO)0535 (New Bag - Provider: KALPANA OCAMPO)0810 (Auto Hold - Provider: Orders Generic Provider - Reason: Transfer to a procedural area)1128 (Unhold - Provider: Orders Generic Provider) 0047 (New Bag - Provider: KALPANA OCAMPO)0632 (New Bag - Provider: KALPANA OCAMPO) Routine, 3 g, Intravenous, EVERY 6 HOURS , First dose on 01/30/22 at 0115, Indications: Abscess 1759 (New Bag - Provider: Chava Mcghee, DIANE) 1428 ( New Bag - Provider: Dominique Jaimes, DIANE)1809 (New Bag - Provider: Chava Mcghee, DIANE) ampicillin-sulbactam (UNASYN) 3 g vial to attach to NS 100 mL ba g 1319 (New Bag - Provider: Olivia Armijo, RN) Routine, 3 g, Intravenous, EVERY 6 HOURS , First dose on 02/01/22 at 1200, Indications: Bone and/or Joint Infection aspirin EC tablet 81 mg 0746 (Gi jimena - Provider: Olivia Armijo, RN) 81 mg, Oral, 2 TIMES DAILY, First dose o n Tue02/01/22 at 0800, Indications: VTE Prophylaxis, DO NOT CRUSH. atorvastatin (LIPITOR) tablet 20 mg 20 mg, Oral, DAILY, First dose on Tue02/01/22 at 2000 calcium gluconate 2 g in 100 mL sodium c hloride intermittent infusion (premix) (COMPLETED) 1310 (Given - Provider: Dominique soto RN) 2 g, Intravenous, Administer over 60 Min utes, ONCE, On Tue01/31/22 at 1200, For 1 dose, Do not infuse in the same IV line as phosphate-containing solutions ceFAZolin (ANCEF) 1 g vial to attach to NS 100 ml bag for ADULT or 50 ml bag for PEDS (CANCELED) 0548 (New Bag - Prov ider: KALPANA OCAMPO) Routine, 1 g, Intravenous, EVERY 8 HOURS , First dose on Tue02/01/22 at 0530, For 2 doses, First post-op dose due 8 hours after intra-op dose, see eMAR., Indications: Perioperative Pharmacoprophylaxis ceFAZolin Sodium (ANCEF) injection 2 g (COMPLETED) 920 (Given - Provider: Sergei Funes, SURESH MARIN) Routine, 2 g, Intravenous, PRE-OP/PRE-MS OCEDURE, Starting on Tue01/31/22 at 0828, For 1 dose, Give first dose within 1 hour PRIOR to incision. If patient weight is greater than or equal to 120 kg increas e dose to 3 g., Indications: Perioperative Pharmacoprophylaxis, Pre-procedure lisinopril (ZESTRIL) tablet 2.5 mg 1157 (Held by provider - Provider: ISAÍAS Childress - Reason: Acute Kidney Injury)1200 (Automatically Held - Provider: ISAÍAS Childress) 0800 (Automatically Held - Provider: ISAÍAS Ortiz)1616 (Unheld by provider - Provider: Orders Generic Provider) 2.5 mg, Oral, DAILY, First dose on Tue01/31/22 at 1200 polyethylene glycol (MIRALAX) Packet 17 g 2007 (Given - Provider: Chava Mcghee, RN) 07 (Given - Provider: Olivia Armijo, DIANE) 17 g, Oral, 2 TIMES DAILY, First dose (a fter last modification) on Tue01/31/22 at 2000, IF more than 1 constipation PRN medication is ordered, administer step- tavera as indicated, moving to the next step O NLY if prior step ineffective. Step 1: s ralph-docusate (SENOKOT-S; PERICOLACE) OR bisacodyl (DULCOLAX) EC tablet Step 2: magnesium hydroxide (MILK OF MAGNESIA) OR polyethylene glycol (MIRALAX/GLYCOLAX) S tep 3: bisacodyl (DULCOLAX) suppository Step 4: sodium phosphate (FLEET ENEMA) 1 Packet = 17 grams. Mix each gram with at least 1/2 ounce (15 mL) of water - 8 ounces for 17 g dose, 4 ounces for 8.5 g do se, 2 ounces for 4 g dose. Follow with t he same volume of water. Hold for loose stools unless being administered as part of a bowel prep regimen or bowel clean out. senna-docusate (SENOKOT-S/PERICOLACE) 8.6-50 MG per tablet 1 tab let 0746 (Given - Provider: Olivia Armijo, DIANE) 1 tablet, Oral, 2 TIMES DAILY, First dos e on Tue02/01/22 at 0800, To prevent constipation. Hold for loose stools Hold for loose stools. sodium chloride (PF) 0.9% PF flush 3 mL 0357 (Not Give n - Provider: Hernandez Valdovinos - Reason: IV Infusing)1353 (Not Given - Provider: Amelia Bruce, DIANE - Reason: IV Infusing)1354 (Canceled Entry - Provider: Amelia Bruce RN) 0404 (Not Given - Provider: KALPANA OCAMPO - Reason: IV Infusing)0810 (Auto Hold - Provider: Orders Generic Provider - Reason: Transfer to a procedural area)1128 (Unhold - Provider: Orders Generic Provider) 0444 (Canceled Entry - Provider: KALPANA OCAMPO)1245 (Canceled Entry - Provider: Orders Generic Provider - Comment: Automatically canceled at discontinue of medication order) 3 mL, Intracatheter, EVERY 8 HOURS, Firs t dose on Tue01/29/22 at 2045, to lock peripheral IV dormant line 2016 (Not Given - Provider: Chava lala RN - Reason: IV Infusing) 1445 (Not Given - Provider: Dominique woods RN - Reason: IV Infusing)2009 (Not Given - Provider: Chava Mcghee RN - Reason: Other - Comment: had NS running with abx) sodium chloride (PF) 0.9% PF flush 3 mL 0501 (Canceled Entry - Provider: KALPANA OCAMPO)1330 (Canceled Entry - Provider: Orders Generic Provider - Comment: Automatically canceled at discontinue of medication order) 3 mL, Intracatheter, EVERY 8 HOURS, Firs t dose on 02/01/22 at 0530, to lock peripheral IV dormant line Continuous Medication Order 01/30/2022 01/31/2022 02/01/2022 lactated ringers infusion 0500 ( Canceled Entry - Provider: KALPANA OCAMPO) at 10 mL/hr, Intravenous, CONTINUOUS, Ch mauricio to saline lock when PO well tolerated., Starting on Tue02/01/22 at 0530, Until Tue02/01/22 at 1616 sodium chloride 0.9% infusion (CANCELED) 0144 (New Bag - Provider: Hernandez Valdovinos)1030 (New Bag - Provider: Thi Lovell, DIANE)1431 (Rate/Dose Change - Provider: Amelia Bruce, RN)1949 (Rate/Dose Verify - Provider: Chava Mcghee, RN)2226 (New Bag - Provider: Chava Mcghee, RN) 1455 (Stopped - Provider: Dominique Jaimes, DIANE) at 100 mL/hr, Intravenous, CONTINUOUS, S tarting on 01/30/22 at 0115, Until 01/31/22 at 1156 PRN Medication Order 01/30/2022 01/31/2022 02/01/2022 acetaminophen (TYLENOL) Suppository 650 mg(Linked Group 1) 0535 (See Alternative - Provider: KALPANA OCAMPO)0810 (Auto Hold - Provider: Orders Generic Provider - Reason: Transfer to a procedural area)1128 (Unhold - Provider: Orders Generic Provider) 650 mg, Rectal, EVERY 6 HOURS PRN, mild pain, other, and adjunct with moderate or severe pain or per patient request, Starting on 01/30/22 at 0113, Alternate with ibuprofen if ordered. Maximum acetami nophen dose from all sources = 75 mg/kg/day not to exceed 4 gram s/day. acetaminophen (TYLENOL) tablet 650 mg(Linked Group 1) 0535 (Given - Provider: KALPANA OCAMPO)0810 (Auto Hold - Provider: Orders Generic Provider - Reason: Transfer to a procedural area)1128 (Unhold - Provider: Orders Generic Provider) 650 mg, Oral, EVERY 6 HOURS PRN, mild pa in, other, and adjunct with moderate or severe pain or per patient request, Starting on 01/30/22 at 0113, Alternate with ibuprofen if ordered. Maximum acetamino phen dose from all sources = 75 mg/kg/day not to exceed 4 grams/ day. bacitracin ointment (CANCELED) 1000 (Giv en - Provider: Mandi Jeong MD) PRN, Starting on 01/31/22 at 1000, Intra-procedure benzocaine-menthol (CHLORASEPTIC) 6-10 MG lozenge 1 lozenge 1 lozenge, Buccal, EVERY 1 HOUR PRN, sor e throat, sore throat without fever, Starting on 02/01/22 at 0500 bisacodyl (DULCOLAX) Suppository 10 mg 10 mg, Rectal, DAILY PRN, constipation, Use if Magnesium hydroxide (MILK of MAGNESIA) not effective after 24 hours. May discontinue if patient having bowel movement., Starting on 02/01/22 at 0500, Hold for loose stools. bisacodyl (DULCOLAX) Suppository 10 mg 10 mg, Rectal, DAILY PRN, constipation, Starting on 01/31/22 at 1204, Hold for loose stools. bupivacaine (MARCAINE) 0.25% preservative free injection (CA NCELED) 1000 (Given - Provider: Mandi Jeong MD) PRN, Starting on 01/31/22 at 1000, Intra-procedure fentaNYL (PF) (SUBLIMAZE) injection 50 mcg (CANCELED) 1032 (Given - Provider: Juni Pacheco RN)1038 (Given - Provider: Juni Pacheco RN)1053 (Given - Provider: Juni Pacheco RN) 50 mcg, Intravenous, EVERY 5 MIN PRN, mo derate to severe pain, Starting on Tue01/31/22 at 0830, Administer fentaNYL (SUBLIMAZE) for acute pain control. Move to HYDROmorphone (DILAUDID): - IF patient has received up to 6 doses (300 mcg) of fent aNYL (SUBLIMAZE), OR - IF severe pain (pain score greater than or equal to seven (7) or inability of patient to participate in post op recovery due to pain) AFTER 2 doses fentaNYL (SUBLIMAZE). WAIT 5 mi nutes AFTER last fentaNYL (SUBLIMAZE) dose before administering HYDROmorphone (DILAUDID). Postop Anesthesia Phase I only. Notify Provider to assess for uncontroll ed pain or analgesic side effects. Do NO T revert back to fentanyl (SUBLIMAZE) after moving to HYDROmorphone (DILAUDID)., PACU hydrALAZINE (APRESOLINE) injection 10 mg 10 mg, Intravenous, EVERY 4 HOURS PRN, h igh blood pressure, give for SBP > 180, Starting on Tue01/31/22 at 1839 hydrALAZINE (APRESOLINE) injection 5-10 mg (CANCELED) 1028 (Given - Provider: Juni Pacheco RN) 5-10 mg, Intravenous, EVERY 10 MIN PRN, other, for Systolic Blood Pressure greater than 160 mmHg, HR less than 60, Administer over 1 Minutes, Starting on Tue01/31/22 at 0830, Max cumulative dose = 20 mg. FOR USE IN PACU ONLY., PACU HYDROmorphone (DILAUDID) injection 0.2 mg(Linked Group 2) 0.2 mg, Intravenous, EVERY 2 HOURS PRN, other, moderate pain (pain rating 4-6) IF patient unable to take oral pain medication or pain not controlled with oral analgesics, Starting on Tue02/01/22 at 0500, Hold IV PRN opioid dose for analgesic s farida effects. Notify provider to assess for uncontrolled pain or analgesic side effects. HYDROmorphone (DILAUDID) injection 0.4 mg(Linked Group 2) 0.4 mg, Intravenous, EVERY 2 HOURS PRN, other, severe pain (pain rating 7-10) IF patient unable to take oral pain medication or pain not controlled with oral analgesics, Starting on Tue02/01/22 at 0500, Hold IV PRN opioid dose for analgesic si de effects. Notify provider to assess for uncontrolled pain or analgesic side effects. lidocaine (LMX4) cream 0810 (Auto Hold - Provider: Orders Generic Provider - Reason: Transfer to a procedural area)1128 (Unhold - Provider: Orders Generic Provider) Topical, EVERY 1 HOUR PRN, pain, with VA D insertion, Starting on Tue01/29/22 at 2040, Apply at least 30 minutes prior to VAD insertion in divided doses as needed for size of site for insertion. MAX Dose: 2.5 g (?? of 5 g tube) Do NOT give if p atient has a history of allergy to any local anesthetic or any liliya product. Do NOT use both lidocaine intradermal/subcutaneous injection and the lidocaine cream on the same site. lidocaine (LMX4) cream Topical, EVERY 1 HOUR PRN, pain, with VA D insertion, Starting on Tue02/01/22 at 0500, Apply at least 30 minutes prior to VAD insertion in divided doses as needed for size of site for insertion. MAX Dose: 2.5 g (?? of 5 g tube) Do NOT give if p atient has a history of allergy to any local anesthetic or any liliya product. Do NOT use both lidocaine intradermal/subcutaneous injection and the lidocaine cream on the same site. lidocaine 1 % 0.1-1 mL 0810 (Auto Hold - Provider: Orders Generic Provider - Reason: Transfer to a procedural area)1128 (Unhold - Provider: Orders Generic Provider) 0.1-1 mL, Other, EVERY 1 HOUR PRN, mild pain with VAD insertion, Starting on Tue01/29/22 at 2040, MAX dose 1 mL subcutaneous OR intradermal along the side of the vein in divided doses as needed for VAD i nsertion. Do NOT give if patient has a h istory of allergy to any local anesthetic or any liliya product. Do NOT use both lidocaine intradermal/subcutaneous injection and the lidocaine cream on the same site. lidocaine 1 % 0.1-1 mL 0.1-1 mL, Other, EVERY 1 HOUR PRN, mild pain with VAD insertion, Starting on Tue02/01/22 at 0500, MAX dose 1 mL subcutaneous OR intradermal along the side of the vein in divided doses as needed for VAD i nsertion. Do NOT give if patient has a h istory of allergy to any local anesthetic or any liliya product. Do NOT use both lidocaine intradermal/subcutaneous injection and the lidocaine cream on the same site. lisinopril (ZESTRIL) tablet 10 mg 0725 (Held by provider - Provider: Olivia Armijo RN - Reason: Acute Kidney Injury)1616 (Unheld by provider - Provider: Orders Generic Provider) 10 mg, Oral, DAILY PRN, hypertension, Starting on 02/01/22 at 0725 magnesium hydroxide (MILK OF MAGNESIA) suspension 30 mL 30 mL, Oral, DAILY PRN, constipation, Us e if preventive measures (senna- docusate, docusate, and polyethylene glycol) are not effective., Starting on 02/01/22 at 0500, Shake well. Hold for loose stools. melatonin tablet 1 mg 0810 (Auto Hold - Provider: Orders Generic Provider - Reason: Transfer to a procedural area)1128 (Unhold - Provider: Orders Generic Provider)2007 (Given - Provider: Chava Mcghee RN) 1 mg, Oral, AT BEDTIME PRN, sleep, Start ing on 01/30/22 at 0113, Do not give unless at least 6 hours of uninterrupted sleep is expected. naloxone (NARCAN) injection 0.2 mg(Linked Group 3) 0.2 mg, Intravenous, EVERY 2 MIN PRN, op ioid reversal, Starting on 01/31/22 at 0844, Administer intravenous route when available and notify provider when administered. For unintended sedation or respi ratory depression if all of the below cr iteria are met: ~ respiratory rate LESS than or EQUAL to 8. ~SaO2 less than 92% and or/end-tidal CO2 is greater than 50. ~ the patient is receiving an opioid, has unintended sedations assessed as RASS ( -3), and is currently not on mechanical ventilation. RASS scale moderate (-3) is movement or eye opening to voice but no eye contact. Patient Monitoring Once the patient has demonstrated a response to t he naloxone, continue to monitor respiratory rate, depth, oxygen saturation and end-tidal CO2 (if available) every 15 minutes x 2, then every 30 minutes x 2, then every 1 hour x 1 after each naloxone do se. Consider transfer to ICU if patient respiratory parameters have not improved after 4 naloxone doses. naloxone (NARCAN) injection 0.2 mg(Linked Group 3) 0.2 mg, Intramuscular, EVERY 2 MIN PRN, opioid reversal, Starting on 01/31/22 at 0844, Administer intramuscular if an intravenous route is not available and notify provider when administered. For unin tended sedation or respiratory depressio n if all of the below criteria are met: ~ respiratory rate LESS than or EQUAL to 8. ~SaO2 less than 92% and or/end-tidal CO2 is greater than 50. ~ the patient is receiving an opioid, has unintended kourtney tions assessed as RASS (-3), and is currently not on mechanical ventilation. RASS scale moderate (-3) is movement or eye opening to voice but no eye contact. Luciana ent Monitoring Once the patient has demo nstrated a response to the naloxone, continue to monitor respiratory rate, depth, oxygen saturation and end-tidal CO2 (if available) every 15 minutes x 2, then ev humera 30 minutes x 2, then every 1 hour x 1 after each naloxone dose. Consider transfer to ICU if patient respiratory parameters have not improved after 4 naloxone doses. naloxone (NARCAN) injection 0.4 mg(Linked Group 3) 0.4 mg, Intravenous, EVERY 2 MIN PRN, op ioid reversal, Starting on 01/31/22 at 0844, Administer intravenous route when available and notify provider when administered. For unintended sedation or respi ratory depression if all of the below cr iteria are met: ~ respiratory rate LESS than or EQUAL to 8. ~ SaO2 less than 92% and or/end-tidal CO2 is greater than 50. ~ the patient is receiving an opioid, singh s unintended sedation assessed as RASS ( -4) or (-5) and patient is currently not on mechanical ventilation. RASS scale (-4) is deep sedation with no response to voice but movement or eye opening to phys ical stimulation. RASS scale (-5) is annie rousable. Patient Monitoring Once the patient has demonstrated a response to the naloxone, continue to monitor respiratory rate, depth, oxygen saturation and end- tidal CO2 (if available) every 15 minute s x 2, then every 30 minutes x 2, then every 1 hour x 1 after each naloxone dose. Consider transfer to ICU if patient respiratory parameters have not improved after 4 naloxone doses. naloxone (NARCAN) injection 0.4 mg(Linked Group 3) 0.4 mg, Intramuscular, EVERY 2 MIN PRN, opioid reversal, Starting on Tue01/31/22 at 0844, Administer intramuscular if an intravenous route is not available and notify provider when administered. For unin tended sedation or respiratory depressio n if all of the below criteria are met: ~ respiratory rate LESS than or EQUAL to 8. ~ SaO2 less than 92% and or/end- tidal CO2 is greater than 50. ~ the patient is receiving an opioid, has unintended sed ation assessed as RASS (-4) or (-5) and patient is currently not on mechanical ventilation. RASS scale (-4) is deep sedation with no response to voice but movemen t or eye opening to physical stimulation . RASS scale (-5) is unarousable. Patient Monitoring Once the patient has demonstrated a response to the naloxone, continue to monitor respiratory rate, depth, ox ygen saturation and end-tidal CO2 (if av ailable) every 15 minutes x 2, then every 30 minutes x 2, then every 1 hour x 1 after each naloxone dose. Consider transfer to ICU if patient respiratory parameters have not improved after 4 naloxone doses. nitroGLYcerin (NITROSTAT) sublingual tablet 0.4 mg 0.4 mg, Sublingual, EVERY 5 MIN PRN, chest pain, Start ing on Tue02/01/22 at 0725 ondansetron (ZOFRAN ODT) ODT tab 4 mg(Linked Group 4) 4 mg, Oral, EVERY 6 HOURS PRN, nausea, v omiting, Starting on Tue02/01/22 at 0500, This is Step 1 of nausea and vomiting management. If nausea not resolved in 15 minutes, go to Step 2 prochlorperazine (CO MPAZINE). Do not push through foil backi ng. Peel back foil and gently remove. Place on tongue immediately. Administration with liquid unnecessary With dry hands, peel back foil backing and gently remove tablet. Do not push oral disintegrating tablet through foil backing. Administer immediately on tongue and oral disintegrating tablet dissolves in seconds, then swallow with saliva. Liquid not required. ondansetron (ZOFRAN) injection 4 mg(Linked Group 4) 4 mg, Intravenous, EVERY 6 HOURS PRN, na usea, vomiting, Administer over 2-5 Minutes, Starting on Tue02/01/22 at 0500, This is Step 1 of nausea and vomiting management. If nausea not resolved in 15 minute s, go to Step 2 prochlorperazine (COMPAZINE). Irritant. oxyCODONE IR (ROXICODONE) half-tab 2.5-5 mg 2.5-5 mg, Oral, EVERY 4 HOURS PRN, moder ate to severe pain, Starting on 01/31/22 at 1207 prochlorperazine (COMPAZINE) injection 5 mg(Linked Group 5) 0810 (Auto Hold - Provider: Orders Generic Provider - Reason: Transfer to a procedural area)1128 (Unhold - Provider: Orders Generic Provider) 5 mg, Intravenous, EVERY 6 HOURS PRN, na usea, vomiting, Administer over 1-2 Minutes, Starting on 01/30/22 at 0113, Give IF patient unable to tolerate oral medication. This is Step 2 of nausea and vomi ting management. Give if nausea not reso lved 15 minutes after giving ondansetron (ZOFRAN). If nausea not resolved in 15-30 minutes, Notify provider. prochlorperazine (COMPAZINE) suppository 12.5 mg(Linked Grou p 5) 0810 (Auto Hold - Provider: Orders Generic Provider - Reason: Transfer to a procedural area)1128 (Unhold - Provider: Orders Generic Provider) 12.5 mg, Rectal, EVERY 12 HOURS PRN, toño sea, vomiting, Starting on 01/30/22 at 0113, This is Step 2 of nausea and vomiting management. Give if nausea not resolved 15 minutes after giving ondansetron ( ZOFRAN). If nausea not resolved in 15-30 minutes, Notify provide r. prochlorperazine (COMPAZINE) tablet 5 mg(Linked Group 5) 0810 (Auto Hold - Provider: Orders Generic Provider - Reason: Transfer to a procedural area)1128 (Unhold - Provider: Orders Generic Provider) 5 mg, Oral, EVERY 6 HOURS PRN, vomiting, Starting on 01/30/22 at 0113, This is Step 2 of nausea and vomiting management. Give if nausea not resolved 15 minutes after giving ondansetron (ZOFRAN). If na usea not resolved in 15-30 minutes, Notify provider. senna-docusate (SENOKOT-S/PERICOLACE) 8. 6-50 MG per tablet 1 tablet(Linked Group 6) 0810 (Auto Hold - Provider: Orders Generic Provider - Reason: Transfer to a procedural area)1128 (Unhold - Provider: Orders Generic Provider) 1 tablet, Oral, 2 TIMES DAILY PRN, const ipation, Starting on 01/30/22 at 0113, If no bowel movement in 24 hours, increase to 2 tablets by mouth. IF more than 1 constipation PRN medication is ordered, administer step-tavera as indicated, movin g to the next step ONLY if prior step ineffective. Step 1: senna-docusate (SENOKOT-S; PERICOLACE) OR bisacodyl (DULCOLAX) EC tablet Step 2: magnesium hydroxide (M ILK OF MAGNESIA) OR polyethylene glycol (MIRALAX/GLYCOLAX) Step 3: bisacodyl (DULCOLAX) suppository Step 4: sodium phosphate (FLEET ENEMA) Hold for loose stools. senna-docusate (SENOKOT-S/PERICOLACE) 8. 6-50 MG per tablet 2 tablet(Linked Group 6) 0810 (Auto Hold - Provider: Orders Generic Provider - Reason: Transfer to a procedural area)1128 (Unhold - Provider: Orders Generic Provider) 2 tablet, Oral, 2 TIMES DAILY PRN, const ipation, Starting on 01/30/22 at 0113, IF more than 1 constipation PRN medication is ordered, administer step-tavera as indicated, moving to the next step ONLY if prior step ineffective. Step 1: senna-d ocusate (SENOKOT-S; PERICOLACE) OR bisacodyl (DULCOLAX) EC tablet Step 2: magnesium hydroxide (MILK OF MAGNESIA) OR polyethylene glycol (MIRALAX/GLYCOLAX) Step 3: bisacodyl (DULCOLAX) suppository Step 4 : sodium phosphate (FLEET ENEMA) Hold for loose stools. sodium chloride (PF) 0.9% PF flush 3 mL 0810 (Auto Hold - Provider: Orders Generic Provider - Reason: Transfer to a procedural area)1128 (Unhold - Provider: Orders Generic Provider) 3 mL, Intracatheter, EVERY 1 MIN PRN, li ne flush, other, to ensure patency or to lock dormant line, Starting on Tue01/29/22 at 2040 sodium chloride (PF) 0.9% PF flush 3 mL 3 mL, Intracatheter, EVERY 1 MIN PRN, li ne flush, other, to ensure patency or to lock dormant line, Starting on Tue02/01/22 at 0500 Linked Groups Order Group 1: acetaminophen (TYLENOL) tablet 650 mgJump to med 650 mg, Oral, EVERY 6 HOURS PRN, mild pa in, other, and adjunct with moderate or severe pain or per patient request, Starting on 01/30/22 at 0113
Alternate with ibuprofen if ordered. Maximum acetaminophen dose from all sour darron = 75 mg/kg/day not to exceed 4 grams/day.
Or acetaminophen (TYLENOL) Suppository 650 mgJump to med 650 mg, Rectal, EVERY 6 HOURS PRN, mild pain, other, and adjunct with moderate or severe pain or per patient request, Starting on 01/30/22 at 0113
Alternate with ibuprofen if ordered.&nbs p;Maximum acetaminophen dose from all so urces = 75 mg/kg/day not to exceed 4 grams/day.
Group 2: HYDROmorphone (DILAUDID) injection 0.2 mgJump to med 0.2 mg, Intravenous, EVERY 2 HOURS PRN, other, moderate pain (pain rating 4-6) IF patient unable to take oral pain medication or pain not controlled with oral analgesics, Starting on Tue02/01/22 at 0500& lt;br>Hold IV PRN opioid dose for analge sic side effects. Notify provider to assess for uncontrolled pain or analgesic side effects.
Or HYDROmorphone (DILAUDID) injection 0.4 mgJump to med 0.4 mg, Intravenous, EVERY 2 HOURS PRN, other, severe pain (pain rating 7-10) IF patient unable to take oral pain medication or pain not controlled with oral analgesics, Starting on Tue02/01/22 at 0500&l t;br>Hold IV PRN opioid dose for analges ic side effects. Notify provider to assess for uncontrolled pain or analgesic side effects.
Group 3: naloxone (NARCAN) injection 0.2 mgJump to med 0.2 mg, Intravenous, EVERY 2 MIN PRN, op ioid reversal, Starting on 01/31/22 at 0844
Administer intravenous route when available and notify provider when administered. For unintended sedation or respiratory depression if al l of the below criteria are met: ~ respiratory rate LESS than or EQUAL to 8. ~SaO2 less than 92% and or/end- tidal CO2 is greater than 50.&n bsp;~ the patient is receiving an opioid , has unintended sedations assessed as RASS (-3), and is currently not on mechanical ventilation. RASS scale moderate (-3) is movement or eye o pening to voice but no eye contact.&nbsp ; Patient Monitoring Once the patient has demonstrated a response to the naloxone, continue to monitor respiratory rate, depth, oxygen satur ation and end-tidal CO2 (if available) e very 15 minutes x 2, then every 30 minutes x 2, then every 1 hour x 1 after each naloxone dose. Consider transfer to ICU if patient respiratory parameters have not improved after 4 na loxone doses.
Or naloxone (NARCAN) injection 0.4 mgJump to med 0.4 mg, Intravenous, EVERY 2 MIN PRN, op ioid reversal, Starting on 01/31/22 at 0844
Administer intravenous route when available and notify provider when administered. For unintended sedation or respiratory depression if al l of the below criteria are met: ~ respiratory rate LESS than or EQUAL to 8. ~ SaO2 less than 92% and or/end- tidal CO2 is greater than 50.&n bsp;~ the patient is receiving an opioid , has unintended sedation assessed as RASS (-4) or (-5) and patient is currently not on mechanical ventilation. RASS scale (-4) is deep sedatio n with no response to voice but movement or eye opening to physical stimulation. RASS scale (-5) is unarousable. Patient Monitoring Onc e the patient has demonstrated a respons e to the naloxone, continue to monitor respiratory rate, depth, oxygen saturation and end-tidal CO2 (if available) every 15 minutes x 2, then every 30 minutes x 2 , then every 1 hour x 1 after each nalox one dose. Consider transfer to ICU if patient respiratory parameters have not improved after 4 naloxone doses.
Or naloxone (NARCAN) injection 0.2 mgJump to med 0.2 mg, Intramuscular, EVERY 2 MIN PRN, opioid reversal, Starting on 01/31/22 at 0844
Administer intramuscular if an intravenous route is not available and notify provider when administered.& amp;nbsp;For unintended sedation or resp iratory depression if all of the below criteria are met: ~ respiratory rate LESS than or EQUAL to 8. ~SaO2 less than 92% and or/end-tidal CO2 i s greater than 50. ~ the patient is receiving an opioid, has unintended sedations assessed as RASS (-3), and is currently not on mechanical ventilation. RASS scale moderate ( -3) is movement or eye opening to voice but no eye contact. Patient Monitoring Once the patient has demonstrated a response to the naloxone, continue to monitor respiratory r ate, depth, oxygen saturation and end-ti claudia CO2 (if available) every 15 minutes x 2, then every 30 minutes x 2, then every 1 hour x 1 after each naloxone dose. Consider transfer to IC U if patient respiratory parameters have not improved after 4 naloxone doses.
Or naloxone (NARCAN) injection 0.4 mgJump to med 0.4 mg, Intramuscular, EVERY 2 MIN PRN, opioid reversal, Starting on 01/31/22 at 0844
Administer intramuscular if an intravenous route is not available and notify provider when administered.& amp;nbsp;For unintended sedation or resp iratory depression if all of the below criteria are met: ~ respiratory rate LESS than or EQUAL to 8. ~ SaO2 less than 92% and or/end-tidal CO2 i s greater than 50. ~ the patient is receiving an opioid, has unintended sedation assessed as RASS (-4) or (-5) and patient is currently not on mechanical ventilation. RASS sc elodia (-4) is deep sedation with no respon se to voice but movement or eye opening to physical stimulation. RASS scale (-5) is unarousable. Patient Monitoring Once the patient has de monstrated a response to the naloxone, continue to monitor respiratory rate, depth, oxygen saturation and end-tidal CO2 (if available) every 15 minutes x 2, t hen every 30 minutes x 2, then every 1 h our x 1 after each naloxone dose. Consider transfer to ICU if patient respiratory parameters have not improved after 4 naloxone doses.
Group 4: ondansetron (ZOFRAN ODT) ODT tab 4 mgJump to med 4 mg, Oral, EVERY 6 HOURS PRN, nausea, v omiting, Starting on 02/01/22 at 0500
This is Step 1 of nausea and vomiting management. If nausea not resolved in 15 minutes, go to Step 2 prochlorperazine (COMPAZINE). Do not push through foil backing. Peel back foil and gently remove. Place on tongue immediately. Administration with liquid unnecessary With dry hands, peel back foil backing and gently remove tab let. Do not push oral disintegrating tablet through foil backing. Administer immediately on tongue and oral disintegrating tablet dissolves in seconds, then swallow with saliva. Liquid not required.
Or ondansetron (ZOFRAN) injection 4 mgJump to med 4 mg, Intravenous, EVERY 6 HOURS PRN, na usea, vomiting, Administer over 2-5 Minutes, Starting on 02/01/22 at 0500
This is Step 1 of nausea and vomiting management. If nause a not resolved in 15 minutes, go to Step 2 prochlorperazine (COMPAZINE). Irritant.
Group 5: prochlorperazine (COMPAZINE) injection 5 mgJump to med 5 mg, Intravenous, EVERY 6 HOURS PRN, na usea, vomiting, Administer over 1-2 Minutes, Starting on Tue01/30/22 at 0113
Give IF patient unable to tolerate oral medication. This is Step 2 o f nausea and vomiting management. Give i f nausea not resolved 15 minutes after giving ondansetron (ZOFRAN). If nausea not resolved in 15-30 minutes, Notify provider.
Or prochlorperazine (COMPAZINE) tablet 5 mgJump to med 5 mg, Oral, EVERY 6 HOURS PRN, vomiting, Starting on 01/30/22 at 0113
This is Step 2 of nausea and vomiting management. Give if nausea not resolved 15 minutes after giving ondansetron (ZOFRAN ). If nausea not resolved in 15-30 minutes, Notify provider.
Or prochlorperazine (COMPAZINE) suppository 12.5 mgJump to med 12.5 mg, Rectal, EVERY 12 HOURS PRN, toño sea, vomiting, Starting on 01/30/22 at 0113
This is Step 2 of nausea and vomiting management. Give if nausea not resolved 15 minutes after giving ondan setron (ZOFRAN). If nausea not reso lved in 15-30 minutes, Notify provider.
Group 6: senna-docusate (SENOKOT-S/PERICOLACE) 8.6-50 MG per tablet 1 tabletJump to med 1 tablet, Oral, 2 TIMES DAILY PRN, const ipation, Starting on 01/30/22 at 0113
If no bowel movement in 24 hours, increase to 2 tablets by mouth. IF more than 1 constipation PRN medica tion is ordered, administer step-tavera as indicated, moving to the next step ONLY if prior step ineffective. Step 1: senna-docusate (SENOKOT-S; PERICOLACE) OR bisacodyl (DULCOLAX) EC tablet& nbsp;Step 2: magnesium hydroxide (MILK O F MAGNESIA) OR polyethylene glycol (MIRALAX/GLYCOLAX) Step 3: bisacodyl (DULCOLAX) suppository Step 4: sodium phosphate (FLEET ENEMA) Hold for loose stools.
Or senna-docusate (SENOKOT-S/PERICOLACE) 8.6-50 MG per tablet 2 tabletJump to med 2 tablet, Oral, 2 TIMES DAILY PRN, const ipation, Starting on 01/30/22 at 0113
IF more than 1 constipation PRN medication is ordered, administer step- tavera as indicated, moving to the next step ONLY if prior step ineffective. St ep 1: senna-docusate (SENOKOT-S; PERICOLACE) OR bisacodyl (DULCOLAX) EC tablet Step 2: magnesium hydroxide (MILK OF MAGNESIA) OR polyethylene glycol (MIRALAX/GLYCOLAX) Step 3: bisacody l (DULCOLAX) suppository Step 4: sodium phosphate (FLEET ENEMA) Hold for loose stools.
documented in this encounter Care Teams [employer] Relationship Specialty Start Date End Date No Ref-Primary, Physician PCP - General 12/11/15 01/30/22 Florentino Luna PCP - General Family Medicine 01/31/22 [facility] [address] [place] [address] documented as of this encounter
--- OUTSIDE RECORDS SUMMARY | 2022-06-27 18:32 | XMS_ITS | Encounter Summary ---
:1945 Author Organization [place] Address [facility] [place] [address] Care Team Providers Name Role Phone Florentino Luna Primary Care Provider Reason for Visit Reason Comments Abdominal Pain Auth/Cert Specialty Diagnoses / Procedures Referred By Contact Refer red To Contact Med Surg Diagnoses Abdominal pain, generalized Acute renal insufficiency Abscess of finger of left hand Elevated lactic acid level Abdominal pain, generalized Acute renal insufficiency Elevated lactic acid level Abscess of finger of left hand Observation Dept [address] [place], [place] [address] Phone: Referral ID Status Reason Start Date Expiration Date Visits Requ ested Visits Authorized [id number] 1 1 Encounter Details Date Type Department Care Team Description 01/31/2022 Surgery [facility] Mandi Jeong Left sma ll finger [place] [facility] Yesenia Ding MD (distal interphalangeal) [address] [facility] joint irrigation, [place], [place] ORTHOPEDICS debridement, and primary [id number] [place] [address] fusion. [phone] [place], [place] [address] (Wo rk) Surgery Details Date/Time Status Location OR Service Patient Class Case Case Trauma Class Type Case? 01/31/22 8:50 Posted [facility] OR OR 02 Orthopedics Inpatient AM Panel 1 Procedure LRB Anes Op Region Wound Class Commen ts Left small finger (distal Left General Hand IV-Dirty o r Infected interphalangeal) joint irrigation, debridement, and primary fusion. Surgeon Surgeon Role Service Panel Mandi Jeong MD Primary Orthopedics 1 Lorena Padilla PA-C Assisting 1 documented in this encounter Social History Tobacco Use Types Packs/Day Years [...] Sign Reading Time Taken Comments Blood Pressure 186/85 01/31/2022 10:25 AM CDT Pulse 65 01/31/2022 10:25 AM CDT Temperature 36.2 ??C (97.2 ??F) 01/31/2022 8:19 AM CDT Respiratory Rate 27 01/31/2022 10:25 AM CDT Oxygen Saturation 100% 01/31/2022 10:25 AM CDT Inhaled Oxygen Concentration - - [...] from abscess drainage yesterday. [place] [facility] [place] is adamant that he wants to leave. He understands that his infection could get worse or he could develop sepsis. He expresses understanding and would like to leave. Per Dr. Graf note I have prescribed 3 weeks of Augment and sent it to [facility] in [place]. Patient was discharged AGAINST MEDICAL ADVICE documented in this encounter Discharge Instructions Discharge Olivia Candelaria RN - 02/01/2022 1:47 PM CDT Keep [...] with son Pt left AGAINST MEDICAL ADVISE. ong Railway Patrol Officer used for through communications and discharge summary. Tavia Lauren PA-C - 02/01/2022 1:25 PM CDT Orthopedic Surgery Mery Dmitriy Marva 02/01/2022 Admit Date: 01/29/2022 POD: 1 [...] this week for recheck. Tavia Lauren PA-C IAT Skylar Avalos OTR - 02/01/2022 9:52 AM CDT 02/01/22 [...] Felix PA - 01/31/2022 12:07 PM CDT [facility] Hospitalist Progress Note SIAÍAS Currie 01/31/2022 Reason for Stay (Diagnosis): Finger [...] -- Minimize nephrotoxins -- Continue to hold CAREER DEVELOPMENT COUNSELOR lisinopril - BMP in the morning ?? 3. Coronary artery disease/hypertension/hyperlipidemia: H/o STEMI 11/2015 resulting in SD to dRCA. Echo at that time showed an EF of 61% and no valvular disease. -- CAREER DEVELOPMENT COUNSELOR lisinopril on hold for NEETA. CAREER DEVELOPMENT COUNSELOR atorvastatin on hold for mild transaminitis -- [...] pain/bloating resolved after several large BMs -- CAREER DEVELOPMENT COUNSELOR atorvastatin on hold for transaminitis -- Recheck [...] cultures, and ID recommendations JAH Lugo Pager: [phone] Interval History (Subjective): Patient doing relatively well. [...] cooperative, alert. Son at bedside acting as conference interpreter HEENT: Normocephalic, atraumatic. Extra occular mm intact. [...] XR FINGER LEFT G/E 2 VIEWS LOCATION: [facility] DATE/TIME: 01/29/2022 10:34 PM INDICATION: Left [...] EXAM: CT ABDOMEN PELVIS W/O CONTRAST LOCATION: [facility] DATE/TIME: 01/29/2022 10:30 PM INDICATION: Abdominal [...] call his Dtg. I left her a VM. He thinks his primary MD is in [place]. Verena Weston MANAGER OFFICE SERVICES Street Photographer Inpatient Care Coordination [facility] [phone] Sergei Dover MD - 01/30/2022 1:34 PM CDT [facility] Hospitalist Progress Note Sergei Dover MD [...] artery disease/hypertension/hyperlipidemia: patient had an ST elevation DC in 11/2015. Hehad a 99% distal RCA [...] XR FINGER LEFT G/E 2 VIEWS LOCATION: [facility] DATE/TIME: 01/29/2022 10:34 PM INDICATION: Left [...] EXAM: CT ABDOMEN PELVIS W/O CONTRAST LOCATION: [facility] DATE/TIME: 01/29/2022 10:30 PM INDICATION: Abdominal [...] MD. documented in this encounter H&P Notes Ashely Petit MD - 01/29/2022 11:50 PM CDT [facility] Hospitalist Admission Note Name: Mery Durham [...] disease/hypertension/hyperlipidemia: P patient had an ST elevation DC in 11/2015. He had a 99% distal [...] Patient and Patient's Family. Ashely Petit MD [facility] Clinically Significant Risk Factors Present on Admission [...] XR FINGER LEFT G/E 2 VIEWS LOCATION: [facility] DATE/TIME: 01/29/2022 10:34 PM INDICATION: Left [...] EXAM: CT ABDOMEN PELVIS W/O CONTRAST LOCATION: [facility] DATE/TIME: 01/29/2022 10:30 PM INDICATION: Abdominal [...] AST 65* ALT 91* Recent Labs Lab 01/29/22 2338 01/29/227 LACT 2.1* 4.9* Ashely Petit MD Hospitalist [facility] documented in this encounter Consult Notes [...] with the patient via son as an conference interpreter. The patient is quite insistent he is [...] ALLERGIES: NONE. SOCIAL AND FAMILY HISTORY: A [place] immigrant, feels okay at this point. No [...] Graf MD MT: CYRUS Name: MERY DURHAM MRN: [id number] Account: [id number] : 1945 Consult Date: 02/01/2022 Document: [id number] Qasim Graf MD - 02/01/2022 11:49 AM [...] cx and adjust, otherwise here on IV Andrew Fischer MD - 01/30/2022 4:10 PM [...] Fischer MD MT: GABBY Name: MERY DURHAM MRN: [id number] Account: [id number] : 1945 Consult Date: 01/30/2022 Document: [id number] documented in this encounter ED Notes Thi [...] A/O: Alert and Oriented x4 - hmong conference interpreter Diet: Regular Fluids: has Normal Saline 0.9% [...] Stoner RN - 01/30/2022 12:41 AM CDT [facility] ED Nurse Handoff Report Mery Durham is a 77 year old male ED Chief complaint: Abdominal Pain . ED Diagnosis: Final diagnoses: Abdominal pain, generalized Acute renal insufficiency Elevated lactic acid level Abscess of finger of left hand Allergies: No Known Allergies Code Status: Full Code Activity level - Baseline/Home: Independent. Activity Level - Current: Independent. Lift room needed: No. Bariatric: No Railway Patrol Officer Needed: Yes Isolation: No. Infection: Not Applicable [...] sodium chloride BOLUS (0 mLs Intravenous Stopped 01/29/22 2241) ampicillin-sulbactam (UNASYN) 3 g vial to [...] WDL X Cognitive/Neuro/Behavioral WDL Cognitive/Neuro/Behavioral WDL WDL Chacah Stoner RN - 01/29/2022 7:57 PM CDT [...] The patient was interviewed via the mom conference interpreter however the patient's daughter also interpreted. ANAID [...] pancreatitis arteriosclerotic heart disease CVA Suicidal ideation DC Past Surgical History: Cholecystectomy Cataract extraction Social History: Marital status: Presents via EMS Presents with daughter Physical Exam Patient Vitals for the past 24 hrs: BP Temp Temp src Pulse Resp SpO2 01/29/22 2300 128/69 -- -- 72 -- -- 01/29/22 2200 117/59 -- -- 77 -- 100 % 01/29/222099 123/60 -- -- 78 -- 97 % 01/29/221999 107/61 97.5 ??F (36.4 ??C) Oral 76 [...] ACID WHOLE BLOOD BLOOD CULTURE BLOOD CULTURE [facility] Digital Block Date/Time: 01/29/2022 11:08 PM Performed [...] for blood POST-PROCEDURE DETAILS Outcome: Anesthesia achieved [facility] PROCEDURE: -Incision/Drainage Date/Time: 01/29/2022 11:10 PM Performed by: Tor Sky MD Authorized by: Tor Sky MD Risks, benefits and alternatives discussed. LOCATION: Type: Abscess Location: Upper extremity Upper extremity location: Finger Finger location: L small finger PRE-PROCEDURE DETAILS: Skin preparation: Betadine PROCEDURE TYPE: Complexity: Simple ANESTHESIA (see MAR for exact dosages): Anesthesia method: None PROCEDURE [...] Dr. Petit of the Hospitalist service from [facility] regarding patient's presentation, findings, and plan of care. Interventions: 2117 Sodium chloride bolus, 1000 ml, IV 2299 Sodium chloride bolus, 1000 ml, IV 231 Unasyn, 3 g, IV Disposition: The patient was admitted to the hospital under the care of Dr. Petit. Impression & Plan [facility] Diagnoses: The Lactic acid level is [...] left hand L02.512 Scribe Disclosure: I, Daniel Moran, am serving as a scribe at 7:55 PM on 01/29/2022 to document services personally performed by Tor Sky MD based on my observations and the provider's statements to me. Tor Sky MD 01/29/22 7989 documented in this encounter Miscellaneous Notes Plan of Care - Skylar Avalos OTR - 02/01/2022 1:28 PM CDT Occupational Therapy Discharge Summary Reason for therapy discharge: All goals and outcomes met, no further needs identified. Progress towards therapy goal(s). See goals on Care Plan in Epic electronic health record for goal details. Goals met Therapy recommendation(s): Defer to MD regarding further hand therapy needs. Pt appears safe and able to return home with intermittent family assist as is his baseline. Pt has met all OT inpatient goals at this time. Plan of Care - KALPANA OCAMPO - 02/01/2022 5:14 AM CDT Care from [id number] Inpatient Progress Note: For complete assessment see [...] the AM after doctors complete rounds.Name: Silver #[phone] Pt has capno in place, O2 sats [...] Return to near baseline physical activity: Yes Tech Brazer Tester Nurse Safe discharge environment identified: Yes Barriers [...] to assist with interpretation. Op Note - Adenike, Mandi Ding MD - 01/31/2022 10:33 AM CDT Procedure Date: 01/31/2022 PREOPERATIVE DIAGNOSIS: Left small finger DIP (distal interphalangeal) septic joint. POSTOPERATIVE DIAGNOSES: 1. Gout. 2. Secondary septic joint of the DIP (distal interphalangeal) joint. 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 PROCEDURES: Left small finger DIP (distal interphalangeal) joint irrigation, debridement, and primary fusion. SURGEON: Mandi Jeong MD PRODUCT MARKETER: Lorena Padilla PA-C ANESTHESIA: General with a digital block. Surgical site was signed by me and confirmed at the timeout. Informed consent was obtained in the holding area with an conference interpreter and his son present. Prophylactic antibiotics as [...] to prevent osteomyelitis. Mandi Jeong MD MT: COOPER Name: MERY DURHAM Account: [id number] : 1945 Procedure Date: 01/31/2022 Document: [id number] Brief Op Note - Mandi Jeong MD - 01/31/2022 10:26 AM CDT [facility] Brief Operative Note Pre-operative diagnosis: Septic finger, [...] - 01/31/2022 12:10 AM CDT Care from [id number] Inpatient Progress Note: For complete assessment see [...] 01/30/2022 10:11 PM CDT Goal Outcome Evaluation: 2110-1255 VSS on RA. A&Ox4. Pt received dose [...] Angela Lozano MD Utilization Review Physician Advisor [facility]. Plan of Care - Amelia Bruce RN - 01/30/2022 3:00 PM CDT PRIMARY DIAGNOSIS: SOFT TISSUE INFECTIONS OUTPATIENT/OBSERVATION GOALS TO BE MET BEFORE DISCHARGE: 1. Vitals sign stable or return to baseline: Yes 2. Tolerating oral antibiotics or has home infusion set up if applicable: No 3. Pain status: Pain free. 4. Return to near baseline physical activity: Yes Tech Brazer Tester Nurse Safe discharge environment identified: Yes Barriers [...] status for this patient is complete. See [facility] admission navigator for allergy information, prior to admission medications and immunization status. Medication history interview done, indicate source(s): Patient Medication history resources (including written lists, pill bottles, clinic record): care everywhere Pharmacy: [facility] Changes made to CAREER DEVELOPMENT COUNSELOR medication list: Added: atorvastatin, lisinopril, nitroglycerin Changed: [...] By History Associated attestation - Raymond Whitehead [facility] - 01/30/2022 12:28 PM CDT Medication reconciliation completed by pharmacy resident. documented in this encounter Plan of Treatment [...] procedure are i n the results section. WA DRAINAGE FINGER Routine 01/29/2022 11:10 Resul ts [...] Address City/State/ZIP Code [place] [phone] Care Lab [address] Lab (1st floor, no room number) Erythrocyte sedimentation rate auto (02/01/2022 8:09 AM CDT) Patholo gist Method Time Signature Erythrocyte 13 0 - 20 02/01/2022 [facility] LABORATORY Sedimentation Rate mm/hr 2:10 PM CDT Specimen Anatomical Collection Method / Collection Time Recei logan Time (Source) Location / Volume Laterality Blood STRUCTURE OF RIGHT Venipuncture / 02/01/2022 8:09 05/0 05/2022 8:45 UPPER LIMB / Unknown AM CDT AM CDT Unknown Qasim Graf MD LAB - BLOOD ORDERABLES Performing Organization Address City/[facility]/ZIP Code [place] [address] Care Lab [address] Lab (1st floor, no room number) (ABNORMAL) CBC with platelets and differential (02/01/2022 8:09 AM CDT) Patholo gist Method Time Signature WBC Count 16.4 [...] Address City/State/ZIP Code [place] [address] Care Lab [address] Lab (1st floor, no room number) [...] Organization Address City/State/[place] [address] Care Lab [address] Lab (1st floor, no room number) [...] Total 6.2 (L) 6.8 - 8.8 02/01/2022 LABORATORY g/dL 9:17 AM CDT Albumin 2.7 (L) 3.4 - 5.0 02/01/2022 [facility]AT[facility] g/dL 9:17 AM CDT Bilirubin Total 1.0 0.2 - 1.3 02/01/2022 LABORATORY mg/dL 9:17 AM CDT GFR Estimate 71 >60 02/01/2022 LABORATORY mL/min/1.7 9:17 AM CDT 3m2 Comment: Effective September 15, 2021 eGF Rcr in adults is calculated using the 2020 CKD-EPI creatinine equation which includ es age and gender (Jacobo et al., NEJM, DOI: 10.1056/HRKCto6842294) Specimen Anatomical Collection Method / Collection Time Recei logan Time (Source) Location / Volume Laterality Blood STRUCTURE OF RIGHT Venipuncture / 02/01/2022 8:09 05/0 05/2022 8:45 UPPER LIMB / Unknown AM CDT AM CDT Unknown Beryl METZ LAB - BLOOD ORDERABLES Performing Organization Address City/State/ZIP Code [place] [address] Care Lab [address] Lab (1st floor, no room number) [...] / CDT HAND / Unknown Unknown Narrative [facility] - 03/29/2022 11:01 PM CDT Culture negative for acid fast bacilli Performed by [email or web address], [address] [place] [address] [email or web address], Stanislav Poon MD, PHD, Lab. Director Mandi Jeong MD LAB - MICRO GENERAL TRISTAN CORDERO Performing Organization Address City/State/ZIP Code Phon e Number [employer] [place], [place] [phone] [address] [facility] [address] (ABNORMAL) Tissue Aerobic Bacterial Culture Routine (01/31/2022 9:50 AM CDT) [facility] Method Time Signature Culture 3+ Streptococcus MARCO [...] Susceptible Mandi Jeong MD LAB - MICRO [facility] TRISTAN [facility] Organization Address City/State/ZIP Code Phon e Number [facility] LABORATORY [facility] [place] [address] Diag. Lab [address] [facility], [address] (ABNORMAL) Gram Stain (01/31/2022 9:50 AM CDT) [facility] Method Time Signature Gram Stain 2+ [...] Unknown Mandi Jeong MD LAB - MICRO GENERAL TRISTAN CORDERO Performing Organization Address City/State/ZIP Code Phon e Number [facility] LABORATORY [facility] [place] [address] Diag. Lab [address] [facility], [address] Anaerobic Bacterial Culture Routine (01/31/2022 9:50 AM CDT) [facility] Method Time Signature Culture No anaerobic MARCO ANTONIO 02/07/2022 [facility] ID[facility] organisms 8:31 AM CDT LABORATORY isolated Specimen Anatomical Collection Method Collection Time Receive d Time (Source) Location / / Volume Laterality Tissue STRUCTURE OF Non-blood 01/31/2022 9:50 AM 9:55 FINGER OF LEFT Collection / CDT AM CDT HAND / Unknown Unknown Mandi Jeong MD LAB - MICRO GENERAL TRISTAN CORDERO Performing Organization Address City/[facility] Phon e Number [facility] LABORATORY [facility] [place] [address] Diag. Lab [address] [facility], [address] (ABNORMAL) Crystal ID Synovial Fluid (01/31/2022 8:35 AM CDT) [facility] Method Time Signature Crystals Positive for No [...] BODY FLUIDS ORDERA BLES Performing Organization Address City/[facility]/ZIP Code [place] [phone] Care Lab [address] Lab (1st floor, no room number) [...] City/State/ZIP Code [place] [address] Care Lab [address] Lab (1st floor, no room number) [...] City/State/ZIP Code [place] [phone] Care Lab [address] Lab (1st floor, no room number) [...] es age and gender (Jacobo et al., NEJ, DOI: 10.1056/QQFCsu7737814) Specimen Anatomical Collection Method / Collection Time Recei logan Time (Source) Location / Volume Laterality Blood STRUCTURE OF RIGHT Venipuncture / 01/31/2022 5:58 05/0 04/2022 6:18 UPPER LIMB / Unknown AM CDT AM CDT Unknown Sergei Dover MD LAB - BLOOD ORDERABLES Performing Organization Address City/State/[place] [phone] Care Lab [address] Lab (1st floor, no room number) [...] LAB - BLOOD ORDERABLES Performing Organization Address City/[facility]/[place] [phone] Care Lab [address] Lab (1st floor, no room number) [...] City/State/ZIP Code [place] [address] Care Lab [address] Lab (1st floor, no room number) [...] 56 (L) >60 mL/min/1.73m2 01/30/2022 8:41 AM LABORATORY CDT Comment: Effective September 15, 2021 eGF Rcr in adults is calculated using the 2020 CKD-EPI creatinine equation which includ es age and gender (Jacobo et al., NE, DOI: 10.1056/USUUzd5847584) Specimen Anatomical Collection Method / Collection Time Recei logan Time (Source) Location / Volume Laterality Blood STRUCTURE OF LEFT Venipuncture / 01/30/2022 8:04 01/30 8:11 HAND / Unknown Unknown AM CDT AM CDT Ashely Petit MD LAB - BLOOD ORDERABLES Performing Organization Address City/[facility]/[place] [phone] Care Lab [address] Lab (1st floor, no room number) Fractional Excretion of Sodium (01/30/2022 6:26 AM CDT) athologist Signature %FENA 0.8 % 01/30/2022 9:39 [facility]AT[facility] AM CDT Comment: Adult: ?<1 percent Indicates prerenal azotemia >3 percent Suggests acute tubular necrosis Neonates: <2.5 percent Suggest prerenal azotemia >2.5 percent Suggest acute tubular necrosis Sodium Urine mmol/L 82 mmol/L 01/30/2022 9:39 AM C DT [facility] Creatinine Urine mg/dL 90 mg/dL 01/30/2022 9:39 A M CDT LABORATORY Specimen Anatomical Collection Method Collection Time Receive d Time (Source) Location / / Volume Laterality Urine URINE SPECIMEN Non-blood 01/30/2022 6:26 AM 022 6:49 OBTAINED BY CLEAN Collection / CDT AM CDT CATCH PROCEDURE / Unknown Unknown Ashely Petit MD LAB - URINE ORDERABLES Performing Organization Address City/[facility] [place] [phone] Care Lab [address] Lab (1st floor, no room number) [...] / AM CDT AM CDT Unknown Narrative [facility] - 01/30/2022 1:45 AM CDT Testing was performed using the Xpert Xpress SARS-CoV-2 Assay on the [employer]. A dditional information about this [...] COVID-19. This test was validated by the [facility]. This laboratory is certified under the Clinical Laboratory Improvement Amendments of 1988 (CLIA-88) as qualified to perform high complexity laboratory testing. Ashely Petit MD LAB - MICRO GENERAL ORDERABL ES Performing Organization Address City/State/ZIP Code [place] [address] Care Lab [address] [facility] Lab (1st floor, no room number) (ABNORMAL) [...] Organization Address City/State/ZIP Code Phon e Number [facility] [place] [address] Care Lab [address] Lab (1st floor, no room number) WA DRAINAGE FINGER ABSCESS, SIMPLE (01/29/2022 11:10 PM CDT) Narrative Tor Sky MD - 01/29/2022 1 1:10 PM CDT Tor Sky MD ? 01/29/2022 11:54 PM [facility] PROCEDURE: -Incision/Drainage Date/Time: 01/29/2022 11:10 PM Performed [...] Tor Sky MD ? 01/29/2022 11:54 PM [facility] Digital Block Date/Time: 01/29/2022 11:08 PM Performed [...] XR FINGER LEFT G/E 2 VIEWS LOCATION: [facility] DATE/TIME: 01/29/2022 10:34 PM INDICATION: Left little finger swelling and pain. Evaluate for fracture. COMPARISON: None. Procedure Note Zeny Hinton MD - 01/29/2022Formatt ing of this note might be different from the original. EXAM: XR FINGER LEFT G/E 2 VIEWS LOCATION: [facility] DATE/TIME: 01/29/2022 10:34 PM INDICATION: Left little [...] EXAM: CT ABDOMEN PELVIS W/O CONTRAST LOCATION: [facility] DATE/TIME: 01/29/2022 10:30 PM INDICATION: Abdominal distension [...] EXAM: CT ABDOMEN PELVIS W/O CONTRAST LOCATION: [facility] DATE/TIME: 01/29/2022 10:30 PM INDICATION: Abdominal distension [...] Culture Arm, Right (01/29/2022 9:02 PM CDT) P athologist Signature Culture No Growth 02/04/2022 [facility] ID[facility] 1:18 AM CDT LABORATORY Specimen Anatomical Collection Method / Collection Time Recei logan Time (Source) Location / Volume Laterality Blood STRUCTURE OF RIGHT Venipuncture / 01/29/2022 9:02 05/0 02/2022 9:16 UPPER LIMB / Unknown PM CDT PM CDT Unknown Tor Sky MD LAB - MICRO GENERAL ORDERABL ES Performing Organization Address City/State/ZIP Code Phon e Number [facility] LABORATORY [facility] [place] [address] Diag. Lab [address] [facility], [address] Blood Culture Hand, Left (01/29/2022 8:57 PM CDT) athologist Signature Culture No Growth 02/04/2022 [facility] 1:18 AM CDT LABORATORY Specimen Anatomical Collection Method / Collection Time Recei logan Time (Source) Location / Volume Laterality Blood STRUCTURE OF LEFT Venipuncture / 01/29/2022 8:57 01/29 9:16 HAND / Unknown Unknown PM CDT PM CDT Tor Sky MD LAB - MICRO GENERAL ORDERABL ES Performing Organization Address City/State/ZIP Code Phon e Number [facility] LABORATORY [facility] [place] [address] Diag. Lab [address] [facility], [address] (ABNORMAL) Lactic acid whole blood (01/29/2022 8:57 PM CDT) athologist [facility] Lactic Acid 4.9 (HH) 0.7 - 2.0 [...] City/State/ZIP Code [place] [phone] Care Lab [address] Lab (1st floor, no room number) (ABNORMAL) CBC with platelets and differential (01/29/2022 8:38 PM CDT) [facility] gist Method Time Signature WBC Count 18.5 (H) [...] LAB - BLOOD ORDERABLES Performing Organization Address City/[facility]/ZIP Code [place] [address] Care Lab [address] Lab (1st floor, no room number) Troponin I (01/29/2022 8:38 PM CDT) P athologist Signature Troponin I High 18 <79 ng/L 01/29/2022 LABORATORY Sensitivity 9:12 PM CDT Comment: This Troponin-I result was obta ined using a Siemens Dimension [place] High Sensitivity Troponin-I assay (TNIH). Eff ective 08/18/21, nine labs/sites in the [facility] switched from a Siemens [place] Contemporary Troponin I assay (CTNI) to a Siemens [place] High-Sensitivity Troponi n I assay (TNIH). Specimen Anatomical Collection Method / Collection Time Recei logan Time (Source) Location / Volume Laterality Blood STRUCTURE OF LEFT Venipuncture / 01/29/2022 8:38 01/29 8:49 UPPER LIMB / Unknown PM CDT PM CDT Unknown Tor Sky MD LAB - BLOOD ORDERABLES Performing Organization Address City/State/ZIP Code [place] [address] [facility] [address] Lab (1st floor, no room number) Lipase (01/29/2022 8:38 PM CDT) P athologist Signature Lipase [phone] 393 U/L 01/29/2022 LABORATORY 9:12 PM CDT Specimen Anatomical Collection Method / Collection Time Recei logan Time (Source) Location / Volume Laterality Blood STRUCTURE OF LEFT Venipuncture / 01/29/2022 8:38 01/29 8:49 UPPER LIMB / Unknown PM CDT PM CDT Unknown Tor Sky MD LAB - BLOOD ORDERABLES Performing Organization Address City/State/ZIP Code Phon [place] [address] [facility] [address] Lab (1st floor, no room number) (ABNORMAL) Comprehensive metabolic panel (01/29/2022 8:38 PM CDT) P athologist Signature Sodium 140 133 - 144 [...] and gender (Jacobo et al., NEJM, DOI: [id number]/[id number]) Specimen Anatomical Collection Method / Collection Time Recei logan Time (Source) Location / Volume Laterality Blood STRUCTURE OF LEFT Venipuncture / 01/29/2022 8:38 01/29 8:49 UPPER LIMB / Unknown PM CDT PM CDT Unknown Tor Sky MD LAB - BLOOD ORDERABLES Performing Organization Address City/State/ZIP Code [place] [address] [facility] [address] Lab (1st floor, no room number) documented in this encounter Visit Diagnoses Diagnosis Abscess of finger of left hand - Primary Cellulitis and abscess of finger, unspec ified Abdominal pain, generalized Acute renal insufficiency Unspecified disorder of kidney and urete r Elevated lactic acid level Other nonspecific abnormal serum enzyme levels Septic finger, left documented in this encounter Admitting Diagnoses Diagnosis Abscess of finger of left hand Cellulitis and abscess of finger, unspec ified documented in this encounter Administered Medications Inactive Administered Medications - up to 3 most recent administrations Medication Order MAR Action Action Date Dose Rate Site acetaminophen (TYLENOL) Suppository 650 mg 650 mg, [...] DAILY, First dose on 02/01/22 at 0800, Indications: VTE Prophylaxis, DO NOT CRUSH. bacitracin ointment Given 01/31/2022 10:00 AM 1 g Operativ e Site/Surgical PRN, Starting on [facility] 01/31/22 CDT Site at 1000, Intra-procedure bisacodyl (DULCOLAX) Suppository 10 mg 10 mg, Rectal, DAILY PRN, constipation, Starting on [facility] 01/31/22 at 1204, Hold for loose stools. bupivacaine (MARCAINE) Given 01/31/2022 10:00 AM 3 mLs Operative Site/Surgical 0.25% preservative free CDT S ite injection PRN, Starting on [facility] 01/31/22 at 1000, Intra-procedure hydrALAZINE (APRESOLINE) injection 10 mg 10 mg, Intravenous, EVERY 4 HOURS PRN, high blood pres sure, give for SBP > 180, Starting on [facility] 01/31/22 at 1839 HYDROmorphone (DILAUDID) injection 0.2 m g 0.2 mg, Intravenous, EVERY 2 HOURS PRN, other, moderate pain (pain rating 4-6) IF patient unable to take oral pain medication or pain no t controlled with oral analgesics, Starting on [facility] 02/01/22 at 05 00, Hold IV PRN opioid dose for analgesic side effects. Notify provider to assess for uncontroll ed pain or analgesic side effects. HYDROmorphone (DILAUDID) injection 0.4 m g 0.4 mg, Intravenous, EVERY 2 HOURS PRN, other, severe pain (pain rating 7-10) IF patient unable to take oral pain medication or pain no t controlled with oral analgesics, Starting on 02/01/22 at 05 00, Hold IV PRN opioid dose for analgesic side effects. Notify provider to assess for uncontroll ed pain or analgesic side effects. lidocaine (LMX4) cream Topical, EVERY 1 HOUR PRN, pain, with VAD insertion, S tarting on Tue01/29/22 at 2040, Apply at least [...] 2040, MAX dose 1 mL subcutaneous OR intrader [...] Tue01/31/22 at 0844, Administer intramuscular if an int [...] , Administer over 2-5 Minutes, Starting on 02/01/22 at 0500, This is Step 1 of [...] 1 constipation PRN medication is ordered, ad polishing machine tender step-tavera as indicated, moving to the next [...] 8 HOURS, First dose on Tue01/29/22 at 2045, to lock peripheral IV dormant line sodium chloride (PF) 0.9% PF flush 3 mL Given 01/29/2022 9:18 PM CDT 3 mLs 3 mL, Intracatheter, EVERY 1 MIN PRN, line flush, other, to ensure patency or to lock dormant line, Starting on Tue01/29/22 at 2040 documented in this encounter Active and Recently Administered Medications Times are shown in CDT. Scheduled Medication Order 01/30/2022 01/31/2022 02/01/2022 ampicillin-sulbactam (UNASYN) 3 g vial to attach to NS 100 mL bag (CANCELED) 0424 (Canceled Entry - Provider: Hernandez Valdovinos)0625 (New Bag - Provider: Hernandez Valdovinos)0734 (Stopped - Provider: Thi Lovell, DIANE)1229 (New Bag - Provider: Thi Lovell, DIANE)1315 [...] EVERY 6 HOURS , First dose on Tue01/30/22 at 0115, Indications: Abscess 1759 (New Bag - Provider: Chava Mcghee RN) 1428 ( New Bag - Provider: Dominique Jaimes RN)1809 (New Bag - Provider: Chava Mcghee, RN) ampicillin-sulbactam (UNASYN) 3 g vial to attach to NS 100 mL ba g 1319 (New Bag - Provider: Olivia Armijo, DIANE) Routine, 3 g, Intravenous, EVERY 6 HOURS , First dose on Tue02/01/22 at 1200, Indications: [...] g (COMPLETED) 920 (Given - Provider: Sergei Funes APRN [employer]AF[employer] CLOTHING AND EQUIPMENT DEVELOPER) Routine, 2 g, Intravenous, PRE-OP/PRE-WA OCEDURE, Starting on Tue01/31/22 at 0828, For [...] [place]ress) 0800 (Automatically Held - Provider: ISAÍAS Otriz)1616 (Unheld by provider - Provider: Orders Generic Provider) 2.5 mg, Oral, DAILY, First dose on 01/31/22 at 1200 polyethylene glycol (MIRALAX) Packet 17 g 2007 (Given - Provider: Chava Mcghee RN) 0746 (Given - Provider: Olivia Armijo, DIANE) 17 g, Oral, 2 TIMES DAILY, First dose (a fter last modification) on 01/31/22 at 2000, IF [...] IV Infusing)1353 (Not Given - Provider: Amelia Bruce RN - Reason: IV Infusing)1354 (Canceled Entry - [...] line 2016 (Not Given - Provider: Chava lala, DIANE - Reason: IV Infusing) 1445 (Not Given - Provider: Dominique woods RN - Reason: IV Infusing)2009 (Not Given - Provider: Chava Mcghee, RN - Reason: Other - Comment: had NS running with abx) sodium chloride (PF) 0.9% PF flush 3 mL 0501 (Canceled Entry - Provider: KALPANA OCAMPO)1330 (Canceled Entry - Provider: Orders Generic Provider - Comment: Automatically canceled at discontinue of medication order) 3 mL, Intracatheter, EVERY 8 HOURS, Firs t dose on Tue02/01/22 at 0530, to lock peripheral IV dormant [...] Valdovinos)1030 (New Bag - Provider: Thi Lovell, RN)1431 (Rate/Dose Change - Provider: Amelia Bruce, DIANE)1949 (Rate/Dose Verify - Provider: Chava Mcghee, RN)2226 [...] Provider: Mandi Jeong MD) PRN, Starting on Tue01/31/22 at 1000, Intra-procedure fentaNYL (PF) (SUBLIMAZE) injection 50 mcg (CANCELED) 1032 (Given - Provider: Juni Pacheco RN)1038 (Given - Provider: Juni Pacheco RN)1053 (Given - Provider: Juni Pacheco RN) 50 mcg, Intravenous, EVERY 5 MIN PRN, mo derate to severe pain, Starting on 01/31/22 at 0830, Administer fentaNYL (SUBLIMAZE) for acute [...] mild pain with VAD insertion, Starting on 02/01/22 at 0500, MAX dose 1 mL subcutaneous [...] over 2-5 Minutes, Starting on 02/01/22 at 0500, This is Step 1 of [...] MIN PRN, op ioid reversal, Starting on Tue01/31/22 at 0844
Administer intravenous route when available [...] MIN PRN, op ioid reversal, Starting on Tue01/31/22 at 0844
Administer intravenous route when available [...] PRN, opioid reversal, Starting on Tue01/31/22 at 0844
Administer intramuscular if an intravenous [...] PRN, opioid reversal, Starting on Tue01/31/22 at 0844
Administer intramuscular if an intravenous [...] nausea, v omiting, Starting on Tue02/01/22 at 0500
This is Step 1 of [...] over 2-5 Minutes, Starting on Tue02/01/22 at 0500
This is Step 1 of nausea and vomiting management. If nause a not resolved in 15 minutes, go to Step 2 prochlorperazine (COMPAZINE). Irritant.
Group 5: prochlorperazine (COMPAZINE) injection 5 mgJump to med 5 mg, Intravenous, EVERY 6 HOURS PRN, na usea, vomiting, Administer over 1-2 Minutes, Starting on 01/30/22 at 0113
Give IF patient unable to [...] stools.
documented in this encounter Care Teams Solar Sales Representative And Assessor Relationship Specialty Start Date End Date Florentino Luna PCP - General Family Medicine 01/31/[address] [id number] documented as of this encounter
--- OUTSIDE RECORDS SUMMARY | 2022-06-27 18:32 | XMS_ITS | Encounter Summary ---
:1945 Author Organization [place] Address [facility] [place] [address] Care Team Providers Name Role Phone No Ref-Primary, Physician Primary Care Provider [phone] Reason for Visit Reason Comments Abdominal Pain Auth/Cert Specialty Diagnoses / Procedures Referred By Contact Refer red To Contact Diagnoses Hypokalemia Gastritis Transaminitis Acute pancreatitis, unspecified pancreatitis type Acute pancreatitis, unspecified Rh 5 Medical Surgical [address] [place], [place] [address] Phone: Fax: Referral ID Status Reason Start Date Expiration Date Visits Requ ested Visits Authorized [id number] 12/11/2015 12/10/2016 1 1 Encounter Details Date Type Department Care Team Description 12/10/2015 - [facility] SurendraLucy call MD [facility] [address] [place] [address] Hepatitis (Primary Dx); 12/12/2015 Encounter [place] [address] Medical Arnol Vergara MD [facility] [address] [place] [address] Acute pancreatitis, unspecified pancreat itis type; Surgical Walter Mendoza MD [address] [place], [place] [id number] Gastritis; [address] [place] [address] Social History Tobacco Use Types Packs/Day Years Used Date Never Assessed Sex Assigned at Date Recorded Not on file documented as of this encounter Last Filed Vital Signs Vital Sign Reading Time Taken Comments Blood Pressure 140/62 12/12/2015 7:36 AM CDT Pulse - - Temperature 36.7 ??C (98 ??F) 12/12/2015 7:36 AM CDT Respiratory Rate 16 12/12/2015 7:36 AM CDT Oxygen Saturation 97% 12/12/2015 7:36 AM CDT Inhaled Oxygen Concentration - - Weight 58.7 kg (129 lb 8 oz) 12/11/2015 4:17 AM CDT Height 152.4 cm (5') 12/11/2015 12:00 PM CDT Body Mass Index 25.29 12/11/2015 4:17 AM CDT documented in this encounter Discharge Summaries Roxann Worthington MD - 12/13/2015 2:09 PM CDT PRIMARY CARE PHYSICIAN: Through the [facility] in [place]. DISCHARGE DIAGNOSES: 1. Presentation with 1 day of increasing severe mid abdominal pain. 2. Lab work showed evidence for acute pancreatitis with a lipase of 2492. 3. Initial CT scan did not show any bowel obstruction or any inflammation of the pancreas. 4. Presenting liver function tests were elevated with an ALT of 170 and AST of 179. 5. MRCP done to rule out any common bile duct retained stones or obstruction. There were none. 6. Resolution of the abdominal pain and return of the lipase to normal. 7. Repeat liver function tests show continued elevation and an increase in the ALT to 410 and the AST to 149. 8. Viral hepatitis serology sent with results to be reviewed by the primary. 9. Prior cholecystectomy. 10. Probable viral hepatitis probable acute; viral serologies were sent and will be followed up withhis primary. BRIEF HISTORY/HOSPITAL COURSE: Mr. Mery Durham follows in the [facility]; he presented tothe emergency room with increasing severe abdominal pain. He states that after he ate dinner, he developed increased pain in the mid abdomen that was unrelenting and he came in through the emergency room. Lab work showed evidence for acute pancreatitis with a lipase of 2492. He also had some elevationin his ALT to 170 and AST to179. Lactic acid was normal and CT scan was done which did not show any evidence for small-bowel obstruction, neither did it show any evidence of inflamed pancreas or pancreatitis. He was admitted for IV fluids and pain control. He did not have any emesis episodes prior to admission nor did he have any during the hospital stay. The cause of the acute pancreatitis was not clear, but because there was also elevation in the liver function test he was sent for an MRCP to assess for whether there were any retained bile stones or common bile duct obstruction. He had already had a cholecystectomy in the past. The MRCP did not show any significant dilatation of the common bile duct nor did it show any evidence of obstruction or any retained bile duct stones. He did not requireany further pain medications, and he was up walking about and subsequently was able to eat solid food. He did not have any increase in his pain nor did he have any emesis. He states that in the past, summer, he had been having some trouble when he ate rice that he felt like it would get stuck midway down and sometimes he would induce an episode of emesis. He denied having any emesis prior to admission and neither did he have any upper abdominal pain and did not have any prior history of any peptic ulcer disease. A followup lab work the following day showed a normal lipase of 114, the liver function test; however, continue to increase. His ALT was 410 and AST remained about the same at 146. Bilirubin was normal. The cause of this hepatitis is not clear, it may be acute. It is unclear what hisprior liver function tests have been. He did have low-grade fever here up to 101. Because of his country of origin where hepatitis B is prevalent a serology for the viruses that can cause hepatitis wassent and the results were still pending at the time of discharge. He knows to follow this up with his primary. PHYSICAL EXAMINATION AT TIME OF DISCHARGE: GENERAL: Interactive and conversant, communication was given through a [employer] medical interpreter. The patient also had a fair command of Azeri. He was comfortable and definitely wanted to go home. He was able to tolerate homemade soup from home and had no significant pain, no nausea, vomiting or diarrhea. HEENT: Normal. Mucous membranes moist. NECK: Jugular venous pressure is normal. Carotid upstroke and volume are normal, no bruits. LUNGS: Clear throughout without wheezing, rhonchi or rales. HEART: Sounds are normal without significant murmur. VITAL SIGNS: Blood pressure is 134/60 with a heart rate 80, respirations 16. His T-max was 101 during his hospital stay. No cough, no rhonchi. ABDOMEN: Flat and nontender, no hepatosplenomegaly, no masses. NEUROLOGICAL: Good peripheral pulses and no edema, no focal weakness, no sensory deficits. MUSCULOSKELETAL: No joint inflammation. SKIN: Without lesions or rashes. PSYCHOLOGICAL: He is coping well. DISCHARGE INSTRUCTIONS: 1. You were admitted to the hospital for treatment and investigation of mid abdominal pain that increased in intensity. 2. Lab work showed evidence for inflammation about the pancreas and the liver. 3. The inflammation of the pancreas or pancreatitis has resolved. 4. Further testing did not show any common bile duct obstruction that could occur with retained bilestone and the pancreas was normal. 5. The liver enzymes are elevated and may be elevated by an acute infection of the liver or hepatitis. This does not need specific treatment and your body will most likely resolve the infection. You also had low-grade fevers here up to 101. 6. Continue to eat low-fat foods and as tolerated. 7. Lab testing had been done to check for hepatitis A, B and C, and these results need to be reviewed with your primary. Follow up liver function tests need to be done. 8. Activity on discharge is as tolerated. Follow a regular and low-fat diet. 9. Get liver function tests in 1 week and followup results with your primary. DISCHARGE MEDICATIONS: Only include Advil as needed. PENDING TESTS: There are no pending tests. ALLERGIES: No known drug allergies. NOTE: Greater than 30 minutes was spent on discharge preparation and instruction. ROXANN WORTHINGTON MD MT: [id number] Name: MERY DURHAM MRN: [id number] Account: [id number] : 1945 Admit Date: Discharge Date: 12/12/2015 Document: [id number] documented in this encounter Discharge Instructions AttachmentsThe following attachments cannot be sent through Care Everywhere. PANCREATITIS, ACUTE, DISCHARGE INSTRUCTIONS FOR (GHANAIAN)documented in this encounter Medications at Time of Discharge Medication Sig Dispensed Refills Start Date End Date Ibuprofen (ADVIL PO) Take 200-400 mg by mouth 0 01/30/2022 as needed for moderate pain documented as of this encounter Progress Notes Guero Segovia MD - 12/11/2015 9:15 PM CDT Cross Cover: Notified about patient having a fever, otherwise doing well and pain controlled on small doses of IVdilaudid. Comfortable. Per review of notes, possible concern for a retained CBD stone, with plan for MRCP tomorrow. Suspicion for cholangitis is low, fever could be related pancreatitis as well. Will cover with one time doseof IV ertapenem to cover for possible early cholangitis pending results of MRCP. Roxann Worthington MD - 12/11/2015 6:09 PM CDT [facility] Hospitalist Progress Note Roxann Worthington MD 12/11/2015 Reason for Stay (Diagnosis): several days mid increasing abdominal pain Assessment and Plan: Summary of Stay: Mery Durham is a 70 year old male admitted on 12/10/2015 Problem List: 1. Two days increasing mid abdominal pain 2. Elevated lipase and LFT 3. C/w acute pancreatitis and hepatitis 4. Cause not clear but may have transient common bile duct retained stone 5. States he has had a lap ifeoma 6. Improving pain today PLAN Continue IV fluids LR at 125 cc/hour IV dilaudid for pain control Send for MRCP in am to look for any common bile duct obstruction If improved pain in am may start clears No prior hx peptic ulcer disease But has had some dysphagia Interval History (Subjective): I am having less pain Physical Exam: Last Vital Signs: BP 144/58 mmHg Temp(Src) 99.9 ??F (37.7 ??C) (Oral) Resp 16 Ht 1.524 m (5') Wt 58.741 kg (129 lb 8 oz) BMI 25.29 kg/m2 SpO2 97% No emesis Constitutional: Awake, alert, cooperative, no apparent distress Respiratory: Clear to auscultation bilaterally, no rales or wheezing Cardiovascular: Regular rate and rhythm, normal S1 and S2, and no murmur noted Abdomen: Normal bowel sounds, soft, non-distended, non-tender Skin: No rashes, no cyanosis, dry to touch Neuro: Alert and oriented x3, no weakness, numbness, memory loss Extremities: No edema, normal range of motion Other(s): No emesis All other systems: Negative Medications: All current medications were reviewed with changes reflected in problem list. Data: All new lab and imaging data was reviewed. Labs: Na 141 K 4.0 Creat 0.71 ALT 170 AST 179 lipase 2492 Imaging: question of distal gastric body thickening documented in this encounter H&P Notes Walter Mendoza MD - 12/11/2015 2:57 AM CDT [facility] History and Physical Hospitalist Date of Admission: 12/10/2015 Date of Service (when I saw the patient): 12/11/2015 Provider: Walter Mendoza MD Assessment and Plan Mery Durham is a 70 year old male who presents with 1. Acute pancreatitis, unclear etiology. NPO, hydration, pain control. Follow up Lipase trend. 2. Transaminitis. Suspect related to #1. 3. Mild normochromic/normocytic anemia. 4. Hypokalemia. Replacement per protocol. 5. Incidental thickness of body and gastric antrum. 6. Incidental colonic diverticulosis. Code Status Full Code Primary Care Physician Physician No Ref-Primary Chief Complaint Abdomen pain History is obtained from the patient, electronic health record, emergency department physician and patient's family History of Present Illness Mery Durham is a 70 year old male who presents with abdomen pain, elevated lipase and liver enzymes. Patient is not fluent in Azeri and his daughter helps to translate. He had GB surgery 20 years ago.He has had intermittent abdomen pain and dyspepsia-like symptoms for over a year. He presented todaywith excruciating pain, some nausea, not vomiting. No other symptoms. Pain 10/10 at onset and 5/10 after medication in ED. He does not drink or smoke. He only takes herbal remedies. Pain today is similar to the pain he had before his GB surgery per his report. Lab work up as noted below. Past Medical History Cholecystectomy, dyspepsia Past Surgical History Cholecystectomy 1995. Prior to Admission Medications Prior to Admission Medications Prescriptions Last Dose Informant Patient Reported? Taking? Ibuprofen (ADVIL PO) Past Week at Unknown time Yes Yes Sig: Take 200-400 mg by mouth as needed for moderate pain Facility-Administered Medications: None Allergies No Known Allergies Social History I have personally reviewed the social history with the patient showing he does not smoke or drink. . Family History I have reviewed this patient's family history and updated it with pertinent information if needed. No family history on file. Review of Systems Ten points ROS done and pertinent as per HPI, otherwise negative. Physical Exam Vital Signs with Ranges Temp: [98.7 ??F (37.1 ??C)] 98.7 ??F (37.1 ??C) Heart Rate: [76] 76 Resp: [20] 20 BP: (147-182)/(72-99) 160/78 mmHg SpO2: [95 %-99 %] 98 % 0 lbs 0 oz GEN: Alert, oriented x 3, appears comfortable, NAD. HEENT: Normocephalic/atraumatic, no scleral icterus, no nasal discharge, mouth moist. CV: Regular rate and rhythm, no murmur or JVD. S1 + S2 noted, no S3 or S4. LUNGS: Clear to auscultation bilaterally without rales/rhonchi/wheezing/retractions. Symmetric chestrise on inhalation noted. ABD: Active bowel sounds, soft, non-tender/non-distended. No rebound/guarding/rigidity. EXT: No edema or cyanosis. No joint synovitis noted. SKIN: Dry to touch, no exanthems noted in the visualized areas. Data I personally reviewed the EKG tracing showing NSR. . Results for orders placed or performed during the hospital encounter of 12/10/15 (from the past 24 hour(s)) EKG 12-lead, tracing only Result Value Ref Range Interpretation ECG Click View Image link to view waveform and result UA reflex to Microscopic and Culture Result Value Ref Range Color Urine Yellow Appearance Urine Clear Glucose Urine Negative NEG mg/dL Bilirubin Urine Negative NEG Ketones Urine Negative NEG mg/dL Specific [place] Urine 1.020 1.003 - 1.035 Blood Urine Trace (A) NEG pH Urine 5.5 5.0 - 7.0 pH Protein Albumin Urine 10 (A) NEG mg/dL Urobilinogen mg/dL 2.0 0.0 - 2.0 mg/dL Nitrite Urine Negative NEG Leukocyte Esterase Urine Negative NEG Source Midstream Urine RBC Urine 1 0 - 2 /HPF WBC Urine 2 0 - 2 /HPF Bacteria Urine Few (A) NEG /HPF Squamous Epithelial /HPF Urine <1 0 - 1 /HPF Mucous Urine Present (A) NEG /LPF Lactic acid Result Value Ref Range Lactic Acid 1.6 0.4 - 2.0 mmol/L CBC with platelets differential Result Value Ref Range WBC 7.7 4.0 - 11.0 10e9/L RBC Count 3.54 (L) 4.4 - 5.9 10e12/L Hemoglobin 11.0 (L) 13.3 - 17.7 g/dL Hematocrit 32.0 (L) 40.0 - 53.0 % MCV 90 78 - 100 fl MCH 31.1 26.5 - 33.0 pg MCHC 34.4 31.5 - 36.5 g/dL RDW 13.1 10.0 - 15.0 % Platelet Count 170 150 - 450 10e9/L Diff Method Automated Method % Neutrophils 80.2 % % Lymphocytes 10.3 % % Monocytes 8.2 % % Eosinophils 0.3 % % Basophils 0.1 % % Immature Granulocytes 0.9 % Nucleated RBCs 0 0 /100 Absolute Neutrophil 6.1 1.6 - 8.3 10e9/L Absolute Lymphocytes 0.8 0.8 - 5.3 10e9/L Absolute Monoctyes 0.6 0.0 - 1.3 10e9/L Absolute Eosinophils 0.0 0.0 - 0.7 10e9/L Absolute Basophils 0.0 0.0 - 0.2 10e9/L Abs Immature Granulocytes 0.1 0 - 0.4 10e9/L Absolute Nucleated RBC 0.0 Comprehensive metabolic panel Result Value Ref Range Sodium 141 133 - 144 mmol/L Potassium 3.3 (L) 3.4 - 5.3 mmol/L Chloride 110 (H) 94 - 109 mmol/L Carbon Dioxide 24 20 - 32 mmol/L Anion Gap 7 3 - 14 mmol/L Glucose 112 (H) 70 - 99 mg/dL Urea Nitrogen 31 (H) 7 - 30 mg/dL Creatinine 0.71 0.66 - 1.25 mg/dL GFR Estimate >90 Non GFR Calc >60 mL/min/1.7m2 GFR Estimate If Black >90 GFR Calc >60 mL/min/1.7m2 Calcium 7.5 (L) 8.5 - 10.1 mg/dL Bilirubin Total 0.7 0.2 - 1.3 mg/dL Albumin 2.8 (L) 3.4 - 5.0 g/dL Protein Total 6.5 (L) 6.8 - 8.8 g/dL Alkaline Phosphatase 109 40 - 150 U/L ALT 170 (H) 0 - 70 U/L AST 179 (H) 0 - 45 U/L CRP inflammation Result Value Ref Range CRP Inflammation 4.4 0.0 - 8.0 mg/L INR Result Value Ref Range INR 1.03 0.86 - 1.14 Lipase Result Value Ref Range Lipase 2492 (H) 73 - 393 U/L Partial thromboplastin time Result Value Ref Range PTT 31 22 - 37 sec Troponin I Result Value Ref Range Troponin I ES 0.028 0.000 - 0.045 ug/L CT Abdomen Pelvis w Contrast Narrative CT ABDOMEN PELVIS W CONTRAST 12/11/2015 1:03 AM HISTORY: Generalized abdominal pain, nausea and vomiting. TECHNIQUE: Volumetric acquisition through abdomen and pelvis with IV contrast. 80 mL Isovue-370. COMPARISON: None. FINDINGS: Some images are degraded by motion. No focal liver lesions. Gallbladder is not visualized. Spleen, pancreas, adrenal glands and kidneys demonstrate no worrisome findings. Two small low dense left renal lesions measuring less than 1 cm are too small to characterize but of doubtful significance, probably small cysts. No hydronephrosis. Moderate fluid in the colon is nonspecific but may be due to enteritis. Scattered diverticula in the colon without diverticulitis. Possible slight wall thickening involving the distal gastric body and antral regions. This may be artifactual as the stomach is not distended but mild gastritis or less likely other etiologies not excluded. Aortic calcification. No abdominal aortic aneurysm. No bowel obstruction, free air or ascites. Small esophageal hiatal hernia. Linear atelectasis or scarring right middle lobe and right lung base. Impression IMPRESSION: 1. Moderate fluid in the colon is nonspecific but may be due to enteritis. 2. Suggestion of slight wall thickening involving distal body and antrum of the stomach. This may be physiologic but correlate clinically. Gastritis or other etiology not completely excluded. 3. No other acute findings. 4. Colonic diverticula. PARVEEN MYLES MD documented in this encounter ED Notes Apple Ca RN - 12/10/2015 11:11 PM CDT Pt presents via EMS, with c/o abdominal pain, generalized that intensified tonight around 2200. Pt reports having abdominal pain for about 1 year. Pt a/o x4, daughter at bedside for interpretation. CMSintact. Arnol Vergara MD - 12/10/2015 11:07 PM CDT History Chief Complaint: Abdominal Pain HPI History limited secondary to language barrier. Supplemental history and interpretation provided by the patient's daughter at bedside. Mery Durham is a 70 year old male who presents via EMS with his daughter for evaluation of abdominal pain. The patient states that he has been suffering from intermittent diffuse abdominal pain for approximately one year, noting that this has worsened over the past 48 hours, with maximum exacerbation approximately 2 hours prior to presentation in the ED just after eating dinner this evening. He reports multiple episodes of non-bloody emesis over the past couple of days, noting that when he tries to eat and drink fluids it often feels like the food gets stuck in his throat and he then vomits the foodback out. The patient denies any fever, chills, nausea, testicular pain or swelling, or changes in bowel or bladder habits, including no dysuria, hematuria, diarrhea, or black or bloody stools. The patient's daughter reports no recent travel and no known ill contacts. Of note, the patient reports no significant past medical history and follows a holistic health regimen. Per EMS, the patient was given6 mg morphine and 4 mg Zofran en route. Allergies: NKDA Medications: The patient is not currently taking any prescribed medications. Past Medical History: The patient denies any significant past medical history. Past Surgical History: The patient does not have any pertinent past surgical history. Family History: No past pertinent family history. Social History: The patient presents with his daughter He is Hmong-speaking Review of Systems Constitutional: Negative for fever and chills. HENT: Positive for throat discomfort Gastrointestinal: Positive for vomiting and abdominal pain. Negative for nausea, diarrhea, constipation and blood in stool. Genitourinary: Negative for dysuria and hematuria. All other systems reviewed and are negative. Physical Exam First Vitals: BP 182/85 mmHg Temp(Src) 98.7 ??F (37.1 ??C) (Oral) Resp 20 SpO2 99% Physical Exam Constitutional: Alert and oriented. Appears in pain. Generalized weakness HENT: Nose: No nasal congestion Mouth: Moist mucous membranes No intraoral lesions. Throat: Tracheal midline No jugular venous distention No cervical lymphadenopathy Eyes: Pupils equal, round and reactive to light. Extraocular movements are intact. Conjunctiva pink. Sclera anicteric. CV: Regular rate. Regular rhythm. Normal S1, S2. No murmurs, No rubs, No gallops Radial pulses 2+ bilaterally Dorsalis pedis pulses 2+ bilaterally Chest: Good air movement bilaterally Clear to ascultation bilaterally. No wheezing, No rhonchi, No rales. GI: Soft, Non distended. Normal bowel sounds Epigastrium - Tenderness, No guarding RUQ - Discomfort, negative Ellison's sign RLQ - No tenderness, No guarding Suprapubic area - No tenderness, No guarding LLQ - No tenderness, No guarding LUQ - No tenderness, No guarding MSK: Normal range of motion. Neurological: Alert, attentive Skin: Warm, Dry, Normal Color Emergency Department Course ECG: Time: 2324 Vent. Rate 73 bpm. RI interval 188. QRS duration 92. QT/QTc 388/427. P-R-T axis 50 29 24. Normal sinus rhythm. Cannot rule out Anterior infarct, age undetermined. Abnormal ECG. Read time: 2330. Imaging: Radiographic findings were communicated with the patient, family and Admitting MD who voiced understanding of the findings. CT Abdomen Pelvis w Contrast: IMPRESSION: 1. Moderate fluid in the colon is nonspecific but may be due to enteritis. 2. Suggestion of slight wall thickening involving distal body and antrum of the stomach. This may bephysiologic but correlate clinically. Gastritis or other etiology not completely excluded. 3. No other acute findings. 4. Colonic diverticula. As per radiology. Laboratory: CBC: WBC 7.7, HGB 11.0(L), PLT 170 CMP: Glucose 112(H), Potassium 3.3(L), Chloride 110(H), BUN 31(H), Calcium 7.5(L), Albumin 2.8(L), Protein total 6.5(L), ALT 170(H), AST 179(H), o/w WNL (Creat 0.71) Troponin: 0.028 CRP inflammation: 4.4 PTT: 31 INR: 1.03 Lactic acid: 1.6 Lipase: 2492(H) UA with micro: Trace blood, Protein albumin 10, few bacteria, Mucous present, o/w WNL Interventions: 0013 NS 1L IV Zofran 4 mg IV 0016 Dilaudid 1 mg IV 0017 Zantac 50 mg IV 0053 NS 1L IV 0204 Mylanta/Maalox 15 ml PO 0219 Dilaudid 0.5 mg IV D5 0.45% NS at 125 cc/hr Emergency Department Course: Nursing notes and vitals reviewed. I performed an exam of the patient as documented above. Blood was drawn from the patient. This was sent for laboratory testing, findings above. Urine sample was obtained and sent for testing, results above. The patient was sent for a CT of the abdomen/pelvis while in the emergency department, findings above. 0207 I reevaluated the patient and provided an update in regards to his ED course. 0246 I discussed the patient with Dr. Mendoza, Hospitalist. Findings and plan explained to the Patient and daughter who consents to admission. Discussed the patient with Dr. Mendoza, who will admit the patient to a med/surg bed for further monitoring, evaluation, and treatment. Impression & Plan Medical Decision Making: Mery Durham is a 70 year old ong male who presents for evaluation of epigastric abdominal pain. Thepatient has experience the pain off and on over the past year but it has increased in severity and persisted over the past day. He has no chronic medical conditions, takes no medications, practices holistic medicine. On exam, he has tenderness in the epigastrium, otherwise his abdomen is soft. His lungs are clear, heart rate is regular, he has stable vital signs. Differential diagnosis for epigastricabdominal pain includes gastritis, peptic ulcer disease, perforated peptic ulcer, pancreatitis, cholelithiasis, hepatitis. 12 lead ECG showed no evidence of acute ischemia. Basic labs included serum willie ctrolytes; he had a slightly low potassium of 3.3. His hepatic profile showed elevated ALT and AST. His lactic acid was normal, lipase was significantly elevated at 2492 indicating acute pancreatitis. His troponin was normal. CBC all within acceptable range. CT abdomen/pelvis was obtained and showed moderate fluid in the colon, wall thickening of the distal body of the antrum of the stomach, and colonic diverticulum. The patient was treated with IV fluids, antiemetics, antacids, opiate analgesics, and he was given Mylanta and then made NPO. He will benefit from bowel rest. I contacted the internal medicine service. The patient was accepted for admission by Dr. Mendoza. He was started on D5 half normal saline. Final Impression Diagnosis: ICD-10-CM 1. Acute pancreatitis, unspecified pancreatitis type K85.9 2. Gastritis K29.70 3. Transaminitis R74.0 4. Hypokalemia E87.6 Disposition: Admitted to med/surg. Condition a the time of discharge is guarded. I, Regina Duvall, am serving as a scribe on 12/10/2015 at 11:07 PM to personally document services performed by Dr. Vergara based on my observations and the provider's statements to me. Regina Duvall 12/10/2015 [facility] EMERGENCY DEPARTMENT Arnol Vergara MD 12/11/15 0610 Mona Valadez RN - 12/10/2015 11:03 PM CDT Bed: ED30 Expected date: 12/10/15 Expected time: 10:53 PM Means of arrival: Ambulance Comments: documented in this encounter Miscellaneous Notes Plan of Care - Emily Gonzalez RN - 12/12/2015 4:22 PM CDT Problem: Goal Outcome Summary Goal: Goal Outcome Summary Outcome: Adequate for Discharge Date Met: 12/12/15 Pt to discharge to home via son for transport Son present to provide translation per pt request IV removed No new medications at D/C Instructed to follow up with PMD next week Plan of Care - Jazmin Cardona RN - 12/12/2015 2:31 PM CDT Problem: Goal Outcome Summary Goal: Goal Outcome Summary Outcome: Improving Pt. C/o pain this am and dilaudid Iv helpful, was NPO but after MRCP was advanced to regular which he has tolerated without increase pain or nausea, up walking in halls, hepatitis labs and mono completed, possible d/c later awaiting Dr. Worthington Plan of Care - Eduard Finn RN - 12/12/2015 6:24 AM CDT Problem: Goal Outcome Summary Goal: Goal Outcome Summary No complaints of ABD pain, or nausea during shift. Vital signs stable, lung sounds clear and equal bilaterally. Rested throughout night. Plan of Cheli - Audrey Singh RN - 12/11/2015 9:39 PM CDT Problem: Goal Outcome Summary Goal: Goal Outcome Summary T max of 101, tylenol given, recheck of 100.3, A&O, Hmong speaking, NPO, up independently in room, LS clear, RA, BS active x4, passing gas, last BM this morning, LR @ 125ml/hr, Invanz started, MRCPscheduled for tomorrow, will continue to monitor. Plan of Cheli - Jazmin Cardona RN - 12/11/2015 12:19 PM CDT Problem: Goal Outcome Summary Goal: Goal Outcome Summary Outcome: No Change Continues to have abdomen pain well controlled on Iv dilaudid, NPO, up independently in room. at bedside. Pt has no teeth dentures at home, speaks some lithuanian but [place] [facility] [place] Medication History - Cr Martinez - 12/11/2015 8:21 AM CDT Admission medication history interview status for this patient is complete. See [facility] admission navigator for allergy information, prior to admission medications and immunization status. Medication history interview source(s):Patient Medication history resources (including written lists, pill bottles, clinic record):None Primary pharmacy: Rx [facility] ([phone]) Changes made to [employer] medication list: Added: Advil (pt report) Deleted: none Changed: none Actions taken by pharmacist (provider contacted, etc):None Additional medication history information:None Medication reconciliation/reorder completed by provider prior to medication history? No Prior to Admission medications Medication Sig Last Dose Taking? Auth Provider Ibuprofen (ADVIL PO) Take 200-400 mg by mouth as needed for moderate pain Past Week at Unknown time Yes Unknown, Entered By History Associated attestation - Vannessa Trinidad RPH - 12/11/2015 9:24 AM CDT I have read and agree with the students note Plan of Care - Michelle Alston RN - 12/11/2015 5:35 AM CDT Problem: Goal Outcome Summary Goal: Goal Outcome Summary Outcome: No Change VSS, lungs clear, bowels A/Ax4, no BM this shift. IVF infusing at 125 ml/hr, NPO since 0000, up withSBA. K+ replacement started this shift. Pt reports no pain. documented in this encounter Plan of Treatment Not on filedocumented as of this encounter Procedures Procedure Name Priority Date/Time Associated Diagnosis Comme nts HEPATITIS B SURFACE Routine 12/12/2015 1:04 Acute pancreatitis , Results for this ANTIBODY PM CDT unspecified procedure are i n pancreatitis type the result s section. MONONUCLEOSIS SCREEN Routine 12/12/2015 1:04 Acute pancreatiti s, Results for this PM CDT unspecified procedure are i n pancreatitis type the result s section. HEPATITIS C ANTIBODY Routine 12/12/2015 1:04 Acute pancreatiti s, Results for this PM CDT unspecified procedure are i n pancreatitis type the result s section. HEPATITIS DELTA Routine 12/12/2015 1:04 Acute pancreatitis, Re sults for this ANTIBODY PM CDT unspecified procedure are i n pancreatitis type the result s section. HEPATITIS B SURFACE Routine 12/12/2015 1:04 Acute pancreatitis , Results for this ANTIGEN PM CDT unspecified procedure are i n pancreatitis type the result s section. HEPATITIS B CORE Routine 12/12/2015 1:04 Acute pancreatitis, R esults for this ANTIBODY PM CDT unspecified procedure are i n pancreatitis type the result s section. HEPATITIS A ANTIBODY Routine 12/12/2015 1:04 Acute pancreatiti s, Results for this IGM PM CDT unspecified procedure are i n pancreatitis type the result s section. FERRITIN Routine 12/12/2015 1:04 Acute pancreatitis, Resul ts for this PM CDT unspecified procedure are i n pancreatitis type the result s section. MR ABDOMEN MRCP W/O & Routine 12/12/2015 10:55 Re sults for this W CONTRAST AM CDT procedure are i n the results section. CBC WITH PLATELETS & Routine 12/12/2015 6:22 Acute pancreatiti s, Results for this DIFFERENTIAL AM CDT unspecified procedure are i n pancreatitis type the result s section. LIPASE Routine 12/12/2015 6:22 Acute pancreatitis, Resul ts for this AM CDT unspecified procedure are i n pancreatitis type the result s section. COMPREHENSIVE Routine 12/12/2015 6:22 Acute pancreatitis, Resu lts for this METABOLIC PANEL AM CDT unspecified procedure ar e in pancreatitis type the result s section. POTASSIUM Timed 12/11/2015 12:50 Acute pancreatitis, Resu lts for this PM CDT unspecified procedure are i n pancreatitis type the result s section. CT ABDOMEN PELVIS W STAT 12/11/2015 1:03 Resul ts for this CONTRAST AM CDT procedure are i n the results section. CBC WITH PLATELETS & STAT 12/11/2015 12:12 Res ults for this DIFFERENTIAL AM CDT procedure are i n the results section. TROPONIN I STAT 12/11/2015 12:12 Results for this AM CDT procedure are i n the results section. INR STAT 12/11/2015 12:12 Results for this AM CDT procedure are i n the results section. PARTIAL THROMBOPLASTIN STAT 12/11/2015 12:12 R esults for this TIME AM CDT procedure are i n the results section. LIPASE STAT 12/11/2015 12:12 Results for this AM CDT procedure are i n the results section. CRP INFLAMMATION STAT 12/11/2015 12:12 Results for this AM CDT procedure are i n the results section. COMPREHENSIVE STAT 12/11/2015 12:12 Results fo r this METABOLIC PANEL AM CDT procedure ar e in the results section. LACTIC ACID STAT 12/11/2015 12:10 Results for this AM CDT procedure are i n the results section. UA MACROSCOPIC WITH STAT 12/11/2015 12:06 Resu lts for this REFLEX TO MICRO AND AM CDT procedur e are in CULTURE the results section. EKG 12-LEAD, TRACING STAT 12/10/2015 11:24 Res ults for this ONLY PM CDT procedure are i n the results section. documented in this encounter Results (ABNORMAL) Ferritin (12/12/2015 1:04 PM CDT) P athologist Signature Ferritin 833 (H) 26 - 388 [place] ng/mL [facility] Specimen Anatomical Collection Method Collection Time Receive d Time (Source) Location / / Volume Laterality Blood specimen 12/12/2015 1:04 PM 016 1:09 (specimen) CDT PM CDT Roxann Worthington MD LAB - BLOOD ORDERABLES Performing Organization Address City/State/ZIP Code Phon e Number [facility] [address] [address] [facility] [address] [place], [place] [address] [phone] Mononucleosis screen (12/12/2015 1:04 PM CDT) Patholo gist Method Time Signature Mononucleosis Negative NEG [facility] Specimen Anatomical Collection Method Collection Time Receive d Time (Source) Location / / Volume Laterality Blood specimen 12/12/2015 1:04 PM 016 1:09 (specimen) CDT PM CDT Roxann Worthington MD LAB - BLOOD ORDERABLES Performing Organization Address City/[facility]/ZIP Code Phon e Number M [facility] [address], [place] [address] [facility] [address] [id number] 7[facility] [phone] Hepatits C antibody (12/12/2015 1:04 PM CDT) Component Value Ref Test Analysis Performed At [facility] Method Time Signature Hepatitis C Nonreactive NR [facility] Antibody Assay performance character istics have not been established for newborns, [place] [facility] infants, and children [facility] Specimen Anatomical Collection Method Collection Time Receive d Time (Source) Location / / Volume Laterality Blood specimen 12/12/2015 1:04 PM 016 1:09 (specimen) CDT PM CDT Roxann Worthington MD LAB - BLOOD ORDERABLES Performing Organization Address City/[facility]/ZIP Code Phon e Number [address] [address] [facility] Hepatitis delta antibody (12/12/2015 1:04 PM CDT) Component Value Ref Test Analysis Performed At [facility] Method [place] Signature Hepatitis Negative [place] Delta Reference range: Negative [facility] Antibody (Note) HOSPITAL No antibody to Hepatitis Delta agent was detected. Order anti-HDV testing only when Hepatitis B virus infection has been confirmed. INTERPRETIVE INFORMATION: Hepatitis Delta Ab Test developed and characteristics determined by [facility]. See Compliance Statement D: [employer] Performed by [facility], [address] [place] [address] [email or web address], Nolan Serrano MD, Lab. Director Specimen Anatomical Collection Method Collection Time Receive d Time (Source) Location / / Volume Laterality Blood specimen 12/12/2015 1:04 PM 016 1:09 (specimen) CDT PM CDT Roxann Worthington MD LAB - BLOOD ORDERABLES Performing Organization Address City/State/ZIP Code Phon e Number M [facility] [address], [place] [address] [facility] [address] [place], [place] [address] [phone] Hepatitis B surface antigen (12/12/2015 1:04 PM CDT) [facility] Method Time Signature Hep B Surface Nonreactive NR [facility] Specimen Anatomical Collection Method Collection Time Receive d Time (Source) Location / / Volume Laterality Blood specimen 12/12/2015 1:04 PM 016 1:09 (specimen) CDT PM CDT Roxann Worthington MD LAB - BLOOD ORDERABLES Performing Organization Address City/State/ZIP Code Phon e Number [facility] [address] [place], [place] [id number] [place] [address] (ABNORMAL) Hepatitis B Surface Antibody (12/12/2015 1:04 PM CDT) [facility] Method [place]lett Signature Hepatitis B 140.07 (H) <8.00 [facility] Surface m[IU]/mL [facility] Comment: Reactive, Patient is considered to be im mune to infection with hepatitis B when the value is greater than or equal to 1 2.0 m[IU]/mL. Specimen Anatomical Collection Method Collection Time Receive d Time (Source) Location / / Volume Laterality Blood specimen 12/12/2015 1:04 PM 016 1:09 (specimen) CDT PM CDT Roxann Worthington MD LAB - BLOOD ORDERABLES Performing Organization Address City/State/ZIP Code Phon e Number [facility] [address] [id number] [facility] Hepatitis A antibody IgM (12/12/2015 1:04 PM CDT) [facility] Method [place] Signature Hepatitis A Nonreactive NR [facility] Dee IgM anti-HAV not detected. Does not exclude the possibility of recent exposure [place] [facility] to or infection with HAV. [facility] Specimen Anatomical Collection Method Collection Time Receive d Time (Source) Location / / Volume Laterality Blood specimen 12/12/2015 1:04 PM 016 1:09 (specimen) CDT PM CDT Roxann Worthington MD LAB - BLOOD ORDERABLES Performing Organization Address City/[facility]/ZIP Code Phon e Number [facility] [address] [place] [address] [facility] (ABNORMAL) Hepatitis B core antibody (12/12/2015 1:04 PM CDT) [facility] gist Method Time Signature Hepatitis B Reactive NR [facility] Dee A reactive result indicates acute, chronic or past/resolved hepatitis B [place] [facility] infection. [facility] Specimen Anatomical Collection Method Collection Time Receive d Time (Source) Location / / Volume Laterality Blood specimen 12/12/2015 1:04 PM 016 1:09 (specimen) CDT PM CDT Roxann Worthington MD LAB - BLOOD ORDERABLES Performing Organization Address City/[facility]/ZIP Code Phon e Number [address] [address] [place] MR Abdomen MRCP w/o & w Contrast (12/12/2015 10:55 AM CDT) Anatomical Region Laterality Modality Abdomen/Pelvis, SUBRAD MR BODY, UMP MR BODY Magnetic Resonance Specimen (Source) Anatomical Location Collection Method / Collectio n Time Received Time / Laterality Volume Impressions 12/12/2015 4:16 PM CDT IMPRESSION: 1. Cholecystectomy. No evidence for chol edocholithiasis or biliary obstructing lesion. Mild intra-and extra hepatic biliary ductal ectasia. Normal appearance of the main p ancreatic duct. 2. Trace ascites and small bibasilar ple ural effusions. 3. There may be some mild developing juan ateral lower lobe airspace disease. Correlate clinically with any e vidence for pneumonia. 4. Tiny cystic lesion without abnormal e nhancement at the pancreatic body. Recommend one-year followup pancre as MRI to assess for stability. KUMAR DELAROSA MD Narrative 12/12/2015 4:16 PM CDT MR ABDOMEN MRCP WITHOUT AND WITH CONTRAST ?? 12/12/2015 10:55 AM HISTORY: Elevated liver function tests a nd lipase. Look for common bile duct obstruction. TECHNIQUE: Multiplanar, multiecho MRI wa s performed using T1, T2, and in- and [id number]-stvcr imaging. Pre- and p ostcontrast T1 images were acquired after the administration of 15 mL Gadavist IV. MRCP was performed. COMPARISON: CT abdomen and pelvis 016. FINDINGS: Thin section MRCP images shows no evidence for choledocholithiasis or other collecting system filling defect. There is some mild ectasia of the common bile duct measuring 7 mm, series 8 image 22 and minimal intrahepatic biliar y ductal prominence. The main pancreatic duct is nondilated with no ob vious filling defect. The gallbladder is absent. The pancreas show s no evidence for pancreatic necrosis or suspicious lesions. There is a small cystic structure at the pancreatic body just left of midline that measures 0.3 cm in size on series 8 image 19. This does not demo nstrate any concerning enhancement. Some patchy bibasilar lower lobe opaciti es and some trace pleural effusion suggested. Small ascites is als o suggested. Liver, adrenals, spleen, and kidneys do not demonstrate a ny worrisome abnormalities. There are multiple small bilateral renal cysts, many of which are too small for accurate characterization. No enlarged lymph nodes identified. Procedure Note Kumar Delarosa MD - 12/12/2015Forma tting of this note might be different from the original. MR ABDOMEN MRCP WITHOUT AND WITH CONTRAS T 12/12/2015 10:55 AM HISTORY: Elevated liver function tests a nd lipase. Look for common bile duct obstruction. TECHNIQUE: Multiplanar, multiecho MRI wa s performed using T1, T2, and in- and [id number]-ph-cefmc imaging. Pre- and p ostcontrast T1 images were acquired after the administration of 15 mL Gadavist IV. MRCP was performed. COMPARISON: CT abdomen and pelvis 016. FINDINGS: Thin section MRCP images shows no evidence for choledocholithiasis or other collecting system filling defect. There is some mild ectasia of the common bile duct measuring 7 mm, series 8 image 22 and minimal intrahepatic biliar y ductal prominence. The main pancreatic duct is nondilated with no ob vious filling defect. The gallbladder is absent. The pancreas show s no evidence for pancreatic necrosis or suspicious lesions. There is a small cystic structure at the pancreatic body just left of midline that measures 0.3 cm in size on series 8 image 19. This does not demo nstrate any concerning enhancement. Some patchy bibasilar lower lobe opaciti es and some trace pleural effusion suggested. Small ascites is als o suggested. Liver, adrenals, spleen, and kidneys do not demonstrate a ny worrisome abnormalities. There are multiple small bilateral renal cysts, many of which are too small for accurate characterization. No enlarged lymph nodes identified. IMPRESSION: 1. Cholecystectomy. No evidence for chol edocholithiasis or biliary obstructing lesion. Mild intra-and extra hepatic biliary ductal ectasia. Normal appearance of the main p ancreatic duct. 2. Trace ascites and small bibasilar ple ural effusions. 3. There may be some mild developing juan ateral lower lobe airspace disease. Correlate clinically with any e vidence for pneumonia. 4. Tiny cystic lesion without abnormal e nhancement at the pancreatic body. Recommend one-year followup pancre as MRI to assess for stability. KUMAR DELAROSA MD Roxann Worthington MD IMG MRI ORDERABLES (ABNORMAL) Comprehensive metabolic panel (12/12/2015 6:22 AM CDT) [facility] gist Method Time Signature Sodium 140 133 - 144 [place] mmol/L [facility] Potassium 3.9 3.4 - 5.3 [place] mmol/L [facility] Chloride 109 94 - 109 [place] mmol/L [facility] Carbon Dioxide 27 20 - 32 [place] mmol/L [facility] Anion Gap 4 3 - 14 [place] mmol/L [facility] Glucose 84 70 - 99 [place] mg/dL [facility] Urea Nitrogen 15 7 - 30 [place] mg/dL [facility] Creatinine 0.79 0.66 - [place] 1.25 [facility] mg/dL [facility] GFR Estimate >90 >60 [place] Non GFR Calc mL/min/1. [facility] 7m2 HOSPITAL GFR Estimate If >90 >60 [place] Black GFR Calc mL/min/1. [facility] 7m2 [facility]OSPITAL Calcium 7.7 (L) 8.5 - [place] 10.1 [facility] mg/dL [facility] Bilirubin Total 0.7 0.2 - 1.3 [place] mg/dL [facility] Albumin 2.3 (L) 3.4 - 5.0 [place] g/dL [facility] Protein Total 5.6 (L) 6.8 - 8.8 [place] g/dL [facility] Alkaline 134 40 - 150 [place] Phosphatase U/L [facility] ALT 410 (H) 0 - 70 [place] U/[facility] AST 146 (H) 0 - 45 [place] [facility] Specimen Anatomical Collection Method Collection Time Receive d Time (Source) Location / / Volume Laterality Blood specimen 12/12/2015 6:22 AM 016 6:58 (specimen) CDT AM CDT Roxann Worthington MD LAB - BLOOD ORDERABLES Performing Organization Address City/State/ZIP Code Phon e Number M [facility] [address], [place] [address] [facility] [address] [address], [facility] [phone] Lipase (12/12/2015 6:22 AM CDT) P athologist Signature Lipase 114 73 - 393 [facility] Specimen Anatomical Collection Method Collection Time Receive d Time (Source) Location / / Volume Laterality Blood specimen 12/12/2015 6:22 AM 016 6:58 (specimen) CDT AM CDT Walter Mendoza MD LAB - BLOOD ORDERABLES Performing Organization Address City/[facility]/ZIP [facility] Phon e Number M [facility] [address], [place] [address] [address] [address] [address], [facility] [phone] (ABNORMAL) CBC with platelets differential (12/12/2015 6:22 AM CDT) Patholo gist Method Time Signature WBC 7.9 4.0 - [place] 11.0 [facility] 10e9/L [facility] RBC Count 3.50 (L) 4.4 - 5.9 [place] 10e12/L [facility] Hemoglobin 10.9 (L) 13.3 - [place] 17.7 g/dL [facility] Hematocrit 31.8 (L) 40.0 - [place] 53.0 % [facility] MCV 91 78 - 100 [facility] MCH 31.1 26.5 - [place] 33.0 pg [facility] MCHC 34.3 31.5 - [place] 36.5 g/dL [facility] RDW 13.3 10.0 - [place] 15.0 % [facility] Platelet Count 146 (L) 150 - 450 [place] 10e9L [facility] Diff Method Automated [facility] % Neutrophils 77.6 % [facility] % Lymphocytes 15.3 % [facility] % Monocytes 5.4 % [facility] % Eosinophils 0.8 % [facility] % Basophils 0.3 % [facility] % Immature 0.6 % [place] Granulocytes [facility] Nucleated RBCs 0 0 /100 [facility] Absolute 6.1 1.6 - 8.3 [place] Neutrophil 10e9L [facility] Absolute 1.2 0.8 - 5.3 [place] Lymphocytes 10e9L [facility] Absolute 0.4 0.0 - 1.3 [place] Monocytes [facility] Absolute 0.1 0.0 - 0.7 [place] Eosinophils 10e9L [facility] Absolute 0.0 0.0 - 0.2 [place] Basophils e9L [facility] Abs Immature 0.1 0 - 0.4 [place] Granulocytes [address] [place] [address] Absolute 0.0 [place] Nucleated RBC [facility] Specimen Anatomical Collection Method Collection Time Receive d Time (Source) Location / / Volume Laterality Blood specimen 12/12/2015 6:22 AM 016 6:58 (specimen) CDT AM CDT Walter Mendoza MD LAB - BLOOD ORDERABLES Performing Organization Address City/State/ZIP Code Phon e Number [address] [place] [address] [address] [address] [facility] [address] [phone] Potassium (12/11/2015 12:50 PM CDT) P athologist Signature Potassium 4.0 3.4 - 5.3 [facility] mmol/L [facility] Specimen Anatomical Collection Method Collection Time Receive d Time (Source) Location / / Volume Laterality Blood specimen 12/11/2015 12:50 6 (specimen) PM CDT 12:58 PM CDT Roxann Worthington MD LAB - BLOOD ORDERABLES Performing Organization Address City/State/ZIP Code Phon e Number M [facility] [address], [place] [address] [facility] [address] [place], [place] [address], [facility] [phone] CT Abdomen Pelvis w Contrast (12/11/2015 1:03 AM CDT) Anatomical Region Laterality Modality Abdomen/Pelvis, SUBRAD CT BODY, UMP CT ABDOMEN PELVIS Computed Tomography Specimen (Source) Anatomical Location Collection Method / Collectio n Time Received Time / Laterality Volume Impressions 12/11/2015 2:18 AM CDT IMPRESSION: 1. Moderate fluid in the colon is nonspe cific but may be due to enteritis. 2. Suggestion of slight wall thickening involving distal body and antrum of the stomach. This may be physi ologic but correlate clinically. Gastritis or other etiology not completely excluded. 3. No other acute findings. 4. Colonic diverticula. PARVEEN MYLES MD Narrative 12/11/2015 2:[address] ABDOMEN PELVIS W CONTRAST ??12/11/2015 1:03 AM HISTORY: Generalized abdominal pain, [place] and vomiting. TECHNIQUE: Volumetric acquisition throug h abdomen and pelvis with IV contrast. 80 mL [id number]. COMPARISON: None. FINDINGS: Some images are degraded by mo tion. No focal liver lesions. Gallbladder is not visualized. Spleen, p ancreas, adrenal glands and kidneys demonstrate no worrisome finding s. Two small low dense left renal lesions measuring less than 1 cm a re too small to characterize but of doubtful significance, probably s mall cysts. No hydronephrosis. Moderate fluid in the colon is nonspecif ic but may be due to enteritis. Scattered diverticula in the colon without diverticulitis. Possible slight wall thickening involvin g the distal gastric body and antral regions. This may be artifactual as the stomach is not distended but mild gastritis or less lik sofie other etiologies not excluded. Aortic calcification. No abdom inal aortic aneurysm. No bowel obstruction, free air or ascites. Small esophageal hiatal hernia. Linear atelectasis or scarring right mid dle lobe and right lung base. Procedure Note Parveen Myles MD - 12/11/2015F ormatting of this note might be different from the original. CT ABDOMEN PELVIS W CONTRAST 12/11/2015 1 :03 AM HISTORY: Generalized abdominal pain, toño sea and vomiting. TECHNIQUE: Volumetric acquisition throug h abdomen and pelvis with IV contrast. 80 mL Isovue-370. COMPARISON: None. FINDINGS: Some images are degraded by mo tion. No focal liver lesions. Gallbladder is not visualized. Spleen, p ancreas, adrenal glands and kidneys demonstrate no worrisome finding s. Two small low dense left renal lesions measuring less than 1 cm a re too small to characterize but of doubtful significance, probably s mall cysts. No hydronephrosis. Moderate fluid in the colon is nonspecif ic but may be due to enteritis. Scattered diverticula in the colon without diverticulitis. Possible slight wall thickening involvin g the distal gastric body and antral regions. This may be artifactual as the stomach is not distended but mild gastritis or less lik sofie other etiologies not excluded. Aortic calcification. No abdom inal aortic aneurysm. No bowel obstruction, free air or ascites. Small esophageal hiatal hernia. Linear atelectasis or scarring right mid dle lobe and right lung base. IMPRESSION: 1. Moderate fluid in the colon is nonspe cific but may be due to enteritis. 2. Suggestion of slight wall thickening involving distal body and antrum of the stomach. This may be physi ologic but correlate clinically. Gastritis or other etiology not completely excluded. 3. No other acute findings. 4. Colonic diverticula. PARVEEN MYLES MD Arnol Vergara MD IMG CT ORDERABLES Troponin I (12/11/2015 12:12 AM CDT) athologist Signature Troponin I ES 0.028 0.000 - [place] 0.045 ug/L [facility] Comment: The 99th percentile for upper reference range is 0.045 ug/L. ??Troponin values in the range of 0.045 - 0.120 ug/L may be associated with risks of adverse clinical events. Specimen Anatomical Collection Method Collection Time Receive d Time (Source) Location / / Volume Laterality Blood specimen 12/11/2015 12:12 6 (specimen) AM CDT 12:40 AM CDT Arnol Vergara MD LAB - BLOOD ORDERABLES Performing Organization Address City/[facility]/ZIP [facility] Phon e Number M [facility] [address], [place] [address] [facility] [address] [place] [address], [place] [address], [facility] [phone] Partial thromboplastin time (12/11/2015 12:12 AM CDT) P athologist Signature PTT 31 22 - 37 sec [facility] Specimen Anatomical Collection Method Collection Time Receive d Time (Source) Location / / Volume Laterality Blood specimen 12/11/2015 12:12 6 (specimen) AM CDT 12:40 AM CDT Arnol Vergara MD LAB - BLOOD ORDERABLES Performing Organization Address [facility] Phon e Number [facility] [address], [place] [address] [place] [address] [address] [place], [place] [address], [facility] [phone] (ABNORMAL) Lipase (12/11/2015 12:12 AM CDT) athologist Signature Lipase 2,492 (H) 73 - 393 [facility] Comment: Specimen run with a dilution Specimen Anatomical Collection Method Collection Time Receive d Time (Source) Location / / Volume Laterality Blood specimen 12/11/2015 12:12 6 (specimen) AM CDT 12:40 AM CDT Arnol Vergara MD LAB - BLOOD ORDERABLES Performing Organization Address City/[facility]/ZIP [facility] Phon e Number M [facility] [address], [place] [address] [facility] [address] [place] [address], [place] [address], [facility] [phone] INR (12/11/2015 12:12 AM CDT) P athologist Signature INR 1.03 0.86 - 1.14 [facility] Specimen Anatomical Collection Method Collection Time Receive d Time (Source) Location / / Volume Laterality Blood specimen 12/11/2015 12:12 6 (specimen) AM CDT 12:40 AM CDT Arnol Vergara MD LAB - BLOOD ORDERABLES Performing Organization Address City/State/ZIP [facility] Phon e Number M [facility] [address] [place], [place] [address] [address], [facility] [phone] CRP inflammation (12/11/2015 12:12 AM CDT) P athologist Signature CRP Inflammation 4.4 0.0 - 8.0 [place] mg/L [facility] Specimen Anatomical Collection Method Collection Time Receive d Time (Source) Location / / Volume Laterality Blood specimen 12/11/2015 12:12 6 (specimen) AM CDT 12:40 AM CDT Arnol Vergara MD LAB - BLOOD ORDERABLES Performing Organization Address City/[facility] Phon e Number [facility] [address], [place] [address] [address], [facility] [phone] (ABNORMAL) Comprehensive metabolic panel (12/11/2015 12:12 AM CDT) Patholo gist Method Time Signature Sodium 141 133 - 144 [place] mmol/L [facility] Potassium 3.3 (L) 3.4 - 5.3 [place] mmol/L [facility] Chloride 110 (H) 94 - 109 [place] mmol/L [facility] Carbon Dioxide 24 20 - 32 [place] mmol/L [facility] Anion Gap 7 3 - 14 [place] mmol/L [facility] Glucose 112 (H) 70 - 99 [place] mg/dL [facility] Urea Nitrogen 31 (H) 7 - 30 [place] mg/dL [facility] Creatinine 0.71 0.66 - [place] 1.25 [facility] mg/dL [facility] GFR Estimate >90 >60 [place] Non GFR Calc mL/min/1. [place] [id number] [facility] GFR Estimate If >90 >60 [place] Black GFR Calc mL/min/1. RIDG ES 7m2 [facility] Calcium 7.5 (L) 8.5 - [place] 10.1 [facility] mg/dL HOSPITAL Bilirubin Total 0.7 0.2 - 1.3 [place] mg/dL [facility] Albumin 2.8 (L) 3.4 - 5.0 [place] g/dL [facility] Protein Total 6.5 (L) 6.8 - 8.8 [place] g/dL [facility] Alkaline 109 40 - 150 [place] Phosphatase U/L [facility] ALT 170 (H) 0 - 70 [place] U/[facility] AST 179 (H) 0 - 45 [place] U/L [facility] Specimen Anatomical Collection Method Collection Time Receive d Time (Source) Location / / Volume Laterality Blood specimen 12/11/2015 12:12 6 (specimen) AM CDT 12:40 AM CDT Arnol Vergara MD LAB - BLOOD ORDERABLES Performing Organization Address City/State/ZIP Code Phon e Number [place] [address] [place] [address] [facility] [address] [place] [phone] (ABNORMAL) CBC with platelets differential (12/11/2015 12:12 AM CDT) [facility] Method Time Signature WBC 7.7 4.0 - [place] 11.0 [facility] 10e9/L [facility] RBC Count 3.54 (L) 4.4 - 5.9 [place] 10e12/L [facility] Hemoglobin 11.0 (L) 13.3 - [place] 17.7 g/dL [facility] Hematocrit 32.0 (L) 40.0 - [place] 53.0 % [facility] MCV 90 78 - 100 [facility] MCH 31.1 26.5 - [place] 33.0 pg [facility] MCHC 34.4 31.5 - [place] 36.5 g/dL [facility] RDW 13.1 10.0 - [place] 15.0 % [facility] Platelet Count 170 150 - 450 [place] 10e9/L [facility] Diff Method Automated [facility] % Neutrophils 80.2 % [facility] % Lymphocytes 10.3 % [facility] % Monocytes 8.2 % [facility] % Eosinophils 0.3 % [facility] % Basophils 0.1 % [facility] % Immature 0.9 % [place] Granulocytes [facility] Nucleated RBCs 0 0 /100 [facility] Absolute 6.1 1.6 - 8.3 [place] Neutrophil 10e9/L [facility] Absolute 0.8 0.8 - 5.3 [place] Lymphocytes 10e9/L [facility] Absolute 0.6 0.0 - 1.3 [place] Monocytes 10e9/L [facility] Absolute 0.0 0.0 - 0.7 [place] Eosinophils 10e9/[facility] Absolute 0.0 0.0 - 0.2 [place] Basophils 10e9/[facility] Abs Immature 0.1 0 - 0.4 [place] Granulocytes [address] [place] [address] Absolute 0.0 [place] Nucleated RBC [facility] Specimen Anatomical Collection Method Collection Time Receive d Time (Source) Location / / Volume Laterality Blood specimen 12/11/2015 12:12 6 (specimen) AM CDT 12:40 AM CDT Arnol Vergara MD LAB - BLOOD ORDERABLES Performing Organization Address City/State/ZIP Code Phon e Number [place] [address] [address], [place] [address] [place] [address] [phone] Lactic acid (12/11/2015 12:10 AM CDT) P athologist Signature Lactic Acid 1.6 0.4 - 2.0 [place] [facility] Specimen Anatomical Collection Method Collection Time Receive d Time (Source) Location / / Volume Laterality Blood specimen 12/11/2015 12:10 6 (specimen) AM CDT 12:42 AM CDT Arnol Vergara MD LAB - BLOOD ORDERABLES Performing Organization Address City/State/ZIP Code Phon e Number [facility] [address], [place] [address] [facility] [address] [place], [place] [address], [facility] [phone] (ABNORMAL) UA reflex to Microscopic and Culture (12/11/2015 12:06 AM CDT) [facility] Method Time Signature Color Urine Yellow [facility] Appearance Urine Clear [facility] Glucose Urine Negative NEG mg/dL [facility] Bilirubin Urine Negative NEG [facility] Ketones Urine Negative NEG mg/dL [facility] Specific [place] 1.020 1.003 - [place] Urine 1.035 [facility] Blood Urine Trace (A) NEG [facility] pH Urine 5.5 5.0 - 7.0 [place] pH [facility] Protein Albumin 10 (A) NEG mg/dL [facility] Urobilinogen 2.0 0.0 - 2.0 [place] mg/dL mg/dL [facility] Nitrite Urine Negative NEG [facility] Leukocyte Negative NEG [place] Esterase Urine [facility] Source Midstream [facility] RBC Urine 1 0 - 2 [place] /HPF [facility] WBC Urine 2 0 - 2 [place] /HPF [facility] Bacteria Urine Few (A) NEG /HPF [facility] Squamous <1 0 - 1 [place] Epithelial /HPF /HPF [facility] Mucous Urine Present (A) NEG /LPF [facility] Specimen Anatomical Collection Method Collection Time Receive d Time (Source) Location / / Volume Laterality Urine specimen URINE SPECIMEN 12/11/2015 12:06 016 (specimen) OBTAINED BY CLEAN AM CDT 12:29 AM C DT CATCH PROCEDURE / Unknown Arnol Vergara MD LAB - URINE ORDERABLES Performing Organization Address City/State/ZIP Code Phon e Number [facility] [address], [place] [address] [facility] [address] [place], [place] [address], [facility] [phone] EKG 12-lead, tracing only (12/10/2015 11:24 PM CDT) [facility] Method Time Signature Interpretation ECG Click View RADIOLOGY Image link RESULTS to view waveform and result Specimen (Source) Anatomical Collection Method Collection Time Re ceived Time Location / / Volume Laterality 12/10/2015 11:24 PM CDT Arnol Vergara MD ECG ORDERABLES Performing Organization Address City/State/ZIP Code Phon e Number RADIOLOGY RESULTS documented in this encounter Visit Diagnoses Diagnosis Hepatitis - Primary Hepatitis, unspecified Acute pancreatitis, unspecified pancreat itis type Gastritis Unspecified gastritis and gastroduodenit is without mention of hemorrhage Transaminitis Nonspecific elevation of levels of trans aminase or lactic acid dehydrogenase (LDH) Hypokalemia Hypopotassemia Acute pancreatitis, unspecified documented in this encounter Administered Medications Inactive Administered Medications - up to 3 most recent administrations Medication Order MAR Action Action Date Dose Rate Site 0.9% sodium chloride BOLUS New Bag 12/11/2015 12:13 AM 1,000 mLs 1000 mL/hr Intravenous, 1,000 mL, CDT ONCE, at 1,000 mL/hr, Administer over 1 Hours, On Tue12/10/15 at 2318, For 1 dose 0.9% sodium chloride BOLUS New Bag 12/11/2015 12:53 AM CDT 40 mLs Intravenous, 1,000 mL, ONCE, On Annalisa 12/11/15 at 0038, For 1 dose 0.9% sodium chloride infusion New Bag 12/11/2015 2:07 AM CDT 1,000 mLs 125 mL/hr at 125 mL/hr, Intravenous, CONTINUOUS, Administer after the bolus., Starting on Tue12/10/15 at 2318, Until Tue12/11/15 at 0417 0.9% sodium chloride infusion New Bag 12/11/2015 5:01 PM CDT 125 mL/hr at 125 mL/hr, Intravenous, CONTINUOUS, Starting on Tue12/11/15 at 0430, Until Tue12/11/15 at 1823 Rate/Dose Verify 12/11/2015 8:07 AM CDT 125 mL/hr New Bag 12/11/2015 4:52 AM CDT 125 mL/hr acetaminophen (TYLENOL) tablet 650 mg Given 12/11/2015 8:59 PM CDT 650 mg 650 mg, Oral, EVERY 4 HOURS PRN, mild pain, Starting on Annalisa 12/11/15 at 2052, Limit to 2g /day Maximum acetaminophen dose from all sources = 75 mg/kg/day not to exceed 4 grams/day. alum & mag hydroxide-simethicone (MYLANTA Given 12/11/2015 2:04 AM CDT 15 mLs ES/MAALOX ES) suspension 15 mL 15 mL, Oral, ONCE, On Tue12/11/15 at 0143, For 1 dose, Shake well. ertapenem (INVanz) 1 g vial to attach to NS New Bag 12/11/2015 10:20 PM CDT 1 g 100 mL bag Routine, 1 g, Intravenous, ONCE, On Tue12/11/15 at 2130, For 1 dose, Infuse over 30 minutes., Indications: Intra-Abdominal Infection gadobutrol (GADAVIST) injection 15 mL Given 12/12/2015 10:28 AM CDT 15 mLs 15 mL, Intravenous, ONCE, On Tue12/12/15 at 1015, For 1 dose HYDROmorphone (DILAUDID) injection 0.2 m g Given 12/12/2015 7:45 AM CDT 0.2 mg 0.2 mg, Intravenous, EVERY 2 HOURS PRN, severe pain, Starting on Tue12/11/15 at 0417, Hold while on CONVEYOR CONSOLE OPERATOR. Given 12/11/2015 8:32 PM CDT 0.2 mg Given 12/11/2015 4:01 PM CDT 0.2 mg HYDROmorphone (DILAUDID) injection 1 mg Given 12/11/2015 12:16 AM CDT 1 mg 1 mg, Intravenous, ONCE, On Tue12/10/15 at 2318, For 1 dose, Moderate to severe pain HYDROmorphone (PF) (DILAUDID) injection 0.5 Given 12/11/2015 2:19 AM CDT 0.5 mg mg 0.5 mg, Intravenous, ONCE PRN, moderate to severe pain, Starting on Tue12/11/15 at 0210, For 1 dose iopamidol (ISOVUE-370) 76% solution 500 mL Given 12/11/2015 12:51 AM CDT 80 mLs 500 mL, Intravenous, ONCE, On Tue12/11/15 at 0038, For 1 dose lactated ringers infusion Rate/Dose Verify 12/12/2015 7:37 AM CDT 125 mL/hr at 125 mL/hr, Intravenous, CONTINUOUS, Starting on Tue12/11/15 at 1830, Until Tue12/12/15 at 1133 New Bag 12/12/2015 3:14 AM CDT 125 mL/hr New Bag 12/11/2015 6:51 PM CDT 125 mL/hr ondansetron (ZOFRAN) injection 4 mg Given 12/11/2015 12:13 AM CDT 4 mg 4 mg, Intravenous, EVERY 30 MIN PRN, nausea, vomiting, Administer over 2-5 Minutes, Starting on 12/10/15 at 2311, For 3 doses, May repeat in 30 minutes as needed, up to 3 doses. pantoprazole (PROTONIX) 40 mg IV push Given 12/12/2015 6:28 AM C DT 40 mg injection 40 mg, Intravenous, EVERY MORNING BEFORE BREAKFAST, Administer over 2 Minutes, First dose on Annalisa 12/11/15 at 0700, Reconstitute vial with 10mLs Saline and administer IV Push Given 12/11/2015 6:03 AM CDT 40 mg potassium chloride 10 mEq in 100 mL New Bag 12/11/2015 10:13 AM CD T 10 mEq intermittent infusion with 10 mg lidocai ne 10 mEq, Intravenous, Administer over 1 Hours, EVERY 1 HOUR PRN, Starting on Annalisa 12/11/15 at 0417, potassium supplementation, Infuse via PERIPHERAL LINE. Use potassium with lidocaine for pain with peripheral administration. Recheck K+ level 2 hrs after dose if given for K less than 3.4, the next AM (and QMWF if ordered). Repeat if necessary. If Serum K+ 3.0-3.3, dose = 10 mEq/hr x4 doses (40 mEq IV total dose). If Serum K+ 2.5-2.9, dose = 10 mEq/hr x6 doses (60 mEq IV total dose). If Serum K+ less than 2.5, dose = 10 mEq/hr x6 doses (60 mEq IV total dose). New Bag 12/11/2015 9:03 AM CDT 10 mEq New Bag 12/11/2015 7:21 AM CDT 10 mEq 100 mL/hr ranitidine (ZANTAC) injection 50 mg Given 12/11/2015 12:17 AM CDT 50 mg 50 mg, Intravenous, ONCE, On 12/10/15 at 2318, For 1 dose sodium chloride (PF) 0.9% PF flush 60 mL Given 12/12/2015 10:29 AM CDT 60 mLs 60 mL, Intravenous, ONCE, On Tue12/12/15 at 1015, For 1 dose documented in this encounter Active and Recently Administered Medications Times are shown in CDT. Scheduled Medication Order 12/10/2015 12/11/2015 12/12/2015 0.9% sodium chloride BOLUS (COMPLETED) 0 013 (New Bag - Provider: Apple Ca RN)0204 (Stopped - Provider: Apple Ca RN) Intravenous, 1,000 mL, ONCE, at 1,000 mL /hr, for 1 Hours, 12/10/15 at 2318, For 1 dose 0.9% sodium chloride BOLUS (COMPLETED) 0 053 (New Bag - Provider: Genet Nice)0054 (Stopped - Provider: Genet Nice) Intravenous, 1,000 mL, ONCE, Annalisa 12/11/15 at 0038, For 1 dose alum & mag hydroxide-simethicone (MYLANT A ES/MAALOX ES) suspension 15 mL (COMPLETED) 0204 (Given - Provider: Apple Ca RN) 15 mL, Oral, ONCE, Annalisa 12/11/15 at 0143, For 1 dose, Shake well. ertapenem (INVanz) 1 g vial to attach to NS 100 mL bag (COMP LETED) 2220 (New Bag - Provider: Audrey Singh RN) 1 g, Intravenous, ONCE, Annalisa 12/11/15 at 2 130, For 1 dose, Infuse over 30 minutes., Indications: Intra-Abdominal Infection gadobutrol (GADAVIST) injection 15 mL (COMPLETED) 1028 (Given - Provider: Chevy Hilton) 15 mL, Intravenous, ONCE, Tue12/12/15 at 1015, For 1 dose HYDROmorphone (DILAUDID) injection 1 mg (COMPLETED) 0016 (Given - Provider: Apple Ca RN) 1 mg, Intravenous, ONCE, 1 dose, 12/10/15 at 2318, Moderate t o severe pain iopamidol (ISOVUE-370) 76% solution 500 mL (COMPLETED) 0051 (Given - Provider: Genet Nice) 500 mL, Intravenous, ONCE, Annalisa 12/11/15 at 0038, For 1 dose pantoprazole (PROTONIX) 40 mg IV push injection (CANCELED) 0603 (Given - Provider: Michelle Alston RN) 0628 (Given - Provider: Eduard Finn RN) 40 mg, Intravenous, EVERY MORNING BEFORE BREAKFAST, for 2 Minutes, First dose on Tue12/11/15 at 0700, Reconstitute vial with 10mLs Saline and administer IV Push ranitidine (ZANTAC) injection 50 mg (COMPLETED) 0017 (Given - Provider: Apple Ca RN) 50 mg, Intravenous, ONCE, Tue12/10/15 at 2318, For 1 dose sodium chloride (PF) 0.9% PF flush 60 mL (COMPLETED) 1029 (Given - Provider: Chevy Hilton) 60 mL, Intravenous, ONCE, Tue12/12/15 at 1015, For 1 dose Continuous Medication Order 12/10/2015 12/11/2015 12/12/2015 0.9% sodium chloride infusion (CANCELED) 0207 (New Bag - Provider: Apple Ca RN) at 125 mL/hr, Intravenous, CONTINUOUS, A dminister after the bolus., Starting Tue12/10/15 at 2318, Until Tue12/11/15 at 0417 0.9% sodium chloride infusion (CANCELED) 0452 (New Bag - Provider: Michelle Alston RN)0807 (Rate/Dose Verify - Provider: Cary Hoffman LPN)1701 (New Bag - Provider: Jia Ferguson RN) at 125 mL/hr, Intravenous, CONTINUOUS, S tarting Tue12/11/15 at 0430, Until Tue12/11/15 at 1823 lactated ringers infusion (CANCELED) 185 1 (New Bag - Provider: Audrey Singh RN) 0314 (New Bag - Provider: Eduard Finn RN)0737 (Rate/Dose Verify - Provider: Cary Hoffman LPN) at 125 mL/hr, Intravenous, CONTINUOUS, S tarting Tue12/11/15 at 1830, Until Tue12/12/15 at 1133 PRN Medication Order 12/10/2015 12/11/2015 12/12/2015 acetaminophen (TYLENOL) tablet 650 mg (CANCELED) 2058 (Given - Provider: Audrey Singh RN) 650 mg, Oral, EVERY 4 HOURS PRN, mild pa in, Starting Annalisa 12/11/15 at 205, Limit to 2g /day Maximum acetaminophen dose from all sources = 75 mg/kg/day not to exceed 4 grams/day. HYDROmorphone (DILAUDID) injection 0.2 mg (CANCELED) 0607 (Given - Provider: Michelle Alston RN)0905 (Given - Provider: Jazmin Cardona, DIANE)1313 (Given - Provider: Jazmin Cardona, DIANE)1601 (Given - Provider: Audrey Singh RN)203 (Given - Provider: Audrey Singh, DIANE) 0745 (Given - Provider: Jazmin Cardona, DIANE) 0.2 mg, Intravenous, EVERY 2 HOURS PRN, Starting Annalisa 12/11/15 at 0417, Until Tue12/12/15 at 1839, severe pain, Hold while on CONVEYOR CONSOLE OPERATOR. HYDROmorphone (PF) (DILAUDID) injection 0.5 mg (COMPLETED) 218 (Given - Provider: Apple Ca RN) 0.5 mg, Intravenous, ONCE PRN, 1 dose, S tarting Annalisa 12/11/15 at 0210, Until Annalisa 12/11/15 at 0219, moderate to severe pain ondansetron (ZOFRAN) injection 4 mg (CANCELED) 0013 (Given - Provider: Apple Ca RN) 4 mg, Intravenous, EVERY 30 MIN PRN, toño sea, vomiting, for 2 Minutes, Starting 12/10/15 at 2311, For 3 doses, May repeat in 30 minutes as needed, up to 3 doses. potassium chloride 10 mEq in 100 mL inte rmittent infusion with 10 mg lidocaine (CANCELED) 0609 (New Bag - Provider: Girish Alston RN)0721 (New Bag - Provider: Michelle Alston RN)0903 (New Bag - Provider: Jazmin Cardona, DIANE)1013 (New Bag - Provider: Jazmin Cardona, DIANE) 10 mEq, Intravenous, for 1 Hours, EVERY 1 HOUR PRN, Starting Annalisa 12/11/15 at 0417, potassium supplementation, Infuse via PERIPHERAL LINE. Use potassium with lidocaine for pain with peripheral administrat ion. Recheck K+ level 2 hrs after dose i f given for K less than 3.4, the next AM (and QMWF if ordered). Repeat if necessary. If Serum K+ 3.0-3.3, dose = 10 mEq/hr x4 doses (40 mEq IV total dose). If Ser um K+ 2.5-2.9, dose = 10 mEq/hr x6 doses (60 mEq IV total dose). If Serum K+ less than 2.5, dose = 10 mEq/hr x6 doses (60 mEq IV total dose). documented in this encounter Care Teams Tool Coordinator Relationship Specialty Start Date End Date No Ref-Primary, Physician PCP - General 12/11/15 01/30/22 documented as of this encounter
--- OUTSIDE RECORDS SUMMARY | 2022-06-27 18:32 | XMS_ITS | Encounter Summary ---
:1945 Author Organization [facility] Address [address] [place] [address]. [place] [address] Care Team Providers Name Role Phone No Ref-Primary, Physician Primary Care Provider [phone] Encounter Details Date Type Department Care Team Description 01/29/2022 Travel Social History Tobacco Use Types Packs/Day Years Used Date Never Assessed Sex Assigned at Date Recorded Not on file COVID-19 Exposure Response Date Recorded In the last 10 days, have you been in contact with No / Unsu re 01/29/2022 8:39 PM CDT someone who was confirmed or suspected to have Coronavirus/COVID-19? documented as of this encounter Plan of Treatment Not on filedocumented as of this encounter Visit Diagnoses Not on filedocumented in this encounter Care Teams Parole Supervisor Relationship Specialty Start Date End Date No Ref-Primary, Physician PCP - General 12/11/15 01/30/22 documented as of this encounter
--- OUTSIDE RECORDS SUMMARY | 2022-06-27 18:32 | XMS_ITS | Encounter Summary ---
:1945 Author Organization [place] Address [facility] [place] [address] Care Team Providers Name Role Phone Florentino Luna Primary Care Provider Reason for Visit Auth/Cert Specialty Diagnoses / Procedures Referred By Contact Refer red To Contact Med Surg Diagnoses Abdominal pain, generalized Acute renal insufficiency Abscess of finger of left hand Elevated lactic acid level Abdominal pain, generalized Acute renal insufficiency Elevated lactic acid level Abscess of finger of left hand Observation Dept [address] [place], [place] [phone] Phone: Referral ID Status Reason Start Date Expiration Date Visits Requ ested Visits Authorized [id number] 1 1 Encounter Details Date Type Department Care Team Description 01/31/2022 Anesthesia Event [facility] Isaak Felix PeriOp Services MD Payam [address] [place] [phone] ANESTHESIA [id number] [place], [place] [address] (Wo rk) Anesthesia Record Procedure Summary Procedure Name Responsible Anesthesia Start Anesthesia Stop Time Anesthesiologist Time Left small finger Polo Felix MD 01/31/22 0913 05/17 1022 (distal interphalangeal) joint irrigation, debridement, and primary fusion. 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 The f irst vital signs recorded are pre- inducti on. Sergei Funes APRN CRNA 0915 An Start Data 0917 An Induction 0917 MD Present 09 An LMA 09 MD Present 09 MD Present 0945 MD Present 1013 LMA Removed 1013 MD Present 1016 an stop data 1022 An Stop Electronically s igned by Sergei Funes APRN CRNA on January 31, 2022 10:22 AM Name Total fentaNYL (SUBLIMAZE) injection 100 mcg lidocaine 1% 50 mg propofol (DIPRIVAN) injection 10 mg/mL vial 120 mg dexamethasone 4mg/mL 4 mg ePHEDrine 50mg/mL 15 mg ceFAZolin Sodium (ANCEF) injection 2 g 2 g 0.9% NS 500 mL Agents Name NO HELIOX O2 N2O Air Exp Sevoflurane Exp Isoflurane Exp Desflurane Exp N2O Ins Sevoflurane Ins Isoflurane Ins Desflurane O2 Auxiliary Blood No blood administrations on file. Lines, Drains, and Airways Type Details Placement Removal Incision/Surgical Site 01/31/22; 1001; Left; 01/31/22 1001 by Finger (Comment which Joan Shepard one) (5th finger) DIANE Ventura Peripheral IV 12/10/15; 2300; 20 G; 12/10/15 2300 by 02/01/22 1516 by Left; (wrist); Apple Ca RN Inpatient, Nurs e Tolerated well Peripheral IV 01/29/22; 2000; 20 G; 01/29/221999 by 02/01/22 1434 by Anterior, Left Chacha Stoner RN Kinsman, Te resa, RN Supraglottic Airway Placement Date: 01/31/22918 by 01/31/2207 08 by 01/31/22; Placement Sergei Funes Ma tthew Time: 918; Airway SURESH Comer CRNA, APRN CRNA Type: Standard LMA; Mask Ventilation: 0; LMA Size: 4; Airway Brand: I-Gel documented in this encounter Social History Tobacco Use Types Packs/Day Years Used Date Never Assessed Sex Assigned at Date Recorded Not on file COVID-19 Exposure Response Date Recorded In the last 10 days, have you been in contact with No / Unsu re 01/29/2022 8:39 PM CDT someone who was confirmed or suspected to have Coronavirus/COVID-19? documented as of this encounter OR Notes Anesthesia Postprocedure Evaluation - Polo Felix MD - 01/31/2022 11:06 AM CDT Patient: Mery Durham Procedure: Procedure(s): Irrigation and debridement left fifth finger and primary fusion of left 5th finger joint Anesthesia Type: General Note: Disposition: Outpatient Postop Pain Control: Uneventful Sign Out: Well controlled pain PONV: No Neuro/Psych: Uneventful Sign Out: Acceptable/Baseline neuro status Airway/Respiratory: Uneventful Sign Out: Acceptable/Baseline resp. status CV/Hemodynamics: Uneventful Sign Out: Detailed CV status Blood Pressure: HypERtension (ongoing treatment with improvement) Other NRE: NONE DID A NON-ROUTINE EVENT OCCUR? No Last vitals: Vitals Value Taken Time BP 150/75 01/31/22 1100 Temp Pulse 76 01/31/22 1105 Resp 9 01/31/22 1105 SpO2 97 % 01/31/22 1105 Vitals shown include unvalidated device data. Electronically Signed By: Polo Felix MD January 31, 2022 11:06 AM Anesthesia Preprocedure Evaluation - Polo Felix MD - 01/31/2022 8:31 AM CDT Anesthesia Pre-Procedure Evaluation Patient: Mery Durham : 1945 Procedure : Procedure(s): Irrigation and debridement left fifth finger. History reviewed. No pertinent past medical history. History reviewed. No pertinent surgical history. No Known Allergies Social History Tobacco Use ??? Smoking status: Not on file ??? Smokeless tobacco: Not on file Substance Use Topics ??? Alcohol use: Not on file Wt Readings from Last 1 Encounters: 01/30/22 58.5 kg (129 lb) Anesthesia Evaluation ROS/MED HX ENT/Pulmonary: - neg pulmonary ROS Neurologic: - neg neurologic ROS Cardiovascular: (+) Dyslipidemia hypertension--CAD -past OR -stent-2016. 1 Drug Eluting Stent. METS/Exercise Tolerance: Hematologic: (+) anemia, Musculoskeletal: (+) arthritis, GI/Hepatic: - neg GI/hepatic ROS Renal/Genitourinary: (+) renal disease, type: CRI, Pt does not require dialysis, Endo: - neg endo ROS Psychiatric/Substance Use: Infectious Disease: Comment: Finger abcess Malignancy: Other: Physical Exam Airway Mallampati: II TM distance: > 3 FB Neck ROM: full Mouth opening: > 3 cm Respiratory Devices and Support Dental no notable dental history Cardiovascular cardiovascular exam normal Pulmonary pulmonary exam normal OUTSIDE LABS: CBC: Lab Results Component Value Date WBC 9.4 01/31/2022 WBC 14.6 (H) 01/30/2022 HGB 11.8 (L) 01/31/2022 HGB 12.5 (L) 01/30/2022 HCT 36.8 (L) 01/31/2022 HCT 38.7 (L) 01/30/2022 PLT 172 01/31/2022 PLT 192 01/30/2022 BMP: Lab Results Component Value Date NA 144 01/31/2022 NA 143 01/30/2022 POTASSIUM 4.0 01/31/2022 POTASSIUM 5.1 01/30/2022 CHLORIDE 115 (H) 01/31/2022 CHLORIDE 116 (H) 01/30/2022 CO2 23 01/31/2022 CO2 22 01/30/2022 BUN 28 01/31/2022 BUN 42 (H) 01/30/2022 CR 0.92 01/31/2022 CR 1.29 (H) 01/30/2022 GLC 90 01/31/2022 GLC 119 (H) 01/30/2022 COAGS: Lab Results Component Value Date PTT 31 12/11/2015 INR 1.03 12/11/2015 POC: No results found for: BGM, HCG, HCGS HEPATIC: Lab Results Component Value Date ALBUMIN 2.8 (L) 01/29/2022 PROTTOTAL 6.2 (L) 01/29/2022 ALT 91 (H) 01/29/2022 AST 65 (H) 01/29/2022 ALKPHOS 99 01/29/2022 BILITOTAL 0.7 01/29/2022 OTHER: Lab Results Component Value Date LACT 0.8 01/31/2022 ALBERTA 7.5 (L) 01/31/2022 LIPASE 226 01/29/2022 CRP 4.4 12/11/2015 Anesthesia Plan ASA Status: 3 NPO Status: NPO Appropriate Anesthesia Type: General. - Airway: LMA Induction: Intravenous. Maintenance: Balanced. Consents Anesthesia Plan(s) and associated risks, benefits, and realistic alternatives discussed. Questions answered and patient/high school admissions representative(s) expressed understanding. - Discussed: - Discussed with: Patient, Relationship Advisor - Extended Intubation/Ventilatory Support Discussed: No. - Patient is DNR/DNI Status: No Use of blood products discussed: No . Postoperative Care Pain management: IV analgesics. PONV prophylaxis: Ondansetron (or other 5HT-3), Dexamethasone or Solumedrol Comments: Polo Felix MD documented in this encounter Miscellaneous Notes Anesthesia Care Transfer Note - Sergei Funes APRN CRNA - 01/31/2022 10:22 AM CDT Patient: Mery S Marva Procedure: Procedure(s): Irrigation and debridement left fifth finger and primary fusion of left 5th finger joint Diagnosis: Septic finger, left [L03.012] Diagnosis Additional Information: No value filed. Anesthesia Type: General Note: Oropharynx: oropharynx clear of all foreign objects Level of Consciousness: awake Oxygen Supplementation: face mask Level of Supplemental Oxygen (L/min / FiO2): 10 Independent Airway: airway patency satisfactory and stable Vital Signs Stable: post-procedure vital signs reviewed and stable Report to RN Given: handoff report given Patient transferred to: PACU Handoff Report: Identifed the Patient, Identified the Reponsible Provider, Reviewed the pertinent medical history, Discussed the surgical course, Reviewed Intra-OP anesthesia mangement and issues during anesthesia, Set expectations for post-procedure period and Allowed opportunity for questions and acknowledgement of understanding Vitals: Vitals Value Taken Time BP Temp Pulse 65 01/31/22 1021 Resp 10 01/31/22 1021 SpO2 100 % 01/31/22 1021 Vitals shown include unvalidated device data. Electronically Signed By: Sergei Funes APRN CRNA January 31, 2022 10:22 AM documented in this encounter Plan of Treatment Not on filedocumented as of this encounter Visit Diagnoses Not on filedocumented in this encounter Administered Medications Inactive Administered Medications - up to 3 most recent administrations Medication Order MAR Action Action Date Dose Rate Site ceFAZolin Sodium (ANCEF) injection 2 Given 01/31/2022 9:21 AM CD T 2 g g Routine, 2 g, Intravenous, PRE-OP/PRE-PROCEDURE, Starting on 01/31/22 at 0828, For 1 dose, Give first dose within 1 hour PRIOR to incision. If patient weight is greater than or equal to 120 kg increase dose to 3 g., Indications: Perioperative Pharmacoprophylaxis, Pre-procedure dexamethasone (DECADRON) injection Given 01/31/2022 9:17 AM CDT 4 mg Intravenous, PRN, Administer over 1 Minutes, Starting on 01/31/22 at 0917, Anesthesia Intra-op ePHEDrine injection Given 01/31/2022 9:24 AM CDT 15 mg Intravenous, PRN, Starting on 01/31/22 at 0924, Anesthesia Intra-op fentaNYL (PF) (SUBLIMAZE) injection Given 01/31/2022 9:17 AM CDT 100 mcg Intravenous, PRN, Administer over 3-5 Minutes, Starting on 01/31/22 at 0917, Anesthesia Intra-op lidocaine 1 % injection Given 01/31/2022 9:17 AM CDT 50 mg Other, PRN, Starting on 01/31/22 at 0917, Anesthesia Intra-op propofol (DIPRIVAN) injection 10 mg/mL v ial Given 01/31/2022 9:17 AM CDT 120 mg Intravenous, PRN, Starting on 01/31/22 at 0917, Anesthesia Intra-op sodium chloride 0.9% infusion New Bag 01/31/2022 9:13 AM CDT Intravenous, CONTINUOUS PRN, Anesthesia Intra-op, Starting on 01/31/22 at 0913, Until 01/31/22 at 1022 documented in this encounter Care Teams Lyric Writer Relationship Specialty Start Date End Date Florentino Luna PCP - General Family Medicine 01/31/22 [facility] [address] [place] [address] documented as of this encounter
[2022-06-27 18:34] LABS: Basophils Absolute Auto 0.03 K/uL (0.00-0.30); Basophils Percent Auto 0.5 % (0.0-3.0); Eosinophils Absolute Auto 0.08 K/uL (0.00-0.50); Eosinophils Percent Auto 1.3 % (0.0-7.0); Hematocrit 41.3 % (37.0-53.0); Hemoglobin* 13.8 gm/dL (13.5-17.5); Immature Granulocytes Abs Auto 0.01 K/uL (0.00-0.30); Lymphocytes Absolute Auto 1.93 K/uL (0.90-2.90); Lymphocytes Percent Auto 31.4 % (20-44); Mean Corpuscular HGB Conc 33 gm/dL (32-36); Mean Corpuscular Hemoglobin 29 pg (26-34); Mean Corpuscular Volume 85 fL (80-100); Monocytes Percent Auto 7.6 % (0.0-11.0); Neutrophils Absolute Auto 3.63 K/uL (1.7-7.0); Platelet Count* 212 K/uL (140-440); RDW Coefficient of Variation % 13.1 % (11.5-15.5); Red Blood Count 4.84 m/uL (4.30-5.90); White Blood Count* 6.15 K/uL (4.50-11.00)
[2022-06-27 18:36] LABS: Slide Review Reflex No
[2022-06-27 18:48] LABS: Albumin* 3.8 g/dL (3.3-5.0); Chloride* 107 mmol/L (96-114)
[2022-06-27 18:49] LABS: Sodium* 136 mmol/L (135-149)
[2022-06-27 18:50] LABS: Bilirubin Direct* 0.2 mg/dL (0.0-0.5); Bilirubin Total* 0.4 mg/dL (0.1-1.5); Total Protein* 6.8 g/dL (6.0-8.3)
[2022-06-27 18:51] LABS: Alanine Aminotransferase* 22 U/L (4-50); Alkaline Phosphatase* 97 U/L (40-150); Aspartate Amino Transferase* 45 U/L (12-35); Creatinine* 0.9 mg/dL (0.5-1.5); Est. Creatinine Clearance* 42.36; Estimated Glomerular Filt Rate 87 ml/min
[2022-06-27 18:52] LABS: Blood Urea Nitrogen* 14 mg/dL (7-30); Carbon Dioxide* 25 mmol/L (20-32); Glucose* 99 mg/dL (60-115)
[2022-06-27 18:53] LABS: Calcium* 9.1 mg/dL (8.4-10.6)
[2022-06-27 18:55] LABS: C Reactive Protein* 0.7 mg/dL (0.5-1.0)
[2022-06-27 19:07] LABS: PCR FLU A Negative PCR FLU A (Negative); PCR FLU B Negative PCR FLU B (Negative); PCR RSV Negative PCR RSV (Negative)
[2022-06-27 19:32] LABS: SARS PCR* Negative SARS-CoV-2 (Negative)
[2022-06-27] MEDS: METHYLPREDNISOLONE SOD SUCC 62.5 MG/ML (125) 125 MG IVP (19:46)
== END 2022-06-27 19:55 | disposition home or self-care (01) ==
PROVIDERS: Emergency Provider Emergency Medicine; PCP Family Medicine
DX: R53.83 Other fatigue (principal); R52 Pain, unspecified
CPT/HCPCS: 36415; 80048; 80076; 83605; 84484; 85025; 86140; 87502; 87634; 87635; 93005; 96361; 96374; 99283; 99284; J2930; J7120

== ENCOUNTER 2022-10-19 15:34 | Emergency (ER) | payer MEDICARE, MEDICAID, SELFPAY ==
[2022-10-19 16:34] VITALS: BP 122/72; PULSE 104; RESP 18; TEMP 38.5; O2SAT 100
--- NOTE | 2022-10-19 16:57 | CRLHL7_ITS ---
For Patients: As a result of the Cures Act, medical imaging exams and procedure reports are released immediately into your electronic medical record. You may view this report before your referring provider. If you have questions, please contact your health care provider. INDICATION: FEVER TECHNIQUE: Chest 2 views. COMPARISON: 05/10/21 FINDINGS: Cardiovascular and mediastinum: Heart size and vasculature are normal in caliber and appearance. Mediastinum is within normal limits. Lungs and pleural spaces: Lungs are clear. No sign of infiltrate or mass. No sign of pleural effusion. No pneumothorax. Bones and soft tissues: No significant findings. IMPRESSION: Unremarkable chest. Dictated by: Souleymane Asencio MD @ 10/19/2022 17:28:05 (Electronically Signed)
[2022-10-19] MEDS: ACETAMINOPHEN 500 MG TABLET 1000 MG PO (17:14)
--- NOTE | 2022-10-19 17:25 | ED_ITS ---
HPI - Fever General Date Seen: 10/19/22 Chief Complaint: Fever Stated Complaint: Body ache, fever Time Seen by Provider: 10/19/22 16:45 Source: patient and family Mode of arrival: ambulatory Limitations: no limitations History of Present Illness HPI Narrative: Patient is a 77-year-old gentleman who presents here with his daughter to interpret. He is H[place] and noted today that he developed a fever, he has slight cough associated with this and a runny nose. No nausea no vomiting, no headache, neck pain or stiffness, denies any chest pain, abdominal pain, or any rashes. He denies any dysuria frequency or diarrhea. Did not take anything at home except that he had some used prednisone left over his typically takes prednisone when he feels ill, he is not on chronic prednisone, I am a little bit confused over why he takes prednisone when he feels ill. He has had full immunization series for COVID. MD elicited complaint: fever Related Data Home Medications Medication Instructions Recorded Confirmed atorvastatin 20 mg tablet 20 mg PO .Bedtime 06/21/22 09/02/22 lisinopril 10 mg tablet 10 mg PO DAILY 06/21/22 09/02/22 metoprolol succinate 25 mg mg PO DAILY 06/21/22 09/02/22 tablet,extended release 24 hr nitroglycerin 0.4 mg sublingual 0.4 mg sublingual ONCE PRN 06/21/22 09/02/22 tablet triamcinolone acetonide 0.5 % 1 applic topical PRN 06/21/22 09/02/22 topical cream Previous Rx's Medication Instructions Recorded colchicine 0.6 mg tablet 0.6 mg PO QDAY #30 tabs 09/02/22 prednisone 20 mg tablet 40 mg PO QDAY #10 tabs 10/12/22 nirmatrelvir 300 mg (150 mg See Rx Instructions PO .COMPLEX 10/19/22 x2)-ritonavir 100 mg tablet,dose #30 ea pack(EUA) (Paxlovid) Allergies Allergy/AdvReac Type Severity Reaction Status Date / Time No Known Drug Allergies Allergy Verified 09/02/22 13:19 Review of Systems Status of ROS Reports: 10 or more systems reviewed and unremarkable except as noted in History and below [facility] Medical History Arthritis CAD (coronary artery disease) Surgical History History of cataract extraction History of cholecystectomy Social History Smoking Status: Never smoker How often do you have a drink containing alcohol: never AUDIT-C Alcohol total score: 0 Non-prescribed substance use: denies use Exam Narrative Exam Narrative: Patient is seen in room 4, he is in no apparent distress vital signs are noted when he is febrile. Patient is speaking normally, no problem with slurring words, oriented x3. Head eyes ears nose and throat exam show equal pupils, no scleral icterus, extraocular muscles are normal, no facial droop, speech is normal, trachea normal and midline. Thyroid normal midline palpable not enlarged. Chest shows symmetrical rise bilaterally, normal auscultation with no wheezes, no increased work of breathing, no overt bruising or lesions seen, no tenderness is noted on auscultation. Heart sounds normal with no S3-S4 no murmurs clicks or gallops. Abdomen shows no obvious masses or hepatosplenomegaly, no organomegaly, bowel sounds are normal in all quadrants. No tenderness is noted also in all quadrants. Upper and lower extremities show normal power, normal range of motion, pulses are normal, sensations normal, fine motor movements are normal, pelvis is stable to rocking. Cervical spine shows normal range of motion, and palpably not tender. Thoracic spine shows normal range of motion, and palpably not tender, lumbar spine shows no tenderness to palpation percussion and is otherwise normal range of motion. Skin shows no rashes, petechiae or eccymosis. Const Vital Signs, click to edit/add: Vital Signs - 24 hr 10/19/22 16:34 10/19/22 18:34 Temperature 101.3 F H 97.6 F Pulse Rate [Right Pulse Oximeter] 104 H Respiratory Rate 18 Blood Pressure [Right Upper Arm] 122/72 Pulse Oximetry 100 Oxygen Delivery Method Room Air Documenting provider has reviewed patient's vital signs: yes Course Course Hospital Course: I went back in and talked with the patient and family he is feeling a lot better after the Tylenol, he is COVID-19 positive which is likely accounting for his fever. I am not sure what to make of the use of prednisone and this would not be indicated in this circumstance. He has some at home it is up to him to take this. But this is in a treatment that we use for COVID. I did talk to him about use of Paxlovid for this, he is a candidate but he will need to make sure he is not taking colchicine nor his cholesterol medication Lipitor. We went over signs and systems of worsening, Vital Signs Vital signs: Initial Vital Signs Temperature 101.3 F H 10/19/22 16:34 Temperature Source Oral 10/19/22 16:34 Pulse Rate 104 H 10/19/22 16:34 Respiratory Rate 18 10/19/22 16:34 Blood Pressure 122/72 10/19/22 16:34 Blood Pressure Mean 88 10/19/22 16:34 Blood Pressure Position Sitting 10/19/22 16:34 Pulse Oximetry 100 10/19/22 16:34 Oxygen Delivery Method 10/19/22 16:34 Vital Signs Temperature 101.3 F H 10/19/22 16:34 Pulse Rate 104 H 10/19/22 16:34 Respiratory Rate 18 10/19/22 16:34 Blood Pressure 122/72 10/19/22 16:34 Pulse Oximetry 100 10/19/22 16:34 Oxygen Delivery Method 10/19/22 16:34 Temperature 97.6 F 10/19/22 18:34 Pulse Rate 104 H 10/19/22 16:34 Respiratory Rate 18 10/19/22 16:34 Blood Pressure 122/72 10/19/22 16:34 Pulse Oximetry 100 10/19/22 16:34 Oxygen Delivery Method 10/19/22 16:34 MDM - Fever MDM Narrative Medical decision making narrative: Life-threatening differential diagnosis is include meningitis, encephalitis, pneumonia, intra-abdominal infection, bacteremia, other differential diagnosis include but are not limited to viral upper respiratory tract infection, strep, urinary tract infection, skin infection, osteomyelitis, influenza, fungal infections, diskitis, epidural abscess, or fever of unknown origin. Medical Records Attestation: I reviewed the patient's medical records. Lab Data Attestation: I reviewed the patient's lab results. Labs: Lab Results 10/19/22 Range/Units 16:42 SARS-CoV-2 (PCR) POSITIVE SARS-CoV-2 A (Negative) Influenza Type A (PCR) Negative PCR FLU A (Negative) Influenza Type B (PCR) Negative PCR FLU B (Negative) RSV (PCR) Negative PCR RSV (Negative) Imaging Data Chest x-ray: Attestation: I have reviewed the pertinent imaging results. My impression: Negative chest x-ray Radiologist's impression: Patient: DAVIDA BUSH Facility: [facility] Site . Site : 1945 Study: XRay Chest 2V-10/19/2022 5:23:25 PM Ordering Physician: Ever Ge Final Report: INDICATION: FEVER TECHNIQUE: Chest 2 views. COMPARISON: 05/10/21 FINDINGS: Cardiovascular and mediastinum: Heart size and vasculature are normal in caliber and appearance. Mediastinum is within normal limits. Lungs and pleural spaces: Lungs are clear. No sign of infiltrate or mass. No sign of pleural effusion. No pneumothorax. Bones and soft tissues: No significant findings. IMPRESSION: Unremarkable chest. Dictated by: Souleymane Asencio MD @ 10/19/2022 17:28:05 (Electronic Signature) Discharge Plan Discharge Clinical Impression: COVID-19 Patient Disposition: Home, Self-Care Condition: Improved Instructions: COVID-19 (Coronavirus Disease 2019) (ED) Additional Instructions: Home rest use of medications prescribed for COVID, take these twice a day for the 1st 5 days. Please hold your Lipitor (atorvastatin,) while you take this medication you may restart this 3 days after you finish taking the COVID medications, no colchicine to use while you taking the COVID medications, use of prednisone is okay with the medications, Tylenol 1 g p.o. t.i.d. for the next 3- 5 days, return here to the emergency room if increasing chest pain shortness of breath nausea vomiting or other symptoms Prescriptions: New Paxlovid (EUA) 300 mg (150 mg x 2)-100 mg tablets,dose pack See Rx Instructions .ROUTE .COMPLEX Qty: 30 0RF Rx Instructions: take TWO 150 mg tablets of nirmatrelvir with ONE 100 mg tablet of ritonavir twice daily for 5 days No Action colchicine 0.6 mg tablet 0.6 mg PO QDAY Qty: 30 11RF nitroglycerin 0.4 mg tablet, sublingual 0.4 mg sublingual ONCE PRN Rx Instructions: Take 1 tab every 5 min as needed for chest pain. atorvastatin 20 mg tablet 20 mg PO .Bedtime triamcinolone acetonide 0.5 % cream 1 applic topical PRN metoprolol succinate 25 mg tablet extended release 24 hr PO DAILY lisinopril 10 mg tablet 10 mg PO DAILY prednisone 20 mg tablet 40 mg PO QDAY Qty: 10 0RF Follow Up/Referrals: Florentino Luna MD [Primary Care Provider] - Stand Alone Forms: Ready To Travel Info Instructions
[2022-10-19 17:29] LABS: PCR FLU A Negative PCR FLU A (Negative); PCR FLU B Negative PCR FLU B (Negative); PCR RSV Negative PCR RSV (Negative)
[2022-10-19 17:31] LABS: SARS PCR* POSITIVE SARS-CoV-2 (Negative)
[2022-10-19 18:34] VITALS: TEMP 36.4
== END 2022-10-19 19:12 | disposition home or self-care (01) ==
PROVIDERS: Emergency Provider Family Medicine; PCP Family Medicine
DX: U07.1 COVID-19 (principal)
CPT/HCPCS: 71046; 87502; 87634; 87635; 99283; 99284; A9270

== ENCOUNTER 2022-12-28 14:06 | Outpatient (CLI) | payer MEDICARE, MEDICAID, SELFPAY | END 2022-12-28 14:07 | disposition home or self-care (01) | LOC: NFLDREF 14:14 | PROVIDERS: PCP Family Medicine; Visit Provider Family Medicine | DX: Z00.00 Encounter for general adult medical examination without abnormal findings (principal); Z01.818 Encounter for other preprocedural examination; I10 Essential (primary) hypertension; M10.9 Gout, unspecified; Z13.6 Encounter for screening for cardiovascular disorders | CPT/HCPCS: 80053; 80061 ==

== ENCOUNTER 2022-12-29 17:18 | Emergency (ER) | payer MEDICARE, MEDICAID, SELFPAY ==
[2022-12-29 17:31] VITALS: BP 126/63; PULSE 71; RESP 18; TEMP 36.8; O2SAT 97; BMI 23.4
--- NOTE | 2022-12-29 17:49 | CRLHL7_ITS ---
For Patients: As a result of the Century Cures Act, medical imaging exams and procedure reports are released immediately into your electronic medical record. You may view this report before your referring provider. If you have questions, please contact your health care provider. INDICATION: COUGH TECHNIQUE: Chest 2 views. COMPARISON: 10/19/22 FINDINGS: Cardiovascular and mediastinum: Heart size and vasculature are normal in caliber and appearance. Mediastinum is within normal limits. Lungs and pleural spaces: Lungs are clear. No sign of infiltrate or mass. No sign of pleural effusion. No pneumothorax. Bones and soft tissues: No significant findings. IMPRESSION: Unremarkable chest. Dictated by: Souleymane Asencio MD @ 12/29/2022 18:08:47 (Electronically Signed)
--- NOTE | 2022-12-29 17:52 | ED_ITS ---
HPI - General Adult General Chief complaint: Weakness Stated complaint: Check for pneumonia, is sick Time Seen by Provider: 12/29/22 17:20 History of Present Illness HPI narrative: This 77-year-old male comes in with his daughter who interprets for him. He is concerned that he may have pneumonia. His daughter reports that he has been coughing for about a month. There is no report of fever or shortness of breath. His is admitted into the hospital this morning for pneumonia. He arrives here with normal vital signs and does not appear to be in any acute distress. Related Data Previous Rx's Medication Instructions Recorded atorvastatin 20 mg tablet 20 mg PO .Bedtime #90 tabs 12/28/22 colchicine 0.6 mg tablet 0.6 mg PO QDAY #90 tabs 12/28/22 lisinopril 10 mg tablet 10 mg PO DAILY #90 tabs 12/28/22 metoprolol succinate 25 mg 25 mg PO DAILY #90 tabs 12/28/22 tablet,extended release 24 hr nitroglycerin 0.4 mg sublingual 0.4 mg sublingual ONCE PRN chest 12/28/22 tablet pain #20 tabs acetaminophen 300 mg-codeine 30 mg 1 tab PO Q6H PRN pain #15 tabs 12/29/22 tablet methylprednisolone 4 mg tablets in See Rx Instructions PO .COMPLEX 12/29/22 a dose pack (Medrol ([place])) #21 ea Allergies Allergy/AdvReac Type Severity Reaction Status Date / Time No Known Drug Allergies Allergy Verified 12/29/22 17:30 Review of Systems Status of ROS: Reports: 10 or more systems reviewed and unremarkable except as noted in History and below Narrative: Constitutional: No fevers, no weight gain or loss. Eyes: No discharge. No vision changes. HENT: No congestion, no sore throat, no ear pain. Cardiovascular: No chest pain, no palpitations. Respiratory: No shortness of breath, no wheezes. He reports a cough. Gastrointestinal: No abdominal pain, no vomiting, no diarrhea. Genitourinary: No dysuria, no hematuria. Musculoskeletal: Normal range of motion. He reports tingling and pain sensations in his hands and arms emanating from his neck. 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 Skin: No rashes, no pruritis. Neurological: No dizziness, weakness, sensory change, speech change. Endo/Heme/Allergies: No bruising or bleeding. No polydipsia. Pysch: no suicidality, no anxiety, no insomnia. All other systems reviewed and are negative. [facility] Medical History , RN) Arthritis CAD (coronary artery disease) Surgical History , RN) History of cataract extraction History of cholecystectomy Social History Smoking Status: Never smoker How often do you have a drink containing alcohol: never AUDIT-C Alcohol total score: 0 Non-prescribed substance use: denies use Little interest or pleasure in doing things: more than half the days Feeling down, depressed, or hopeless: not at all service: Yes Exam Narrative: Exam Narrative: Constitutional: Well-developed, well-nourished, no acute distress. HEENT: Normocephalic, atraumatic. Neck: Normal range of motion. Nontender. Supple. Heart: Regular. No murmurs. Normal rate. Intact distal pulses. Lungs: Clear to auscultation. No chest discomfort. No wheezes, rhonchi, or rales. Abdomen: Normal bowel sounds. Nontender. No rebound tenderness. Genitalia: Deferred. Back: No midline tenderness. Normal range of motion. Extremities: Normal range of motion. No injury. Skin: Intact. No rash. Warm. No erythema or pallor. Neurologic: No altered sensation. No weakness. Alert and oriented. Psychiatric: No suicidality. No anxiety or depression. No insomnia. Nursing notes and vitals signs are reviewed. Const: Vital Signs, click to edit/add: Vital Signs - 24 hr 12/29/22 17:31 Temperature 98.2 F Pulse Rate [Pulse Oximeter] 71 Respiratory Rate 18 Blood Pressure [Ri ght Upper Arm] 126/63 Pulse Oximetry 97 Oxygen Delivery Me thod Room Air Course Vital Signs Vital signs: Initial Vital Signs Temperature 98.2 F 12/29/22 17:31 Temperature Source Temporal Artery Scan 12/29/22 17:31 Pulse Rate 71 12/29/22 17:31 Pulse Rhythm Regular 12/29/22 17:31 Respiratory Rate 18 12/29/22 17:31 Blood Pressure 126/63 12/29/22 17:31 Blood Pressure Mean 84 12/29/22 17:31 Blood Pressure Position Supine 12/29/22 17:31 Pulse Oximetry 97 12/29/22 17:31 Oxygen Delivery Method Room Air 12/29/22 17:31 Vital Signs Temperature 98.2 F 12/29/22 17:31 Pulse Rate 71 12/29/22 17:31 Respiratory Rate 18 12/29/22 17:31 Blood Pressure 126/63 12/29/22 17:31 Pulse Oximetry 97 12/29/22 17:31 Oxygen Delivery Method Room Air 12/29/22 17:31 Temperature 98.2 F 12/29/22 17:31 Pulse Rate 71 12/29/22 17:31 Respiratory Rate 18 12/29/22 17:31 Blood Pressure 126/63 12/29/22 17:31 Pulse Oximetry 97 12/29/22 17:31 Oxygen Delivery Method Room Air 12/29/22 17:31 Medical Decision Making MDM Narrative Medical decision making narrative: This patient comes in concerned that he may have pneumonia as he has had a cough. Chest x-ray and labs returned with normal results. Nasal swab also is negative for COVID, influenza, and RSV. This was reassuring to the patient. At the time of discharge the patient appears safe for outpatient management. The treatment plan is reviewed along with written and verbal return precautions. Reasons to return and the importance of close followup were also reviewed. He received a prescription for Medrol Dosepak and Tylenol 3. Lab Data Labs: Lab Results 12/29/22 12/29/22 Range/Units 18:05 18:19 WBC 5.14 (4.50-11.00) K/uL RBC 4.50 (4.30-5.90) m/uL Hgb 13.1 L (13.5-17.5) gm/dL Hct 38.8 (37.0-53.0) % MCV 86 (80-100) fL MCH 29 (26-34) pg MCHC 34 (32-36) gm/dL RDW Coeff of Mickey 12.6 (11.5-15.5) % Plt Count 233 (140-440) K/uL Neut % (Auto) 37.1 L (42.0-72.0) % Lymph % (Auto) 46.7 H (20-44) % [place] % (Auto) 10.7 (0.0-11.0) % Eos % (Auto) 4.7 (0.0-7.0) % Baso % (Auto) 0.6 (0.0-3.0) % Neut # (Auto) 1.90 (1.7-7.0) K/uL Lymph # (Auto) 2.40 (0.90-2.90) K/uL [place] # (Auto) 0.50 (0.00-0.90) K/UL Eos # (Auto) 0.24 (0.00-0.50) K/uL Baso # (Auto) 0.03 (0.00-0.30) K/uL Sodium 138 (135-149) mmol/L Potassium 4.0 (3.6-5.1) mmol/L Chloride 105 (96-114) mmol/L Carbon Dioxide 29 (20-32) mmol/L BUN 16 (7-30) mg/dL Creatinine 1.0 (0.5-1.5) mg/dL Estimated Creat Clear 43.04 Estimated GFR 77 ml/min Glucose 98 (60-115) mg/dL Calcium 8.9 (8.4-10.6) mg/dL SARS-CoV-2 (PCR) Negative SARS-CoV-2 (Negative) Influenza Type A (PCR) Negative PCR FLU A (Negative) Influenza Type B (PCR) Negative PCR FLU B (Negative) RSV (PCR) Negative PCR RSV (Negative) Imaging Data Chest x-ray: Radiologist's impression: Unremarkable chest. Discharge Plan Discharge Clinical Impression: Acute upper respiratory infection, Degenerative joint disease Patient Disposition: Home w/ Parent or Adult Condition: Stable Additional Instructions: Take medication as prescribed. Follow up with MD return if worsening. Prescriptions: New acetaminophen-codeine 300-30 mg tablet 1 tab PO Q6H PRN (Reason: pain) Qty: 15 0RF methylprednisolone [Medrol (Hung)] 4 mg tablets,dose pack See Rx Instructions .ROUTE .COMPLEX Qty: 21 0RF Rx Instructions: orally per package directions No Action metoprolol succinate 25 mg tablet extended release 24 hr 25 mg PO DAILY Qty: 90 3RF colchicine 0.6 mg tablet 0.6 mg PO QDAY Qty: 90 3RF lisinopril 10 mg tablet 10 mg PO DAILY Qty: 90 3RF nitroglycerin 0.4 mg tablet, sublingual 0.4 mg sublingual ONCE PRN (Reason: chest pain) Qty: 20 0RF Rx Instructions: Take 1 tab every 5 min as needed for chest pain. atorvastatin 20 mg tablet 20 mg PO .Bedtime Qty: 90 3RF Follow Up/Referrals: Florentino Luna MD [Primary Care Provider] - Stand Alone Forms: [employer] Info Instructions
[2022-12-29 18:29] LABS: Basophils Absolute Auto 0.03 K/uL (0.00-0.30); Basophils Percent Auto 0.6 % (0.0-3.0); Eosinophils Absolute Auto 0.24 K/uL (0.00-0.50); Eosinophils Percent Auto 4.7 % (0.0-7.0); Hematocrit 38.8 % (37.0-53.0); Hemoglobin* 13.1 gm/dL (13.5-17.5); Immature Granulocytes Abs Auto 0.01 K/uL (0.00-0.30); Immature Granulocytes Pct Auto 0.2 %; Lymphocytes Percent Auto 46.7 % (20-44); Mean Corpuscular HGB Conc 34 gm/dL (32-36); Mean Corpuscular Hemoglobin 29 pg (26-34); Mean Corpuscular Volume 86 fL (80-100); Monocytes Percent Auto 10.7 % (0.0-11.0); Neutrophils Percent Auto 37.1 % (42.0-72.0); Platelet Count* 233 K/uL (140-440); RDW Coefficient of Variation % 12.6 % (11.5-15.5); White Blood Count* 5.14 K/uL (4.50-11.00)
[2022-12-29 18:33] LABS: Slide Review Reflex No
[2022-12-29 18:41] LABS: Chloride* 105 mmol/L (96-114); Sodium* 138 mmol/L (135-149)
[2022-12-29 18:44] LABS: Carbon Dioxide* 29 mmol/L (20-32); Est. Creatinine Clearance* 43.04; Estimated Glomerular Filt Rate 77 ml/min
[2022-12-29 18:45] LABS: Blood Urea Nitrogen* 16 mg/dL (7-30); Calcium* 8.9 mg/dL (8.4-10.6); Glucose* 98 mg/dL (60-115)
[2022-12-29 19:06] LABS: PCR FLU A Negative PCR FLU A (Negative); PCR FLU B Negative PCR FLU B (Negative); PCR RSV Negative PCR RSV (Negative)
[2022-12-29 19:11] LABS: SARS PCR* Negative SARS-CoV-2 (Negative)
== END 2022-12-29 19:48 | disposition home or self-care (01) ==
PROVIDERS: Emergency Provider Emergency Medicine Emergency Medical Services; PCP Family Medicine
DX: J06.9 Acute upper respiratory infection, unspecified (principal); M19.90 Unspecified osteoarthritis, unspecified site
CPT/HCPCS: 36415; 71046; 80048; 85025; 87631; 99284

== ENCOUNTER 2023-01-16 19:00 | Emergency (ER) | payer MEDICARE, MEDICAID, SELFPAY ==
[2023-01-16 19:17] VITALS: BP 111/63; PULSE 83; RESP 18; TEMP 37.2; O2SAT 96
--- NOTE | 2023-01-16 19:44 | ED_ITS ---
HPI - General Adult General Chief complaint: Extremity Pain/Injury, Upper Stated complaint: Possible infection in Right hand Time Seen by Provider: 01/16/23 19:04 History of Present Illness HPI narrative: Patient is an 78-year-old [place] male who to his son who is an overlock elastic attacher reports that he has had significant right wrist pain no trauma or injury. He reports that he has had some swelling arthritic changes. He is scheduled to have his right knee replaced this week with Dr. Ridley in [place]. At this point he came to the ER because he was not sure what he could take for medication as he was advised not to take any medication for before his surgery. He denies trauma or injury as mention he has he has pain in the wrist and in the hand. He has had a history of gout in the past for which he is on colchicine he has also had coronary disease. Related Data Previous Rx's Medication Instructions Recorded atorvastatin 20 mg tablet 20 mg PO .Bedtime #90 tabs 12/28/22 colchicine 0.6 mg tablet 0.6 mg PO QDAY #90 tabs 12/28/22 lisinopril 10 mg tablet 10 mg PO DAILY #90 tabs 12/28/22 metoprolol succinate 25 mg 25 mg PO DAILY #90 tabs 12/28/22 tablet,extended release 24 hr nitroglycerin 0.4 mg sublingual 0.4 mg sublingual ONCE PRN chest 12/28/22 tablet pain #20 tabs acetaminophen 300 mg-codeine 30 mg 1 tab PO Q6H PRN pain #15 tabs 12/29/22 tablet methylprednisolone 4 mg tablets in See Rx Instructions PO .COMPLEX 12/29/22 a dose pack (Medrol (Hung)) #21 ea Allergies Allergy/AdvReac Type Severity Reaction Status Date / Time No Known Drug Allergies Allergy Verified 12/29/22 17:30 Review of Systems Status of ROS: Reports: 6 or more systems reviewed and unremarkable except as noted in History and below PFSH PFS Medical History Arthritis ?M19.90 - Unspecified osteoarthritis, unspecified site (ICD-10) CAD (coronary artery disease) ?I25.10 - Atherosclerotic heart disease of [place] coronary artery without angina pectoris (ICD-10) Surgical History History of cataract extraction ?Z98.49 - Cataract extraction status, unspecified eye (ICD-10) History of cholecystectomy ?Z90.49 - Acquired absence of other specified parts of digestive tract (ICD- 10) Social History Smoking Status: Never smoker How often do you have a drink containing alcohol: never AUDIT-C Alcohol total score: 0 Non-prescribed substance use: denies use Little interest or pleasure in doing things: more than half the days Feeling down, depressed, or hopeless: not at all service: Yes Exam Narrative: Exam Narrative: Objective: Patient's vital signs look unremarkable he is afebrile He is alert orient x3 He has a son is serving as an overlock elastic attacher His right hand shows a lot of arthritic change and degenerative change, he does have some warmth around his wrist both volar and dorsally. Patient has limited range of motion secondary to pain of the wrist. Again he denies falls trauma or injury. Distal CMS intact. Const: Vital Signs, click to edit/add: Vital Signs - 24 hr 01/16/23 19:17 Temperature 98.9 F Pulse Rate [Left P ulse Oximeter] 83 Respiratory Rate 18 Blood Pressure [Le ft Upper Arm] 111/63 Pulse Oximetry 96 Oxygen Delivery Me thod Room Air Course Vital Signs Vital signs: Initial Vital Signs Temperature 98.9 F 01/16/23 19:17 Temperature Source Temporal Artery Scan 01/16/23 19:17 Pulse Rate 83 01/16/23 19:17 Pulse Rhythm Regular 01/16/23 19:17 Respiratory Rate 18 01/16/23 19:17 Blood Pressure 111/63 01/16/23 19:17 Blood Pressure Mean 79 01/16/23 19:17 Pulse Oximetry 96 01/16/23 19:17 Oxygen Delivery Method Room Air 01/16/23 19:17 Vital Signs Temperature 98.9 F 01/16/23 19:17 Pulse Rate 83 01/16/23 19:17 Respiratory Rate 18 01/16/23 19:17 Blood Pressure 111/63 01/16/23 19:17 Pulse Oximetry 96 01/16/23 19:17 Oxygen Delivery Method Room Air 01/16/23 19:17 Temperature 98.9 F 01/16/23 19:17 Pulse Rate 83 01/16/23 19:17 Respiratory Rate 18 01/16/23 19:17 Blood Pressure 111/63 01/16/23 19:17 Pulse Oximetry 96 01/16/23 19:17 Oxygen Delivery Method Room Air 01/16/23 19:17 Medical Decision Making MDM Narrative Medical decision making narrative: Patient is an 78-year-old male who has history of gout with slight warmth in pain in his right wrist and hand. Rule out infection rule out gout flare, rule arthritic for a flare. At this point I think we need to treat him with a st eroid bolus, and would do Keflex for coverage as well. I think we need to draw some blood a CBC see a RP and Chem profile. I think given his wrist findings he should follow up with primary care in the next 2-3 days. Will get him a splint as well. He will need recheck to make this sure this is improving and decide about his surgical care. At this point I would suggest he consider rescheduling his elective surgery. He is son will have discussed this in wish to take medication to try and help his hand and wrist. Addendum: White count in uric acid appear normal, although he certainly can h ave a gout flare with normal uric acid. His CRP is elevated certainly could be from his arthritic condition as well. I think be tavera however given the warmth in his wrist to treat him with a few days of prednisone and some Keflex. And have him follow up with primary care in 2-3 days and document if he can proceed with surgery or not. I would continue Tylenol at this point and a wrist splint and icing to the wrist and hand. Return as needed. Otherwise follow up with primary care. Lab Data Labs: Lab Results 01/16/23 Range/Units 19:50 WBC 7.07 (4.50-11.00) K/uL RBC 4.74 (4.30-5.90) m/uL Hgb 13.6 (13.5-17.5) gm/dL Hct 41.6 (37.0-53.0) % MCV 88 (80-100) fL MCH 29 (26-34) pg MCHC 33 (32-36) gm/dL RDW Coeff of Mickey 12.9 (11.5-15.5) % Plt Count 202 (140-440) K/uL Neut % (Auto) 61.6 (42.0-72.0) % Lymph % (Auto) 27.2 (20-44) % [place] % (Auto) 9.1 (0.0-11.0) % Eos % (Auto) 1.7 (0.0-7.0) % Baso % (Auto) 0.3 (0.0-3.0) % Neut # (Auto) 4.36 (1.7-7.0) K/uL Lymph # (Auto) 1.92 (0.90-2.90) K/uL [place] # (Auto) 0.60 (0.00-0.90) K/UL Eos # (Auto) 0.12 (0.00-0.50) K/uL Baso # (Auto) 0.02 (0.00-0.30) K/uL Sodium 136 (135-149) mmol/L Potassium 4.2 (3.6-5.1) mmol/L Chloride 104 (96-114) mmol/L Carbon Dioxide 26 (20-32) mmol/L BUN 15 (7-30) mg/dL Creatinine 0.8 (0.5-1.5) mg/dL Estimated GFR 89 ml/min Glucose 92 (60-115) mg/dL Uric Acid 8.4 (2.2-8.4) mg/dL Calcium 8.7 (8.4-10.6) mg/dL C-Reactive Protein 6.8 H (0.5-1.0) mg/dL Discharge Plan Discharge Clinical Impression: Gout, Acute pain of right wrist, Hypertension Patient Disposition: Home w/ Parent or Adult Condition: Stable Additional Instructions: Splint, warm pack to the wrist and hand. Continue home medications, recommend Keflex 500 mg q.i.d. x5 days, prednisone 20 mg b.i.d. x3 days., splint as mention and follow-up with primary care in the next 2-3 days. Would update orthopedic surgeon regarding knee replacement later in the week regarding his wrist. Given he does have some redness in the wrist area cannot rule out a mild infection versus gout flare versus arthritic flare. Patient be treated with a couple days a steroid and continue his colchicine and will be triple treated with Keflex. Follow up with primary care as directed, continue tylenol as needed. Activity Level: Light activity Discharge Diet: Regular Prescriptions: No Action metoprolol succinate 25 mg tablet extended release 24 hr 25 mg PO DAILY Qty: 90 3RF colchicine 0.6 mg tablet 0.6 mg PO QDAY Qty: 90 3RF lisinopril 10 mg tablet 10 mg PO DAILY Qty: 90 3RF nitroglycerin 0.4 mg tablet, sublingual 0.4 mg sublingual ONCE PRN (Reason: chest pain) Qty: 20 0RF Rx Instructions: Take 1 tab every 5 min as needed for chest pain. atorvastatin 20 mg tablet 20 mg PO .Bedtime Qty: 90 3RF acetaminophen-codeine 300-30 mg tablet 1 tab PO Q6H PRN (Reason: pain) Qty: 15 0RF methylprednisolone [Medrol (Hung)] 4 mg tablets,dose pack See Rx Instructions .ROUTE .COMPLEX Qty: 21 0RF Rx Instructions: orally per package directions Follow Up/Referrals: Florentino Luna MD [Primary Care Provider] - Stand Alone Forms: [employer] Info Instructions
[2023-01-16] MEDS: cephALEXin 500 MG CAPSULE PO (19:45)
[2023-01-16] MEDS: predniSONE 10 MG TABLET 50 MG PO (19:46)
[2023-01-16 19:58] LABS: Basophils Absolute Auto 0.02 K/uL (0.00-0.30); Basophils Percent Auto 0.3 % (0.0-3.0); Eosinophils Absolute Auto 0.12 K/uL (0.00-0.50); Eosinophils Percent Auto 1.7 % (0.0-7.0); Hematocrit 41.6 % (37.0-53.0); Hemoglobin* 13.6 gm/dL (13.5-17.5); Immature Granulocytes Abs Auto 0.01 K/uL (0.00-0.30); Immature Granulocytes Pct Auto 0.1 %; Lymphocytes Absolute Auto 1.92 K/uL (0.90-2.90); Lymphocytes Percent Auto 27.2 % (20-44); Mean Corpuscular HGB Conc 33 gm/dL (32-36); Mean Corpuscular Hemoglobin 29 pg (26-34); Mean Corpuscular Volume 88 fL (80-100); Monocytes Percent Auto 9.1 % (0.0-11.0); Neutrophils Absolute Auto 4.36 K/uL (1.7-7.0); Neutrophils Percent Auto 61.6 % (42.0-72.0); Platelet Count* 202 K/uL (140-440); RDW Coefficient of Variation % 12.9 % (11.5-15.5); Red Blood Count 4.74 m/uL (4.30-5.90); White Blood Count* 7.07 K/uL (4.50-11.00)
[2023-01-16 20:00] LABS: Slide Review Reflex No
[2023-01-16 20:08] LABS: Chloride* 104 mmol/L (96-114)
[2023-01-16 20:09] LABS: Potassium* 4.2 mmol/L (3.6-5.1)
[2023-01-16 20:10] LABS: Sodium* 136 mmol/L (135-149)
[2023-01-16 20:11] LABS: Creatinine* 0.8 mg/dL (0.5-1.5); Estimated Glomerular Filt Rate 89 ml/min
[2023-01-16 20:12] LABS: Blood Urea Nitrogen* 15 mg/dL (7-30); Carbon Dioxide* 26 mmol/L (20-32); Glucose* 92 mg/dL (60-115); Uric Acid* 8.4 mg/dL (2.2-8.4)
[2023-01-16 20:13] LABS: Calcium* 8.7 mg/dL (8.4-10.6)
--- NOTE | 2023-01-16 20:14 | ED.NURSE ---
Sling in place by EDT. Report given to DIANE Ayon.
[2023-01-16 20:15] LABS: C Reactive Protein* 6.8 mg/dL (0.5-1.0)
== END 2023-01-16 20:32 | disposition home or self-care (01) ==
PROVIDERS: Emergency Provider Family Medicine; PCP Family Medicine
DX: M25.531 Pain in right wrist (principal); I10 Essential (primary) hypertension; M10.9 Gout, unspecified
CPT/HCPCS: 36415; 80048; 84550; 85025; 86140; 99283; 99284; A9270; J7512

== ENCOUNTER 2023-04-07 21:07 | Emergency (ER) | payer MEDICARE, MEDICAID, SELFPAY ==
[2023-04-07 21:14] VITALS: BP 127/77; PULSE 78; RESP 18; TEMP 36.3; O2SAT 96
--- NOTE | 2023-04-07 21:27 | ED_ITS ---
HPI - General Adult General Time Seen by Provider: 21:27 Date Seen: 04/07/23 Chief complaint: Unspecified Complaint, Adult Stated complaint: left toe pain Time Seen by Provider: 04/07/23 21:27 Source: patient and RN notes reviewed Mode of arrival: ambulatory Limitations: no limitations History of Present Illness HPI narrative: This 78-year-old male is here with his daughter who is interpreting. He has a longstanding history of gout. He is complaining of his fingers hurting every night but that is not new, has significant arthritis. He also complaining of 1st great toe pain of the affected foot. It is in bothering him the last couple nights. No fever. He has applied an herbal poultice to it. No trauma. His daughter states he has not been on prednisone for some time now, that usually works quite well for him quickly. She is hoping to get prednisone. He reportedly has medications with colchicine but has not been taking it. Related Data Previous Rx's Medication Instructions Recorded colchicine 0.6 mg tablet 0.6 mg PO QDAY #90 tabs 12/28/22 lisinopril 10 mg tablet 10 mg PO DAILY #90 tabs 12/28/22 nitroglycerin 0.4 mg sublingual 0.4 mg sublingual ONCE PRN chest 12/28/22 tablet pain #20 tabs acetaminophen 300 mg-codeine 30 mg 1 tab PO Q6H PRN pain #15 tabs 12/29/22 tablet diclofenac sodium 1 % topical gel 2 g topical QID #100 grams 03/10/23 triamcinolone acetonide 0.5 % 1 applic topical BID PRN itching 03/10/23 topical cream #15 grams Allergies Allergy/AdvReac Type Severity Reaction Status Date / Time No Known Drug Allergies Allergy Verified 03/10/23 08:27 Review of Systems Narrative: As per HPI PFSH PFSH Medical History Arthritis ?M19.90 - Unspecified osteoarthritis, unspecified site (ICD-10) CAD (coronary artery disease) ?I25.10 - Atherosclerotic heart disease of [place] coronary artery without angina pectoris (ICD-10) Surgical History History of cholecystectomy ?Z90.49 - Acquired absence of other specified parts of digestive tract (ICD- 10) History of cataract extraction ?Z98.49 - Cataract extraction status, unspecified eye (ICD-10) Social History Smoking Status: Never smoker How often do you have a drink containing alcohol: never AUDIT-C Alcohol total score: 0 Non-prescribed substance use: denies use Little interest or pleasure in doing things: more than half the days Feeling down, depressed, or hopeless: not at all service: Yes Exam Const: Vital Signs, click to edit/add: Vital Signs - 24 hr 04/07/23 21:14 Temperature 97.4 F L Pulse Rate [Left P ulse Oximeter] 78 Respiratory Rate 18 Blood Pressure [Ri ght Upper Arm] 127/77 Pulse Oximetry 96 Oxygen Delivery Me thod Room Air Documenting provider has reviewed patient's vital signs: yes Common normals: no apparent distress, average body habitus, oriented x3, no limitations and alert General appearance: frail appearing Other: Had a plastic wrap around the great toe, this was removed, pulled this was on it, this was rubbed often has erythema and swelling of the IP joint of the great toe, no open wounds. Pain does extend down into the metatarsophalangeal joint as well but seems to be most concentrated over the interphalangeal joint of the toe. Hands have significant arthritic changes of the joints, the IP joints of all his fingers are thickened, nodular, nothing is erythematous or warm. Does not seem to be any gout, seems to have very arthritic hands however. Neuro: Common normals: oriented x3 Sensorium/orientation: alert Course Course Hospital Course: Discussed with daughter, she translated to her dad. We will give a prescription for prednisone. This may help his arthritic changes in his hands short-term while is on the prednisone. Do recommend they follow up in clinic, do recommend that he take his gout prophylactic medication. Vital Signs Vital signs: Initial Vital Signs Temperature 97.4 F L 04/07/23 21:14 Temperature Source Temporal Artery Scan 04/07/23 21:14 Pulse Rate 78 04/07/23 21:14 Respiratory Rate 18 04/07/23 21:14 Blood Pressure 127/77 04/07/23 21:14 Blood Pressure Mean 93 04/07/23 21:14 Blood Pressure Position Sitting 04/07/23 21:14 Pulse Oximetry 96 04/07/23 21:14 Oxygen Delivery Method Room Air 04/07/23 21:14 Vital Signs Temperature 97.4 F L 04/07/23 21:14 Pulse Rate 78 04/07/23 21:14 Respiratory Rate 18 04/07/23 21:14 Blood Pressure 127/77 04/07/23 21:14 Pulse Oximetry 96 04/07/23 21:14 Oxygen Delivery Method Room Air 04/07/23 21:14 Temperature 97.4 F L 04/07/23 21:14 Pulse Rate 78 04/07/23 21:14 Respiratory Rate 18 04/07/23 21:14 Blood Pressure 127/77 04/07/23 21:14 Pulse Oximetry 96 04/07/23 21:14 Oxygen Delivery Method Room Air 04/07/23 21:14 Discharge Plan Discharge Clinical Impression: Hand arthritis, Gout Patient Disposition: Home, Self-Care Condition: Stable Instructions: Osteoarthritis (ED), Gout (ED) Additional Instructions: Start prednisone, take as prescribed. Recommend taking prednisone with food to protect your stomach. Recommend follow up in clinic with your primary care pr ovider within the next 1-2 weeks to discuss management for arthritis in long- term management strategies for gout. Tylenol can be used for pain, follow bottle directions for dosing. Activity Level: Activity as Tolerated Prescriptions: No Action diclofenac sodium 1 % gel 2 g topical QID Qty: 100 5RF Rx Instructions: apply to Right Hand/wrist triamcinolone acetonide 0.5 % cream 1 applic topical BID PRN (Reason: itching) Qty: 15 2RF colchicine 0.6 mg tablet 0.6 mg PO QDAY Qty: 90 3RF lisinopril 10 mg tablet 10 mg PO DAILY Qty: 90 3RF nitroglycerin 0.4 mg tablet, sublingual 0.4 mg sublingual ONCE PRN (Reason: chest pain) Qty: 20 0RF Rx Instructions: Take 1 tab every 5 min as needed for chest pain. acetaminophen-codeine 300-30 mg tablet 1 tab PO Q6H PRN (Reason: pain) Qty: 15 0RF Follow Up/Referrals: Florentino Luna MD [Primary Care Provider] - Stand Alone Forms: [employer] Info Instructions
== END 2023-04-07 21:57 | disposition home or self-care (01) ==
LOC: ED 21:52
PROVIDERS: Emergency Provider Family Medicine; PCP Family Medicine
DX: M10.9 Gout, unspecified (principal); M19.049 Primary osteoarthritis, unspecified hand
CPT/HCPCS: 99283

== ENCOUNTER 2023-06-27 19:35 | Emergency (ER) | payer MEDICARE, MEDICAID, SELFPAY ==
[2023-06-27 19:38] VITALS: BP 133/70; PULSE 81; RESP 18; TEMP 37; O2SAT 94
--- NOTE | 2023-06-27 20:04 | ED.GENADULT ---
HPI - General Adult General Chief complaint: Extremity Pain/Injury, Lower Stated complaint: Gout R leg Time Seen by Provider: 06/27/23 19:53 Source: patient and family Mode of arrival: ambulatory Limitations: language barrier History of Present Illness HPI narrative: 78-year-old male coming in today with his daughter who is acting as his telecommunications operator, complaining of right knee pain. Patient has long history of gout and is concerned he has gout again. This has been his 3rd episode this year. He states that he had a daily gout medication but he does not want to take daily medications. He denies fevers or chills. No nausea or vomiting. States that he has pain over the whole knee. Nothing seems to make it better or worse. He is requesting prednisone today. Related Data Previous Rx's Medication Instructions Recorded colchicine (gout) 0.6 mg tablet 0.6 mg PO QDAY #90 tabs 12/28/22 lisinopril 10 mg tablet 10 mg PO DAILY #90 tabs 12/28/22 nitroglycerin 0.4 mg sublingual 0.4 mg sublingual ONCE PRN chest 12/28/22 tablet pain #20 tabs acetaminophen 300 mg-codeine 30 mg 1 tab PO Q6H PRN pain #15 tabs 12/29/22 tablet diclofenac sodium 1 % topical gel 2 g topical QID #100 grams 03/10/23 triamcinolone acetonide 0.5 % 1 applic topical BID PRN itching 03/10/23 topical cream #15 grams Allergies Allergy/AdvReac Type Severity Reaction Status Date / Time No Known Drug Allergies Allergy Verified 03/10/23 08:27 Review of Systems Status of ROS: Reports: 10 or more systems reviewed and unremarkable except as noted in History and below [facility] Medical History Arthritis ?M19.90 - Unspecified osteoarthritis, unspecified site (ICD-10) CAD (coronary artery disease) ?I25.10 - Atherosclerotic heart disease of [place] coronary artery without angina pectoris (ICD-10) Surgical History History of cholecystectomy ?Z90.49 - Acquired absence of other specified parts of digestive tract (ICD-10) History of cataract extraction ?Z98.49 - Cataract extraction status, unspecified eye (ICD-10) Social History Smoking Status: Never smoker How often do you have a drink containing alcohol: never AUDIT-C Alcohol total score: 0 Non-prescribed substance use: denies use Little interest or pleasure in doing things: more than half the days Feeling down, depressed, or hopeless: not at all service: Yes Exam Narrative: Exam Narrative: Thin, elderly patient in no acute distress. Alert and oriented x3. Answers questions appropriately. Mood and affect are appropriate. Thoughts are goal oriented and rational. Patient speaks in full sentences without needing to catch his breath. He does not appear ill or toxic. HEENT: Normocephalic atraumatic. Pupils are equally round reactive to light. Extraocular muscles are intact. Conjunctivae are moist without any icterus noted. Moist mucous membranes. Extremities: Bilateral lower extremities are without edema. Normal DP and PT pulses. Patient has a total knee replacement on the left. The right knee is not swollen or erythematous. He has an area just distal to the patella that is slightly swollen and tender. There is slight erythema of the skin, there is no heat coming from the area. The knee joint itself appears unaffected. Skin: Well perfused without any obvious rashes. Const: Vital Signs, click to edit/add: Vital Signs - 24 hr 06/27/23 19:38 Temperature 98.6 F Pulse Rate [Pulse Oximeter] 81 Respiratory Rate 18 Blood Pressure [Ri ght Upper Arm] 133/70 Pulse Oximetry 94 Oxygen Delivery Me thod Room Air Course Vital Signs Vital signs: Initial Vital Signs Temperature 98.6 F 06/27/23 19:38 Temperature Source Temporal Artery Scan 06/27/23 19:38 Pulse Rate 81 06/27/23 19:38 Respiratory Rate 18 06/27/23 19:38 Blood Pressure 133/70 06/27/23 19:38 Blood Pressure Mean 91 06/27/23 19:38 Blood Pressure Position Sitting 06/27/23 19:38 Pulse Oximetry 94 06/27/23 19:38 Oxygen Delivery Method Room Air 06/27/23 19:38 Vital Signs Temperature 98.6 F 06/27/23 19:38 Pulse Rate 81 06/27/23 19:38 Respiratory Rate 18 06/27/23 19:38 Blood Pressure 133/70 06/27/23 19:38 Pulse Oximetry 94 06/27/23 19:38 Oxygen Delivery Method Room Air 06/27/23 19:38 Temperature 98.6 F 06/27/23 19:38 Pulse Rate 81 06/27/23 19:38 Respiratory Rate 18 06/27/23 19:38 Blood Pressure 133/70 06/27/23 19:38 Pulse Oximetry 94 06/27/23 19:38 Oxygen Delivery Method Room Air 06/27/23 19:38 Medical Decision Making MDM Narrative Medical decision making narrative: 78-year-old male with what appears to be a bursitis of the knee. Differential diagnoses includes septic bursitis although given the lack of heat and significant redness noted I do not think this is the case. Other differential includes cellulitis or a very odd presentation of gout. Will go ahead and treat him with both prednisone and Keflex I do want him to follow up with primary care provider in the next 1-2 days. Patient had no other questions. Discharge Plan Discharge Clinical Impression: Bursitis of knee Patient Disposition: Home, Self-Care Condition: Stable Additional Instructions: Take all medication as prescribed. Follow-up with your primary care provider in the next 1-2 days. Prescriptions: No Action diclofenac sodium 1 % gel 2 g topical QID Qty: 100 5RF Rx Instructions: apply to Right Hand/wrist triamcinolone acetonide 0.5 % cream 1 applic topical BID PRN (Reason: itching) Qty: 15 2RF colchicine (gout) 0.6 mg tablet 0.6 mg PO QDAY Qty: 90 3RF lisinopril 10 mg tablet 10 mg PO DAILY Qty: 90 3RF nitroglycerin 0.4 mg tablet, sublingual 0.4 mg sublingual ONCE PRN (Reason: chest pain) Qty: 20 0RF Rx Instructions: Take 1 tab every 5 min as needed for chest pain. acetaminophen-codeine 300-30 mg tablet 1 tab PO Q6H PRN (Reason: pain) Qty: 15 0RF Follow Up/Referrals: Florentino Luna MD [Primary Care Provider] - Stand Alone Forms: [employer] Info Instructions
== END 2023-06-27 20:33 | disposition home or self-care (01) ==
LOC: ED 20:18
PROVIDERS: Emergency Provider Family Medicine; PCP Family Medicine
DX: M70.51 Other bursitis of knee, right knee (principal)
CPT/HCPCS: 99283; 99284

== ENCOUNTER 2023-08-03 14:50 | Emergency (ER) | payer MEDICARE, MEDICAID, SELFPAY ==
[2023-08-03 15:03] VITALS: BP 168/80; PULSE 77; RESP 20; TEMP 36.8; O2SAT 96; BMI 20.5
--- NOTE | 2023-08-03 15:08 | ED.GENADULT ---
HPI - General Adult General Time Seen by Provider: 15:08 <Ja Herrera MD - Last Filed: 08/10/23 16:39> Date Seen: 08/03/23 <Ja Herrera MD - Last Filed: 08/10/23 16:39> Chief complaint: Extremity Pain/Injury, Upper <Ja Herrera MD - Last Filed: 08/10/23 16:39> Stated complaint: body ache <Ja Herrera MD - Last Filed: 08/10/23 16:39> Time Seen by Provider: 08/03/23 14:53 <Ja Herrera MD - Last Filed: 08/10/23 16:39> Source: patient <Ja Herrera MD - Last Filed: 08/10/23 16:39> Mode of arrival: ambulatory <Ja Herrera MD - Last Filed: 08/10/23 16:39> Limitations: no limitations <Ja Herrera MD - Last Filed: 08/10/23 16:39> History of Present Illness HPI narrative: Patient is a 78-year-old male, who is here with his daughter who is Sami-speaking, he has some complaining of right hand and wrist pain. He has had this before it has been gout, he has benefit from prednisone in the past. He has not had any marked fevers or rigors to but he does feel ?chilled in the gout has my body?. Patient denies shortness of breath, denies chest pain, denies any neurologic complaints, reports that in the distal forearm in the wrist he feels discomfort. He has had no cough, no COVID symptoms,. <Ja Herrera MD - Last Filed: 08/10/23 16:39> Related Data Home medications: Previous Rx's Medication Instructions Recorded colchicine 0.6 mg tablet 0.6 mg PO QDAY #90 tabs 12/28/22 lisinopril 10 mg tablet 10 mg PO DAILY #90 tabs 12/28/22 nitroglycerin 0.4 mg sublingual 0.4 mg sublingual ONCE PRN chest 12/28/22 tablet pain #20 tabs acetaminophen 300 mg-codeine 30 mg 1 tab PO Q6H PRN pain #15 tabs 12/29/22 tablet diclofenac sodium 1 % topical gel 2 g topical QID #100 grams 03/10/23 triamcinolone acetonide 0.5 % 1 applic topical BID PRN itching 03/10/23 topical cream #15 grams cephalexin 500 mg capsule 500 mg PO QID 5 days #20 caps 08/03/23 hydrocodone 5 mg-acetaminophen 325 1 tab PO Q12H PRN pain #10 tabs 08/03/23 mg tablet prednisone 20 mg tablet 20 mg PO BID #10 tabs 08/03/23 <Ja Herrera MD - Last Filed: 08/10/23 16:39> Allergies/adverse reactions: Allergies Allergy/AdvReac Type Severity Reaction Status Date / Time No Known Drug Allergies Allergy Verified 03/10/23 08:27 <Ja Herrera MD - Last Filed: 08/10/23 16:39> Review of Systems Status of ROS: Reports: 6 or more systems reviewed and unremarkable except as noted in History and below <Ja Herrera MD - Last Filed: 08/10/23 16:39> [facility] Medical History: Medical History Arthritis ?M19.90 - Unspecified osteoarthritis, unspecified site (ICD-10) CAD (coronary artery disease) ?I25.10 - Atherosclerotic heart disease of [place] coronary artery without angina pectoris (ICD-10) <Ja Herrera MD - Last Filed: 08/10/23 16:39> Surgical History: Surgical History History of cholecystectomy ?Z90.49 - Acquired absence of other specified parts of digestive tract (ICD-10) History of cataract extraction ?Z98.49 - Cataract extraction status, unspecified eye (ICD-10) <Ja Herrera MD - Last Filed: 08/10/23 16:39> Social History: Social History Smoking Status: Never smoker Do you use any of these nicotine containing products: None Second hand tobacco smoke exposure: No How often do you have a drink containing alcohol: never How often do you have six or more drinks on one occasion: Never AUDIT-C Alcohol total score: 0 Non-prescribed substance use: denies use Little interest or pleasure in doing things: more than half the days Feeling down, depressed, or hopeless: not at all service: Yes <Ja Herrera MD - Last Filed: 08/10/23 16:39> Exam Narrative: Exam Narrative: Objective: In general patient apparent distress a very pleasant Patient is alert or x3, no facial asymmetry Neck is supple Pulse regular Right upper extremity shows tenderness over his distal forearm specifically his wrist maybe some mild warmth over his wrist area, no obvious infection but is just slightly warm and prep slightly swollen over the dorsum of his wrist. He denies trauma or injury. His distal CMS is otherwise intact Neurologically is intact abdomen is benign extremities are no edema and good peripheral perfusion noted <Ja Herrera MD - Last Filed: 08/10/23 16:39> Const: Vital Signs, click to edit/add: Vital Signs - 24 hr 08/03/23 15:03 Temperature 98.3 F Pulse Rate [Pulse Oximeter] 77 Respiratory Rate 20 Blood Pressure [Ri ght Upper Arm] 168/80 H Pulse Oximetry 96 Oxygen Delivery Me thod Room Air <Ja Herrera MD - Last Filed: 08/10/23 16:39> Vital Signs, click to edit/add: Vital Signs - 24 hr 08/03/23 15:03 Temperature 98.3 F Pulse Rate [Pulse Oximeter] 77 Respiratory Rate 20 Blood Pressure [Ri ght Upper Arm] 168/80 H Pulse Oximetry 96 Oxygen Delivery Me thod Room Air <Silverio Avelar MD - Last Filed: 08/03/23 16:50> Course Course ED Course: Patient was signed over to Dr. Avelar at 4:00 p.m.- shift change. Patient presents with wrist pain. Gout is suspected. Dr. Maurer will start the patient on prednisone. Just to rule out possible septic arthritis Dr. Mendez has ordered labs. I will follow-up on results of the CBC, CRP. Recheck -5. Patient is very eager to leave and is requesting discharge as soon as possible. At this point only CBC is back. White blood cell count and differential is normal. CRP, uric acid level, Chem 7 are pending. The patient does not want wait for further labs. Therefore will discharge as per Dr. Yang's plan. He will start on prednisone and also cephalexin. <Silverio Avelar MD - Last Filed: 08/03/23 16:50> Vital Signs Vital signs: Initial Vital Signs Temperature 98.3 F 08/03/23 15:03 Temperature Source Temporal Artery Scan 08/03/23 15:03 Pulse Rate 77 08/03/23 15:03 Pulse Rhythm Regular 08/03/23 15:03 Respiratory Rate 20 08/03/23 15:03 Blood Pressure 168/80 H 08/03/23 15:03 Blood Pressure Mean 109 H 08/03/23 15:03 Blood Pressure Position Supine 08/03/23 15:03 Pulse Oximetry 96 08/03/23 15:03 Oxygen Delivery Method Room Air 08/03/23 15:03 Vital Signs Temperature 98.3 F 08/03/23 15:03 Pulse Rate 77 08/03/23 15:03 Respiratory Rate 20 08/03/23 15:03 Blood Pressure 168/80 H 08/03/23 15:03 Pulse Oximetry 96 08/03/23 15:03 Oxygen Delivery Method Room Air 08/03/23 15:03 Temperature 98.3 F 08/03/23 15:03 Pulse Rate 77 08/03/23 15:03 Respiratory Rate 20 08/03/23 15:03 Blood Pressure 168/80 H 08/03/23 15:03 Pulse Oximetry 96 08/03/23 15:03 Oxygen Delivery Method Room Air 08/03/23 15:03 <Ja Herrera MD - Last Filed: 08/10/23 16:39> Initial Vital Signs Temperature 98.3 F 08/03/23 15:03 Temperature Source Temporal Artery Scan 08/03/23 15:03 Pulse Rate 77 08/03/23 15:03 Pulse Rhythm Regular 08/03/23 15:03 Respiratory Rate 20 08/03/23 15:03 Blood Pressure 168/80 H 08/03/23 15:03 Blood Pressure Mean 109 H 08/03/23 15:03 Blood Pressure Position Supine 08/03/23 15:03 Pulse Oximetry 96 08/03/23 15:03 Oxygen Delivery Method Room Air 08/03/23 15:03 Vital Signs Temperature 98.3 F 08/03/23 15:03 Pulse Rate 77 08/03/23 15:03 Respiratory Rate 20 08/03/23 15:03 Blood Pressure 168/80 H 08/03/23 15:03 Pulse Oximetry 96 08/03/23 15:03 Oxygen Delivery Method Room Air 08/03/23 15:03 Temperature 98.3 F 08/03/23 15:03 Pulse Rate 77 08/03/23 15:03 Respiratory Rate 20 08/03/23 15:03 Blood Pressure 168/80 H 08/03/23 15:03 Pulse Oximetry 96 08/03/23 15:03 Oxygen Delivery Method Room Air 08/03/23 15:03 <Silverio Avelar MD - Last Filed: 08/03/23 16:50> Medications Administered Medications: Discontinued Medications Generic Name Dose Route Start Last Admin Trade Name Freq PRN Reason Stop Dose Admin Hydrocodone Bitart/Acetaminophen 1 tab 08/03/23 15:06 08/03/23 15:19 Hydrocodone/Acetamin 7.5-325 Tablet PO 08/03/23 15:07 1 tab ONCE ONE Administration Cephalexin HCl 500 mg 08/03/23 15:06 08/03/23 15:19 Cephalexin 500 Mg Capsule PO 08/03/23 15:07 500 mg ONCE ONE Administration Prednisone 50 mg 08/03/23 15:06 08/03/23 15:20 Prednisone 10 Mg Tablet PO 08/03/23 15:07 50 mg ONCE ONE Administration <Ja Herrera MD - Last Filed: 08/10/23 16:39> Discontinued Medications Generic Name Dose Route Start Last Admin Trade Name Freq PRN Reason Stop Dose Admin Hydrocodone Bitart/Acetaminophen 1 tab 08/03/23 15:06 08/03/23 15:19 Hydrocodone/Acetamin 7.5-325 Tablet PO 08/03/23 15:07 1 tab ONCE ONE Administration Cephalexin HCl 500 mg 08/03/23 15:06 08/03/23 15:19 Cephalexin 500 Mg Capsule PO 08/03/23 15:07 500 mg ONCE ONE Administration Prednisone 50 mg 08/03/23 15:06 08/03/23 15:20 Prednisone 10 Mg Tablet PO 08/03/23 15:07 50 mg ONCE ONE Administration <Silverio Avelar MD - Last Filed: 08/03/23 16:50> Medical Decision Making MDM Narrative Medical decision making narrative: 78-year-old [place] male with history of coronary artery disease status post DC, status post TIA, presents with what he feels is gout exacerbation, and he has got wrist pain on the right. No trauma. At this point I think it be reasonable to check labs in the form heme 4 basic 7 a uric acid a CRP. Will get him a wrist splint. Will give him some pain control with [place] 7.5 mg orally common will also given prednisone 50 mg or. He has benefit from prednisone in the past. He sees Dr. Blanco for primary care. Will review his labs as they return and have disposition planning made. His daughter is here interpreting for him and is comfortable plan as is the patient. They declined an intelligence officer basic. <Ja Herrera MD - Last Filed: 08/10/23 16:39> Lab Data Labs: Lab Results 08/03/23 08/03/23 08/03/23 Range/Units 14:51 15:06 15:20 WBC 7.80 (4.50-11.00) K/uL RBC 5.59 (4.30-5.90) m/uL Hgb 15.5 (13.5-17.5) gm/dL Hct 48.1 (37.0-53.0) % MCV 86 (80-100) fL MCH 28 (26-34) pg MCHC 32 (32-36) gm/dL RDW Coeff of Mickey 13.7 (11.5-15.5) % Plt Count 164 (140-440) K/uL Neut % (Auto) 66.8 (42.0-72.0) % Lymph % (Auto) 23.5 (20-44) % [place] % (Auto) 7.7 (0.0-11.0) % Eos % (Auto) 1.0 (0.0-7.0) % Baso % (Auto) 0.4 (0.0-3.0) % Neut # (Auto) 5.21 (1.7-7.0) K/uL Lymph # (Auto) 1.83 (0.90-2.90) K/uL [place] # (Auto) 0.60 (0.00-0.90) K/UL Eos # (Auto) 0.08 (0.00-0.50) K/uL Baso # (Auto) 0.03 (0.00-0.30) K/uL Abs Immat Gran (auto) 0.05 (0.00-0.30) K/uL Imm/Tot Granulo (auto) 0.6 % Sodium 138 (135-149) mmol/L Potassium 5.0 (3.6-5.1) mmol/L Chloride 107 (96-114) mmol/L Carbon Dioxide 25 (20-32) mmol/L Anion Gap 6 L (7-15) mEq/L BUN 16 (7-30) mg/dL Creatinine 0.7 (0.5-1.5) mg/dL Estimated Creat Clear 39.69 Estimated GFR 93 ml/min Glucose 87 (60-115) mg/dL Uric Acid 8.0 (2.2-8.4) mg/dL Calcium 9.2 (8.4-10.6) mg/dL C-Reactive Protein 3.6 H (0.5-1.0) mg/dL SARS-CoV-2 (PCR) Negative SARS-CoV-2 (Negative) Influenza Type A (PCR) Negative PCR FLU A (Negative) Influenza Type B (PCR) Negative PCR FLU B (Negative) RSV (PCR) Negative PCR RSV (Negative) <Ja Herrera MD - Last Filed: 08/10/23 16:39> Lab Results 08/03/23 08/03/23 08/03/23 Range/Units 14:51 15:06 15:20 WBC 7.80 (4.50-11.00) K/uL RBC 5.59 (4.30-5.90) m/uL Hgb 15.5 (13.5-17.5) gm/dL Hct 48.1 (37.0-53.0) % MCV 86 (80-100) fL MCH 28 (26-34) pg MCHC 32 (32-36) gm/dL RDW Coeff of Mickey 13.7 (11.5-15.5) % Plt Count 164 (140-440) K/uL Neut % (Auto) 66.8 (42.0-72.0) % Lymph % (Auto) 23.5 (20-44) % [place] % (Auto) 7.7 (0.0-11.0) % Eos % (Auto) 1.0 (0.0-7.0) % Baso % (Auto) 0.4 (0.0-3.0) % Neut # (Auto) 5.21 (1.7-7.0) K/uL Lymph # (Auto) 1.83 (0.90-2.90) K/uL [place] # (Auto) 0.60 (0.00-0.90) K/UL Eos # (Auto) 0.08 (0.00-0.50) K/uL Baso # (Auto) 0.03 (0.00-0.30) K/uL Abs Immat Gran (auto) 0.05 (0.00-0.30) K/uL Imm/Tot Granulo (auto) 0.6 % Sodium 138 (135-149) mmol/L Potassium 5.0 (3.6-5.1) mmol/L Chloride 107 (96-114) mmol/L Carbon Dioxide 25 (20-32) mmol/L Anion Gap 6 L (7-15) mEq/L BUN 16 (7-30) mg/dL Creatinine 0.7 (0.5-1.5) mg/dL Estimated Creat Clear 39.69 Estimated GFR 93 ml/min Glucose 87 (60-115) mg/dL Uric Acid 8.0 (2.2-8.4) mg/dL Calcium 9.2 (8.4-10.6) mg/dL C-Reactive Protein 3.6 H (0.5-1.0) mg/dL SARS-CoV-2 (PCR) Negative SARS-CoV-2 (Negative) Influenza Type A (PCR) Negative PCR FLU A (Negative) Influenza Type B (PCR) Negative PCR FLU B (Negative) RSV (PCR) Negative PCR RSV (Negative) <Silverio Avelar MD - Last Filed: 08/03/23 16:50> Discharge Plan Discharge Clinical Impression: Gout, Acute pain of right wrist <Ja Herrera MD - Last Filed: 08/10/23 16:39> Patient Disposition: Home w/ Parent or Adult <Ja Herrera MD - Last Filed: 08/10/23 16:39> Condition: Stable <Ja Herrera MD - Last Filed: 08/10/23 16:39> Additional Instructions: Wrist splint, ice to the affected wrist as needed preps 5-10 minutes 3 to 4 times a day, [place] as needed for pain, prednisone 20 mg b.i.d. starting tomorrow for 5 days. Recommend follow up Dr[address] Blanco next couple of days. <Ja Herrera MD - Last Filed: 08/10/23 16:39> Activity Level: Light activity <Ja Herrera MD - Last Filed: 08/10/23 16:39> Light activity <Silverio Avelar MD - Last Filed: 08/03/23 16:50> Discharge Diet: Regular <Ja Herrera MD - Last Filed: 08/10/23 16:39> Regular <Silverio Avelar MD - Last Filed: 08/03/23 16:50> Prescriptions: New prednisone 20 mg tablet 20 mg PO BID Qty: 10 0RF cephalexin 500 mg capsule 500 mg PO QID 5 Days Qty: 20 0RF hydrocodone-acetaminophen 5-325 mg tablet 1 tab PO Q12H PRN (Reason: pain) Qty: 10 0RF No Action diclofenac sodium 1 % gel 2 g topical QID Qty: 100 5RF Rx Instructions: apply to Right Hand/wrist triamcinolone acetonide 0.5 % cream 1 applic topical BID PRN (Reason: itching) Qty: 15 2RF colchicine 0.6 mg tablet 0.6 mg PO QDAY Qty: 90 3RF lisinopril 10 mg tablet 10 mg PO DAILY Qty: 90 3RF nitroglycerin 0.4 mg tablet, sublingual 0.4 mg sublingual ONCE PRN (Reason: chest pain) Qty: 20 0RF Rx Instructions: Take 1 tab every 5 min as needed for chest pain. acetaminophen-codeine 300-30 mg tablet 1 tab PO Q6H PRN (Reason: pain) Qty: 15 0RF <Ja Herrera MD - Last Filed: 08/10/23 16:39> Follow Up/Referrals: Florentino Luna MD [Primary Care Provider] - <Ja Herrera MD - Last Filed: 08/10/23 16:39> Stand Alone Forms: [employer] Info Instructions <Ja Herrera MD - Last Filed: 08/10/23 16:39>
[2023-08-03] MEDS: cephALEXin 500 MG CAPSULE PO (15:19)
[2023-08-03] MEDS: HYDROCODONE/ACETAMIN 7.5-325 TABLET 1 TAB PO (15:19)
[2023-08-03] MEDS: predniSONE 10 MG TABLET 50 MG PO (15:20)
[2023-08-03 15:52] LABS: PCR FLU A Negative PCR FLU A (Negative); PCR FLU B Negative PCR FLU B (Negative); PCR RSV Negative PCR RSV (Negative)
[2023-08-03 15:56] LABS: SARS PCR* Negative SARS-CoV-2 (Negative)
[2023-08-03 16:25] LABS: Basophils Absolute Auto 0.03 K/uL (0.00-0.30); Basophils Percent Auto 0.4 % (0.0-3.0); Eosinophils Absolute Auto 0.08 K/uL (0.00-0.50); Hematocrit 48.1 % (37.0-53.0); Hemoglobin* 15.5 gm/dL (13.5-17.5); Immature Granulocytes Abs Auto 0.05 K/uL (0.00-0.30); Immature Granulocytes Pct Auto 0.6 %; Lymphocytes Absolute Auto 1.83 K/uL (0.90-2.90); Lymphocytes Percent Auto 23.5 % (20-44); Mean Corpuscular HGB Conc 32 gm/dL (32-36); Mean Corpuscular Hemoglobin 28 pg (26-34); Mean Corpuscular Volume 86 fL (80-100); Monocytes Percent Auto 7.7 % (0.0-11.0); Neutrophils Absolute Auto 5.21 K/uL (1.7-7.0); Neutrophils Percent Auto 66.8 % (42.0-72.0); Platelet Count* 164 K/uL (140-440); RDW Coefficient of Variation % 13.7 % (11.5-15.5); Red Blood Count 5.59 m/uL (4.30-5.90)
[2023-08-03 16:33] LABS: Slide Review Reflex No
[2023-08-03 16:51] LABS: Chloride* 107 mmol/L (96-114); Sodium* 138 mmol/L (135-149)
[2023-08-03 16:54] LABS: Creatinine* 0.7 mg/dL (0.5-1.5); Est. Creatinine Clearance* 39.69; Estimated Glomerular Filt Rate 93 ml/min
[2023-08-03 16:55] LABS: Anion Gap 6 mEq/L (7-15); Blood Urea Nitrogen* 16 mg/dL (7-30); Calcium* 9.2 mg/dL (8.4-10.6); Carbon Dioxide* 25 mmol/L (20-32); Glucose* 87 mg/dL (60-115)
[2023-08-03 16:58] LABS: C Reactive Protein* 3.6 mg/dL (0.5-1.0)
== END 2023-08-03 16:58 | disposition home or self-care (01) ==
LOC: ED 15:53
PROVIDERS: Emergency Provider Family Medicine; PCP Family Medicine
DX: M10.9 Gout, unspecified (principal); M25.531 Pain in right wrist
CPT/HCPCS: 36415; 80048; 84550; 85025; 86140; 87631; 99283; 99284; A9270; J7512

== ENCOUNTER 2023-11-25 14:49 | Inpatient (IN) | payer MEDICARE, MEDICAID, SELFPAY ==
[2023-11-25] VITALS (25 sets, daily range): BP systolic 106–125; BP diastolic 53–67; PULSE 86–93; RESP 18–32; TEMP 36.8–37; O2SAT 80–95; BMI 24.9; BMI 23.5
--- NOTE | 2023-11-25 15:46 | ED.ABDPAIN ---
HPI - Abdominal Pain General Date Seen: 11/25/23 Chief Complaint: Abdominal Pain Stated Complaint: Abdominal pain Time Seen by Provider: 11/25/23 14:57 Source: patient and family (Daughter is translating) Mode of arrival: wheelchair Limitations: no limitations History of Present Illness HPI narrative: Patient is an 78-year-old male with a history of hypertension, STEMI, TIA presenting to the emergency department for epigastric and umbilical pain. His daughter is translating for him. He states that he has been having increased weakness over the past 2 weeks with all over body aches, fatigue, upper duct of cough. Yesterday he started having epigastric and umbilical abdominal pain that worsened today. States the pain goes right to his back. Denies having symptoms like this before. Has not eaten anything today due to pain. Has not had any associated nausea. And denies fevers, headache, vision changes, lightheadedness, dizziness, diarrhea, constipation. His last bowel movement was yesterday any said it was normal. States he usually goes every couple days. Denies dysuria. Has previously has gallbladder removed but no other abdominal surgeries. Is not aware of any sick contacts. No history of DVT or PE. Related Data Previous Rx's Medication Instructions Recorded colchicine 0.6 mg tablet 0.6 mg PO QDAY #90 tabs 12/28/22 lisinopril 10 mg tablet 10 mg PO DAILY #90 tabs 12/28/22 nitroglycerin 0.4 mg sublingual 0.4 mg sublingual ONCE PRN chest 12/28/22 tablet pain #20 tabs acetaminophen 300 mg-codeine 30 mg 1 tab PO Q6H PRN pain #15 tabs 12/29/22 tablet cephalexin 500 mg capsule 500 mg PO QID 5 days #20 caps 08/03/23 hydrocodone 5 mg-acetaminophen 325 1 tab PO Q12H PRN pain #10 tabs 08/03/23 mg tablet prednisone 20 mg tablet 20 mg PO BID #10 tabs 08/03/23 diclofenac sodium 1 % topical gel 2 g topical QID #100 grams 11/23/23 triamcinolone acetonide 0.5 % 1 applic topical BID PRN itching 11/23/23 topical cream #15 grams Allergies Allergy/AdvReac Type Severity Reaction Status Date / Time No Known Drug Allergies Allergy Verified 03/10/23 08:27 Review of Systems Status of ROS Reports: 10 or more systems reviewed and unremarkable except as noted in History and below PFSH [facility] Medical History Arthritis ?M19.90 - Unspecified osteoarthritis, unspecified site (ICD-10) CAD (coronary artery disease) ?I25.10 - Atherosclerotic heart disease of [place] coronary artery without angina pectoris (ICD-10) Surgical History History of cholecystectomy ?Z90.49 - Acquired absence of other specified parts of digestive tract (ICD-10) History of cataract extraction ?Z98.49 - Cataract extraction status, unspecified eye (ICD-10) Social History Smoking Status: Never smoker Do you use any of these nicotine containing products: None Second hand tobacco smoke exposure: No How often do you have a drink containing alcohol: never How often do you have six or more drinks on one occasion: Never AUDIT-C Alcohol total score: 0 Non-prescribed substance use: denies use Little interest or pleasure in doing things: more than half the days Feeling down, depressed, or hopeless: not at all service: Yes Exam Narrative: Exam Narrative: Const: Well-nourished, Well-developed, in moderate distress Eyes: PERRL, no conjunctival injection, and symmetrical lids HENT: Atraumatic external nose and ears. Moist mucous membranes. Neck: Symmetric, trachea midline, No thyromegaly. CVS: RRR, No murmurs or gallops. Peripheral pulses 2+ and equal in all extremities RESP: Increased workup breathing and tachypneic. Clear to auscultation bilaterally. GI: Epigastric and umbilical abdominal tenderness, Nondistended, No rebound or guarding. MSK:Extremities w/o deformity, Normal Active ROM Skin: Warm, Dry. No rashes or lesions. Neuro: Normal Muscle tone, No focal neurological deficits. Psych: Awake, Alert, & Oriented x3. Appropriate mood and affect. Const: Vital Signs, click to edit/add: Vital Signs - 24 hr 11/25/23 15:04 11/25/23 15:15 11/25/23 15:16 Temperature 98.3 F Pulse Rate 89 90 Pulse Rate [Pulse Oximeter] 89 Respiratory Rate 32 H Blood Pressure 125/67 Blood Pressure [Le ft Upper Arm] 114/54 L Pulse Oximetry 87 L 89 88 Oxygen Delivery Me thod Room Air Oxygen Flow Rate 11/25/23 15:31 11/25/23 15:31 11/25/23 16:09 Temperature Pulse Rate 88 Pulse Rate [Pulse Oximeter] Respiratory Rate Blood Pressure 121/62 121/62 Blood Pressure [Le ft Upper Arm] Pulse Oximetry 95 Oxygen Delivery Me thod Oxygen Flow Rate 11/25/23 16:15 11/25/23 16:30 11/25/23 16:34 Temperature Pulse Rate 90 90 89 Pulse Rate [Pulse Oximeter] Respiratory Rate Blood Pressure Blood Pressure [Le ft Upper Arm] Pulse Oximetry 89 95 95 Oxygen Delivery Me thod Oxygen Flow Rate 11/25/23 17:12 11/25/23 17:15 11/25/23 17:30 Temperature Pulse Rate 88 89 90 Pulse Rate [Pulse Oximeter] Respiratory Rate Blood Pressure Blood Pressure [Le ft Upper Arm] Pulse Oximetry 87 L 85 L 87 L Oxygen Delivery Me thod Oxygen Flow Rate 11/25/23 17:45 11/25/23 18:00 11/25/23 19:06 Temperature Pulse Rate 91 90 Pulse Rate [Pulse Oximeter] Respiratory Rate Blood Pressure Blood Pressure [Le ft Upper Arm] Pulse Oximetry 80 L 92 91 Oxygen Delivery Me thod OxyMask Nasal Cannula Oxygen Flow Rate 1 1 Course Vital Signs Vital signs: Initial Vital Signs Temperature 98.3 F 11/25/23 15:04 Temperature Source Temporal Artery Scan 11/25/23 15:04 Pulse Rate 89 11/25/23 15:04 Pulse Rhythm Regular 11/25/23 15:04 Respiratory Rate 32 H 11/25/23 15:04 Blood Pressure 114/54 L 11/25/23 15:04 Blood Pressure Mean 74 11/25/23 15:04 Blood Pressure Position Right Lateral 11/25/23 15:04 Pulse Oximetry 87 L 11/25/23 15:04 Oxygen Delivery Method Room Air 11/25/23 15:04 Vital Signs Temperature 98.3 F 11/25/23 15:04 Pulse Rate 89 11/25/23 15:04 Respiratory Rate 32 H 11/25/23 15:04 Blood Pressure 114/54 L 11/25/23 15:04 Pulse Oximetry 87 L 11/25/23 15:04 Oxygen Delivery Method Room Air 11/25/23 15:04 Temperature 98.3 F 11/25/23 15:04 Pulse Rate 90 11/25/23 18:00 Respiratory Rate 32 H 11/25/23 15:04 Blood Pressure 121/62 11/25/23 15:31 Pulse Oximetry 91 11/25/23 19:06 Oxygen Delivery Method Nasal Cannula 11/25/23 19:06 Oxygen Flow Rate 1 11/25/23 19:06 Medications Administered Medications: Discontinued Medications Generic Name Dose Route Start Last Admin Trade Name Lawrence PRN Reason Stop Dose Admin Lactated Ringer's 1,000 mls @ 1,000 mls/hr 11/25/23 15:23 11/25/23 18:03 Lactated Ringers 1000 Ml IV 11/25/23 16:22 Infused .Q1H ONE Infusion Ketorolac Tromethamine 15 mg 11/25/23 17:51 11/25/23 18:06 Ketorolac 15 Mg/Ml Inj IVP 11/25/23 17:52 15 mg ONCE ONE Administration Lidocaine HCl 7.5 ml 11/25/23 18:51 11/25/23 19:06 Lidocaine Hcl 4 % Top Soln 50 Ml Bottle PO 11/25/23 18:52 7.5 ml ONCE ONE Administration Lidocaine/Aluminum/Magnesium/Simeth 15 ml 11/25/23 18:51 11/25/23 19:06 Mag Hydrox/Aluminum Hyd/Simeth 30 Ml Oral.Susp PO 11/25/23 18:52 15 ml ONCE ONE Administration Morphine Sulfate 4 mg 11/25/23 15:23 11/25/23 16:21 Morphine 4 Mg/Ml Inj IVP 11/25/23 15:24 4 mg ONCE ONE Administration MDM - Abdominal Pain MDM Narrative Medical decision making narrative: Patient is an 78-year-old male presenting to the emergency department for epigastric pain. He initially was not complaining about shortness of breath clot he was satting in the high 80s due to what appeared to be abnormal breathing. Initially seemed like it was due to how much pain he was in. He has been having some viral symptoms for the past few weeks but the abdominal pain does started. Initially given morphine for pain. He was desatting we did start him on oxygen. Morphine helped somewhat with the pain. I am concerned he could be having a a blood clot and a D-dimer was ordered. Also radiate EKG, troponin, CBC, CMP, lactate, lipase, urinalysis, COVID/flu/RSV and blood cultures. CBC returned showing no concerning findings. Chemistry returned with a potassium of 3.2 which is only slightly low and an AST of 53 but no other concerning abnormalities. Urinalysis shows no concerning findings in his COVID/flu/RSV is negative. Troponin within normal limits. EKG showed no concerning abnormalities. D-dimer did come elevated at 0.77. Iron the doing a CTA of the chest and CT scan of the abdomen and pelvis with IV contrast. CTA of the chest shows a small nodule but no other acute abnormalities as reviewed by myself and the radiologist. CT scan of the abdomen pelvis shows colonic diverticulosis but no signs of diverticulitis. Air-fluid levels could represent diarrheal state but he is not having any diarrhea at this time. I am not sure tavera have these epigastric pain but he did have some improvement after the GI cocktail. Patient continued to desat throughout this time the emergency department and what is stated in the mid 90s on 2 L but would drop down to the mid to high 80s when off oxygen. He was awake and conversing during this. At this point seems like he likely has some kind of viral symptoms concerning his body aches and everything else going on. Due that he will be admitted to the hospitalist service Lab Data Labs: Lab Results 11/25/23 11/25/23 11/25/23 Range/Units 15:20 15:24 15:45 WBC 11.85 H (4.50-11.00) K/uL RBC 5.02 (4.30-5.90) m/uL Hgb 14.9 (13.5-17.5) gm/dL Hct 45.4 (37.0-53.0) % MCV 90 (80-100) fL MCH 30 (26-34) pg MCHC 33 (32-36) gm/dL RDW Coeff of Mickey 14.6 (11.5-15.5) % Plt Count 238 (140-440) K/uL Neut % (Auto) 73.3 H (42.0-72.0) % Lymph % (Auto) 20.5 (20-44) % [place] % (Auto) 4.8 (0.0-11.0) % Eos % (Auto) 0.5 (0.0-7.0) % Baso % (Auto) 0.2 (0.0-3.0) % Neut # (Auto) 8.70 H (1.7-7.0) K/uL Lymph # (Auto) 2.40 (0.90-2.90) K/uL [place] # (Auto) 0.60 (0.00-0.90) K/UL Eos # (Auto) 0.10 (0.00-0.50) K/uL Baso # (Auto) 0.00 (0.00-0.30) K/uL Abs Immat Gran (auto) 0.10 (0.00-0.30) K/uL Imm/Tot Granulo (auto) 0.7 % D-Dimer Quant (PE/DVT) 0.77 H (0.00-0.50) ug/ml Sodium 138 (135-149) mmol/L Potassium 3.2 L (3.6-5.1) mmol/L Chloride 104 (96-114) mmol/L Carbon Dioxide 23 (20-32) mmol/L Anion Gap 11 (7-15) mEq/L BUN 22 (7-30) mg/dL Creatinine 0.9 (0.5-1.5) mg/dL Estimated Creat Clear 43.47 Estimated GFR 86 ml/min Glucose 71 (60-115) mg/dL Lactate 1.2 (0.5-1.9) mmol/L Calcium 8.8 (8.4-10.6) mg/dL Magnesium 2.2 (1.5-2.6) mg/dL Total Bilirubin (0.1-1.5) mg/dL AST (12-35) U/L ALT (4-50) U/L Alkaline Phosphatase (40-150) U/L Total Protein (6.0-8.3) g/dL Albumin (3.3-5.0) g/dL Lipase (23-300) U/L Urine Color (Yellow) Urine Appearance (Clear) Urine pH (5.0-8.5) Ur Specific [place] (1.000-1.030) Urine Protein (Negative) Urine Glucose (UA) (Negative) Urine Ketones (Negative) Urine Blood (Negative) Urine Nitrite (Negative) Urine Bilirubin (Negative) Urine Urobilinogen (0.2-1.0) Ur Leukocyte Esterase (Negative) Urine RBC (0-2) Urine WBC (0-5) Ur Squamous Epith Cells (None-Few) Urine Bacteria (None) SARS-CoV-2 (PCR) Negative SARS-CoV-2 (Negative) Influenza Type A (PCR) Negative PCR FLU A (Negative) Influenza Type B (PCR) Negative PCR FLU B (Negative) RSV (PCR) Negative PCR RSV (Negative) POC Troponin I 0.02 (0.01-0.04) ng/ml 11/25/23 11/25/23 Range/Units 15:45 18:00 WBC (4.50-11.00) K/uL RBC (4.30-5.90) m/uL Hgb (13.5-17.5) gm/dL Hct (37.0-53.0) % MCV (80-100) fL MCH (26-34) pg MCHC (32-36) gm/dL RDW Coeff of Mickey (11.5-15.5) % Plt Count (140-440) K/uL Neut % (Auto) (42.0-72.0) % Lymph % (Auto) (20-44) % [place] % (Auto) (0.0-11.0) % Eos % (Auto) (0.0-7.0) % Baso % (Auto) (0.0-3.0) % Neut # (Auto) (1.7-7.0) K/uL Lymph # (Auto) (0.90-2.90) K/uL [place] # (Auto) (0.00-0.90) K/UL Eos # (Auto) (0.00-0.50) K/uL Baso # (Auto) (0.00-0.30) K/uL Abs Immat Gran (auto) (0.00-0.30) K/uL Imm/Tot Granulo (auto) % D-Dimer Quant (PE/DVT) (0.00-0.50) ug/ml Sodium (135-149) mmol/L Potassium (3.6-5.1) mmol/L Chloride (96-114) mmol/L Carbon Dioxide (20-32) mmol/L Anion Gap (7-15) mEq/L BUN (7-30) mg/dL Creatinine (0.5-1.5) mg/dL Estimated Creat Clear Estimated GFR ml/min Glucose (60-115) mg/dL Lactate (0.5-1.9) mmol/L Calcium (8.4-10.6) mg/dL Magnesium Cancelled (1.5-2.6) mg/dL Total Bilirubin 1.0 (0.1-1.5) mg/dL AST 53 H (12-35) U/L ALT 37 (4-50) U/L Alkaline Phosphatase 114 (40-150) U/L Total Protein 7.3 (6.0-8.3) g/dL Albumin 3.9 (3.3-5.0) g/dL Lipase 63 (23-300) U/L Urine Color Yellow (Yellow) Urine Appearance Clear (Clear) Urine pH 6.0 (5.0-8.5) Ur Specific [place] 1.010 (1.000-1.030) Urine Protein Negative (Negative) Urine Glucose (UA) Negative (Negative) Urine Ketones 2+ A (Negative) Urine Blood Negative (Negative) Urine Nitrite Negative (Negative) Urine Bilirubin Negative (Negative) Urine Urobilinogen 0.2 (0.2-1.0) Ur Leukocyte Esterase Negative (Negative) Urine RBC 0-2 (0-2) Urine WBC 0-2 (0-5) Ur Squamous Epith Cells None (None-Few) Urine Bacteria None (None) SARS-CoV-2 (PCR) (Negative) Influenza Type A (PCR) (Negative) Influenza Type B (PCR) (Negative) RSV (PCR) (Negative) POC Troponin I (0.01-0.04) ng/ml Imaging Data CT scan abdomen pelvis: Radiologist's impression: 1. Suboptimal examination secondary to motion artifact. 2. Moderate descending colonic diverticulosis without CT evidence of acute diverticulitis. Air-fluid levels are seen throughout the colon, which may represent diarrheal state. No evidence of bowel obstruction. Please note that all CT scans at this facility use dose modulation, iterative reconstruction, and/or weight-based dosing when appropriate to reduce radiation dose to as low as reasonably achievable. Dictated by Hernandez Ackerman MD @ 11/25/2023 5:59:22 PM CTA chest: Radiologist's impression: 1. No acute pulmonary embolism. 2. Centrilobular nodularity and bronchial wall thickening may represent airways infection or inflammation. 3. Redemonstration of 3 millimeter left lower lobe pulmonary nodule. Consensus guidelines for single or multiple solid lung nodules less than 6 mm, not applicable if known malignancy or immunocompromise: Low risk: No routine follow-up. High risk without suspicious morphology AND not in upper lobe: Consider CT at 12 months. High risk AND nodule(s) with suspicious morphology OR in upper lobe: Strongly consider CT at 12 months. (Paula et al. Radiology 2017) Please note that all CT scans at this facility use dose modulation, iterative reconstruction, and/or weight-based dosing when appropriate to reduce radiation dose to as low as reasonably achievable. Dictated by Hernandez Ackerman MD @ 11/25/2023 5:42:47 PM ECG Data Attestation: I personally reviewed and interpreted this ECG as follows: Prior ECG tracings: available for review Interpretation: Normal sinus rhythm with a first-degree AV block, rate of 91 beats per minute, a fall otherwise normal intervals, no ST or T-wave abnormalities. Appears similar to previous EKGs on file Discharge Plan Discharge Clinical Impression: Epigastric abdominal pain, Hypoxia Patient Disposition: Admitted As Observation Condition: Stable Prescriptions: No Action colchicine 0.6 mg tablet 0.6 mg PO QDAY Qty: 90 3RF lisinopril 10 mg tablet 10 mg PO DAILY Qty: 90 3RF nitroglycerin 0.4 mg tablet, sublingual 0.4 mg sublingual ONCE PRN (Reason: chest pain) Qty: 20 0RF Rx Instructions: Take 1 tab every 5 min as needed for chest pain. acetaminophen-codeine 300-30 mg tablet 1 tab PO Q6H PRN (Reason: pain) Qty: 15 0RF prednisone 20 mg tablet 20 mg PO BID Qty: 10 0RF cephalexin 500 mg capsule 500 mg PO QID 5 Days Qty: 20 0RF hydrocodone-acetaminophen 5-325 mg tablet 1 tab PO Q12H PRN (Reason: pain) Qty: 10 0RF diclofenac sodium 1 % gel 2 g topical QID Qty: 100 5RF Rx Instructions: apply to Right Hand/wrist triamcinolone acetonide 0.5 % cream 1 applic topical BID PRN (Reason: itching) Qty: 15 2RF Follow Up/Referrals: Florentino Luna MD [Primary Care Provider] -
[2023-11-25 15:53] LABS: Lactate* 1.2 mmol/L (0.5-1.9)
[2023-11-25 16:06] LABS: Basophils Percent Auto 0.2 % (0.0-3.0); Eosinophils Percent Auto 0.5 % (0.0-7.0); Hematocrit 45.4 % (37.0-53.0); Hemoglobin* 14.9 gm/dL (13.5-17.5); Immature Granulocytes Pct Auto 0.7 %; Lymphocytes Percent Auto 20.5 % (20-44); Mean Corpuscular HGB Conc 33 gm/dL (32-36); Mean Corpuscular Hemoglobin 30 pg (26-34); Mean Corpuscular Volume 90 fL (80-100); Monocytes Percent Auto 4.8 % (0.0-11.0); Neutrophils Percent Auto 73.3 % (42.0-72.0); Platelet Count* 238 K/uL (140-440); RDW Coefficient of Variation % 14.6 % (11.5-15.5); Red Blood Count 5.02 m/uL (4.30-5.90); White Blood Count* 11.85 K/uL (4.50-11.00)
[2023-11-25 16:12] LABS: PCR FLU A Negative PCR FLU A (Negative); PCR FLU B Negative PCR FLU B (Negative); PCR RSV Negative PCR RSV (Negative); SARS PCR* Negative SARS-CoV-2 (Negative)
[2023-11-25 16:15] LABS: Troponin, Point-of-Care* 0.02 ng/ml (0.01-0.04)
[2023-11-25 16:18] LABS: Albumin* 3.9 g/dL (3.3-5.0); Chloride* 104 mmol/L (96-114)
[2023-11-25 16:19] LABS: Potassium* 3.2 mmol/L (3.6-5.1); Sodium* 138 mmol/L (135-149)
[2023-11-25] MEDS: LACTATED RINGERS 1000 ML 1,000 ML IV (16:19)
[2023-11-25 16:21] LABS: Alkaline Phosphatase* 114 U/L (40-150); Anion Gap 11 mEq/L (7-15); Aspartate Amino Transferase* 53 U/L (12-35); Blood Urea Nitrogen* 22 mg/dL (7-30); Carbon Dioxide* 23 mmol/L (20-32); Creatinine* 0.9 mg/dL (0.5-1.5); Est. Creatinine Clearance* 43.47; Estimated Glomerular Filt Rate 86 ml/min; Total Protein* 7.3 g/dL (6.0-8.3)
[2023-11-25] MEDS: MORPHINE 4 MG/ML INJ IVP (16:21)
[2023-11-25 16:22] LABS: Alanine Aminotransferase* 37 U/L (4-50); Calcium* 8.8 mg/dL (8.4-10.6); D Dimer Quantitative* 0.77 ug/ml (0.00-0.50); Glucose* 71 mg/dL (60-115); Lipase* 63 U/L (23-300); Magnesium* 2.2 mg/dL (1.5-2.6)
[2023-11-25 16:25] LABS: Slide Review Reflex No
--- NOTE | 2023-11-25 16:29 | CT_ITS ---
Patient: DAVIDA BUSH Facility:?[facility] Patient ID:?[id number] Site Patient ID:?[id number]. Site :?[id number] Study:?CT-Abdomen/Pelvis W/ISOVUE 370 95CC-11/25/2023 5:02:36 PM Ordering Physician:ARLEEN Final Report: Indication: Umbilical and epigastric pain Technique: CT of the abdomen and pelvis was obtained with 95 mL of Isovue 370 intravenous contrast. Please note that all CT scans at this facility use dose modulation, iterative reconstruction, and/or weight-based dosing when appropriate to reduce radiation dose to as low as reasonably achievable. Comparison: 05/10/2021 Findings: Suboptimal examination secondary to motion artifact. Lower thorax: Please see separately dictated same day CT of the chest. Liver and biliary tree: Normal. Gallbladder: Surgically absent. Spleen: Normal. Pancreas: Normal. Adrenal glands: Normal. Kidneys and ureters: No hydronephrosis. No obstructing renal calculi. Subcentimeter hypoattenuating lesions are too small to characterize and are favored to represent cysts. Gastrointestinal tract: Moderate descending colonic diverticulosis without CT evidence of acute diverticulitis. Air-fluid levels are seen throughout the colon. No evidence of bowel obstruction. Small hiatal hernia. Peritoneal cavity: Normal. Bladder: Normal. Pelvic organs: Mildly enlarged prostate. Vasculature: Moderate calcification. Aorta measuring up to mildly ectatic infrarenal abdominal 2.0 centimeter (2/61). Lymph nodes: Normal. Abdominal wall: Moderate left and small right fat containing inguinal hernias. Musculoskeletal: Mild degenerative changes of the bilateral history Moderate multilevel degenerative changes of the visualized spine. Redemonstration of mild superior endplate compression deformity at L3. Impression: 1. Suboptimal examination secondary to motion artifact. 2. Moderate descending colonic diverticulosis without CT evidence of acute diverticulitis. Air-fluid levels are seen throughout the colon, which may represent diarrheal state. No evidence of bowel obstruction. Please note that all CT scans at this facility use dose modulation, iterative reconstruction, and/or weight-based dosing when appropriate to reduce radiation dose to as low as reasonably achievable. Dictated by Hernandez Ackerman MD @ 11/25/2023 5:59:22 PM Signed by:?Hernandez Ackerman MD @11/25/2023 5:59:22 PM (Electronic Signature)
--- NOTE | 2023-11-25 16:29 | CT_ITS ---
Patient: DAVIDA BUSH Facility:?[facility] Patient ID:?[id number] Site Patient ID:?[id number]. Site :?[id number] Study:?CT-Chest PE W/ISOVUE 370 95CC-11/25/2023 5:01:42 PM Ordering Physician:ARLEEN Final Report: Indication: Shortness of breath Technique: CT angiogram of the chest was performed for evaluation of pulmonary embolism. 95 mL of Isovue 370 intravenous contrast was administered. Comparison: 02/04/2022 Findings: CARDIOVASCULAR: Diagnostic quality: Contrast opacification of the pulmonary arterial circulation is adequate for assessment of pulmonary embolism. Study is not significantly limited by respiratory motion artifact. Pulmonary arteries: No filling defects to suggest pulmonary embolism. Not enlarged. Heart: No interventricular septal deviation. Normal in size. Mild coronary artery calcification. No significant valvular calcification. Pericardium: No pericardial effusion. Thoracic aorta: Mild aortic calcification. Normal cervical branching. REMAINING CHEST: Medical devices: None. Thyroid: Normal. Lymph nodes: No supraclavicular, axillary, mediastinal, or hilar lymphadenopathy. Nonspecific mildly prominent subcentimeter mediastinal lymph nodes are favored to be reactive. Other mediastinal structures: Small hiatal hernia. Lung parenchyma: Moderate peripheral centrilobular nodularity is seen bilaterally. Redemonstration of 3 millimeter left lower lobe pulmonary nodule (5/86). Airways: Small amount of secretions are seen within the trachea. Mild bronchial wall thickening. Pleura: No significant abnormality. Chest wall: Mild bilateral gynecomastia. Upper abdomen: No significant abnormality. Musculoskeletal: Mild multilevel degenerative changes of the visualized spine. Impression: 1. No acute pulmonary embolism. 2. Centrilobular nodularity and bronchial wall thickening may represent airways infection or inflammation. 3. Redemonstration of 3 millimeter left lower lobe pulmonary nodule. Consensus guidelines for single or multiple solid lung nodules less than 6 mm, not applicable if known malignancy or immunocompromise: Low risk: No routine follow-up. High risk without suspicious morphology AND not in upper lobe: Consider CT at 12 months. High risk AND nodule(s) with suspicious morphology OR in upper lobe: Strongly consider CT at 12 months. (Paula, et al. Radiology 2017) Please note that all CT scans at this facility use dose modulation, iterative reconstruction, and/or weight-based dosing when appropriate to reduce radiation dose to as low as reasonably achievable. Dictated by Hernandez Ackerman MD @ 11/25/2023 5:42:47 PM Signed by:?Hernandez Ackerman MD @11/25/2023 5:42:47 PM (Electronic Signature)
[2023-11-25] MEDS: KETOROLAC 15 MG/ML inj IVP (18:06)
[2023-11-25 18:08] LABS: Appearance Urine Clear (Clear); Bilirubin Urine Negative (Negative); Blood Urine Negative (Negative); Color Urine Yellow (Yellow); Glucose Urine Negative (Negative); Ketones Urine 2+ (Negative); Leukocyte Esterase Urine Negative (Negative); Nitrite Urine Negative (Negative); Protein Urine Negative (Negative); Urobilinogen Urine 0.2 (0.2-1.0)
[2023-11-25 18:28] LABS: RBC Urine 0-2 (0-2); WBC Urine 0-2 (0-5)
[2023-11-25] MEDS: MAG HYDROX/ALUMINUM HYD/SIMETH 30 ML ORAL.SUSP 15 ML PO (19:06)
[2023-11-25] MEDS: lidocaine HCL 4 % TOP SOLN 50 ML BOTTLE 7.5 ML PO (19:06)
--- NOTE | 2023-11-25 20:23 | ED.NURSE ---
nurse to nurse report given to M/S nurse Sydney. pr to go to M/S room 260
--- NOTE | 2023-11-25 22:34 | PM.IMHP1 ---
Hospitalist- H&P: ANAID History of Present Illness Date Seen: 11/25/23 Chief complaint: Abdominal pain Narrative: Mery Durham is a 78 year old male with history of coronary disease admitted to the hospital with a 2 week history of illness. History is obtained from the patient with his daughter providing translation at his request. He initially became ill about 2 weeks ago with a cough and dyspnea. He also noted prominent fatigue and generalized achiness. He has not had a fever or upper respiratory symptoms such as sore throat congestion rhinorrhea. In the last 2 days he developed epigastric pain. He lost his appetite and has been eating and drinking very little in the last 2 days. According to his daughter his has had similar symptoms. She is now hospitalized at [facility] with a kidney stone. In the emergency department he was found to be hypoxic. He has never been diagnosed with any lung disease. He has not ever been a smoker or had any occupational hazard to inhaled pulmonary irritants or toxins. He has never been evaluated or treated for low oxygen before. He has a history of coronary disease with previous STEMI treated with a stent. No previous thrombophilia, DVT or PE. Review of Systems Narrative: Review of systems is negative except as noted above PFSH PFS Medical History Arthritis ?M19.90 - Unspecified osteoarthritis, unspecified site (ICD-10) CAD (coronary artery disease) ?I25.10 - Atherosclerotic heart disease of w[place] coronary artery without angina pectoris (ICD-10) Surgical History History of cholecystectomy ?Z90.49 - Acquired absence of other specified parts of digestive tract (ICD-10) History of cataract extraction ?Z98.49 - Cataract extraction status, unspecified eye (ICD-10) Social History (Updated 11/25/23 @ 22:40 by Singh Ross MD) Narrative: Patient lives with his and nephew in [place]. 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 Code status is full. Daughter is healthcare power of pumping station engineer. No history of smoking. He does not drink alcohol. What is your current living situation?: I presently have a place to live Problems where you live: no known problems Problems where you live details: None noted In the past 12 months, utilities in danger of being shut off: no In past 12 months, lack of transportation kept you from medical appts, meetings, work, or getting things needed for daily living: no In the past 12 mos, have been you worried that your food would run out before you had money to buy more?: never true In the past 12 mos, the food you bought just didn't last and you didn't have money to buy more?: never true Highest level of school completed/degree received: don't know Smoking Status: Never smoker Do you use any of these nicotine containing products: None Second hand tobacco smoke exposure: No How often do you have a drink containing alcohol: never How often do you have six or more drinks on one occasion: Never AUDIT-C Alcohol total score: 0 Non-prescribed substance use: denies use Caffeine: No How often does anyone, including family, friends and others, physically hurt you: never How often does anyone, including family, friends and others, insult or talk down to you: never How often does anyone, including family, friends and others, threaten you with harm: never How often does anyone, including family, friends and others, scream or curse at you: never Little interest or pleasure in doing things: more than half the days Feeling down, depressed, or hopeless: not at all service: No Meds Home Medications and Allergies Allergies Allergy/AdvReac Type Severity Reaction Status Date / Time No Known Drug Allergies Allergy Verified 03/10/23 08:27 Exam Narrative: Exam Narrative: He is tired appearing but otherwise in no obvious distress. He is breathing comfortably with supplemental oxygen per nasal cannula. He appears to have fairly good comprehension of the Pakistani, following commands and responding to questions. Primarily chooses to communicate through his daughter. Eyes are normal. Oropharynx with dry mucous membranes. Neck is supple without mass or adenopathy. Respirations are clear to auscultation without wheezing rales or rhonchi. Cardiovascular: S1, S2, regular rate and rhythm. No murmur gallop or rub. Abdomen: Bowel sounds active. Abdomen is soft without tenderness or mass. Specifically noted no tenderness in the epigastrium where he had indicated fairly severe pain earlier. He is observed to have an emesis during the examination. No blood. External genitalia normal. Extremities without edema. No tenderness. No rash. Intact peripheral pulses. Const: Vital Signs, click to edit/add: Vital Signs - 24 hr 11/25/23 15:04 11/25/23 15:15 11/25/23 15:16 Temperature 98.3 F Pulse Rate 89 90 Pulse Rate [Left P ulse Oximeter] Pulse Rate [Pulse Oximeter] 89 Respiratory Rate 32 H Blood Pressure 125/67 Blood Pressure [Le ft Arm] Blood Pressure [Le ft Upper Arm] 114/54 L Pulse Oximetry 87 L 89 88 Oxygen Delivery Me thod Room Air Oxygen Flow Rate 11/25/23 15:31 11/25/23 15:31 11/25/23 16:09 Temperature Pulse Rate 88 Pulse Rate [Left P ulse Oximeter] Pulse Rate [Pulse Oximeter] Respiratory Rate Blood Pressure 121/62 121/62 Blood Pressure [Le ft Arm] Blood Pressure [Le ft Upper Arm] Pulse Oximetry 95 Oxygen Delivery Me thod Oxygen Flow Rate 11/25/23 16:15 11/25/23 16:30 11/25/23 16:34 Temperature Pulse Rate 90 90 89 Pulse Rate [Left P ulse Oximeter] Pulse Rate [Pulse Oximeter] Respiratory Rate Blood Pressure Blood Pressure [Le ft Arm] Blood Pressure [Le ft Upper Arm] Pulse Oximetry 89 95 95 Oxygen Delivery Me thod Oxygen Flow Rate 11/25/23 17:12 11/25/23 17:15 11/25/23 17:30 Temperature Pulse Rate 88 89 90 Pulse Rate [Left P ulse Oximeter] Pulse Rate [Pulse Oximeter] Respiratory Rate Blood Pressure Blood Pressure [Le ft Arm] Blood Pressure [Le ft Upper Arm] Pulse Oximetry 87 L 85 L 87 L Oxygen Delivery Me thod Oxygen Flow Rate 11/25/23 17:45 11/25/23 18:00 11/25/23 18:15 Temperature Pulse Rate 91 90 86 Pulse Rate [Left P ulse Oximeter] Pulse Rate [Pulse Oximeter] Respiratory Rate Blood Pressure Blood Pressure [Le ft Arm] Blood Pressure [Le ft Upper Arm] Pulse Oximetry 80 L 92 92 Oxygen Delivery Me thod OxyMask OxyMask Oxygen Flow Rate 1 1 11/25/23 18:30 11/25/23 18:45 11/25/23 19:00 Temperature Pulse Rate 89 92 92 Pulse Rate [Left P ulse Oximeter] Pulse Rate [Pulse Oximeter] Respiratory Rate Blood Pressure Blood Pressure [Le ft Arm] Blood Pressure [Le ft Upper Arm] Pulse Oximetry 95 88 87 L Oxygen Delivery Me thod OxyMask OxyMask Oxygen Flow Rate 1 1 11/25/23 19:06 11/25/23 19:15 11/25/23 19:30 Temperature Pulse Rate 91 90 Pulse Rate [Left P ulse Oximeter] Pulse Rate [Pulse Oximeter] Respiratory Rate Blood Pressure Blood Pressure [Le ft Arm] Blood Pressure [Le ft Upper Arm] Pulse Oximetry 91 94 95 Oxygen Delivery Me thod Nasal Cannula Nasal Cannula Nasal Cannula Oxygen Flow Rate 1 1 1 11/25/23 19:45 11/25/23 20:00 11/25/23 20:15 Temperature Pulse Rate 90 89 91 Pulse Rate [Left P ulse Oximeter] Pulse Rate [Pulse Oximeter] Respiratory Rate Blood Pressure Blood Pressure [Le ft Arm] Blood Pressure [Le ft Upper Arm] Pulse Oximetry 95 95 95 Oxygen Delivery Me thod Nasal Cannula Nasal Cannula Nasal Cannula Oxygen Flow Rate 1 1 1 11/25/23 20:50 Temperature Pulse Rate Pulse Rate [Left P ulse Oximeter] 93 Pulse Rate [Pulse Oximeter] Respiratory Rate 20 Blood Pressure Blood Pressure [Le ft Arm] 119/53 L Blood Pressure [Le ft Upper Arm] Pulse Oximetry 92 Oxygen Delivery Me thod Nasal Cannula Oxygen Flow Rate 3 Documenting provider has reviewed patient's vital signs: yes Hospitalist - H&P: Result Labs Labs: Short CBC 11/25/23 Range/Units 15:45 WBC 11.85 H (4.50-11.00) K/uL Hgb 14.9 (13.5-17.5) gm/dL Hct 45.4 (37.0-53.0) % Plt Count 238 (140-440) K/uL BMP 11/25/23 15:45 Sodium 138 Potassium 3.2 L Chloride 104 Carbon Dioxide 23 BUN 22 Creatinine 0.9 Glucose 71 Calcium 8.8 Liver Function 11/25/23 Range/Units 15:45 Total Bilirubin 1.0 (0.1-1.5) mg/dL AST 53 H (12-35) U/L ALT 37 (4-50) U/L Alkaline Phosphatase 114 (40-150) U/L Albumin 3.9 (3.3-5.0) g/dL Urine 03/01/24 Range/Units 18:00 Urine Color Yellow (Yellow) Urine Appearance Clear (Clear) Urine pH 6.0 (5.0-8.5) Ur Specific [place] 1.010 (1.000-1.030) Urine Protein Negative (Negative) Urine Glucose (UA) Negative (Negative) Assessment and Plan Assessment and plan (1) Hypoxia: Problem comment: Patient is requiring oxygen to maintain O2 sats at 90%. Cause for this is probably an acute respiratory illness. No history of any type of pulmonary disease or hypoxia. CT chest is otherwise unremarkable except for possible radiographic findings of bronchitis, bronchial wall thickening. Status: Acute (2) Bronchitis: Problem comment: Cough for 2 weeks with bronchial wall thickening. Suspect viral infection. COVID, RSV, influenza currently negative Status: Acute (3) Epigastric abdominal pain: Problem comment: Benign CT and benign examination. Persistent nausea and anorexia. Uncertain cause. Continue to monitor and evaluate Status: Acute Plan 78-year-old male admitted to the hospital with 2 week history of cough dyspnea fatigue and a 2 day history of anorexia nausea and now vomiting. Will admit for supplemental oxygen, IV fluids and ongoing evaluation of these problems. Total time spent today is 75 minutes, 50 minutes in coordination of care discussing with patient, daughter and other providers ongoing evaluation management of hypoxia and epigastric pain
[2023-11-25] MEDS: 5 % DEX/0.9 SOD CHL+KCL 20 mEq 1,000 ML 125 ML IV (22:51)
[2023-11-25] MEDS: PANTOPRAZOLE SODIUM 40 MG INJ IVP (22:54)
--- NOTE | 2023-11-25 23:08 | PC.NURSE ---
End of Shift: Pt admitted to Med/Surg via ED with chief c/o of abdominal pain and SOB. Pt presented to Med/Surg unit with 4L O2 with O2 sats at 92%. O2 sats increased to 97%, O2 titrated down to 2LNC. Pt tolerating well. Pt reports SOB. One episode of emesis. One void. Ambulates with unsteady gait, SBA. Abdominal pain improved with pain meds received in ED, none administered since admission to the unit. Pt's daughter at bedside. Primary language is Hmong, pt refused managing supervisor. Micha in ED stated pt declined managing supervisor and signed declination form. IV in right hand patent, tolerating infusion well. Pt drank very little water. Nothing else PO.
[2023-11-26] VITALS (8 sets, daily range): BP systolic 126–140; BP diastolic 57–74; PULSE 81–96; RESP 16–26; TEMP 37–38.3; O2SAT 87–96
[2023-11-26] MEDS: ACETAMINOPHEN 325 MG TABLET 650 MG PO ×4 (03:35→23:28)
--- NOTE | 2023-11-26 06:55 | PC.NURSE ---
23-07: pleasant and cooperative. DTR at bedside throughout shift, assisting with cares & translation. Pt c/o generalized achiness, prn Tylenol given. Titrated pt to 1L O2. Moist productive cough.
[2023-11-26] MEDS: OMEPRAZOLE 20 MG CAPSULE DR PO ×2 (08:37→16:27)
[2023-11-26] MEDS: SODIUM CHLORIDE 0.9 % (FLUSH) 10 ML SYRINGE 5 ML IVF ×2 (08:38→21:21)
[2023-11-26 09:20] LABS: Lactate* 1.9 mmol/L (0.5-1.9)
[2023-11-26 09:47] LABS: Basophils Absolute Auto 0.01 K/uL (0.00-0.30); Basophils Percent Auto 0.2 % (0.0-3.0); Eosinophils Absolute Auto 0.02 K/uL (0.00-0.50); Eosinophils Percent Auto 0.3 % (0.0-7.0); Hematocrit 43.4 % (37.0-53.0); Hemoglobin* 14.1 gm/dL (13.5-17.5); Immature Granulocytes Abs Auto 0.03 K/uL (0.00-0.30); Immature Granulocytes Pct Auto 0.5 %; Lymphocytes Absolute Auto 1.42 K/uL (0.90-2.90); Lymphocytes Percent Auto 21.5 % (20-44); Mean Corpuscular HGB Conc 33 gm/dL (32-36); Mean Corpuscular Hemoglobin 30 pg (26-34); Mean Corpuscular Volume 91 fL (80-100); Monocytes Percent Auto 4.1 % (0.0-11.0); Neutrophils Percent Auto 73.4 % (42.0-72.0); Platelet Count* 193 K/uL (140-440); RDW Coefficient of Variation % 14.6 % (11.5-15.5); Red Blood Count 4.75 m/uL (4.30-5.90); White Blood Count* 6.61 K/uL (4.50-11.00)
[2023-11-26 09:49] LABS: Slide Review Reflex No
[2023-11-26 10:02] LABS: Albumin* 3.3 g/dL (3.3-5.0); Chloride* 106 mmol/L (96-114); Sodium* 138 mmol/L (135-149)
[2023-11-26 10:03] LABS: Potassium* 3.4 mmol/L (3.6-5.1)
[2023-11-26 10:04] LABS: Est. Creatinine Clearance* 38.44; Estimated Glomerular Filt Rate 76 ml/min
[2023-11-26 10:05] LABS: Alanine Aminotransferase* 74 U/L (4-50); Alkaline Phosphatase* 167 U/L (40-150); Anion Gap 6 mEq/L (7-15); Aspartate Amino Transferase* 81 U/L (12-35); Bilirubin Direct* 0.2 mg/dL (0.0-0.5); Blood Urea Nitrogen* 17 mg/dL (7-30); Carbon Dioxide* 26 mmol/L (20-32); Glucose* 95 mg/dL (60-115); Total Protein* 6.3 g/dL (6.0-8.3)
[2023-11-26 10:06] LABS: Magnesium* 2.1 mg/dL (1.5-2.6)
[2023-11-26 10:17] LABS: Troponin I* 0.01 ng/mL (0.01-0.04)
[2023-11-26 10:28] LABS: C Reactive Protein* 13.7 mg/dL (0.5-1.0)
[2023-11-26 10:36] LABS: Thyroid Stimulating Hormone* 0.746 uIU/mL (0.270-4.20)
--- NOTE | 2023-11-26 11:33 | PC.NURSE ---
Pt is A&O and SBA with ambulation/transfers. Pt utilizes urinal independently at bedside; noted clear, jose urine. Daughter, Adrian, interprets for patient. Spiked a fever late this morning with rigors & chills, T-max 100.9; was notified. PRN Tylenol given last @ 0940. Adjuster And Inspector was able to wean pt off O2 for majority of the morning he maintained > 90% on RA but dipped down to 87% while asleep and with ambulation. Placed back on 0.5L NC and current sats are 95%. Started on Prilosec BID for epigastric pain. Tolerated clear liquid diet with no pain or nausea, received verbal order from Dr. Ross to advance diet as tolerated - oatmeal ordered for lunch. PIV in left wrist is SL and C/D/I.
--- NOTE | 2023-11-26 17:08 | PM.IMPN1 ---
Progress Note: A&P Assessment and plan (1) Hypoxia: Problem details: Patient is requiring oxygen to maintain O2 sats at 90%. Cause for this is probably an acute respiratory illness. No history of any type of pulmonary disease or hypoxia. CT chest is otherwise unremarkable except for possible radiographic findings of bronchitis, bronchial wall thickening. Status: Acute (2) Bronchitis: Problem details: Cough for 2 weeks with bronchial wall thickening. Suspect viral infection. COVID, RSV, influenza currently negative Status: Acute (3) Epigastric abdominal pain: Problem details: Benign CT and benign examination. Persistent nausea and anorexia. Uncertain cause. Continue to monitor and evaluate Status: Acute (4) Fever: Problem details: Patient developed a fever today. Most likely is a respiratory infection as a source. Initiate community-acquired pneumonia antibiotics Status: Acute Plan 78-year-old male admitted to the hospital with hypoxia, fever, cough and nausea and anorexia and vomiting. Cause for this constellation is still somewhat uncertain. Will treat as a community-acquired pneumonia and continue to monitor his gastrointestinal symptoms, oral intake and vomiting. Total time spent today is 45 minutes, 30 minutes in coordination of care discussing with patient, daughter and other providers ongoing management of fever hypoxia and anorexia. Subjective Date Seen: 11/26/23 Interval history: Mery Durham is a 78 year old male with history of coronary disease admitted to the hospital with a 2 week history of illness. History is obtained from the patient with his daughter providing translation at his request. He initially became ill about 2 weeks ago with a cough and dyspnea. He also noted prominent fatigue and generalized achiness. He has not had a fever or upper respiratory symptoms such as sore throat congestion rhinorrhea. In the last 2 days he developed epigastric pain. He lost his appetite and has been eating and drinking very little in the last 2 days. According to his daughter his has had similar symptoms. She is now hospitalized at [facility] with a kidney stone. In the emergency department he was found to be hypoxic. He has never been diagnosed with any lung disease. He has not ever been a smoker or had any occupational hazard to inhaled pulmonary irritants or toxins. He has never been evaluated or treated for low oxygen before. He has a history of coronary disease with previous STEMI treated with a stent. No previous thrombophilia, DVT or PE Patient has slept most the night as well as most the day. He has briefly been off oxygen and done well but then requiring oxygen again. He has had almost nothing to eat since admission. He reports no appetite. He has had occasions where he has had epigastric pain but these are self-limited and seemed to resolve. Today he had onset of a fever as well. He has no new symptoms. Exam Narrative: Exam Narrative: He is tired and needs to be awakened from sleep. Eyes normal. Oropharynx normal. Respirations are clear to auscultation with a rare basilar crackle. Cardiovascular: S1, S2, regular rate and rhythm. Abdomen: Bowel sounds active. Abdomen is soft without tenderness or mass. Extremities without edema. Skin is without rash. Const: Vital Signs, click to edit/add: Vital Signs - 24 hr 11/25/23 17:12 11/25/23 17:15 11/25/23 17:30 Temperature Pulse Rate 88 89 90 Pulse Rate [Left P ulse Oximeter] Respiratory Rate Blood Pressure [Le ft Arm] Blood Pressure [Ri ght Arm] Pulse Oximetry 87 L 85 L 87 L Oxygen Delivery Me thod Oxygen Flow Rate 11/25/23 17:45 11/25/23 18:00 11/25/23 18:15 Temperature Pulse Rate 91 90 86 Pulse Rate [Left P ulse Oximeter] Respiratory Rate Blood Pressure [Le ft Arm] Blood Pressure [Ri ght Arm] Pulse Oximetry 80 L 92 92 Oxygen Delivery Me thod OxyMask OxyMask Oxygen Flow Rate 1 1 11/25/23 18:30 11/25/23 18:45 11/25/23 19:00 Temperature Pulse Rate 89 92 92 Pulse Rate [Left P ulse Oximeter] Respiratory Rate Blood Pressure [Le ft Arm] Blood Pressure [Ri ght Arm] Pulse Oximetry 95 88 87 L Oxygen Delivery Me thod OxyMask OxyMask Oxygen Flow Rate 1 1 11/25/23 19:06 11/25/23 19:15 11/25/23 19:30 Temperature Pulse Rate 91 90 Pulse Rate [Left P ulse Oximeter] Respiratory Rate Blood Pressure [Le ft Arm] Blood Pressure [Ri ght Arm] Pulse Oximetry 91 94 95 Oxygen Delivery Me thod Nasal Cannula Nasal Cannula Nasal Cannula Oxygen Flow Rate 1 1 1 11/25/23 19:45 11/25/23 20:00 11/25/23 20:15 Temperature Pulse Rate 90 89 91 Pulse Rate [Left P ulse Oximeter] Respiratory Rate Blood Pressure [Le ft Arm] Blood Pressure [Ri ght Arm] Pulse Oximetry 95 95 95 Oxygen Delivery Me thod Nasal Cannula Nasal Cannula Nasal Cannula Oxygen Flow Rate 1 1 1 11/25/23 20:50 11/25/23 20:50 11/25/23 23:45 Temperature Pulse Rate Pulse Rate [Left P ulse Oximeter] 93 Respiratory Rate 20 18 22 Blood Pressure [Le ft Arm] 119/53 L Blood Pressure [Ri ght Arm] Pulse Oximetry 92 92 Oxygen Delivery Me thod Nasal Cannula Nasal Cannula Oxygen Flow Rate 3 3 11/25/23 23:45 11/25/23 23:45 11/26/23 02:32 Temperature 98.6 F Pulse Rate Pulse Rate [Left P ulse Oximeter] 88 90 Respiratory Rate 22 22 20 Blood Pressure [Le ft Arm] 106/55 L 127/70 Blood Pressure [Ri ght Arm] Pulse Oximetry 94 94 96 Oxygen Delivery Me thod Nasal Cannula Nasal Cannula Nasal Cannula Oxygen Flow Rate 2 2 2 11/26/23 07:00 11/26/23 07:00 11/26/23 07:00 Temperature 98.6 F Pulse Rate Pulse Rate [Left P ulse Oximeter] 81 81 Respiratory Rate 18 18 18 Blood Pressure [Le ft Arm] Blood Pressure [Ri ght Arm] 132/59 L Pulse Oximetry 96 96 Oxygen Delivery Me thod Room Air Room Air Oxygen Flow Rate 11/26/23 09:38 11/26/23 10:50 11/26/23 11:00 Temperature 99.7 F H 100.9 F H 100.9 F H Pulse Rate Pulse Rate [Left P ulse Oximeter] 91 Respiratory Rate 20 Blood Pressure [Le ft Arm] Blood Pressure [Ri ght Arm] 140/61 H Pulse Oximetry 87 L Oxygen Delivery Me thod Room Air Oxygen Flow Rate 11/26/23 15:00 11/26/23 15:00 11/26/23 15:00 Temperature 99.7 F H Pulse Rate Pulse Rate [Left P ulse Oximeter] 93 96 Respiratory Rate 26 H 18 16 Blood Pressure [Le ft Arm] Blood Pressure [Ri ght Arm] 133/72 Pulse Oximetry 93 96 Oxygen Delivery Me thod Room Air Room Air Oxygen Flow Rate Documenting provider has reviewed patient's vital signs: yes Labs Labs: Laboratory Results - last 24 hr 11/25/23 11/26/23 18:00 09:14 WBC 6.61 RBC 4.75 Hgb 14.1 Hct 43.4 MCV 91 MCH 30 MCHC 33 RDW Coeff of Mickey 14.6 Plt Count 193 Neut % (Auto) 73.4 H Lymph % (Auto) 21.5 [place] % (Auto) 4.1 Eos % (Auto) 0.3 Baso % (Auto) 0.2 Neut # (Auto) 4.90 Lymph # (Auto) 1.42 [place] # (Auto) 0.30 Eos # (Auto) 0.02 Baso # (Auto) 0.01 Abs Immat Gran (auto) 0.03 Imm/Tot Granulo (auto) 0.5 Sodium 138 Potassium 3.4 L Chloride 106 Carbon Dioxide 26 Anion Gap 6 L BUN 17 Creatinine 1.0 Estimated Creat Clear 38.44 Estimated GFR 76 Glucose 95 Lactate 1.9 Calcium 8.0 L Magnesium 2.1 Total Bilirubin 1.0 Direct Bilirubin 0.2 AST 81 H ALT 74 H Alkaline Phosphatase 167 H Troponin I 0.01 C-Reactive Protein 13.7 H Total Protein 6.3 Albumin 3.3 TSH 0.746 Urine Color Yellow Urine Appearance Clear Urine pH 6.0 Ur Specific [place] 1.010 Urine Protein Negative Urine Glucose (UA) Negative Urine Ketones 2+ A Urine Blood Negative Urine Nitrite Negative Urine Bilirubin Negative Urine Urobilinogen 0.2 Ur Leukocyte Esterase Negative Urine RBC 0-2 Urine WBC 0-2 Ur Squamous Epith Cells None Urine Bacteria None
[2023-11-26] MEDS: cefTRIAXone 1 GM in 0.9 % SODIUM CHLORIDE Mini-bag 100 ML IVPB (21:19)
[2023-11-26] MEDS: AZITHROMYCIN 250 MG TABLET 500 MG PO (21:21)
--- NOTE | 2023-11-26 22:52 | PC.NURSE ---
End of Shift: Pt pleasant and cooperative throughout shift. Up in room independently. Utilizing urinal. Pain ranging between 4-6/10 in abdomen, pain improved with tylenol. Pt refused dinner. Daughter at bedside for short period. No BM.
[2023-11-27] VITALS (10 sets, daily range): BP systolic 110–154; BP diastolic 49–81; PULSE 81–94; RESP 16–24; TEMP 36.9–38.7; O2SAT 90–97
[2023-11-27] MEDS: OMEPRAZOLE 20 MG CAPSULE DR PO ×2 (06:40→17:12)
[2023-11-27] MEDS: MORPHINE 4 MG/ML INJ 2 MG IVP (06:40)
[2023-11-27] MEDS: ACETAMINOPHEN 325 MG TABLET 650 MG PO ×3 (06:58→22:34)
--- NOTE | 2023-11-27 07:39 | PC.NURSE ---
SBA. c/o generalized aches, prn Tylenol given. Pt remains on RA. Productive moist cough. Pt c/o chills, aqua K provided, temp elevated 100.3, removed Aqua K pad & temp decreased to 99.4. ?
--- NOTE | 2023-11-27 07:42 | US_ITS ---
Final Report Patient: DAVIDA BUSH Facility:?[facility] Patient ID:?[id number] Site Patient ID:?[id number]. Site :?[id number] Study:?US Abdomen ABD LMT-11/27/2023 9:12:37 AM Ordering Physician:?MARY ELLEN QUIÑONES Final Report: Indication: Abdominal pain, vomiting, elevated LFTs TECHNIQUE: Ultrasound abdomen limited. Sonographic images of the right upper quadrant were obtained using teixeira-scale and color Doppler images. Comparison: CT abdomen and pelvis November 25, 2023 FINDINGS: Liver: The liver demonstrates a heterogeneous echotexture. No masses. No intrahepatic biliary dilatation. Gallbladder: The gallbladder is surgically absent. Common bile duct: 4 mm. Pancreas: Not well visualized due to bowel gas. Right kidney: Normal in size, contour and echogenicity without evidence of obstructive uropathy. Aorta and IVC: The aorta is nonaneurysmal. Impression: Heterogeneous liver echotexture. Prior cholecystectomy. No other acute abnormality. Dictated by Shun Alejandra MD @ 11/27/2023 9:19:28 AM (Electronic Signature)
[2023-11-27 08:29] LABS: Basophils Absolute Auto 0.01 K/uL (0.00-0.30); Basophils Percent Auto 0.1 % (0.0-3.0); Eosinophils Absolute Auto 0.04 K/uL (0.00-0.50); Eosinophils Percent Auto 0.5 % (0.0-7.0); Hemoglobin* 13.2 gm/dL (13.5-17.5); Immature Granulocytes Abs Auto 0.02 K/uL (0.00-0.30); Immature Granulocytes Pct Auto 0.2 %; Lymphocytes Percent Auto 13.3 % (20-44); Mean Corpuscular HGB Conc 33 gm/dL (32-36); Mean Corpuscular Hemoglobin 30 pg (26-34); Mean Corpuscular Volume 91 fL (80-100); Monocytes Percent Auto 4.7 % (0.0-11.0); Neutrophils Percent Auto 81.2 % (42.0-72.0); Platelet Count* 183 K/uL (140-440); RDW Coefficient of Variation % 14.3 % (11.5-15.5); Red Blood Count 4.41 m/uL (4.30-5.90); White Blood Count* 8.07 K/uL (4.50-11.00)
[2023-11-27 08:42] LABS: Slide Review Reflex No
[2023-11-27 08:45] LABS: Chloride* 105 mmol/L (96-114)
[2023-11-27 08:46] LABS: Albumin* 3.1 g/dL (3.3-5.0); Potassium* 3.4 mmol/L (3.6-5.1); Sodium* 134 mmol/L (135-149)
[2023-11-27 08:49] LABS: Alanine Aminotransferase* 49 U/L (4-50); Alkaline Phosphatase* 138 U/L (40-150); Anion Gap 8 mEq/L (7-15); Aspartate Amino Transferase* 45 U/L (12-35); Blood Urea Nitrogen* 11 mg/dL (7-30); Carbon Dioxide* 21 mmol/L (20-32); Creatinine* 0.7 mg/dL (0.5-1.5); Est. Creatinine Clearance* 39.12; Estimated Glomerular Filt Rate 93 ml/min; Glucose* 65 mg/dL (60-115); Total Protein* 6.2 g/dL (6.0-8.3)
[2023-11-27 09:07] LABS: C Reactive Protein* 16.8 mg/dL (0.5-1.0)
[2023-11-27] MEDS: SODIUM CHLORIDE 0.9 % (FLUSH) 10 ML SYRINGE 5 ML IVF (12:35)
[2023-11-27] MEDS: POTASSIUM BICARB 25 MEQ EFFERVESCENT TAB PO (12:35)
[2023-11-27] MEDS: ONDANSETRON 2 MG/ML inj 4 MG IVP (12:41)
[2023-11-27] MEDS: 5 % DEXTROSE IN LAC RINGER'S 1,000 ML 75 ML IV (14:03)
--- NOTE | 2023-11-27 15:01 | PM.IMPN1 ---
Progress Note: A&P Assessment and plan (1) Hypoxia: Problem details: Patient is requiring oxygen to maintain O2 sats at 90%. Cause for this is probably an acute respiratory illness. No history of any type of pulmonary disease or hypoxia. CT chest is otherwise unremarkable except for possible radiographic findings of bronchitis, bronchial wall thickening. Status: Acute (2) Bronchitis: Problem details: Cough for 2 weeks with bronchial wall thickening. Suspect viral infection. COVID, RSV, influenza currently negative Status: Acute (3) Epigastric abdominal pain: Problem details: Benign CT and benign examination. Persistent nausea and anorexia. Uncertain cause. Continue to monitor and evaluate Status: Acute (4) Fever: Problem details: Patient developed a fever today. Most likely is a respiratory infection as a source. Initiate community-acquired pneumonia antibiotics Status: Acute (5) Abnormal liver enzymes: Problem details: Ultrasound of the right upper quadrant shows liver nodularity. No previous history of any type of liver disease. Status post cholecystectomy. Status: Acute Plan 78-year-old male continuing in the hospital for evaluation of fever, hypoxia, loss of appetite, episodic abdominal pain. Clinically I suspect that he has a respiratory infection and that appears to be getting better. Cause for his abdominal symptoms are less clear. Imaging is reassuring. Does have abnormal liver enzymes and ultrasound appearance of the liver suggesting some type of chronic liver disease. Will obtain hepatitis panel for that. Continue to monitor. Consider EGD tomorrow for persistent epigastric symptoms Time Spent With Patient Total time spent: Total time spent today is 50 minutes, 35 minutes in coordination of care discussing with patient and daughter and other providers ongoing evaluation management of fever, hypoxia, abdominal pain, loss of appetite Subjective Date Seen: 11/27/23 Interval history: Mery Durham is a 78 year old male with history of coronary disease admitted to the hospital with a 2 week history of illness. History is obtained from the patient with his daughter providing translation at his request. He initially became ill about 2 weeks ago with a cough and dyspnea. He also noted prominent fatigue and generalized achiness. He has not had a fever or upper respiratory symptoms such as sore throat congestion rhinorrhea. In the last 2 days he developed epigastric pain. He lost his appetite and has been eating and drinking very little in the last 2 days. According to his daughter his has had similar symptoms. She is now hospitalized at [facility] with a kidney stone. In the emergency department he was found to be hypoxic. He has never been diagnosed with any lung disease. He has not ever been a smoker or had any occupational hazard to inhaled pulmonary irritants or toxins. He has never been evaluated or treated for low oxygen before. He has a history of coronary disease with previous STEMI treated with a stent. No previous thrombophilia, DVT or PE Patient has slept most the night as well as most the day. He has briefly been off oxygen and done well but then requiring oxygen again. He has had almost nothing to eat since admission. He reports no appetite. He has had occasions where he has had epigastric pain but these are self-limited and seemed to resolve. Today he had onset of a fever as well. He has no new symptoms. Day 2: Continues to have low-grade fevers. Continues to have fairly severe nausea. Eating very little. Not vomiting. Breathing may be a little better. Mostly not needing oxygen anymore except episodically. Having occasional episodes of severe epigastric pain which seemed to spontaneously resolve. No other pain problems. Exam Narrative: Exam Narrative: He is tired appearing. He is seen with his daughter. Reports no new concerns today. Mostly just wants to sleep. Eyes without scleral icterus. Oropharynx is normal neck is supple without mass or adenopathy. Respirations with occasional posterior crackles bilaterally. Mostly in lower lung beauchamp. No wheezing or consolidation. Cardiovascular: S1, S2, regular rate and rhythm. Abdomen is soft without tenderness or mass. I do not palpate a hernia. Const: Vital Signs, click to edit/add: Vital Signs - 24 hr 11/26/23 19:00 11/26/23 23:00 11/26/23 23:00 Temperature 99.7 F H 98.7 F Pulse Rate [Left P ulse Oximeter] 92 94 Respiratory Rate 18 18 18 Blood Pressure [Ri ght Arm] 126/57 L 138/74 Pulse Oximetry 90 93 93 Oxygen Delivery Me thod Room Air Room Air Room Air Oxygen Flow Rate 11/26/23 23:00 11/27/23 04:00 11/27/23 05:00 Temperature 100.3 F H 99.4 F Pulse Rate [Left P ulse Oximeter] 94 Respiratory Rate 18 18 Blood Pressure [Ri ght Arm] 110/81 Pulse Oximetry 90 Oxygen Delivery Me thod Room Air Oxygen Flow Rate 11/27/23 07:00 11/27/23 07:00 11/27/23 07:00 Temperature 100.6 F H Pulse Rate [Left P ulse Oximeter] 94 94 Respiratory Rate 18 18 Blood Pressure [Ri ght Arm] 137/77 Pulse Oximetry 92 91 Oxygen Delivery Me thod Nasal Cannula Nasal Cannula Oxygen Flow Rate 1 1 11/27/23 09:50 11/27/23 11:00 Temperature 99.0 F 98.6 F Pulse Rate [Left P ulse Oximeter] 81 Respiratory Rate 20 Blood Pressure [Ri t Arm] 147/71 H Pulse Oximetry 97 Oxygen Delivery Me thod Room Air Oxygen Flow Rate Documenting provider has reviewed patient's vital signs: yes Labs Labs: Laboratory Results - last 24 hr 11/27/23 08:23 WBC 8.07 RBC 4.41 Hgb 13.2 L Hct 40.0 MCV 91 MCH 30 MCHC 33 RDW Coeff of Mickey 14.3 Plt Count 183 Neut % (Auto) 81.2 H Lymph % (Auto) 13.3 L [place] % (Auto) 4.7 Eos % (Auto) 0.5 Baso % (Auto) 0.1 Neut # (Auto) 6.60 Lymph # (Auto) 1.10 [place] # (Auto) 0.40 Eos # (Auto) 0.04 Baso # (Auto) 0.01 Abs Immat Gran (auto) 0.02 Imm/Tot Granulo (auto) 0.2 Sodium 134 L Potassium 3.4 L Chloride 105 Carbon Dioxide 21 Anion Gap 8 BUN 11 Creatinine 0.7 Estimated Creat Clear 39.12 Estimated GFR 93 Glucose 65 Calcium 8.0 L Total Bilirubin 1.0 AST 45 H ALT 49 Alkaline Phosphatase 138 C-Reactive Protein 16.8 H Total Protein 6.2 Albumin 3.1 L
[2023-11-27] MEDS: cefTRIAXone 1 GM in 0.9 % SODIUM CHLORIDE Mini-bag 100 ML IVPB (17:12)
[2023-11-27] MEDS: AZITHROMYCIN 250 MG TABLET 500 MG PO (17:12)
--- NOTE | 2023-11-27 18:56 | PC.NURSE ---
Addendum entered by Lenore Parish RN 11/27/23 19:00: Sats 87% on initial assessment and 1L NC to keep sats above 90%. Able to be weaned to room air while awake. Original Note: End of Shift: Patient pleasant and cooperative. Temp max 100.6. PRN Tylenol given x1 for chills/generalized achiness. Up to chair and bathroom with SBA, walker and gait belt. Declined walk in hallway. C/o nausea x1 and PRN Zofran given.
--- NOTE | 2023-11-27 23:05 | PM.EN ---
Chart Event Note Time Seen by Provider: 23:00 Date Seen: 11/27/23 Chart Event Note: The patient's nurse reported that he is flagging for sepsis this evening due to elevated temperature and RR of 24. HR is 89, BP 114/49 and O2 sats 90% on 1LPM NC. This is an 78 y/o male who is here for hypoxia suspected due to acute respiratory illness. His symptoms this evening are unchanged, but his temperature is more elevated and RR slightly higher than it has been. He tells me he feels fine, and has no new complaints. He continues to have cough and fatigue. General: No acute distress. Sleeping, arousable, oriented. Flushed. No pallor. No jaundice. Oropharynx: Clear. Mucous membranes moist. Cardiovascular: Regular rate and rhythm. No murmurs, gallops, or rubs. Respiratory: Rhonchi in both lower lung beauchamp with the right more than left. No wheezes. Abdomen: Bowel sounds present. Soft, nondistended, nontender. Extremities: No pedal edema. 78 year old male with acute febrile respiratory illness and hypoxia. His symptoms are unchanged from the last few days, although he is flaking sepsis this evening due to more elevated temperature and respiratory rate. Exam is consistent with a respiratory illness and no other sources identified. He had a CTA chest on admission along with swabs for COVID, influenza, and RSV which were negative. He had blood cultures and lactate drawn yesterday which are unremarkable so far. He was started on ceftriaxone and azithromycin yesterday afternoon for suspected community-acquired pneumonia (just over 24 hours ago). His CRP is rising and was 16.8 this morning. He is also nauseous for which he had a right upper quadrant ultrasound this morning that showed heterogeneous liver echotexture. He is scheduled to undergo an EGD tomorrow. Considering all of this and that he is flaking for sepsis tonight, I will expand coverage with antibiotics to Zosyn and vancomycin, repeat blood cultures and lactate. I will also repeat a CXR.
[2023-11-27 23:21] LABS: Lactate* 0.9 mmol/L (0.5-1.9)
--- NOTE | 2023-11-27 23:21 | XR_ITS ---
Patient: DAVIDA BUSH Facility:?[facility] Patient ID:?[id number] Site Patient ID:?[id number]. Site :?[id number] Study:?XRay-Chest ap portable-11/28/2023 12:36:37 AM Ordering Physician:Adriana Benítez Final Report: Indication: Hypoxia, sepsis Technique: Single view of the chest Comparison: CTA of the chest performed 11/25/2023, chest radiograph performed 12/29/2022 Findings/Impression: Prominent central and peripheral interstitial markings with suspicion of a right early basilar consolidation concerning for pneumonia. Pulmonary edema may have a similar appearance. Dictated by Elliot Zambrano MD @ 11/28/2023 12:38:07 AM Signed by:?Elliot Zambrano MD @11/28/2023 12:38:07 AM (Electronic Signature)
[2023-11-28] VITALS (11 sets, daily range): BP systolic 105–125; BP diastolic 53–67; PULSE 61–69; RESP 16–24; TEMP 36.6–38.3; O2SAT 92–98
[2023-11-28] MEDS: PIPERACILLIN/TAZOBACTAM 3.375 GM in 0.9 % SODIUM CHLORIDE Mini-bag 100 ML IVPB ×5 (00:38→23:34)
[2023-11-28] MEDS: ACETAMINOPHEN 325 MG TABLET 650 MG PO ×5 (02:40→19:15)
[2023-11-28] MEDS: OMEPRAZOLE 20 MG CAPSULE DR PO ×2 (06:06→16:58)
[2023-11-28 06:33] LABS: Basophils Absolute Auto 0.01 K/uL (0.00-0.30); Basophils Percent Auto 0.2 % (0.0-3.0); Eosinophils Absolute Auto 0.05 K/uL (0.00-0.50); Eosinophils Percent Auto 0.8 % (0.0-7.0); Hematocrit 36.5 % (37.0-53.0); Hemoglobin* 12.1 gm/dL (13.5-17.5); Immature Granulocytes Abs Auto 0.01 K/uL (0.00-0.30); Immature Granulocytes Pct Auto 0.2 %; Lymphocytes Absolute Auto 1.25 K/uL (0.90-2.90); Lymphocytes Percent Auto 20.1 % (20-44); Mean Corpuscular HGB Conc 33 gm/dL (32-36); Mean Corpuscular Hemoglobin 30 pg (26-34); Mean Corpuscular Volume 91 fL (80-100); Monocytes Percent Auto 5.6 % (0.0-11.0); Neutrophils Percent Auto 73.1 % (42.0-72.0); Platelet Count* 179 K/uL (140-440); RDW Coefficient of Variation % 14.1 % (11.5-15.5); Red Blood Count 4.02 m/uL (4.30-5.90); White Blood Count* 6.23 K/uL (4.50-11.00)
[2023-11-28 06:38] LABS: Slide Review Reflex No
--- NOTE | 2023-11-28 06:39 | PC.NURSE ---
[id number]: Patient fatigued and weak. Intermittent wet, productive cough. Fever of 101.5 at 2230, chills, and not looking well. updated see new orders. 1Lt O2 to maintain sats >90%. NPO @0000 for EGD today. SBA. Tylenol administered Q4H for fever. Temp 98.5 at 0600 and patient reports feeling better.
[2023-11-28 07:02] LABS: Albumin* 2.7 g/dL (3.3-5.0); Chloride* 106 mmol/L (96-114); Sodium* 133 mmol/L (135-149)
[2023-11-28 07:03] LABS: Potassium* 3.4 mmol/L (3.6-5.1)
[2023-11-28 07:05] LABS: Bilirubin Total* 0.7 mg/dL (0.1-1.5); Creatinine* 0.7 mg/dL (0.5-1.5); Est. Creatinine Clearance* 45.36; Estimated Glomerular Filt Rate 93 ml/min
[2023-11-28 07:06] LABS: Alanine Aminotransferase* 33 U/L (4-50); Alkaline Phosphatase* 112 U/L (40-150); Anion Gap 4 mEq/L (7-15); Aspartate Amino Transferase* 32 U/L (12-35); Blood Urea Nitrogen* 8 mg/dL (7-30); Calcium* 7.6 mg/dL (8.4-10.6); Carbon Dioxide* 23 mmol/L (20-32); Glucose* 106 mg/dL (60-115); Lipase* 38 U/L (23-300); Total Protein* 5.6 g/dL (6.0-8.3)
[2023-11-28 07:21] LABS: C Reactive Protein* 16.1 mg/dL (0.5-1.0)
[2023-11-28 08:16] LABS: HIV 1/2/P24 Combo Screen* Negative (Negative)
[2023-11-28] MEDS: ONDANSETRON 2 MG/ML inj 4 MG IVP ×2 (08:26→17:03)
[2023-11-28] MEDS: AZITHROMYCIN 250 MG TABLET 500 MG PO (10:53)
[2023-11-28] MEDS: 5 % DEXTROSE IN LAC RINGER'S 1,000 ML 75 ML IV (11:13)
--- NOTE | 2023-11-28 13:11 | PM.IMPN1 ---
Progress Note: A&P Assessment and plan (1) Hypoxia: Problem details: Patient is requiring oxygen to maintain O2 sats at 90%. Likely due to pneumonia Status: Acute (2) Pneumonia: Problem details: Appears to have right lower lobe pneumonia radiographically. Status: Acute (3) Epigastric abdominal pain: Problem details: Benign CT and benign examination. Pain is better today. Persistent nausea and anorexia. Uncertain cause. Continue to monitor and evaluate. Status: Acute (4) Fever: Problem details: Ongoing fever probably related to respiratory illness. Status: Acute (5) Abnormal liver enzymes: Problem details: Ultrasound of the right upper quadrant shows liver nodularity. No previous history of any type of liver disease. Status post cholecystectomy. Check hepatitis serology Status: Acute Plan Continue in hospital for ongoing evaluation and management of hypoxia, fever, anorexia, nausea. Pending clinical course and testing will use broad-spectrum antibiotics for now. Check Legionella and pneumococcus antigens and MRSA. Time Spent With Patient Total time spent: Total time spent today is 55 minutes, 35 minutes in coordination care discussing with patient family and other providers management of pneumonia and hypoxia. Subjective Date Seen: 11/28/23 Interval history: Mery Durham is a 78 year old male with history of coronary disease admitted to the hospital with a 2 week history of illness. History is obtained from the patient with his daughter providing translation at his request. He initially became ill about 2 weeks ago with a cough and dyspnea. He also noted prominent fatigue and generalized achiness. He has not had a fever or upper respiratory symptoms such as sore throat congestion rhinorrhea. In the last 2 days he developed epigastric pain. He lost his appetite and has been eating and drinking very little in the last 2 days. According to his daughter his has had similar symptoms. She is now hospitalized at [facility] with a kidney stone. In the emergency department he was found to be hypoxic. He has never been diagnosed with any lung disease. He has not ever been a smoker or had any occupational hazard to inhaled pulmonary irritants or toxins. He has never been evaluated or treated for low oxygen before. He has a history of coronary disease with previous STEMI treated with a stent. No previous thrombophilia, DVT or PE Patient has slept most the night as well as most the day. He has briefly been off oxygen and done well but then requiring oxygen again. He has had almost nothing to eat since admission. He reports no appetite. He has had occasions where he has had epigastric pain but these are self-limited and seemed to resolve. Today he had onset of a fever as well. He has no new symptoms. Day 2: Continues to have low-grade fevers. Continues to have fairly severe nausea. Eating very little. Not vomiting. Breathing may be a little better. Mostly not needing oxygen anymore except episodically. Having occasional episodes of severe epigastric pain which seemed to spontaneously resolve. No other pain problems. Day 3: Fever spike to 101.6 last night. Back on oxygen. Repeat blood cultures pending. Chest x-ray more suggestive of right lower lobe pneumonia. Antibiotics switched from ceftriaxone and azithromycin to vancomycin and Zosyn. Still no appetite and no energy. Currently having no pain including no abdominal pain. Very poor p.o. intake Exam Narrative: Exam Narrative: Lying in bed and arouses to voice. Seen with his and daughter. Oropharynx is normal. Neck is supple without adenopathy. Respirations with crackles predominantly on the right base but to a lesser extent left base and right upper lobe. No wheezing. No consolidation. Cardiovascular: S1, S2, regular rate and rhythm. No murmur gallop or rub. Abdomen: Bowel sounds active. Abdomen is soft without tenderness or mass. Const: Vital Signs, click to edit/add: Vital Signs - 24 hr 11/27/23 15:00 11/27/23 15:00 11/27/23 15:00 Temperature 98.4 F Pulse Rate [Left P ulse Oximeter] 85 85 Respiratory Rate 16 16 Blood Pressure [Le ft Arm] Blood Pressure [Ri ght Arm] 154/75 H Pulse Oximetry 91 91 Oxygen Delivery Me thod Room Air Room Air Oxygen Flow Rate 11/27/23 20:12 11/27/23 22:18 11/27/23 22:34 Temperature 99.7 F H 101.6 F H 101.4 F H Pulse Rate [Left P ulse Oximeter] 83 89 Respiratory Rate 22 24 Blood Pressure [Le ft Arm] 114/49 L Blood Pressure [Ri ght Arm] 124/64 Pulse Oximetry 91 90 Oxygen Delivery Me thod Room Air Nasal Cannula Oxygen Flow Rate 1.0 11/27/23 22:47 11/28/23 00:38 11/28/23 02:29 Temperature 100.9 F H 98.7 F Pulse Rate [Left P ulse Oximeter] 69 Respiratory Rate 24 24 Blood Pressure [Le ft Arm] 107/58 L Blood Pressure [Ri ght Arm] Pulse Oximetry 90 93 Oxygen Delivery Me thod Nasal Cannula Nasal Cannula Oxygen Flow Rate 1.0 1.0 11/28/23 05:59 11/28/23 07:00 11/28/23 07:00 Temperature 98.4 F 97.8 F Pulse Rate [Left P ulse Oximeter] 62 Respiratory Rate 18 18 Blood Pressure [Le ft Arm] Blood Pressure [Ri ght Arm] 117/66 Pulse Oximetry 93 92 Oxygen Delivery Me thod Nasal Cannula Nasal Cannula Oxygen Flow Rate 1 1 11/28/23 08:21 11/28/23 11:00 Temperature 97.8 F 98.2 F Pulse Rate [Left P ulse Oximeter] 63 Respiratory Rate 20 Blood Pressure [Le ft Arm] Blood Pressure [Ri ght Arm] 117/53 L Pulse Oximetry 98 Oxygen Delivery Me thod Nasal Cannula Oxygen Flow Rate 1 Documenting provider has reviewed patient's vital signs: yes Labs Labs: Laboratory Results - last 24 hr 11/27/23 11/28/23 23:10 05:54 WBC 6.23 RBC 4.02 L Hgb 12.1 L Hct 36.5 L MCV 91 MCH 30 MCHC 33 RDW Coeff of Mickey 14.1 Plt Count 179 Neut % (Auto) 73.1 H Lymph % (Auto) 20.1 [place] % (Auto) 5.6 Eos % (Auto) 0.8 Baso % (Auto) 0.2 Neut # (Auto) 4.60 Lymph # (Auto) 1.25 [place] # (Auto) 0.30 Eos # (Auto) 0.05 Baso # (Auto) 0.01 Abs Immat Gran (auto) 0.01 Imm/Tot Granulo (auto) 0.2 Sodium 133 L Potassium 3.4 L Chloride 106 Carbon Dioxide 23 Anion Gap 4 L BUN 8 Creatinine 0.7 Estimated Creat Clear 45.36 Estimated GFR 93 Glucose 106 Lactate 0.9 Calcium 7.6 L Total Bilirubin 0.7 AST 32 ALT 33 Alkaline Phosphatase 112 C-Reactive Protein 16.1 H Total Protein 5.6 L Albumin 2.7 L Lipase 38 HIV 1&2 Ab/P24 Ag 4thGn Negative
[2023-11-28] MEDS: MORPHINE 4 MG/ML INJ 2 MG IVP ×2 (14:20→16:57)
--- NOTE | 2023-11-28 18:26 | PC.NURSE ---
End of shift-- Pleasant and cooperative, alert and oriented but drowsy [place] speaking patient. Pt understands small amount of [place] and declined graphic design professor services. VSS and pt is afebrile. SPO2 maintained >90% on RA while up in chair today. LS coarse with crackles noted in posterior bases and expiratory wheezes throughout. MD notified and PRN nebs ordered. Occasional cough noted. He c/o nausea twice today and was given Zofran twice today with stated relief. He ate roughly 75% of his lunch and refused breakfast or dinner. He was up to the chair and ambulated in room with SBA and walker and tolerated it fair. Daughter was updated via telephone this evening, all questions were answered.
[2023-11-28] MEDS: ALBUTEROL SULFATE 2.5 MG/3 ML VIAL.NEB NEB (19:14)
[2023-11-28] MEDS: SODIUM CHLORIDE 0.9 % (FLUSH) 10 ML SYRINGE 5 ML IVF (20:27)
[2023-11-29] VITALS (10 sets, daily range): BP systolic 107–145; BP diastolic 56–82; PULSE 67–76; RESP 18–20; TEMP 36.6–38.1; O2SAT 86–96
[2023-11-29] MEDS: MORPHINE 4 MG/ML INJ 2 MG IVP ×2 (03:00→15:38)
[2023-11-29] MEDS: 5 % DEXTROSE IN LAC RINGER'S 1,000 ML 75 ML IV ×2 (05:34→19:21)
[2023-11-29] MEDS: PIPERACILLIN/TAZOBACTAM 3.375 GM in 0.9 % SODIUM CHLORIDE Mini-bag 100 ML IVPB ×4 (05:35→23:35)
[2023-11-29] MEDS: ONDANSETRON 2 MG/ML inj 4 MG IVP (06:35)
[2023-11-29] MEDS: OMEPRAZOLE 20 MG CAPSULE DR PO ×2 (06:35→17:13)
[2023-11-29 06:46] LABS: Basophils Absolute Auto 0.02 K/uL (0.00-0.30); Basophils Percent Auto 0.3 % (0.0-3.0); Eosinophils Absolute Auto 0.05 K/uL (0.00-0.50); Eosinophils Percent Auto 0.9 % (0.0-7.0); Hemoglobin* 13.4 gm/dL (13.5-17.5); Immature Granulocytes Abs Auto 0.04 K/uL (0.00-0.30); Immature Granulocytes Pct Auto 0.7 %; Lymphocytes Percent Auto 19.2 % (20-44); Mean Corpuscular HGB Conc 33 gm/dL (32-36); Mean Corpuscular Hemoglobin 30 pg (26-34); Mean Corpuscular Volume 92 fL (80-100); Monocytes Percent Auto 5.1 % (0.0-11.0); Neutrophils Percent Auto 73.8 % (42.0-72.0); Platelet Count* 180 K/uL (140-440); RDW Coefficient of Variation % 14.1 % (11.5-15.5); Red Blood Count 4.45 m/uL (4.30-5.90); White Blood Count* 5.73 K/uL (4.50-11.00)
[2023-11-29 06:53] LABS: Slide Review Reflex No
[2023-11-29 06:57] LABS: Chloride* 106 mmol/L (96-114); Potassium* 3.6 mmol/L (3.6-5.1); Sodium* 137 mmol/L (135-149)
[2023-11-29 07:00] LABS: Creatinine* 0.8 mg/dL (0.5-1.5); Est. Creatinine Clearance* 45.36; Estimated Glomerular Filt Rate 89 ml/min
[2023-11-29 07:01] LABS: Anion Gap 7 mEq/L (7-15); Blood Urea Nitrogen* 7 mg/dL (7-30); Calcium* 7.8 mg/dL (8.4-10.6); Carbon Dioxide* 24 mmol/L (20-32); Glucose* 91 mg/dL (60-115)
[2023-11-29 07:10] LABS: Troponin I* 0.03 ng/mL (0.01-0.04)
[2023-11-29 07:21] LABS: C Reactive Protein* 10.6 mg/dL (0.5-1.0); NT Pro B Type NatriureticPept* 256 pg/mL
--- NOTE | 2023-11-29 07:34 | PC.NURSE ---
Pt alert and oriented x3. Afebrile. Pt reports 9/10 pain in abdomen, pain managed with PRN medications. Pt reports nausea, managed with PRN Zofran. Pt lung sounds have expiratory wheezes and are diminished in the posterior bases. Pt is ups SBA with walker. Pt slept intermittently in chair overnight.
[2023-11-29] MEDS: AZITHROMYCIN 250 MG TABLET 500 MG PO (08:58)
--- NOTE | 2023-11-29 15:48 | P.IMPN_ITS ---
Progress Note: A&P Assessment and plan (1) Hypoxia: Problem details: Patient is requiring oxygen to maintain O2 sats at 90%. Likely due to pneumonia Status: Acute (2) Pneumonia: Problem details: Appears to have right lower lobe pneumonia radiographically and clinically. Status: Acute (3) Epigastric abdominal pain: Problem details: Benign CT and benign examination. Pain is intermittent. Persistent nausea and anorexia. Uncertain cause. Continue to monitor and evaluate. Status: Acute (4) Fever: Problem details: Ongoing fever probably related to respiratory illness. Status: Acute (5) Abnormal liver enzymes: Problem details: Ultrasound of the right upper quadrant shows liver nodularity. No previous history of any type of liver disease. Status post cholecystectomy. Check hepatitis serology. Liver enzymes normalized without specific and intervention Status: Acute (6) Malnutrition: Problem details: Patient has been eating poorly for 6 or 7 days now. Encourage p.o. intake. I think patient would poorly tolerate NG feedings. Status: Acute (7) Diarrhea: Problem details: Obtain stool culture and C diff testing Status: Acute Plan Continue patient in hospital for IV fluids, IV antibiotics, monitoring of respiratory and gastrointestinal symptoms of illness. I reviewed the case with Infectious Disease talent acquisition consultant. He recommends narrowing spectrum of antibiotic by stopping vancomycin with a negative MRSA swab. Still awaiting testing for Legionella and strep. Still awaiting hepatitis serologies and stool cultures. Total time spent today is 60 minutes, 45 minutes in coordination of care and discussing with patient, his son and infectious disease talent acquisition consultant ongoing plan of care indications are normal Subjective Date Seen: 11/29/23 Interval history: Mery Durham is a 78 year old male with history of coronary disease admitted to the hospital with a 2 week history of illness. History is obtained from the patient with his daughter providing translation at his request. He initially became ill about 2 weeks ago with a cough and dyspnea. He also noted prominent fatigue and generalized achiness. He has not had a fever or upper respiratory symptoms such as sore throat congestion rhinorrhea. In the last 2 days he developed epigastric pain. He lost his appetite and has been eating and drinking very little in the last 2 days. According to his daughter his has had similar symptoms. She is now hospitalized at [facility] with a kidney stone. In the emergency department he was found to be hypoxic. He has never been diagnosed with any lung disease. He has not ever been a smoker or had any occupational hazard to inhaled pulmonary irritants or toxins. He has never been evaluated or treated for low oxygen before. He has a history of coronary disease with previous STEMI treated with a stent. No previous thrombophilia, DVT or PE Patient has slept most the night as well as most the day. He has briefly been off oxygen and done well but then requiring oxygen again. He has had almost nothing to eat since admission. He reports no appetite. He has had occasions where he has had epigastric pain but these are self-limited and seemed to resolve. Today he had onset of a fever as well. He has no new symptoms. Day 2: Continues to have low-grade fevers. Continues to have fairly severe nausea. Eating very little. Not vomiting. Breathing may be a little better. Mostly not needing oxygen anymore except episodically. Having occasional episodes of severe epigastric pain which seemed to spontaneously resolve. No other pain problems. Day 3: Fever spike to 101.6 last night. Back on oxygen. Repeat blood cultures pending. Chest x-ray more suggestive of right lower lobe pneumonia. Antibiotics switched from ceftriaxone and azithromycin to vancomycin and Zosyn. Still no appetite and no energy. Currently having no pain including no abdominal pain. Very poor p.o. intake Day 4: No fever overnight. He does report feeling a little warm or chilled to his family but no significant fever documented. Occasionally needing supplemental oxygen. Still very poor appetite and poor oral intake. Intermittently complaining of epigastric pain when he eats. This morning he started having diarrhea. Nonbloody. No melena. Exam Narrative: Exam Narrative: He is tired appearing in the recliner. He gives his history with interpretation by his son. Oropharynx with dry mucous membranes. No mucosal abnormalities. Neck is supple without mass or adenopathy. He points to the back of his neck as a an area where he is having some discomfort today. Palpation here is unremarkable. He moves his neck fairly well. No evidence of infection. No skin changes. (his son indicates that he has chronic intermittent discomfort in this area). Respirations with occasional rhonchi more on the right than the left. Breath sounds a little better than yesterday. Cardiovascular: S1, S2, regular rate and rhythm. No murmur gallop or rub. Abdomen: Bowel sounds active. Abdomen is soft without tenderness or mass. External genitalia normal. Extremities without edema. Skin is without rash. Const: Vital Signs, click to edit/add: Vital Signs - 24 hr 11/28/23 19:15 11/28/23 19:19 11/28/23 19:51 Temperature 98.5 F 98.5 F 98.5 F Pulse Rate [Left P ulse Oximeter] 61 Respiratory Rate 16 Blood Pressure [Le ft Arm] Blood Pressure [Ri ght Arm] 125/67 Pulse Oximetry 92 Oxygen Delivery Me thod Room Air Oxygen Flow Rate 11/28/23 23:25 11/28/23 23:25 11/29/23 03:00 Temperature 98.4 F 98.3 F Pulse Rate [Left P ulse Oximeter] 66 67 Respiratory Rate 18 20 20 Blood Pressure [Le ft Arm] 105/55 L 107/66 Blood Pressure [Ri ght Arm] Pulse Oximetry 95 95 95 Oxygen Delivery Me thod Room Air Room Air Room Air Oxygen Flow Rate 1 1 0.5 11/29/23 08:59 11/29/23 08:59 11/29/23 13:21 Temperature 98.2 F 97.9 F Pulse Rate [Left P ulse Oximeter] 73 74 Respiratory Rate 18 18 Blood Pressure [Le ft Arm] Blood Pressure [Ri ght Arm] 145/71 H 137/82 Pulse Oximetry 93 93 94 Oxygen Delivery Me thod Nasal Cannula Nasal Cannula Room Air Oxygen Flow Rate 0.5 0.5 Documenting provider has reviewed patient's vital signs: yes Labs Labs: Laboratory Results - last 24 hr 11/29/23 06:22 WBC 5.73 RBC 4.45 Hgb 13.4 L Hct 41.0 MCV 92 MCH 30 MCHC 33 RDW Coeff of Mickey 14.1 Plt Count 180 Neut % (Auto) 73.8 H Lymph % (Auto) 19.2 L [place] % (Auto) 5.1 Eos % (Auto) 0.9 Baso % (Auto) 0.3 Neut # (Auto) 4.20 Lymph # (Auto) 1.10 [place] # (Auto) 0.30 Eos # (Auto) 0.05 Baso # (Auto) 0.02 Abs Immat Gran (auto) 0.04 Imm/Tot Granulo (auto) 0.7 Sodium 137 Potassium 3.6 Chloride 106 Carbon Dioxide 24 Anion Gap 7 BUN 7 Creatinine 0.8 Estimated Creat Clear 45.36 Estimated GFR 89 Glucose 91 Calcium 7.8 L Troponin I 0.03 C-Reactive Protein 10.6 H NT-Pro-B Natriuret Pep 256 Procalcitonin 40.50 H
[2023-11-29 17:46] LABS: Hep A Ab, IgM Negative (Negative); Hep B Core Ab, IgM Negative (Negative); Hep B Surface Antigen Negative (Negative); Hep C Ab by CIA Index 0.06 IV; Hep C Ab by CIA Interp Negative (Negative)
--- NOTE | 2023-11-29 18:09 | W.PM.INFD_ITS ---
Consultation Information Consultation Information Date of Consult: 11/29/23 Requesting Physician: Singh Ross Reason for Consult: PNA/epigastric pain Consultation Statement: This patient recommendation is based on a telemedicine consult request which was completed asynchronously through chart review and information provided by the primary physician. The patient was not seen or examined today. The evaluation is consultative in nature and all patient care and treatment decisions can either be accepted or rejected by the patient's primary hospital-based treating physician using their own independent medical judgment for their patient. W[employer] Machine Operator contact information: Please call [facility] call center [phone] HPI - Infectious Disease History of Present Illness History of Present Illness: 78yoM who is originally from [facility] but has been in [place] ~[place] years, with hx of HTN, CAD with STEMI in the past, prior TIA and prior CCY, who began experiencing 2 weeks of bodyaches, cough and weakness in the setting of his reportedly having similar sx's prior. Her sx's resolved, but he continued to have the above issues, along with development of epigastric pain and decreased PO intake 48 hours prior to admission. He had no noted fevers/chills at home, no N/V,D, no sx's, no rashes, no AMS or MONGE per notes; however given his above sx's, he presented to [facility] on 11/25/23 for further cares. Here, he was afebrile, but tachypneic and intermittently hypoxic. WBC count was up at 11.85, K was low at 3.2 and Cr was 0.9. LFTs were only notable for an AST of 53. UA was neg for LE/nitrite. Lactate was WNL at 1.2. Flu/COVID testing were neg. D-dimer was elevated at 0.77, troponin was neg at 0.02. EKG showed first degree AVB with LAE; QTc was <500. Given his hypoxia and elevated D-dimer, CTA C/A/P was done--this showed no PE, but did show some cetrilobular nodules and bronchial wall thickening c/f infection vs inflammation; a 3 mm LLL nodule was also noted. Diverticulosis was seen without associated infection, along with some air/fluid levels in the colon without AMBER. He was admitted at that time for ? PNA/URI and for further evaluation of his GI sx's; given lower concerns initially for bacterial respiratory infection, he was given supplemental O2, Abx were held, but blood cx x 2 were obtained on 11/24--these returned neg. EGD was planned as well for his epigastric pain sx's, however on 11/25 he began having fevers, hence he was placed on IV cefitiaxone and PO azithromycin to cover for PNA. LFTs on 11/25 were noted to be up, with AST now at 81 ALT at 74, and alk phos at 167; T.bili was WNL at 1. On 11/26, he again had fevers with increased RR again--given this, CXR was done, which raised c/f developing RLL PNA vs edema. Blood cx x 2 were repeated, Strep/Legionella urinary Ag testing was obtained, and he was broadened to Zosyn/vancomycin/azithromycin it seems. It does not appear sputum cx was obtained at that time. Hep A-C testing was ordered, along with HIV as well, and MRSA screen was obtained. In addition, Ab US was done on 11/26, which showed a heterogeneous liver with otherwise no other acute abnormalities. MRSA screen returned neg, 11/26 blood cx x 2 returned neg, HIV testing was neg as well. Hep A-C and Strep/Legionella urinary Ag were pending. However, on the above Abx, his WBC count normalized, his supplemental O2 was weaned off, and he has been afebrile x 24 hours now. LFTs also improved. However, he continues to have poor PO intake and epigastric pain. ID was consulted on 11/29/23 to help assist in Abx management. Currently, he is afebrile with stable vitals, on RA now. Most recent labs show a normal WBC count of 5.83, Hb of 13.4 (low) and platelets of 280,000. Na is 137, K is 3.6 and Cr is 0.8. LFTs from 11/27 were not elevated. CRP is improved from 16.1 to 10.6. PCT was ordered on 11/28 which was up at 40.5 (signficance of this is not clear in above setting). He continues on Zosyn/vanco/azithromycin. [facility] Medical History Arthritis ?M19.90 - Unspecified osteoarthritis, unspecified site (ICD-10) CAD (coronary artery disease) ?I25.10 - Atherosclerotic heart disease of [place] coronary artery without angina pectoris (ICD-10) Surgical History History of cholecystectomy ?Z90.49 - Acquired absence of other specified parts of digestive tract (ICD- 10) History of cataract extraction ?Z98.49 - Cataract extraction status, unspecified eye (ICD-10) Social History (Updated 11/25/23 @ 22:40 by Singh Ross MD) Narrative: Patient lives with his and nephew in [place]. 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 Code status is full. Daughter is healthcare power of drafter geological. No history of smoking. He does not drink alcohol. What is your current living situation?: I presently have a place to live Problems where you live: no known problems Problems where you live details: None noted In the past 12 months, utilities in danger of being shut off: no In past 12 months, lack of transportation kept you from medical appts, meetings, work, or getting things needed for daily living: no In the past 12 mos, have been you worried that your food would run out before you had money to buy more?: never true In the past 12 mos, the food you bought just didn't last and you didn't have money to buy more?: never true Highest level of school completed/degree received: don't know Smoking Status: Never smoker Do you use any of these nicotine containing products: None Second hand tobacco smoke exposure: No How often do you have a drink containing alcohol: never How often do you have six or more drinks on one occasion: Never AUDIT-C Alcohol total score: 0 Non-prescribed substance use: denies use Caffeine: No How often does anyone, including family, friends and others, physically hurt you : never How often does anyone, including family, friends and others, insult or talk down to you: never How often does anyone, including family, friends and others, threaten you with harm: never How often does anyone, including family, friends and others, scream or curse at you: never Little interest or pleasure in doing things: more than half the days Feeling down, depressed, or hopeless: not at all service: No Home Medications and Allergies Home Medications and Allergies Inpatient Medications: Active Medications Generic Name Dose Route Start Last Admin Trade Name Freq PRN Reason Stop Dose Admin Acetaminophen 650 mg 11/25/23 21:20 11/28/23 19:15 Acetaminophen 325 Mg Tablet PO 650 mg Q4H PRN Administration Albuterol 2.5 mg 11/28/23 18:15 11/28/23 19:14 Albuterol Sulfate 2.5 Mg/3 Ml Vial.Neb NEB 2.5 mg Q4H PRN Administration Azithromycin 500 mg 11/28/23 10:15 11/29/23 08:58 Azithromycin 250 Mg Tablet PO 500 mg DAILY MEMO Administration Dextrose/Lactated Ringer's 1,000 mls @ 75 mls/hr 11/27/23 12:52 11/29/23 14:42 5 % Dextrose In Lac Ringer's IV Not Given .[id number] EMMO Piperacillin Sod/Tazobactam 100 mls @ 200 mls/hr 11/28/23 00:00 11/29/23 12:23 Sod 3.375 gm/ Sodium Chloride IVPB 200 mls/hr Q6H MEMO Administration Morphine Sulfate 2 mg 11/25/23 21:20 11/29/23 15:38 Morphine 4 Mg/Ml Inj IVP 2 mg Q1H PRN Administration Omeprazole 20 mg 11/26/23 17:00 11/29/23 17:13 Omeprazole [address] PO 20 mg BID@0700,1700 MEMO Administration Ondansetron HCl 4 mg 11/25/23 21:20 11/29/23 06:35 Ondansetron 2 Mg/Ml Inj IVP 4 mg Q4H PRN Administration Nausea Sodium Chloride 5 ml 11/26/23 09:00 11/29/23 08:52 Sodium Chloride 0.9 % (Flush) 10 Ml Syringe IVF Not Given BID MEMO Discontinued Medications Generic Name Dose Route Start Last Admin Trade Name Freq PRN Reason Stop Dose Admin Azithromycin 500 mg 11/26/23 17:15 11/27/23 17:12 Azithromycin 250 Mg Tablet PO 500 mg Q24H MEMO Administration Lactated Ringer's 1,000 mls @ 1,000 mls/hr 11/25/23 15:23 11/25/23 18:03 Lactated Ringers 1000 Ml IV 11/25/23 16:22 Infused .Q1H ONE Infusion Potassium Chloride/Dextrose/Sod Cl 1,000 mls @ 125 mls/hr 11/25/23 21:30 11/26/23 08:42 5 % Dex/0.9 Sod Chl+Kcl 20 Meq IV 11/26/23 05:29 Infused .Q8H MEMO Infusion Ceftriaxone Sodium 1 gm/ 100 mls @ 200 mls/hr 11/26/23 17:15 11/27/23 18:55 Sodium Chloride IVPB Infused Q24H MEMO Infusion Vancomycin HCl 1,000 mg/ 510 mls @ 255 mls/hr 11/27/23 23:20 11/28/23 03:38 Sodium Chloride IVPB 11/27/23 23:21 Infused ONCE ONE Infusion Protocol Vancomycin HCl 750 mg/ Sodium 507.5 mls @ 253.75 mls/hr 11/28/23 11:30 Chloride IVPB Q12H MEMO Protocol Vancomycin HCl 750 mg/ Sodium 507.5 mls @ 253.75 mls/hr 11/29/23 03:30 Chloride IVPB Q24H MEMO Protocol Vancomycin HCl 750 mg/ Sodium 507.5 mls @ 253.75 mls/hr 11/29/23 01:00 11/29/23 03:20 Chloride IVPB Infused Q24H MEMO Infusion Protocol Vancomycin HCl 750 mg/ Sodium 257.5 mls @ 257.5 mls/hr 11/30/23 01:00 Chloride IVPB Q24H MEMO Protocol Iopamidol 95 ml 11/25/23 16:56 Iopamidol IV 11/25/23 16:57 .STK-MED ONE Ketorolac Tromethamine 15 mg 11/25/23 17:51 11/25/23 18:06 Ketorolac 15 Mg/Ml Inj IVP 11/25/23 17:52 15 mg ONCE ONE Administration Lidocaine HCl 7.5 ml 11/25/23 18:51 11/25/23 19:06 Lidocaine Hcl 4 % Top Soln 50 Ml Bottle PO 11/25/23 18:52 7.5 ml ONCE ONE Administration Lidocaine/Aluminum/Magnesium/Simeth 15 ml 11/25/23 18:51 11/25/23 19:06 Mag Hydrox/Aluminum Hyd/Simeth 30 Ml Oral.Susp PO 11/25/23 18:52 15 ml ONCE ONE Administration Lidocaine/Aluminum/Magnesium/Simeth Confirm 11/25/23 18:59 Mag Hydrox/Aluminum Hyd/Simeth 30 Ml Oral.Susp Administered 11/25/23 19:00 Dose 30 ml .ROUTE .STK-MED ONE Morphine Sulfate 4 mg 11/25/23 15:23 11/25/23 16:21 Morphine 4 Mg/Ml Inj IVP 11/25/23 15:24 4 mg ONCE ONE Administration Morphine Sulfate Confirm 11/25/23 15:28 Morphine 4 Mg/Ml Inj Administered 11/25/23 15:29 Dose 4 mg .ROUTE .STK-MED ONE Omeprazole 20 mg 11/26/23 09:00 11/26/23 08:37 Omeprazole [address] PO 20 mg BID MEMO Administration Pantoprazole Sodium 40 mg 11/25/23 21:22 11/25/23 22:54 Pantoprazole Sodium 40 Mg Inj IVP 11/25/23 21:23 40 mg ONCE ONE Administration Potassium Bicarbonate 25 meq 11/27/23 12:13 11/27/23 12:35 Potassium Bicarb 25 Meq Effervescent Tab PO 11/27/23 12:14 25 meq ONCE ONE Administration Allergies Allergy/AdvReac Type Severity Reaction Status Date / Time No Known Drug Allergies Allergy Verified 03/10/23 08:27 Objective - Infectious Disease Objective Vital Signs: Vital Signs - 24 hr 11/28/23 19:15 11/28/23 19:19 11/28/23 19:51 Temperature 98.5 F 98.5 F 98.5 F Pulse Rate [Left Pulse Oximeter] 61 Respiratory Rate 16 Blood Pressure [Left Arm] Blood Pressure [Right Arm] 125/67 Pulse Oximetry 92 Oxygen Delivery Method Room Air Oxygen Flow Rate 11/28/23 23:25 11/28/23 23:25 11/29/23 03:00 Temperature 98.4 F 98.3 F Pulse Rate [Left Pulse Oximeter] 66 67 Respiratory Rate 18 20 20 Blood Pressure [Left Arm] 105/55 L 107/66 Blood Pressure [Right Arm] Pulse Oximetry 95 95 95 Oxygen Delivery Method Room Air Room Air Room Air Oxygen Flow Rate 1 1 0.5 11/29/23 08:59 11/29/23 08:59 11/29/23 13:21 Temperature 98.2 F 97.9 F Pulse Rate [Left Pulse Oximeter] 73 74 Respiratory Rate 18 18 Blood Pressure [Left Arm] Blood Pressure [Right Arm] 145/71 H 137/82 Pulse Oximetry 93 93 94 Oxygen Delivery Method Nasal Cannula Nasal Cannula Room Air Oxygen Flow Rate 0.5 0.5 11/29/23 15:00 11/29/23 15:00 11/29/23 15:00 Temperature 98.9 F Pulse Rate [Left Pulse Oximeter] 75 75 Respiratory Rate 20 20 Blood Pressure [Left Arm] 127/75 Blood Pressure [Right Arm] Pulse Oximetry 93 93 Oxygen Delivery Method Room Air Room Air Oxygen Flow Rate Narrative: Patient was not seen or examined. Results - Infectious Disease Results Labs: 11/25/23 16:18 Blood Blood Culture - Preliminary NO GROWTH AFTER 96 HOURS 11/25/23 15:45 Blood Blood Culture - Preliminary NO GROWTH AFTER 96 HOURS 11/28/23 11:59 Nares MRSA Screen - Final No MRSA (Methicillin resistant Staph aureus) isolated. 11/27/23 23:15 Blood Blood Culture - Preliminary NO GROWTH AFTER 24 HOURS 11/27/23 23:10 Blood Blood Culture - Preliminary NO GROWTH AFTER 24 HOURS Laboratory Tests 11/29/23 11/28/23 11/27/23 Range/Units 06:22 05:54 23:10 WBC 5.73 6.23 (4.50-11.00) K/uL RBC 4.45 4.02 L (4.30-5.90) m/uL Hgb 13.4 L 12.1 L (13.5-17.5) gm/dL Hct 41.0 36.5 L (37.0-53.0) % MCV 92 91 (80-100) fL MCH 30 30 (26-34) pg MCHC 33 33 (32-36) gm/dL RDW Coeff of Mickey 14.1 14.1 (11.5-15.5) % Plt Count 180 179 (140-440) K/uL Neut % (Auto) 73.8 H 73.1 H (42.0-72.0) % Lymph % (Auto) 19.2 L 20.1 (20-44) % [place] % (Auto) 5.1 5.6 (0.0-11.0) % Eos % (Auto) 0.9 0.8 (0.0-7.0) % Baso % (Auto) 0.3 0.2 (0.0-3.0) % Neut # (Auto) 4.20 4.60 (1.7-7.0) K/uL Lymph # (Auto) 1.10 1.25 (0.90-2.90) K/uL [place] # (Auto) 0.30 0.30 (0.00-0.90) K/UL Eos # (Auto) 0.05 0.05 (0.00-0.50) K/uL Baso # (Auto) 0.02 0.01 (0.00-0.30) K/uL Abs Immat Gran (auto) 0.04 0.01 (0.00-0.30) K/uL Imm/Tot Granulo (auto) 0.7 0.2 % D-Dimer Quant (PE/DVT) (0.00-0.50) ug/ml Sodium 137 133 L (135-149) mmol/L Potassium 3.6 3.4 L (3.6-5.1) mmol/L Chloride 106 106 (96-114) mmol/L Carbon Dioxide 24 23 (20-32) mmol/L Anion Gap 7 4 L (7-15) mEq/L BUN 7 8 (7-30) mg/dL Creatinine 0.8 0.7 (0.5-1.5) mg/dL Estimated Creat Clear 45.36 45.36 Estimated GFR 89 93 ml/min Glucose 91 106 (60-115) mg/dL Lactate 0.9 (0.5-1.9) mmol/L Calcium 7.8 L 7.6 L (8.4-10.6) mg/dL Magnesium (1.5-2.6) mg/dL Total Bilirubin 0.7 (0.1-1.5) mg/dL Direct Bilirubin (0.0-0.5) mg/dL AST 32 (12-35) U/L ALT 33 (4-50) U/L Alkaline Phosphatase 112 (40-150) U/L Troponin I 0.03 (0.01-0.04) ng/mL C-Reactive Protein 10.6 H 16.1 H (0.5-1.0) mg/dL NT-Pro-B Natriuret Pep 256 pg/mL Total Protein 5.6 L (6.0-8.3) g/dL Albumin 2.7 L (3.3-5.0) g/dL Lipase 38 (23-300) U/L Procalcitonin 40.50 H (<0.50) ng/mL TSH (0.270-4.20) uIU/mL Urine Color (Yellow) Urine Appearance (Clear) Urine pH (5.0-8.5) Ur Specific [place] (1.000-1.030) Urine Protein (Negative) Urine Glucose (UA) (Negative) Urine Ketones (Negative) Urine Blood (Negative) Urine Nitrite (Negative) Urine Bilirubin (Negative) Urine Urobilinogen (0.2-1.0) Ur Leukocyte Esterase (Negative) Urine RBC (0-2) Urine WBC (0-5) Ur Squamous Epith Cells (None-Few) Urine Bacteria (None) SARS-CoV-2 (PCR) (Negative) Hepatitis A IgM Ab Negative (Negative) Hep Bs Antigen Negative (Negative) Hep B Core IgM Ab Negative (Negative) Hep C Ab Index (JESSEE) 0.06 IV Hep C Ab Interp JESSEE Negative (Negative) Hepatitis Interpret See Note HIV 1&2 Ab/P24 Ag 4thGn Negative (Negative) Influenza Type A (PCR) (Negative) Influenza Type B (PCR) (Negative) RSV (PCR) (Negative) POC Troponin I (0.01-0.04) ng/ml 11/27/23 11/26/23 11/25/23 Range/Units 08:23 09:14 18:00 WBC 8.07 6.61 (4.50-11.00) K/uL RBC 4.41 4.75 (4.30-5.90) m/uL Hgb 13.2 L 14.1 (13.5-17.5) gm/dL Hct 40.0 43.4 (37.0-53.0) % MCV 91 91 (80-100) fL MCH 30 30 (26-34) pg MCHC 33 33 (32-36) gm/dL RDW Coeff of Mickey 14.3 14.6 (11.5-15.5) % Plt Count 183 193 (140-440) K/uL Neut % (Auto) 81.2 H 73.4 H (42.0-72.0) % Lymph % (Auto) 13.3 L 21.5 (20-44) % [place] % (Auto) 4.7 4.1 (0.0-11.0) % Eos % (Auto) 0.5 0.3 (0.0-7.0) % Baso % (Auto) 0.1 0.2 (0.0-3.0) % Neut # (Auto) 6.60 4.90 (1.7-7.0) K/uL Lymph # (Auto) 1.10 1.42 (0.90-2.90) K/uL [place] # (Auto) 0.40 0.30 (0.00-0.90) K/UL Eos # (Auto) 0.04 0.02 (0.00-0.50) K/uL Baso # (Auto) 0.01 0.01 (0.00-0.30) K/uL Abs Immat Gran (auto) 0.02 0.03 (0.00-0.30) K/uL Imm/Tot Granulo (auto) 0.2 0.5 % D-Dimer Quant (PE/DVT) (0.00-0.50) ug/ml Sodium 134 L 138 (135-149) mmol/L Potassium 3.4 L 3.4 L (3.6-5.1) mmol/L Chloride 105 106 (96-114) mmol/L Carbon Dioxide 21 26 (20-32) mmol/L Anion Gap 8 6 L (7-15) mEq/L BUN 11 17 (7-30) mg/dL Creatinine 0.7 1.0 (0.5-1.5) mg/dL Estimated Creat Clear 39.12 38.44 Estimated GFR 93 76 ml/min Glucose 65 95 (60-115) mg/dL Lactate 1.9 (0.5-1.9) mmol/L Calcium 8.0 L 8.0 L (8.4-10.6) mg/dL Magnesium 2.1 (1.5-2.6) mg/dL Total Bilirubin 1.0 1.0 (0.1-1.5) mg/dL Direct Bilirubin 0.2 (0.0-0.5) mg/dL AST 45 H 81 H (12-35) U/L ALT 49 74 H (4-50) U/L Alkaline Phosphatase 138 167 H (40-150) U/L Troponin I 0.01 (0.01-0.04) ng/mL C-Reactive Protein 16.8 H 13.7 H (0.5-1.0) mg/dL NT-Pro-B Natriuret Pep pg/mL Total Protein 6.2 6.3 (6.0-8.3) g/dL Albumin 3.1 L 3.3 (3.3-5.0) g/dL Lipase (23-300) U/L Procalcitonin (<0.50) ng/mL TSH 0.746 (0.270-4.20) uIU/mL Urine Color Yellow (Yellow) Urine Appearance Clear (Clear) Urine pH 6.0 (5.0-8.5) Ur Specific [place] 1.010 (1.000-1.030) Urine Protein Negative (Negative) Urine Glucose (UA) Negative (Negative) Urine Ketones 2+ A (Negative) Urine Blood Negative (Negative) Urine Nitrite Negative (Negative) Urine Bilirubin Negative (Negative) Urine Urobilinogen 0.2 (0.2-1.0) Ur Leukocyte Esterase Negative (Negative) Urine RBC 0-2 (0-2) Urine WBC 0-2 (0-5) Ur Squamous Epith Cells None (None-Few) Urine Bacteria None (None) SARS-CoV-2 (PCR) (Negative) Hepatitis A IgM Ab (Negative) Hep Bs Antigen (Negative) Hep B Core IgM Ab (Negative) Hep C Ab Index (JESSEE) IV Hep C Ab Interp JESSEE (Negative) Hepatitis Interpret HIV 1&2 Ab/P24 Ag 4thGn (Negative) Influenza Type A (PCR) (Negative) Influenza Type B (PCR) (Negative) RSV (PCR) (Negative) POC Troponin I (0.01-0.04) ng/ml 11/25/23 11/25/23 11/25/23 Range/Units 15:45 15:45 15:24 WBC 11.85 H (4.50-11.00) K/uL RBC 5.02 (4.30-5.90) m/uL Hgb 14.9 (13.5-17.5) gm/dL Hct 45.4 (37.0-53.0) % MCV 90 (80-100) fL MCH 30 (26-34) pg MCHC 33 (32-36) gm/dL RDW Coeff of Mickey 14.6 (11.5-15.5) % Plt Count 238 (140-440) K/uL Neut % (Auto) 73.3 H (42.0-72.0) % Lymph % (Auto) 20.5 (20-44) % [place] % (Auto) 4.8 (0.0-11.0) % Eos % (Auto) 0.5 (0.0-7.0) % Baso % (Auto) 0.2 (0.0-3.0) % Neut # (Auto) 8.70 H (1.7-7.0) K/uL Lymph # (Auto) 2.40 (0.90-2.90) K/uL [place] # (Auto) 0.60 (0.00-0.90) K/UL Eos # (Auto) 0.10 (0.00-0.50) K/uL Baso # (Auto) 0.00 (0.00-0.30) K/uL Abs Immat Gran (auto) 0.10 (0.00-0.30) K/uL Imm/Tot Granulo (auto) 0.7 % D-Dimer Quant (PE/DVT) 0.77 H (0.00-0.50) ug/ml Sodium 138 (135-149) mmol/L Potassium 3.2 L (3.6-5.1) mmol/L Chloride 104 (96-114) mmol/L Carbon Dioxide 23 (20-32) mmol/L Anion Gap 11 (7-15) mEq/L BUN 22 (7-30) mg/dL Creatinine 0.9 (0.5-1.5) mg/dL Estimated Creat Clear 43.47 Estimated GFR 86 ml/min Glucose 71 (60-115) mg/dL Lactate 1.2 (0.5-1.9) mmol/L Calcium 8.8 (8.4-10.6) mg/dL Magnesium Cancelled 2.2 (1.5-2.6) mg/dL Total Bilirubin 1.0 (0.1-1.5) mg/dL Direct Bilirubin (0.0-0.5) mg/dL AST 53 H (12-35) U/L ALT 37 (4-50) U/L Alkaline Phosphatase 114 (40-150) U/L Troponin I (0.01-0.04) ng/mL C-Reactive Protein (0.5-1.0) mg/dL NT-Pro-B Natriuret Pep pg/mL Total Protein 7.3 (6.0-8.3) g/dL Albumin 3.9 (3.3-5.0) g/dL Lipase 63 (23-300) U/L Procalcitonin (<0.50) ng/mL TSH (0.270-4.20) uIU/mL Urine Color (Yellow) Urine Appearance (Clear) Urine pH (5.0-8.5) Ur Specific [place] (1.000-1.030) Urine Protein (Negative) Urine Glucose (UA) (Negative) Urine Ketones (Negative) Urine Blood (Negative) Urine Nitrite (Negative) Urine Bilirubin (Negative) Urine Urobilinogen (0.2-1.0) Ur Leukocyte Esterase (Negative) Urine RBC (0-2) Urine WBC (0-5) Ur Squamous Epith Cells (None-Few) Urine Bacteria (None) SARS-CoV-2 (PCR) (Negative) Hepatitis A IgM Ab (Negative) Hep Bs Antigen (Negative) Hep B Core IgM Ab (Negative) Hep C Ab Index (JESSEE) IV Hep C Ab Interp JESSEE (Negative) Hepatitis Interpret HIV 1&2 Ab/P24 Ag 4thGn (Negative) Influenza Type A (PCR) (Negative) Influenza Type B (PCR) (Negative) RSV (PCR) (Negative) POC Troponin I 0.02 (0.01-0.04) ng/ml 11/25/23 Range/Units 15:20 WBC (4.50-11.00) K/uL RBC (4.30-5.90) m/uL Hgb (13.5-17.5) gm/dL Hct (37.0-53.0) % MCV (80-100) fL MCH (26-34) pg MCHC (32-36) gm/dL RDW Coeff of Mickey (11.5-15.5) % Plt Count (140-440) K/uL Neut % (Auto) (42.0-72.0) % Lymph % (Auto) (20-44) % [place] % (Auto) (0.0-11.0) % Eos % (Auto) (0.0-7.0) % Baso % (Auto) (0.0-3.0) % Neut # (Auto) (1.7-7.0) K/uL Lymph # (Auto) (0.90-2.90) K/uL [place] # (Auto) (0.00-0.90) K/UL Eos # (Auto) (0.00-0.50) K/uL Baso # (Auto) (0.00-0.30) K/uL Abs Immat Gran (auto) (0.00-0.30) K/uL Imm/Tot Granulo (auto) % D-Dimer Quant (PE/DVT) (0.00-0.50) ug/ml Sodium (135-149) mmol/L Potassium (3.6-5.1) mmol/L Chloride (96-114) mmol/L Carbon Dioxide (20-32) mmol/L Anion Gap (7-15) mEq/L BUN (7-30) mg/dL Creatinine (0.5-1.5) mg/dL Estimated Creat Clear Estimated GFR ml/min Glucose (60-115) mg/dL Lactate (0.5-1.9) mmol/L Calcium (8.4-10.6) mg/dL Magnesium (1.5-2.6) mg/dL Total Bilirubin (0.1-1.5) mg/dL Direct Bilirubin (0.0-0.5) mg/dL AST (12-35) U/L ALT (4-50) U/L Alkaline Phosphatase (40-150) U/L Troponin I (0.01-0.04) ng/mL C-Reactive Protein (0.5-1.0) mg/dL NT-Pro-B Natriuret Pep pg/mL Total Protein (6.0-8.3) g/dL Albumin (3.3-5.0) g/dL Lipase (23-300) U/L Procalcitonin (<0.50) ng/mL TSH (0.270-4.20) uIU/mL Urine Color (Yellow) Urine Appearance (Clear) Urine pH (5.0-8.5) Ur Specific [place] (1.000-1.030) Urine Protein (Negative) Urine Glucose (UA) (Negative) Urine Ketones (Negative) Urine Blood (Negative) Urine Nitrite (Negative) Urine Bilirubin (Negative) Urine Urobilinogen (0.2-1.0) Ur Leukocyte Esterase (Negative) Urine RBC (0-2) Urine WBC (0-5) Ur Squamous Epith Cells (None-Few) Urine Bacteria (None) SARS-CoV-2 (PCR) Negative SARS-CoV-2 (Negative) Hepatitis A IgM Ab (Negative) Hep Bs Antigen (Negative) Hep B Core IgM Ab (Negative) Hep C Ab Index (JESSEE) IV Hep C Ab Interp JESSEE (Negative) Hepatitis Interpret HIV 1&2 Ab/P24 Ag 4thGn (Negative) Influenza Type A (PCR) Negative PCR FLU A (Negative) Influenza Type B (PCR) Negative PCR FLU B (Negative) RSV (PCR) Negative PCR RSV (Negative) POC Troponin I (0.01-0.04) ng/ml Impression & Recommendations Recommendations Impression & Recommendations: 78yoM who is originally from [facility] but has been in [place] ~[place], with hx of HTN, CAD with STEMI in the past, prior TIA and prior CCY, who began experiencing 2 weeks of bodyaches, cough and weakness in the setting of his reportedly having similar sx's prior. Her sx's resolved, but he continued to have the above issues, along with development of epigastric pain and decreased PO intake 48 hours prior to admission. He had no noted fevers/chills at home, no N/V,D, no sx's, no rashes, no AMS or MONGE per notes; however given his above sx's, he presented to [facility] on 11/25/23 for further cares. Here, he was afebrile, but tachypneic and intermittently hypoxic. WBC count was up at 11.85, K was low at 3.2 and Cr was 0.9. LFTs were only notable for an AST of 53. UA was neg for LE/nitrite. Lactate was WNL at 1.2. Flu/COVID testing were neg. D-dimer was elevated at 0.77, troponin was neg at 0.02. EKG showed first degree AVB with LAE; QTc was <500. Given his hypoxia and elevated D-dimer, CTA C/A/P was done--this showed no PE, but did show some cetrilobular nodules and bronchial wall thickening c/f infection vs inflammation; a 3 mm LLL nodule was also noted. Diverticulosis was seen without associated infection, along with some air/fluid levels in the colon without AMBER. He was admitted at that time for ? PNA/URI and for further evaluation of his GI sx's; given lower concerns initially for bacterial respiratory infection, he was given supplemental O2, Abx were held, bu t blood cx x 2 were obtained on 11/24--these returned neg. EGD was planned as well for his epigastric pain sx's, however on 11/25 he began having fevers, hence he was placed on IV cefitiaxone and PO azithromycin to cover for PNA. LFTs on 11/25 were noted to be up, with AST now at 81 ALT at 74, and alk phos at 167; T.bili was WNL at 1. On 11/26, he again had fevers with increased RR again--given this, CXR was done, which raised c/f developing RLL PNA vs edema. Blood cx x 2 were repeated, Strep/Legionella urinary Ag testing was obtained, and he was broadened to Zosyn/vancomycin/azithromycin it seems. It does not appear sputum cx was obtained at that time. Hep A-C testing was ordered, along with HIV as well, and MRSA screen was obtained. In addition, Ab US was done on 11/26, which showed a heterogeneous liver with otherwise no other acute abnormalities. MRSA screen returned neg, 11/26 blood cx x 2 returned neg, HIV testing was neg as well. Hep A- C and Strep/Legionella urinary Ag were pending. However, on the above Abx, his WBC count normalized, his supplemental O2 was weaned off, and he has been afebrile x 24 hours now. LFTs also improved. However, he continues to have poor PO intake and epigastric pain. ID was consulted on 11/29/23 to help assist in Abx management. Spoke with hospitalist regarding above case--his CXR imaging raised c/f RLL PNA and given his cough, hypoxia and fevers, he likely developed a bacterial superinfection in the setting of a prior viral URI illness ( had similar sx's which resolved, per primary service). He has improved on Zosyn/vanco/azithromycin therapy over the past 48 hours, 11/24 and 3 blood cx x 2 are neg, and MRSA screen is neg, hence c/f MRSA PNA is quite low--given this, would be ok to stop IV vancomycin at this point. Given his PNA and LFT elevat ion, there is a possibility for atypical PNA such as Legionella, hence would continue azithromycin for now while awaiting Legionella urinary Ag testing. Of note, keep in mind that macrolides themselves can cause increased LFTs, but this seems less likely given LFTs have improved despite ongoing use of azithromycin therapy. If possible, would try to obtain sputum cx in the interim. Otherwise, if patient remains well after 48 hours off of vancomycin, we can consider narrowing Zosyn/azithromycin further to possibly PO quinolone vs Augmentin/azithromycin (so long as sputum cx shows no breakthrough pathogens) to complete 7 days of tx for PNA. His epigastric pain, poor PO intake and elevated LFTs with Ab US showing heterogenous liver raise c/f an underlying GI/hepatic etiology to these sx's. GE RD, peptic ulcer disease and mesenteric ischemia (chronic) are all in the ddx, as well as cirrhosis with associated portal hypertensive gastropathy. HIV testing is neg, Hep A-C testing is pending--we will f/u on this. In the interim, would get GI/Hepatology input for consideration for EGD and further workup for the above possibilities. RECOMMENDATIONS: 1. Continue Zosyn 3.375g IV Q6H and PO azithromycin 500 mg daily (CrCl ~45) for coverage of RLL PNA 2. Given neg MRSA screen, ok to DC IV vancomycin at this time 3. Will f/u on Strep and Legionella urinary Ag testing 4. If possible, please obtain sputum cx 5. If patient remains well after 48 hours off of vancomycin, we can consider narrowing Zosyn/azithromycin further to possibly PO quinolone vs Augmentin/azithromycin (so long as sputum cx shows no breakthrough pathogens) to complete 7 days of tx for PNA 6. Will f/u on Hep A-C serologies (HIV testing is neg) 7. Will continue to f/u on 3/ and 33 blood cx (NGTD x 4 sets) 8. Would consult GI/Hepatology for consideration for EGD (either in hospital or in outpatient setting), as well as workup for possible GERD/gastritis, mesenteric ischemia or cirrhosis with portal hypertensive gastropathy, among other possibilities, to help evaluate epigastric pain/low PO intake 9. On Zosyn/azithromycin, please monitor CBC w/dif, CMP at least twice weekly in the hospital 10. Would check one more EKG in next 24 hours to ensure QTc remains <500 on azithromycin therapy ID will continue to follow please page us with questions-thanks! Emmanuel Forrest MD, [facility] Division of Infectious Disease
--- NOTE | 2023-11-29 23:27 | PC.NURSE ---
End of Shift: Patient pleasant and cooperative. Rating pain in abdomen 9/10 at start of shift and PRN Morphine given x1. Denies pain the remainder of the shift. Denies nausea. Taking in bites of applesauce and liquids with encouragement/frequent offering. Up to chair and bathroom with SBA and walker. O2 sats decrease to 86% while sleeping and 0.5L NC to keep sats above 90%.
[2023-11-29 23:45] LABS: C.Difficile Negative (Negative); CDIFFEPI 027 PRESUMPTIVE NEGATIVE (Negative)
[2023-11-30 02:33] VITALS: BP 126/76; PULSE 72; RESP 16; TEMP 37.1; O2SAT 96
--- NOTE | 2023-11-30 03:57 | PC.NURSE ---
Pt rested well this night. VS unremarkable. Afebrile. Reporting zero pain. Pleasant and cooperative. Pt up A1, HUMPHREY Flynn.
[2023-11-30] MEDS: PIPERACILLIN/TAZOBACTAM 3.375 GM in 0.9 % SODIUM CHLORIDE Mini-bag 100 ML IVPB ×4 (05:37→23:25)
[2023-11-30] MEDS: OMEPRAZOLE 20 MG CAPSULE DR PO ×2 (06:23→16:48)
[2023-11-30 06:56] LABS: Basophils Absolute Auto 0.01 K/uL (0.00-0.30); Basophils Percent Auto 0.2 % (0.0-3.0); Eosinophils Absolute Auto 0.07 K/uL (0.00-0.50); Eosinophils Percent Auto 1.2 % (0.0-7.0); Hematocrit 35.3 % (37.0-53.0); Hemoglobin* 11.7 gm/dL (13.5-17.5); Immature Granulocytes Abs Auto 0.02 K/uL (0.00-0.30); Immature Granulocytes Pct Auto 0.3 %; Lymphocytes Absolute Auto 1.39 K/uL (0.90-2.90); Mean Corpuscular HGB Conc 33 gm/dL (32-36); Mean Corpuscular Hemoglobin 30 pg (26-34); Mean Corpuscular Volume 91 fL (80-100); Monocytes Percent Auto 7.1 % (0.0-11.0); Neutrophils Absolute Auto 3.89 K/uL (1.7-7.0); Neutrophils Percent Auto 67.2 % (42.0-72.0); Platelet Count* 205 K/uL (140-440); RDW Coefficient of Variation % 13.7 % (11.5-15.5); Red Blood Count 3.87 m/uL (4.30-5.90); White Blood Count* 5.79 K/uL (4.50-11.00)
[2023-11-30 07:02] LABS: Chloride* 103 mmol/L (96-114); Sodium* 132 mmol/L (135-149)
[2023-11-30 07:03] LABS: Potassium* 3.2 mmol/L (3.6-5.1)
[2023-11-30 07:05] LABS: Creatinine* 0.8 mg/dL (0.5-1.5); Est. Creatinine Clearance* 47.78; Estimated Glomerular Filt Rate 89 ml/min
[2023-11-30 07:06] LABS: Anion Gap 4 mEq/L (7-15); Blood Urea Nitrogen* 3 mg/dL (7-30); Calcium* 7.7 mg/dL (8.4-10.6); Carbon Dioxide* 25 mmol/L (20-32); Glucose* 110 mg/dL (60-115)
[2023-11-30 07:09] LABS: C Reactive Protein* 5.3 mg/dL (0.5-1.0)
[2023-11-30 07:33] LABS: Slide Review Reflex No
[2023-11-30 07:47] VITALS: BP 141/65; PULSE 75; RESP 18; TEMP 36.7; O2SAT 94
[2023-11-30] MEDS: 5 % DEXTROSE IN LAC RINGER'S 1,000 ML 75 ML IV (08:51)
[2023-11-30] MEDS: AZITHROMYCIN 250 MG TABLET 500 MG PO (08:51)
[2023-11-30 10:16] VITALS: BMI 27.3
[2023-11-30] MEDS: POTASSIUM BICARB 25 MEQ EFFERVESCENT TAB 50 MEQ PO (10:21)
--- NOTE | 2023-11-30 11:09 | P.IMPN_ITS ---
Progress Note: A&P Assessment and plan (1) Hypoxia: Problem details: Patient is requiring oxygen to maintain O2 sats at 90%. Likely due to pneumonia Status: Acute (2) Pneumonia: Problem details: Appears to have right lower lobe pneumonia radiographically and clinically. Status: Acute (3) Epigastric abdominal pain: Problem details: Benign CT and benign examination. Pain is intermittent and getting better. Nausea and anorexia are better today. Uncertain cause. Continue to monitor and evaluate. Status: Acute (4) Fever: Problem details: Ongoing fever probably related to respiratory illness. Continue another day of antibiotics with low-grade fever last night Status: Acute (5) Abnormal liver enzymes: Problem details: Ultrasound of the right upper quadrant shows liver nodularity. No previous history of any type of liver disease. Status post cholecystectomy. Hepatitis serology negative Liver enzymes normalized without specific and intervention Status: Acute (6) Malnutrition: Problem details: Patient has been eating poorly for 6 or 7 days now. Encourage p.o. intake. Improved today. Discharge tomorrow if continue to eat well. Status: Acute (7) Diarrhea: Problem details: C diff negative. Stool culture pending. Diarrhea appears better today Status: Acute Plan Continue in hospital for 1 more day of monitoring of respiratory status, fever, hypoxia, poor oral intake, diarrhea and abdominal pain. Continue to do well possible discharge to home tomorrow. Time Spent With Patient Total time spent: Total time spent today is 40 minutes, 30 minutes in coordination of care discussing with patient family and other providers ongoing management of fever, pneumonia, poor nutrition, abdominal pain and diarrhea Subjective Date Seen: 11/30/23 Interval history: Mery Durham is a 78 year old male with history of coronary disease admitted to the hospital with a 2 week history of illness. History is obtained from the patient with his daughter providing translation at his request. He initially became ill about 2 weeks ago with a cough and dyspnea. He also noted prominent fatigue and generalized achiness. He has not had a fever or upper respiratory symptoms such as sore throat congestion rhinorrhea. In the last 2 days he developed epigastric pain. He lost his appetite and has been eating and drinking very little in the last 2 days. According to his daughter his has had similar symptoms. She is now hospitalized at [facility] with a kidney stone. In the emergency department he was found to be hypoxic. He has never been diagnosed with any lung disease. He has not ever been a smoker or had any occupational hazard to inhaled pulmonary irritants or toxins. He has never been evaluated or treated for low oxygen before. He has a history of coronary disease with previous STEMI treated with a stent. No previous thrombophilia, DVT or PE Patient has slept most the night as well as most the day. He has briefly been off oxygen and done well but then requiring oxygen again. He has had almost nothing to eat since admission. He reports no appetite. He has had occasions where he has had epigastric pain but these are self-limited and seemed to resolve. Today he had onset of a fever as well. He has no new symptoms. Day 2: Continues to have low-grade fevers. Continues to have fairly severe nausea. Eating very little. Not vomiting. Breathing may be a little better. Mostly not needing oxygen anymore except episodically. Having occasional episodes of severe epigastric pain which seemed to spontaneously resolve. No other pain problems. Day 3: Fever spike to 101.6 last night. Back on oxygen. Repeat blood cultures pending. Chest x-ray more suggestive of right lower lobe pneumonia. Antibiotics switched from ceftriaxone and azithromycin to vancomycin and Zosyn. Still no appetite and no energy. Currently having no pain including no abdominal pain. Very poor p.o. intake Day 4: No fever overnight. He does report feeling a little warm or chilled to his family but no significant fever documented. Occasionally needing supplemental oxygen. Still very poor appetite and poor oral intake. Intermittently complaining of epigastric pain when he eats. This morning he started having diarrhea. Nonbloody. No melena. Day 5: Patient reports feeling better. He is anxious to go home today. Reports his appetite is better. He reports his abdominal pain has resolved. He had a low-grade fever last night, 100.5 F. He has not had any diarrhea since last night. C diff test was negative. Stool and blood cultures are pending. He is off oxygen this morning. Acute Hepatitis serologies are negative. Exam Narrative: Exam Narrative: He is alert and appears in no distress. Mood and affect are brighter today. Respirations with a rare basilar crackle. Otherwise clear. Breathing is unlabored. Cardiovascular: S1, S2, regular rate and rhythm. Abdomen: Bowel sounds active. Abdomen is soft without tenderness or mass. Skin is without rash. No edema. Const: Vital Signs, click to edit/add: Vital Signs - 24 hr 11/29/23 13:21 11/29/23 15:00 11/29/23 15:00 Temperature 97.9 F 98.9 F Pulse Rate [Left P ulse Oximeter] 74 75 Respiratory Rate 18 20 Blood Pressure [Le ft Arm] 127/75 Blood Pressure [Ri ght Arm] 137/82 Pulse Oximetry 94 93 93 Oxygen Delivery Me thod Room Air Room Air Room Air Oxygen Flow Rate 11/29/23 15:00 11/29/23 19:00 11/29/23 19:10 Temperature 100.5 F H Pulse Rate [Left P ulse Oximeter] 75 74 Respiratory Rate 20 20 Blood Pressure [Le ft Arm] 110/56 L Blood Pressure [Ri ght Arm] Pulse Oximetry 86 L 91 Oxygen Delivery Me thod Room Air Nasal Cannula Oxygen Flow Rate 0.5 11/29/23 20:52 11/29/23 23:04 11/29/23 23:38 Temperature 99.3 F 98.6 F Pulse Rate [Left P ulse Oximeter] 76 Respiratory Rate 20 20 Blood Pressure [Le ft Arm] Blood Pressure [Ri ght Arm] 120/69 Pulse Oximetry 91 96 Oxygen Delivery Me thod Nasal Cannula Room Air Oxygen Flow Rate 0.5 11/29/23 23:39 11/30/23 02:33 11/30/23 07:47 Temperature 98.7 F Pulse Rate [Left P ulse Oximeter] 76 72 Respiratory Rate 20 16 Blood Pressure [Le ft Arm] Blood Pressure [Ri ght Arm] 126/76 Pulse Oximetry 96 94 Oxygen Delivery Me thod Nasal Cannula Room Air Oxygen Flow Rate 0.5 11/30/23 07:47 Temperature 98.1 F Pulse Rate [Left P ulse Oximeter] 75 Respiratory Rate 18 Blood Pressure [Le ft Arm] 141/65 H Blood Pressure [Ri ght Arm] Pulse Oximetry 94 Oxygen Delivery Me thod Room Air Oxygen Flow Rate Documenting provider has reviewed patient's vital signs: yes Labs Labs: Laboratory Results - last 24 hr 11/28/23 11/29/23 11/30/23 05:54 14:28 06:37 WBC 5.79 RBC 3.87 L Hgb 11.7 L Hct 35.3 L MCV 91 MCH 30 MCHC 33 RDW Coeff of Mickey 13.7 Plt Count 205 Neut % (Auto) 67.2 Lymph % (Auto) 24.0 Bryan % (Auto) 7.1 Eos % (Auto) 1.2 Baso % (Auto) 0.2 Neut # (Auto) 3.89 Lymph # (Auto) 1.39 Bryan # (Auto) 0.40 Eos # (Auto) 0.07 Baso # (Auto) 0.01 Abs Immat Gran (auto) 0.02 Imm/Tot Granulo (auto) 0.3 Sodium 132 L Potassium 3.2 L Chloride 103 Carbon Dioxide 25 Anion Gap 4 L BUN 3 L Creatinine 0.8 Estimated Creat Clear 47.78 Estimated GFR 89 Glucose 110 Calcium 7.7 L C-Reactive Protein 5.3 H Stl C. diff Tox B Gene Negative Stl C. diff [id number] PRESUMPTIVE NEGATIVE Hepatitis A IgM Ab Negative Hep Bs Antigen Negative Hep B Core IgM Ab Negative Hep C Ab Index (JESSEE) 0.06 Hep C Ab Interp JESSEE Negative Hepatitis Interpret See Note
[2023-11-30] MEDS: MORPHINE 4 MG/ML INJ 2 MG IVP ×2 (11:38→15:20)
[2023-11-30 11:44] VITALS: BP 131/84; PULSE 77; RESP 20; TEMP 36.8; O2SAT 91
[2023-11-30] MEDS: ACETAMINOPHEN 325 MG TABLET 650 MG PO (14:34)
[2023-11-30 15:23] VITALS: BP 125/69; PULSE 76; RESP 18; TEMP 37.4; O2SAT 92
--- NOTE | 2023-11-30 18:46 | PC.NURSE ---
End of Shift: Patient pleasant and cooperative. Patient vitally stable, lungs course/rhonci, BS WNL, IV SL. Patient 1 A/walker. Patient rated pain 10/10, morphine given once. Patient has not used the toilet this shift, and declined dinner. Patient has been napping in recliner.
[2023-11-30 19:00] VITALS: BP 119/56; PULSE 75; RESP 18; TEMP 36.6; O2SAT 90
[2023-11-30] MEDS: SODIUM CHLORIDE 0.9 % (FLUSH) 10 ML SYRINGE 5 ML IVF (21:17)
[2023-11-30 23:00] VITALS: BP 135/65; PULSE 75; RESP 18; TEMP 36.5; O2SAT 71; O2SAT 90
[2023-11-30] MEDS: 0.9 % SODIUM CHLORIDE 250 ml IV (23:30)
[2023-12-01 03:00] VITALS: BP 121/51; PULSE 82; RESP 18; TEMP 37.2; O2SAT 89
[2023-12-01] MEDS: MORPHINE 4 MG/ML INJ 2 MG IVP ×2 (04:13→12:20)
[2023-12-01] MEDS: ONDANSETRON 2 MG/ML inj 4 MG IVP (04:14)
[2023-12-01 06:19] LABS: Basophils Absolute Auto 0.03 K/uL (0.00-0.30); Basophils Percent Auto 0.5 % (0.0-3.0); Eosinophils Absolute Auto 0.07 K/uL (0.00-0.50); Eosinophils Percent Auto 1.1 % (0.0-7.0); Hematocrit 38.8 % (37.0-53.0); Immature Granulocytes Abs Auto 0.05 K/uL (0.00-0.30); Immature Granulocytes Pct Auto 0.8 %; Lymphocytes Absolute Auto 1.33 K/uL (0.90-2.90); Lymphocytes Percent Auto 20.5 % (20-44); Mean Corpuscular HGB Conc 34 gm/dL (32-36); Mean Corpuscular Hemoglobin 30 pg (26-34); Mean Corpuscular Volume 90 fL (80-100); Monocytes Percent Auto 5.5 % (0.0-11.0); Neutrophils Absolute Auto 4.65 K/uL (1.7-7.0); Neutrophils Percent Auto 71.6 % (42.0-72.0); Platelet Count* 226 K/uL (140-440); RDW Coefficient of Variation % 13.5 % (11.5-15.5); Red Blood Count 4.33 m/uL (4.30-5.90); White Blood Count* 6.49 K/uL (4.50-11.00)
[2023-12-01 06:36] LABS: Slide Review Reflex No
[2023-12-01] MEDS: PIPERACILLIN/TAZOBACTAM 3.375 GM in 0.9 % SODIUM CHLORIDE Mini-bag 100 ML IVPB (06:39)
[2023-12-01] MEDS: OMEPRAZOLE 20 MG CAPSULE DR PO ×2 (06:43→16:47)
[2023-12-01 06:47] LABS: Chloride* 102 mmol/L (96-114); Sodium* 133 mmol/L (135-149)
[2023-12-01 06:48] LABS: Potassium* 3.1 mmol/L (3.6-5.1)
[2023-12-01 06:50] LABS: Anion Gap 3 mEq/L (7-15); Blood Urea Nitrogen* 2 mg/dL (7-30); Carbon Dioxide* 28 mmol/L (20-32); Creatinine* 0.8 mg/dL (0.5-1.5); Est. Creatinine Clearance* 48.08; Estimated Glomerular Filt Rate 89 ml/min
[2023-12-01 06:51] LABS: Glucose* 90 mg/dL (60-115)
[2023-12-01 07:00] VITALS: BP 131/72; PULSE 85; RESP 18; TEMP 36.8; O2SAT 90
--- NOTE | 2023-12-01 07:03 | PC.NURSE ---
Shift note: Pt appears weak and tired. O2 level has been at 90 in room air. Alert and oriented. Pt complained of abdominal pain and nausea at 0430. Morphine and Ondansetron given which was effective. Pt has been sleeping in the recliner and refused to use the bed. No fever recorded.
--- NOTE | 2023-12-01 08:34 | W.PM.IDPRG_ITS ---
Visit Information Visit Information Date: 12/01/23 Visit Information: Patient was not seen. Subjective Subjective Subjective: This patient recommendation is based on a telemedicine consult request which was completed asynchronously through chart review and information provided by the primary physician. The patient was not seen or examined today. The evaluation is consultative in nature and all patient care and treatment decisions can either be accepted or rejected by the patient's primary hospital-based treating physician using their own independent medical judgment for their patient. No fevers since 11/28 (Tmax 100.5 F), VSS, is on RA. WBC count remains WNL at 6.49, Cr is 0.8 (CrCl 48.08). Zosyn was stopped, patient continues on azithromycin monotherapy at this point given Legionella testing is not back. 11/24 and 11/26 blood cx x 4 sets total all NGTD, C.dif testing neg, MRSA screen from 11/27 neg. Stool cx pending from 11/28. EGD pending today it seems as well. Home Medications and Allergies Home Medications and Allergies Inpatient Medications: Active Medications Generic Name Dose Route Start Last Admin Trade Name Freq PRN Reason Stop Dose Admin Acetaminophen 650 mg 11/25/23 21:20 11/30/23 14:34 Acetaminophen 325 Mg Tablet PO 650 mg Q4H PRN Administration Albuterol 2.5 mg 11/28/23 18:15 11/28/23 19:14 Albuterol Sulfate 2.5 Mg/3 Ml Vial.Neb NEB 2.5 mg Q4H PRN Administration Azithromycin 500 mg 11/28/23 10:15 11/30/23 08:51 Azithromycin 250 Mg Tablet PO 500 mg DAILY MEMO Administration Loperamide HCl 2 mg 11/30/23 07:26 Loperamide Hcl 2 Mg Capsule PO Q2H PRN Morphine Sulfate 2 mg 11/25/23 21:20 12/01/23 04:13 Morphine 4 Mg/Ml Inj IVP 2 mg Q1H PRN Administration Omeprazole 20 mg 11/26/23 17:00 12/01/23 06:43 Omeprazole [address] PO 20 mg BID@0700,1700 MEMO Administration Ondansetron HCl 4 mg 11/25/23 21:20 12/01/23 04:14 Ondansetron 2 Mg/Ml Inj IVP 4 mg Q4H PRN Administration Nausea Potassium Bicarbonate 25 meq 12/01/23 10:00 Potassium Bicarb 25 Meq Effervescent Tab PO 12/01/23 14:01 Q2H MEMO Sodium Chloride 5 ml 11/26/23 09:00 11/30/23 21:17 Sodium Chloride 0.9 % (Flush) 10 Ml Syringe IVF 5 ml BID MEMO Administration Sodium Chloride 250 ml 11/30/23 23:30 11/30/23 23:30 0.9 % Sodium Chloride 250 Ml IV 250 ml Q24H MEMO Administration Discontinued Medications Generic Name Dose Route Start Last Admin Trade Name Lawrence PRN Reason Stop Dose Admin Azithromycin 500 mg 11/26/23 17:15 11/27/23 17:12 Azithromycin 250 Mg Tablet PO 500 mg Q24H MEMO Administration Lactated Ringer's 1,000 mls @ 1,000 mls/hr 11/25/23 15:23 11/25/23 18:03 Lactated Ringers 1000 Ml IV 11/25/23 16:22 Infused .Q1H ONE Infusion Potassium Chloride/Dextrose/Sod Cl 1,000 mls @ 125 mls/hr 11/25/23 21:30 11/26/23 08:42 5 % Dex/0.9 Sod Chl+Kcl 20 Meq IV 11/26/23 05:29 Infused .Q8H MEMO Infusion Ceftriaxone Sodium 1 gm/ 100 mls @ 200 mls/hr 11/26/23 17:15 11/27/23 18:55 Sodium Chloride IVPB Infused Q24H MEMO Infusion Dextrose/Lactated Ringer's 1,000 mls @ 75 mls/hr 11/27/23 12:52 11/30/23 14:52 5 % Dextrose In Lac Ringer's IV Infused .[id number] MEMO Infusion Piperacillin Sod/Tazobactam 100 mls @ 200 mls/hr 11/28/23 00:00 12/01/23 07:57 Sod 3.375 gm/ Sodium Chloride IVPB Infused Q6H MEMO Infusion Vancomycin HCl 1,000 mg/ 510 mls @ 255 mls/hr 11/27/23 23:20 11/28/23 03:38 Sodium Chloride IVPB 11/27/23 23:21 Infused ONCE ONE Infusion Protocol Vancomycin HCl 750 mg/ Sodium 507.5 mls @ 253.75 mls/hr 11/28/23 11:30 Chloride IVPB Q12H MEMO Protocol Vancomycin HCl 750 mg/ Sodium 507.5 mls @ 253.75 mls/hr 11/29/23 03:30 Chloride IVPB Q24H MEMO Protocol Vancomycin HCl 750 mg/ Sodium 507.5 mls @ 253.75 mls/hr 11/29/23 01:00 11/29/23 03:20 Chloride IVPB Infused Q24H MEMO Infusion Protocol Vancomycin HCl 750 mg/ Sodium 257.5 mls @ 257.5 mls/hr 11/30/23 01:00 Chloride IVPB Q24H MEMO Protocol Iopamidol 95 ml 11/25/23 16:56 Iopamidol IV 11/25/23 16:57 .STK-MED ONE Ketorolac Tromethamine 15 mg 11/25/23 17:51 11/25/23 18:06 Ketorolac 15 Mg/Ml Inj IVP 11/25/23 17:52 15 mg ONCE ONE Administration Lidocaine HCl 7.5 ml 11/25/23 18:51 11/25/23 19:06 Lidocaine Hcl 4 % Top Soln 50 Ml Bottle PO 11/25/23 18:52 7.5 ml ONCE ONE Administration Lidocaine/Aluminum/Magnesium/Simeth 15 ml 11/25/23 18:51 11/25/23 19:06 Mag Hydrox/Aluminum Hyd/Simeth 30 Ml Oral.Susp PO 11/25/23 18:52 15 ml ONCE ONE Administration Lidocaine/Aluminum/Magnesium/Simeth Confirm 11/25/23 18:59 Mag Hydrox/Aluminum Hyd/Simeth 30 Ml Oral.Susp Administered 11/25/23 19:00 Dose 30 ml .ROUTE .STK-MED ONE Morphine Sulfate 4 mg 11/25/23 15:23 11/25/23 16:21 Morphine 4 Mg/Ml Inj IVP 11/25/23 15:24 4 mg ONCE ONE Administration Morphine Sulfate Confirm 11/25/23 15:28 Morphine 4 Mg/Ml Inj Administered 11/25/23 15:29 Dose 4 mg .ROUTE .STK-MED ONE Omeprazole 20 mg 11/26/23 09:00 11/26/23 08:37 Omeprazole [address] PO 20 mg BID MEMO Administration Pantoprazole Sodium 40 mg 11/25/23 21:22 11/25/23 22:54 Pantoprazole Sodium 40 Mg Inj IVP 11/25/23 21:23 40 mg ONCE ONE Administration Potassium Bicarbonate 25 meq 11/27/23 12:13 11/27/23 12:35 Potassium Bicarb 25 Meq Effervescent Tab PO 11/27/23 12:14 25 meq ONCE ONE Administration Potassium Bicarbonate 50 meq 11/30/23 09:23 11/30/23 10:21 Potassium Bicarb 25 Meq Effervescent Tab PO 11/30/23 09:24 50 meq ONCE ONE Administration Allergies Allergy/AdvReac Type Severity Reaction Status Date / Time No Known Drug Allergies Allergy Verified 03/10/23 08:27 Objective - Infectious Disease Objective Vital Signs: Vital Signs - 24 hr 11/30/23 11:44 11/30/23 15:23 11/30/23 15:23 Temperature 98.2 F 99.4 F Pulse Rate [Left Pulse Oximeter] 77 76 76 Respiratory Rate 20 18 18 Blood Pressure [Right Arm] 131/84 125/69 Pulse Oximetry 91 92 Oxygen Delivery Method Room Air Room Air 11/30/23 15:23 11/30/23 19:00 11/30/23 23:00 Temperature 98 F Pulse Rate [Left Pulse Oximeter] 75 Respiratory Rate 18 18 18 Blood Pressure [Right Arm] 119/56 L Pulse Oximetry 92 90 Oxygen Delivery Method Room Air Room Air 11/30/23 23:00 11/30/23 23:00 12/01/23 03:00 Temperature 97.7 F 99 F Pulse Rate [Left Pulse Oximeter] 75 82 Respiratory Rate 18 18 18 Blood Pressure [Right Arm] 135/65 121/51 L Pulse Oximetry 71 L 90 89 Oxygen Delivery Method Room Air Room Air Room Air 12/01/23 07:00 12/01/23 07:00 12/01/23 07:00 Temperature 98.2 F Pulse Rate [Left Pulse Oximeter] 85 85 Respiratory Rate 18 18 18 Blood Pressure [Right Arm] 131/72 Pulse Oximetry 90 90 Oxygen Delivery Method Room Air Room Air Narrative: Patient was not seen or examined. Results - Infectious Disease Results Labs: 11/27/23 23:15 Blood Blood Culture - Preliminary NO GROWTH AFTER 72 HOURS 11/27/23 23:10 Blood Blood Culture - Preliminary NO GROWTH AFTER 72 HOURS 11/25/23 16:18 Blood Blood Culture - Final NO GROWTH AFTER 5 DAYS 11/25/23 15:45 Blood Blood Culture - Final NO GROWTH AFTER 5 DAYS 11/29/23 14:28 Stool Stool Culture - Pending 11/28/23 11:59 Nares MRSA Screen - Final No MRSA (Methicillin resistant Staph aureus) isolated. Laboratory Tests 12/01/23 12/01/23 11/30/23 Range/Units 07:23 05:56 06:37 WBC 6.49 5.79 (4.50-11.00) K/uL RBC 4.33 3.87 L (4.30-5.90) m/uL Hgb 13.0 L 11.7 L (13.5-17.5) gm/dL Hct 38.8 35.3 L (37.0-53.0) % MCV 90 91 (80-100) fL MCH 30 30 (26-34) pg MCHC 34 33 (32-36) gm/dL RDW Coeff of Mickey 13.5 13.7 (11.5-15.5) % Plt Count 226 205 (140-440) K/uL Neut % (Auto) 71.6 67.2 (42.0-72.0) % Lymph % (Auto) 20.5 24.0 (20-44) % [place] % (Auto) 5.5 7.1 (0.0-11.0) % Eos % (Auto) 1.1 1.2 (0.0-7.0) % Baso % (Auto) 0.5 0.2 (0.0-3.0) % Neut # (Auto) 4.65 3.89 (1.7-7.0) K/uL Lymph # (Auto) 1.33 1.39 (0.90-2.90) K/uL [place] # (Auto) 0.40 0.40 (0.00-0.90) K/UL Eos # (Auto) 0.07 0.07 (0.00-0.50) K/uL Baso # (Auto) 0.03 0.01 (0.00-0.30) K/uL Abs Immat Gran (auto) 0.05 0.02 (0.00-0.30) K/uL Imm/Tot Granulo (auto) 0.8 0.3 % D-Dimer Quant (PE/DVT) (0.00-0.50) ug/ml Sodium 133 L 132 L (135-149) mmol/L Potassium 3.1 L 3.2 L (3.6-5.1) mmol/L Chloride 102 103 (96-114) mmol/L Carbon Dioxide 28 25 (20-32) mmol/L Anion Gap 3 L 4 L (7-15) mEq/L BUN 2 L 3 L (7-30) mg/dL Creatinine 0.8 0.8 (0.5-1.5) mg/dL Estimated Creat Clear 48.08 47.78 Estimated GFR 89 89 ml/min Glucose 90 110 (60-115) mg/dL Lactate (0.5-1.9) mmol/L Calcium 8.0 L 7.7 L (8.4-10.6) mg/dL Magnesium Pending (1.5-2.6) mg/dL Total Bilirubin (0.1-1.5) mg/dL Direct Bilirubin (0.0-0.5) mg/dL AST (12-35) U/L ALT (4-50) U/L Alkaline Phosphatase (40-150) U/L Troponin I (0.01-0.04) ng/mL C-Reactive Protein 5.3 H (0.5-1.0) mg/dL NT-Pro-B Natriuret Pep pg/mL Total Protein (6.0-8.3) g/dL Albumin (3.3-5.0) g/dL Lipase (23-300) U/L Procalcitonin (<0.50) ng/mL TSH (0.270-4.20) uIU/mL Urine Color (Yellow) Urine Appearance (Clear) Urine pH (5.0-8.5) Ur Specific [place] (1.000-1.030) Urine Protein (Negative) Urine Glucose (UA) (Negative) Urine Ketones (Negative) Urine Blood (Negative) Urine Nitrite (Negative) Urine Bilirubin (Negative) Urine Urobilinogen (0.2-1.0) Ur Leukocyte Esterase (Negative) Urine RBC (0-2) Urine WBC (0-5) Ur Squamous Epith Cells (None-Few) Urine Bacteria (None) Stl C. diff Tox B Gene (Negative) Stl C. diff 027-NAP1-BI (Negative) SARS-CoV-2 (PCR) (Negative) Hepatitis A IgM Ab (Negative) Hep Bs Antigen (Negative) Hep B Core IgM Ab (Negative) Hep C Ab Index (JESSEE) IV Hep C Ab Interp JESSEE (Negative) Hepatitis Interpret HIV 1&2 Ab/P24 Ag 4thGn (Negative) Influenza Type A (PCR) (Negative) Influenza Type B (PCR) (Negative) RSV (PCR) (Negative) POC Troponin I (0.01-0.04) ng/ml Lab Acknowledgement Test Added 11/29/23 11/29/23 11/28/23 Range/Units 14:28 06:22 05:54 WBC 5.73 6.23 (4.50-11.00) K/uL RBC 4.45 4.02 L (4.30-5.90) m/uL Hgb 13.4 L 12.1 L (13.5-17.5) gm/dL Hct 41.0 36.5 L (37.0-53.0) % MCV 92 91 (80-100) fL MCH 30 30 (26-34) pg MCHC 33 33 (32-36) gm/dL RDW Coeff of Mickey 14.1 14.1 (11.5-15.5) % Plt Count 180 179 (140-440) K/uL Neut % (Auto) 73.8 H 73.1 H (42.0-72.0) % Lymph % (Auto) 19.2 L 20.1 (20-44) % [place] % (Auto) 5.1 5.6 (0.0-11.0) % Eos % (Auto) 0.9 0.8 (0.0-7.0) % Baso % (Auto) 0.3 0.2 (0.0-3.0) % Neut # (Auto) 4.20 4.60 (1.7-7.0) K/uL Lymph # (Auto) 1.10 1.25 (0.90-2.90) K/uL [place] # (Auto) 0.30 0.30 (0.00-0.90) K/UL Eos # (Auto) 0.05 0.05 (0.00-0.50) K/uL Baso # (Auto) 0.02 0.01 (0.00-0.30) K/uL Abs Immat Gran (auto) 0.04 0.01 (0.00-0.30) K/uL Imm/Tot Granulo (auto) 0.7 0.2 % D-Dimer Quant (PE/DVT) (0.00-0.50) ug/ml Sodium 137 133 L (135-149) mmol/L Potassium 3.6 3.4 L (3.6-5.1) mmol/L Chloride 106 106 (96-114) mmol/L Carbon Dioxide 24 23 (20-32) mmol/L Anion Gap 7 4 L (7-15) mEq/L BUN 7 8 (7-30) mg/dL Creatinine 0.8 0.7 (0.5-1.5) mg/dL Estimated Creat Clear 45.36 45.36 Estimated GFR 89 93 ml/min Glucose 91 106 (60-115) mg/dL Lactate (0.5-1.9) mmol/L Calcium 7.8 L 7.6 L (8.4-10.6) mg/dL Magnesium (1.5-2.6) mg/dL Total Bilirubin 0.7 (0.1-1.5) mg/dL Direct Bilirubin (0.0-0.5) mg/dL AST 32 (12-35) U/L ALT 33 (4-50) U/L Alkaline Phosphatase 112 (40-150) U/L Troponin I 0.03 (0.01-0.04) ng/mL C-Reactive Protein 10.6 H 16.1 H (0.5-1.0) mg/dL NT-Pro-B Natriuret Pep 256 pg/mL Total Protein 5.6 L (6.0-8.3) g/dL Albumin 2.7 L (3.3-5.0) g/dL Lipase 38 (23-300) U/L Procalcitonin 40.50 H (<0.50) ng/mL TSH (0.270-4.20) uIU/mL Urine Color (Yellow) Urine Appearance (Clear) Urine pH (5.0-8.5) Ur Specific [place] (1.000-1.030) Urine Protein (Negative) Urine Glucose (UA) (Negative) Urine Ketones (Negative) Urine Blood (Negative) Urine Nitrite (Negative) Urine Bilirubin (Negative) Urine Urobilinogen (0.2-1.0) Ur Leukocyte Esterase (Negative) Urine RBC (0-2) Urine WBC (0-5) Ur Squamous Epith Cells (None-Few) Urine Bacteria (None) Stl C. diff Tox B Gene Negative (Negative) Stl C. diff 027-NAP1-BI PRESUMPTIVE NEGATIVE (Negative) SARS-CoV-2 (PCR) (Negative) Hepatitis A IgM Ab Negative (Negative) Hep Bs Antigen Negative (Negative) Hep B Core IgM Ab Negative (Negative) Hep C Ab Index (JESSEE) 0.06 IV Hep C Ab Interp JESSEE Negative (Negative) Hepatitis Interpret See Note HIV 1&2 Ab/P24 Ag 4thGn Negative (Negative) Influenza Type A (PCR) (Negative) Influenza Type B (PCR) (Negative) RSV (PCR) (Negative) POC Troponin I (0.01-0.04) ng/ml Lab Acknowledgement 11/27/23 11/27/23 11/26/23 Range/Units 23:10 08:23 09:14 WBC 8.07 6.61 (4.50-11.00) K/uL RBC 4.41 4.75 (4.30-5.90) m/uL Hgb 13.2 L 14.1 (13.5-17.5) gm/dL Hct 40.0 43.4 (37.0-53.0) % MCV 91 91 (80-100) fL MCH 30 30 (26-34) pg MCHC 33 33 (32-36) gm/dL RDW Coeff of Mickey 14.3 14.6 (11.5-15.5) % Plt Count 183 193 (140-440) K/uL Neut % (Auto) 81.2 H 73.4 H (42.0-72.0) % Lymph % (Auto) 13.3 L 21.5 (20-44) % [place] % (Auto) 4.7 4.1 (0.0-11.0) % Eos % (Auto) 0.5 0.3 (0.0-7.0) % Baso % (Auto) 0.1 0.2 (0.0-3.0) % Neut # (Auto) 6.60 4.90 (1.7-7.0) K/uL Lymph # (Auto) 1.10 1.42 (0.90-2.90) K/uL [place] # (Auto) 0.40 0.30 (0.00-0.90) K/UL Eos # (Auto) 0.04 0.02 (0.00-0.50) K/uL Baso # (Auto) 0.01 0.01 (0.00-0.30) K/uL Abs Immat Gran (auto) 0.02 0.03 (0.00-0.30) K/uL Imm/Tot Granulo (auto) 0.2 0.5 % D-Dimer Quant (PE/DVT) (0.00-0.50) ug/ml Sodium 134 L 138 (135-149) mmol/L Potassium 3.4 L 3.4 L (3.6-5.1) mmol/L Chloride 105 106 (96-114) mmol/L Carbon Dioxide 21 26 (20-32) mmol/L Anion Gap 8 6 L (7-15) mEq/L BUN 11 17 (7-30) mg/dL Creatinine 0.7 1.0 (0.5-1.5) mg/dL Estimated Creat Clear 39.12 38.44 Estimated GFR 93 76 ml/min Glucose 65 95 (60-115) mg/dL Lactate 0.9 1.9 (0.5-1.9) mmol/L Calcium 8.0 L 8.0 L (8.4-10.6) mg/dL Magnesium 2.1 (1.5-2.6) mg/dL Total Bilirubin 1.0 1.0 (0.1-1.5) mg/dL Direct Bilirubin 0.2 (0.0-0.5) mg/dL AST 45 H 81 H (12-35) U/L ALT 49 74 H (4-50) U/L Alkaline Phosphatase 138 167 H (40-150) U/L Troponin I 0.01 (0.01-0.04) ng/mL C-Reactive Protein 16.8 H 13.7 H (0.5-1.0) mg/dL NT-Pro-B Natriuret Pep pg/mL Total Protein 6.2 6.3 (6.0-8.3) g/dL Albumin 3.1 L 3.3 (3.3-5.0) g/dL Lipase (23-300) U/L Procalcitonin (<0.50) ng/mL TSH 0.746 (0.270-4.20) uIU/mL Urine Color (Yellow) Urine Appearance (Clear) Urine pH (5.0-8.5) Ur Specific [place] (1.000-1.030) Urine Protein (Negative) Urine Glucose (UA) (Negative) Urine Ketones (Negative) Urine Blood (Negative) Urine Nitrite (Negative) Urine Bilirubin (Negative) Urine Urobilinogen (0.2-1.0) Ur Leukocyte Esterase (Negative) Urine RBC (0-2) Urine WBC (0-5) Ur Squamous Epith Cells (None-Few) Urine Bacteria (None) Stl C. diff Tox B Gene (Negative) Stl C. diff 027-NAP1-BI (Negative) SARS-CoV-2 (PCR) (Negative) Hepatitis A IgM Ab (Negative) Hep Bs Antigen (Negative) Hep B Core IgM Ab (Negative) Hep C Ab Index (JESSEE) IV Hep C Ab Interp JESSEE (Negative) Hepatitis Interpret HIV 1&2 Ab/P24 Ag 4thGn (Negative) Influenza Type A (PCR) (Negative) Influenza Type B (PCR) (Negative) RSV (PCR) (Negative) POC Troponin I (0.01-0.04) ng/ml Lab Acknowledgement 11/25/23 11/25/23 11/25/23 Range/Units 18:00 15:45 15:45 WBC 11.85 H (4.50-11.00) K/uL RBC 5.02 (4.30-5.90) m/uL Hgb 14.9 (13.5-17.5) gm/dL Hct 45.4 (37.0-53.0) % MCV 90 (80-100) fL MCH 30 (26-34) pg MCHC 33 (32-36) gm/dL RDW Coeff of Mickey 14.6 (11.5-15.5) % Plt Count 238 (140-440) K/uL Neut % (Auto) 73.3 H (42.0-72.0) % Lymph % (Auto) 20.5 (20-44) % [place] % (Auto) 4.8 (0.0-11.0) % Eos % (Auto) 0.5 (0.0-7.0) % Baso % (Auto) 0.2 (0.0-3.0) % Neut # (Auto) 8.70 H (1.7-7.0) K/uL Lymph # (Auto) 2.40 (0.90-2.90) K/uL [place] # (Auto) 0.60 (0.00-0.90) K/UL Eos # (Auto) 0.10 (0.00-0.50) K/uL Baso # (Auto) 0.00 (0.00-0.30) K/uL Abs Immat Gran (auto) 0.10 (0.00-0.30) K/uL Imm/Tot Granulo (auto) 0.7 % D-Dimer Quant (PE/DVT) 0.77 H (0.00-0.50) ug/ml Sodium 138 (135-149) mmol/L Potassium 3.2 L (3.6-5.1) mmol/L Chloride 104 (96-114) mmol/L Carbon Dioxide 23 (20-32) mmol/L Anion Gap 11 (7-15) mEq/L BUN 22 (7-30) mg/dL Creatinine 0.9 (0.5-1.5) mg/dL Estimated Creat Clear 43.47 Estimated GFR 86 ml/min Glucose 71 (60-115) mg/dL Lactate 1.2 (0.5-1.9) mmol/L Calcium 8.8 (8.4-10.6) mg/dL Magnesium Cancelled 2.2 (1.5-2.6) mg/dL Total Bilirubin 1.0 (0.1-1.5) mg/dL Direct Bilirubin (0.0-0.5) mg/dL AST 53 H (12-35) U/L ALT 37 (4-50) U/L Alkaline Phosphatase 114 (40-150) U/L Troponin I (0.01-0.04) ng/mL C-Reactive Protein (0.5-1.0) mg/dL NT-Pro-B Natriuret Pep pg/mL Total Protein 7.3 (6.0-8.3) g/dL Albumin 3.9 (3.3-5.0) g/dL Lipase 63 (23-300) U/L Procalcitonin (<0.50) ng/mL TSH (0.270-4.20) uIU/mL Urine Color Yellow (Yellow) Urine Appearance Clear (Clear) Urine pH 6.0 (5.0-8.5) Ur Specific [place] 1.010 (1.000-1.030) Urine Protein Negative (Negative) Urine Glucose (UA) Negative (Negative) Urine Ketones 2+ A (Negative) Urine Blood Negative (Negative) Urine Nitrite Negative (Negative) Urine Bilirubin Negative (Negative) Urine Urobilinogen 0.2 (0.2-1.0) Ur Leukocyte Esterase Negative (Negative) Urine RBC 0-2 (0-2) Urine WBC 0-2 (0-5) Ur Squamous Epith Cells None (None-Few) Urine Bacteria None (None) Stl C. diff Tox B Gene (Negative) Stl C. diff 027-NAP1-BI (Negative) SARS-CoV-2 (PCR) (Negative) Hepatitis A IgM Ab (Negative) Hep Bs Antigen (Negative) Hep B Core IgM Ab (Negative) Hep C Ab Index (JESSEE) IV Hep C Ab Interp JESSEE (Negative) Hepatitis Interpret HIV 1&2 Ab/P24 Ag 4thGn (Negative) Influenza Type A (PCR) (Negative) Influenza Type B (PCR) (Negative) RSV (PCR) (Negative) POC Troponin I (0.01-0.04) ng/ml Lab Acknowledgement 11/25/23 11/25/23 Range/Units 15:24 15:20 WBC (4.50-11.00) K/uL RBC (4.30-5.90) m/uL Hgb (13.5-17.5) gm/dL Hct (37.0-53.0) % MCV (80-100) fL MCH (26-34) pg MCHC (32-36) gm/dL RDW Coeff of Mickey (11.5-15.5) % Plt Count (140-440) K/uL Neut % (Auto) (42.0-72.0) % Lymph % (Auto) (20-44) % [place] % (Auto) (0.0-11.0) % Eos % (Auto) (0.0-7.0) % Baso % (Auto) (0.0-3.0) % Neut # (Auto) (1.7-7.0) K/uL Lymph # (Auto) (0.90-2.90) K/uL [place] # (Auto) (0.00-0.90) K/UL Eos # (Auto) (0.00-0.50) K/uL Baso # (Auto) (0.00-0.30) K/uL Abs Immat Gran (auto) (0.00-0.30) K/uL Imm/Tot Granulo (auto) % D-Dimer Quant (PE/DVT) (0.00-0.50) ug/ml Sodium (135-149) mmol/L Potassium (3.6-5.1) mmol/L Chloride (96-114) mmol/L Carbon Dioxide (20-32) mmol/L Anion Gap (7-15) mEq/L BUN (7-30) mg/dL Creatinine (0.5-1.5) mg/dL Estimated Creat Clear Estimated GFR ml/min Glucose (60-115) mg/dL Lactate (0.5-1.9) mmol/L Calcium (8.4-10.6) mg/dL Magnesium (1.5-2.6) mg/dL Total Bilirubin (0.1-1.5) mg/dL Direct Bilirubin (0.0-0.5) mg/dL AST (12-35) U/L ALT (4-50) U/L Alkaline Phosphatase (40-150) U/L Troponin I (0.01-0.04) ng/mL C-Reactive Protein (0.5-1.0) mg/dL NT-Pro-B Natriuret Pep pg/mL Total Protein (6.0-8.3) g/dL Albumin (3.3-5.0) g/dL Lipase (23-300) U/L Procalcitonin (<0.50) ng/mL TSH (0.270-4.20) uIU/mL Urine Color (Yellow) Urine Appearance (Clear) Urine pH (5.0-8.5) Ur Specific [place] (1.000-1.030) Urine Protein (Negative) Urine Glucose (UA) (Negative) Urine Ketones (Negative) Urine Blood (Negative) Urine Nitrite (Negative) Urine Bilirubin (Negative) Urine Urobilinogen (0.2-1.0) Ur Leukocyte Esterase (Negative) Urine RBC (0-2) Urine WBC (0-5) Ur Squamous Epith Cells (None-Few) Urine Bacteria (None) Stl C. diff Tox B Gene (Negative) Stl C. diff 027-NAP1-BI (Negative) SARS-CoV-2 (PCR) Negative SARS-CoV-2 (Negative) Hepatitis A IgM Ab (Negative) Hep Bs Antigen (Negative) Hep B Core IgM Ab (Negative) Hep C Ab Index (JESSEE) IV Hep C Ab Interp JESSEE (Negative) Hepatitis Interpret HIV 1&2 Ab/P24 Ag 4thGn (Negative) Influenza Type A (PCR) Negative PCR FLU A (Negative) Influenza Type B (PCR) Negative PCR FLU B (Negative) RSV (PCR) Negative PCR RSV (Negative) POC Troponin I 0.02 (0.01-0.04) ng/ml Lab Acknowledgement Assessment and Plan Assessment and Plan Assessment and Plan: 78yoM who is originally from [facility] but has been in [place] ~45 years, with hx of HTN, CAD with STEMI in the past, prior TIA and prior CCY, who began experiencing 2 weeks of bodyaches, cough and weakness in the setting of his reportedly having similar sx's prior. Her sx's resolved, but he continued to have the above issues, along with development of epigastric pain and decreased PO intake 48 hours prior to admission. He had not noted fevers/chills at home, had no N/V,D, no sx's, no rashes, no AMS or MONGE per notes; however given his above sx's, he presented to [facility] on 11/25/23 for further cares. Here, he was afebrile, but tachypneic and intermittently hypoxic. WBC count was up at 11.85, K was low at 3.2 and Cr was 0.9. LFTs were only notable for an AST of 53. UA was neg for LE/nitrite. Lactate was WNL at 1.2. Flu/COVID testing were neg. D-dimer was elevated at 0.77, troponin was neg at 0.02. EKG showed first degree AVB with LAE; QTc was <500. Given his hypoxia and elevated D-dimer, CTA C/A/P was done--this showed no PE, but did show some centrilobular nodules and bronchial wall thickening c/f infection vs inflammation; a 3 mm LLL nodule was also noted. Diverticulosis was seen without associated infection, along with some air/fluid levels in the colon without AMBER. He was admitted at that time for ? PNA/URI and for further evaluation of his GI sx's; given lower concerns initially for bacterial respiratory infection, he was given supplemental O2, Abx were held, but blood cx x 2 were obtained on 11/24--these returned neg. EGD was planned as well for his epigastric pain sx's, however on 11/25 he began having fevers, hence he was placed on IV ceftriaxone and PO azithromycin to cover for PNA. LFTs on 11/25 were noted to be up, with AST now at 81 ALT at 74, and alk phos at 167; T.bili was WNL at 1. On 11/26, he again had fevers with increased RR again--given this, CXR was done, which raised c/f developing RLL PNA vs edema. Blood cx x 2 were repeated, Strep/Legionella urinary Ag testing was obtained, and he was broadened to Zosyn/vancomycin/azithromycin. Sputum cx was unable to be obtained at that time it seems. Hep A-C testing was ordered, along with HIV as well, and MRSA screen was obtained. In addition, Ab US was done on 11/26, which showed a heterogeneous liver with otherwise no other acute abnormalities. MRSA screen returned neg, 11/26 blood cx x 2 returned neg, HIV testing was neg as well. Hep A-C and Strep/Legionella urinary Ag were pending. However, on the above Abx, his WBC count normalized, his supplemental O2 was weaned off, and his fevers improved. LFTs also improved. However, he continued to have poor PO intake and e pigastric pain. ID was consulted on 11/29/23 to help assist in Abx management. Had spoken with hospitalist regarding above case--his CXR imaging raised c/f RLL PNA and given his cough, hypoxia and fevers, he likely developed a bacterial superinfection in the setting of a prior viral URI illness ( had similar sx's which resolved, per primary service). He improved on Zosyn/vanco/azithromycin therapy, with 11/24 and 11/26 blood cx x 4 sets total all remaining neg, and MRSA screen returning neg on 11/27, hence vancomycin was stopped on 11/28. Patient had low grade temp x 1 on 11/28 up to 100.5 F, but since then, no fevers, WBC count remains WNL, and he remains on RA. Zosyn was therefore stopped, and azithromycin continued given pending Legionella testing. No sputum cx's were able to be obtained. At this point, so long as patient is remaining well from pulmonary standpoint, would plan to complete a TOTAL of 7 days of azithromycin from 11/25 start date (through 12/03/23) to cover for atypical PNA; alternatively levofloxacin could be used as well (dosed for GFR) to complete 7 day course if a bit broader coverage for PNA is desired. His epigastric pain, poor PO intake and elevated LFTs with Ab US showing heterogenous liver raise c/f an underlying GI/hepatic etiology to these sx's. GERD, peptic ulcer disease and mesenteric ischemia (chronic) are all in the ddx, as well as cirrhosis with associated portal hypertensive gastropathy. HIV testing is neg, Hep A-C testing are also neg now. C.dif is testing, stool cx are pending. GI consult, it appears EGD is to be done today--if bx's are obtained, would test for H.pylori, and if positive, and assistance in needed please notify ID and we would be happy to help with this. RECOMMENDATIONS; 1. At this point, given patient is feeing better, is afebrile since 11/28, has normal WBC count and is on RA, and 11/24 and 11/26 blood cx x 4 sets all remain neg, reasonable to complete 7 days of azithromycin 500 mg daily from date of 11/25 initiation (through 12/03/23) to cover for PNA/? atypical PNA. 2. Alternatively, could also use levofloxacin 750 mg PO Q48H rather than azithromycin (CrCl <50; no AAA hx, not on warfarin, and 11/25 EKG showed QTc< 500) if broader coverage is desired, to complete 7 day course 3. If stool cx are obtained, return positive for pathogen, and ID assistance is needed, please call us back to help assist in Abx management 4. Once EGD is done, would add H.pylori testing to any bx's that are obtained--if positive, and assistance in needed please notify ID and we would be happy to help with this. 5. Regardless of whether azithromycin is continued or patient is switched to levofloxacin, would check one more EKG in next 24 hours to ensure QTc remains <500 6. If levofloxacin is chosen, please space out all MVI/calcium/dairy/iron pills and acid meds at least 2 hours before/after taking this medication. ID will otherwise sign off at this point, but please page us with questions- thanks! Emmanuel Forrest MD, [facility] Division of Infectious Disease
[2023-12-01 08:41] LABS: Magnesium* 1.9 mg/dL (1.5-2.6)
[2023-12-01] MEDS: AZITHROMYCIN 250 MG TABLET 500 MG PO (08:54)
--- NOTE | 2023-12-01 10:42 | W.ANESCHARGE ---
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
--- NOTE | 2023-12-01 11:02 | P.ANES_ITS ---
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
--- NOTE | 2023-12-01 11:02 | W.ANESCHARGE ---
Anesthesia Charges Start Date/Time Anesthesia Start Date: 12/01/23 Anesthesia Start Time: 10:30 Stop Date/Time Anesthesia Stop Date: 12/01/23 Anesthesia Stop Time: 10:52 Summary Emergency: YARD COORDINATOR Extremes of Age - Over 70 or under 1: YARD COORDINATOR
[2023-12-01 11:58] VITALS: TEMP 37.2; O2SAT 96
[2023-12-01] MEDS: SODIUM CHLORIDE 0.9 % (FLUSH) 10 ML SYRINGE 5 ML IVF (12:24)
[2023-12-01] MEDS: POTASSIUM BICARB 25 MEQ EFFERVESCENT TAB PO ×3 (12:24→16:13)
--- NOTE | 2023-12-01 12:35 | P.IMPN_ITS ---
Progress Note: A&P Assessment and plan (1) Hypoxia: Problem details: On admission patient was requiring oxygen. Intermittently has needed oxygen but now largely resolved. Currently needs it after sedation for endoscopy Status: Acute (2) Pneumonia: Problem details: Appears to have right lower lobe pneumonia radiographically and clinically. Clinically resolved with treatment with Zosyn and azithromycin. Antibiotics were stopped Status: Acute (3) Epigastric abdominal pain: Problem details: Benign CT and benign examination. Pain is intermittent and getting better. Anorexia nausea worse today. Cause for this is uncertain. EGD shows gastritis which may be contributing. On omeprazole for the last few days Status: Acute (4) Fever: Problem details: Had fever on admission with occasional recurrent fever. No fever for the last 36 hours. Stop antibiotics Status: Acute (5) Abnormal liver enzymes: Problem details: Ultrasound of the right upper quadrant shows liver nodularity. No previous history of any type of liver disease. Status post cholecystectomy. Hepatitis serology negative. Liver enzymes normalized without specific and intervention. Status: Acute (6) Malnutrition: Problem details: Patient has been eating poorly for 6 or 7 days now. Encourage p.o. intake. Discharge tomorrow if continue to eat well. Status: Acute (7) Diarrhea: Problem details: C diff negative. Stool culture pending. Diarrhea appears better today. Status: Acute (8) Generalized pain: Problem details: Patient reports multiple areas of musculoskeletal pain including base of the neck and shoulders, left foot and ankle, right upper extremity, examination of these areas has been unremarkable for signs of infection or inflammation or trauma. He does have a history of gout as well as generalized osteoarthritis. Status: Acute (9) Hypokalemia: Problem details: Low potassium being replaced. Likely due to poor oral intake over the past week. Status: Acute Plan Continue in-hospital for evaluation and management of hypoxia, anorexia with poor oral intake and malnutrition, abdominal pain. Discharge to home for outpatient follow-up if able to tolerate food and fluid by mouth. Time Spent With Patient Total time spent: Total time spent today is 50 minutes, 30 minutes in coordination care discussing with patient, daughter and other providers management of anorexia, abdominal pain, pneumonia Subjective Date Seen: 12/01/23 Interval history: Mery Durham is a 78 year old male with history of coronary disease admitted to the hospital with a 2 week history of illness. History is obtained from the patient with his daughter providing translation at his request. He initially became ill about 2 weeks ago with a cough and dyspnea. He also noted prominent fatigue and generalized achiness. He has not had a fever or upper respiratory symptoms such as sore throat congestion rhinorrhea. In the last 2 days he developed epigastric pain. He lost his appetite and has been eating and drinking very little in the last 2 days. According to his daughter his has had similar symptoms. She is now hospitalized at [facility] with a kidney stone. In the emergency department he was found to be hypoxic. He has never been diagnosed with any lung disease. He has not ever been a smoker or had any occupational hazard to inhaled pulmonary irritants or toxins. He has never been evaluated or treated for low oxygen before. He has a history of coronary disease with previous STEMI treated with a stent. No previous thrombophilia, DVT or PE Patient has slept most the night as well as most the day. He has briefly been off oxygen and done well but then requiring oxygen again. He has had almost nothing to eat since admission. He reports no appetite. He has had occasions where he has had epigastric pain but these are self-limited and seemed to resolve. Today he had onset of a fever as well. He has no new symptoms. Day 2: Continues to have low-grade fevers. Continues to have fairly severe nausea. Eating very little. Not vomiting. Breathing may be a little better. Mostly not needing oxygen anymore except episodically. Having occasional episodes of severe epigastric pain which seemed to spontaneously resolve. No other pain problems. Day 3: Fever spike to 101.6 last night. Back on oxygen. Repeat blood cultures pending. Chest x-ray more suggestive of right lower lobe pneumonia. Antibiotics switched from ceftriaxone and azithromycin to vancomycin and Zosyn. Still no appetite and no energy. Currently having no pain including no abdominal pain. Very poor p.o. intake Day 4: No fever overnight. He does report feeling a little warm or chilled to his family but no significant fever documented. Occasionally needing supplemental oxygen. Still very poor appetite and poor oral intake. Intermittently complaining of epigastric pain when he eats. This morning he started having diarrhea. Nonbloody. No melena. Day 5: Patient reports feeling better. He is anxious to go home today. Reports his appetite is better. He reports his abdominal pain has resolved. He had a low-grade fever last night, 100.5 F. He has not had any diarrhea since last night. C diff test was negative. Stool and blood cultures are pending. He is off oxygen this morning. Acute Hepatitis serologies are negative. Day 6: Yesterday afternoon patient had increasing abdominal pain requiring morphine. In the morning he reported he had an appetite but he did not eat much food or drink much fluid the rest of the day. He has not had any recurrent fever. He has been off oxygen. This morning he reports generalized pain. He he points to his left foot and ankle his right arm and then reports it hurts everywhere. He reports that he is afraid to eat because he thinks it will make his stomach hurt more. He will underwent EGD today which showed gastritis without significant ulcer disease. Exam Narrative: Exam Narrative: He is alert and appears in no obvious distress. Now requiring oxygen after the sedation for his EGD. Breathing is unlabored. Cardiovascular: S1, S2, regular rate and rhythm. Abdomen is soft. Bowel sounds are active there is no tenderness or mass. Feet ankles and legs and arms are all examined. No obvious redness, inflammation, trauma except upper extremity has some bruising from phlebotomy and IVs. Const: Vital Signs, click to edit/add: Vital Signs - 24 hr 11/30/23 15:23 11/30/23 15:23 11/30/23 15:23 Temperature 99.4 F Pulse Rate [Left P ulse Oximeter] 76 76 Respiratory Rate 18 18 18 Blood Pressure [Ri ght Arm] 125/69 Pulse Oximetry 92 92 Oxygen Delivery Me thod Room Air Room Air 11/30/23 19:00 11/30/23 23:00 11/30/23 23:00 Temperature 98 F Pulse Rate [Left P ulse Oximeter] 75 Respiratory Rate 18 18 18 Blood Pressure [Ri ght Arm] 119/56 L Pulse Oximetry 90 71 L Oxygen Delivery Me thod Room Air Room Air 11/30/23 23:00 12/01/23 03:00 12/01/23 07:00 Temperature 97.7 F 99 F Pulse Rate [Left P ulse Oximeter] 75 82 85 Respiratory Rate 18 18 18 Blood Pressure [Ri ght Arm] 135/65 121/51 L Pulse Oximetry 90 89 Oxygen Delivery Az thod Room Air Room Air 12/01/23 07:00 12/01/23 07:00 12/01/23 11:58 Temperature 98.2 F 98.9 F Pulse Rate [Left P ulse Oximeter] 85 Respiratory Rate 18 18 Blood Pressure [Ri ght Arm] 131/72 Pulse Oximetry 90 90 96 Oxygen Delivery Me thod Room Air Room Air Room Air Documenting provider has reviewed patient's vital signs: yes Labs Labs: Laboratory Results - last 24 hr 12/01/23 12/01/23 05:56 07:23 WBC 6.49 RBC 4.33 Hgb 13.0 L Hct 38.8 MCV 90 MCH 30 MCHC 34 RDW Coeff of Mickey 13.5 Plt Count 226 Neut % (Auto) 71.6 Lymph % (Auto) 20.5 [place] % (Auto) 5.5 Eos % (Auto) 1.1 Baso % (Auto) 0.5 Neut # (Auto) 4.65 Lymph # (Auto) 1.33 [place] # (Auto) 0.40 Eos # (Auto) 0.07 Baso # (Auto) 0.03 Abs Immat Gran (auto) 0.05 Imm/Tot Granulo (auto) 0.8 Sodium 133 L Potassium 3.1 L Chloride 102 Carbon Dioxide 28 Anion Gap 3 L BUN 2 L Creatinine 0.8 Estimated Creat Clear 48.08 Estimated GFR 89 Glucose 90 Calcium 8.0 L Magnesium 1.9 Lab Acknowledgement Test Added
[2023-12-01 15:00] VITALS: BP 140/95; PULSE 91; RESP 18; TEMP 36.9; O2SAT 97
--- NOTE | 2023-12-01 15:22 | PC.NURSE ---
End of shift: patient up with 1 assist walker/gb to chair. Using urinal indep. Patient resistive to eating but had a few bites for lunch. C/O pain when he eats, prn morphine x1, patient stated he has pain everywhere. Patient can communicate w/o diplomatic interpreter, daughter at bedside and can assist with translation. Patient afebrile this shift. VSS. Patient 88-91% on RA. IV replaced to right hand, SL, 22G. Plan: discharge to home tomorrow.
[2023-12-01] MEDS: ACETAMINOPHEN 325 MG TABLET 650 MG PO (16:13)
--- NOTE | 2023-12-01 16:24 | PC.SOCIAL ---
Discharge planning: social worker health services received a call from Patricia who is a [facility] Coordinator for the pt. Patricia's number is #[phone]. Patricia is able to assist with any discharge needs for the pt, if needed. Social work to follow-up as needed.
[2023-12-01 17:03] LABS: H pylori Ag Stool* Negative (Negative)
--- NOTE | 2023-12-01 19:03 | PC.NURSE ---
End of shift: Assumed care of patient at 1500. He was largely incontinent of B&B at 1600 when nurse brought scheduled meds in requiring a complete linen, gown and brief change. He has been continent/incontinent of BM with loose, watery stools. Stool sample collected, resulted negative for H. Pylori. Pt has been on RA maintaining O2 89-94%. SBA to bathroom for transfers. PIV in right hand SL and C/D/I. Pt is unmotivated to eat, drink or get up into the chair. He reports he is too cold and wants to stay in bed despite having the Aqua K pad on and multiple blankets. He?s resistant on eating because he reports he has stomach pain if he eats. Toe Trimmer provided re-education on the PPI that we?re giving him before meals to help with the stomach pain and that he won?t get better if he doesn?t try. Toe Trimmer informed pt that the doctor is planning on sending him home tomorrow and he responded ?no, too cold, stay longer.? Pt tolerated chicken stir cadet for dinner eating up in his chair. ?
[2023-12-01 20:27] VITALS: BP 113/59; PULSE 88; RESP 18; TEMP 36.4; O2SAT 90
[2023-12-01] MEDS: OXYCODONE 5 MG TABLET 2.5 MG PO (21:08)
[2023-12-01 23:00] VITALS: BP 117/62; PULSE 94; RESP 18; TEMP 37.3; O2SAT 90
--- NOTE | 2023-12-01 23:37 | PC.NURSE ---
End of shift note [id number]: Pt transferring with SBA using walker and GB. Abdominal pain treated with PRN Oxycodone with education provided to pt and family. 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 No IV in place though MD aware per day shift RN. O2 sat 90% on RA. VSS. Po intake encouraged.
[2023-12-02] MEDS: OXYCODONE 5 MG TABLET 2.5 MG PO (01:39)
[2023-12-02 03:00] VITALS: BP 127/52; PULSE 86; RESP 22; TEMP 37.7; O2SAT 90
[2023-12-02 03:26] VITALS: TEMP 37.7
[2023-12-02] MEDS: ACETAMINOPHEN 325 MG TABLET 650 MG PO ×2 (03:26→09:13)
[2023-12-02 06:17] LABS: Basophils Absolute Auto 0.03 K/uL (0.00-0.30); Basophils Percent Auto 0.4 % (0.0-3.0); Eosinophils Absolute Auto 0.05 K/uL (0.00-0.50); Eosinophils Percent Auto 0.6 % (0.0-7.0); Hematocrit 38.1 % (37.0-53.0); Hemoglobin* 12.7 gm/dL (13.5-17.5); Immature Granulocytes Abs Auto 0.11 K/uL (0.00-0.30); Immature Granulocytes Pct Auto 1.4 %; Lymphocytes Percent Auto 19.8 % (20-44); Mean Corpuscular HGB Conc 33 gm/dL (32-36); Mean Corpuscular Hemoglobin 30 pg (26-34); Mean Corpuscular Volume 89 fL (80-100); Monocytes Percent Auto 8.7 % (0.0-11.0); Neutrophils Absolute Auto 5.37 K/uL (1.7-7.0); Neutrophils Percent Auto 69.1 % (42.0-72.0); Platelet Count* 254 K/uL (140-440); RDW Coefficient of Variation % 13.5 % (11.5-15.5); Red Blood Count 4.26 m/uL (4.30-5.90); White Blood Count* 7.78 K/uL (4.50-11.00)
[2023-12-02] MEDS: OMEPRAZOLE 20 MG CAPSULE DR PO (06:21)
[2023-12-02 06:24] LABS: Slide Review Reflex No
[2023-12-02 06:27] LABS: Chloride* 100 mmol/L (96-114); Potassium* 3.7 mmol/L (3.6-5.1); Sodium* 130 mmol/L (135-149)
[2023-12-02 06:29] LABS: Creatinine* 0.8 mg/dL (0.5-1.5); Est. Creatinine Clearance* 48.08; Estimated Glomerular Filt Rate 89 ml/min
[2023-12-02 06:30] LABS: Anion Gap 5 mEq/L (7-15); Blood Urea Nitrogen* 5 mg/dL (7-30); Carbon Dioxide* 25 mmol/L (20-32); Glucose* 87 mg/dL (60-115)
[2023-12-02 07:00] VITALS: BP 123/60; PULSE 81; RESP 18; TEMP 37.3; O2SAT 92; O2SAT 93
[2023-12-02] MEDS: SODIUM CHLORIDE 1 GM TABLET PO (09:14)
--- NOTE | 2023-12-02 09:58 | P.DS_ITS ---
DS: Providers Provider Date Seen: 12/02/23 Date of admission: 11/26/23 17:08 Primary care physician: Florentino Luna MD Admitting Clinician: Singh Ross MD Consults: 11/25/23 23:04 Consult to Occupational Therapy [CONS] Routine Comment: Reason(s) for OT Consult:: ADLs Prior to Discharge Any Restrictions?:: No Restrictions Consult to Physical Therapy [CONS] Routine Comment: Reason(s) for PT Consult:: Evaluate Ambulation Any Restrictions?:: No Restrictions 11/29/23 14:45 Consult to Infectious Diseases [CONS] Routine Comment: Consulting Provider: [facility] Consult priority: Urgent Has provider been notified: Yes Call back required?: Yes Attending Physician on discharge: ABIMAEL Busby, [facility] Date of Discharge: 12/02/23 DS: Diagnosis Discharge Diagnosis (1) Pneumonia: Status: Acute Problem details: Treated for community-acquired pneumonia, right lower lobe pneumonia radiographically and clinically (febrile with hypoxia). Weaned to room air prior to discharge. Clinically resolved with treatment with Zosyn and a zithromycin. Antibiotics were discontinued. (2) Epigastric abdominal pain: Status: Acute Problem details: Benign CT and benign examination. EGD showed gastritis. H pylori negative. Initiated on omeprazole with improvement. Continue on discharge. Adequate oral intake on day of discharge. Recommend further outpatient workup with PCP, specialty consults as needed. (3) Abnormal liver enzymes: Status: Acute Problem details: Ultrasound of the right upper quadrant shows liver nodularity. No previous history of any type of liver disease. Status post cholecystectomy. Hepatitis serology negative. Liver enzymes normalized without specific intervention. Outpatient follow-up. (4) Fever: Status: Acute Problem details: Intermittent recurrent fever on admission, resolved. Antibiotics discontinued. (5) Diarrhea: Status: Acute Problem details: Resolved. C diff negative. (6) Generalized pain: Status: Acute Problem details: Patient reports multiple areas of musculoskeletal pain including base of the neck and shoulders, left foot and ankle, right upper extremity, examination of these areas has been unremarkable for signs of infection or inflammation or trauma. He does have a history of gout as well as generalized osteoarthritis. Recommend further outpatient evaluation with PCP. (7) Hypokalemia: Status: Acute Problem details: Resolved prior to discharge. (8) Hyponatremia: Status: Acute Problem details: Sodium 130-134 in setting of poor oral intake. Recheck with PCP. DS: Summary Hospital Course Hospital Course: [age] year old male past medical history significant for gout, hypertension, CAD, osteoarthritis, TIA was admitted to the medical floor for further management abdominal pain, hypoxia, fever and community-acquired pneumonia. Course of care and details as noted above. Hypoxia resolved, pneumonia managed with IV course antibiotics. Abdominal pain improved with adequate oral intake prior to discharge. Continue PPI. Recommend re-evaluation and ongoing management with PCP. Remainder of chronic medical comorbidities were monitored and managed with home medications. Status at Discharge Overall status at discharge: patient is back to baseline Time Spent with Patient Time attestation: Total time spent providing and/or coordinating discharge services: Time spent: Greater than 30 minutes Exam Narrative: Exam Narrative: PHYSICAL EXAM General: Pleasant, conversant, NAD Cardiovascular: RRR Pulmonary: No dyspnea Neurological: Alert, answering questions appropriately Skin: Warm, dry. Const: Vital Signs, click to edit/add: Vital Signs - 24 hr 12/01/23 11:58 12/01/23 15:00 12/01/23 15:00 Temperature 98.9 F Pulse Rate [Left P ulse Oximeter] 91 Respiratory Rate 18 18 Blood Pressure [Le ft Arm] Blood Pressure [Ri ght Arm] Pulse Oximetry 96 97 Oxygen Delivery Me thod Room Air Room Air Oxygen Flow Rate 3 12/01/23 15:00 12/01/23 20:27 12/01/23 23:00 Temperature 98.5 F 97.5 F L Pulse Rate [Left P ulse Oximeter] 91 88 Respiratory Rate 18 18 Blood Pressure [Le ft Arm] Blood Pressure [Ri ght Arm] 140/95 H 113/59 L Pulse Oximetry 97 90 90 Oxygen Delivery Me thod Nasal Cannula Room Air Oxygen Flow Rate 3 12/01/23 23:00 12/02/23 03:00 12/02/23 03:26 Temperature 99.1 F 99.9 F H 99.9 F H Pulse Rate [Left P ulse Oximeter] 94 86 Respiratory Rate 18 22 Blood Pressure [Le ft Arm] 117/62 Blood Pressure [Ri ght Arm] 127/52 L Pulse Oximetry 90 90 Oxygen Delivery Me thod Room Air Room Air Oxygen Flow Rate 12/02/23 07:00 12/02/23 07:00 12/02/23 07:00 Temperature 99.2 F Pulse Rate [Left P ulse Oximeter] 81 81 Respiratory Rate 18 18 Blood Pressure [Le ft Arm] 123/60 Blood Pressure [Ri ght Arm] Pulse Oximetry 93 92 Oxygen Delivery Me thod Room Air Room Air Oxygen Flow Rate DS: Data Data Completed and Pending Completed studies during hospitalization: H pylori negative. Labs on day of discharge: Labs from last 24 hours 12/02/23 12/01/23 05:53 16:18 WBC 7.78 RBC 4.26 L Hgb 12.7 L Hct 38.1 MCV 89 MCH 30 MCHC 33 RDW Coeff of Mickey 13.5 Plt Count 254 Neut % (Auto) 69.1 Lymph % (Auto) 19.8 L [place] % (Auto) 8.7 Eos % (Auto) 0.6 Baso % (Auto) 0.4 Neut # (Auto) 5.37 Lymph # (Auto) 1.50 [place] # (Auto) 0.70 Eos # (Auto) 0.05 Baso # (Auto) 0.03 Abs Immat Gran (auto) 0.11 Imm/Tot Granulo (auto) 1.4 Sodium 130 L Potassium 3.7 Chloride 100 Carbon Dioxide 25 Anion Gap 5 L BUN 5 L Creatinine 0.8 Estimated Creat Clear 48.08 Estimated GFR 89 Glucose 87 Calcium 8.0 L Stool H. pylori Ag Negative Preliminary micro results at discharge 11/29/23 14:28 Stool Culture - Preliminary Stool 11/27/23 23:15 Blood Culture - Preliminary Blood NO GROWTH AFTER 96 HOURS 11/27/23 23:10 Blood Culture - Preliminary Blood NO GROWTH AFTER 96 HOURS Discharge Plan Discharge Disposition: Home, Self-Care Date of Admission: 11/26/23 17:08 Attending Provider on Discharge: Alma Delia Gay Consulting Providers: Beryl Arrieta; Rojelio Davis; Gina Gerardo; Leonel Denise; Emmanuel Forrest; Veronica Toth; Reanna Deluna; Ellie Palmer Primary Care Provider: Florentino Luna Condition: Stable Anticipated Discharge Date/Time: 12/02/23 09:31 Discharge Medications: New omeprazole 20 mg Capsule,Delayed Release(Dr/Ec) 20 mg PO DAILY Qty: 90 0RF oxycodone 5 mg Tablet 2.5 mg PO Q6H PRNQty: 12 0RF docusate sodium 100 mg capsule 100 mg PO DAILY Qty: 14 0RF Continued acetaminophen 500 mg tablet 500 - 1,000 mg PO Q6H PRN Discharge Orders: Discharge Order (Routine); Ordered 12/02/23 Ordered By: Alma Delia Gay Patient Education: Abdominal Pain (GEN) Additional Instructions: Continue to take Omeprazole daily. Take a stool softener daily until you have a bowel movement or no longer using Oxycodone for your pain. Gradually advance diet as tolerated, starting with bland foods. Activity Level: Activity as Tolerated Discharge Diet: Regular Follow Up Appointments: Florentino Luna MD [Primary Care Provider] - 12/08/23 2:15 pm ([facility]) Forms: [employer] Info Instructions
--- NOTE | 2023-12-02 12:25 | PC.NURSE ---
Discharge-- Very pleasant and cooperative, alert and oriented but [place] speaking patient was discharged to home via wheelchair with daughter. VSS and highest temp this shift 99.2F. SPO2 maintained >90% on RA. He denied any pain this morning. Coarse rhonchi auscultated in lungs worse on right and pt has occasional cough. He denied nausea and tolerated a regular diet although appetite remains poor and pt ate only about 25% of breakfast. He had a small, continent, loose BM prior to discharge. Discharge education was provided including diagnosis info, symptoms to report, medications and follow up plan. No further questions asked.
== END 2023-12-02 11:50 | disposition home or self-care (01) | DRG 391 ==
LOC: ED 19:53 → MEDSURG 20:28
PROVIDERS: Family Medicine; Admitting Provider Family Medicine; Emergency Provider Student in an Organized Health Care Education/Training Program; PCP Family Medicine; Visit Provider Family Medicine
DX: K29.60 Other gastritis without bleeding (principal); J18.1 Lobar pneumonia, unspecified organism; E46 Unspecified protein-calorie malnutrition; E87.1 Hypo-osmolality and hyponatremia; R09.02 Hypoxemia; K31.89 Other diseases of stomach and duodenum; R10.13 Epigastric pain; J20.8 Acute bronchitis due to other specified organisms; R79.89 Other specified abnormal findings of blood chemistry; R50.9 Fever, unspecified; R19.7 Diarrhea, unspecified; E87.6 Hypokalemia; I10 Essential (primary) hypertension; Z90.49 Acquired absence of other specified parts of digestive tract; M19.90 Unspecified osteoarthritis, unspecified site; I25.10 Atherosclerotic heart disease of native coronary artery without angina pectoris; Z68.27 Body mass index [BMI] 27.0-27.9, adult
CPT/HCPCS: 00731; 36415; 43239; 71045; 71275; 74177; 76705; 80048; 80053; 80074; 80076; 81001; 83605; 83690; 83735; 83880; 84145; 84443; 84484; 85025; 85379; 86140; 86703; 87040; 87045; 87046; 87081; 87338; 87427; 87449; 87493; 87631; 87899; 88305; 88342; 93005; 94640; 97116; 97161; 97165; 97530; 97535; 99100; 99140; 99283; 99285; A9270; C9113; G0378; J0696; J1885; J2270; J2405; J2543; J2704; J3370; J7030; J7050; J7120; Q9967

== ENCOUNTER 2023-12-22 10:15 | Outpatient (CLI) | payer MEDICARE, MEDICAID, SELFPAY ==
--- OUTSIDE RECORDS SUMMARY | 2023-12-30 11:56 | XMS_ITS | Clinical Summary ---
Author Name Unknown Organization [place] Address [facility] [place] [address] Care Team Providers Care Vice President Consulting Services Name Role Phone Florentino Luna MD Primary Care Provider [phone] Allergies No known active allergies Medications Medication Sig Dispensed Refills Start Date End Date Status lisinopril (ZESTRIL) 10 MG tablet Take 10 mg by mouth daily 0 Active nitroGLYcerin (NITROSTAT) 0.[address] 0.4 mg under the tongue every 5 minutes as needed for chest pain For chest pain place 1 tablet under the tongue every 5 minutes for 3 doses. If symptoms persist 5 minutes after 1st dose call 911. 0 Active metoprolol succinate ER (TOPROL XL) 25 MG 24 hr tablet Take 25 mg by mouth daily 0 Active senna-docusate (SENOKOT-S/PERICOLA CE) 8.6-50 MG tabletIndications:S tatus post total knee replacement, left Take 1-2 tablets by mouth 2 times daily Take while on oral narcotics to prevent or treat constipation. 30 tablet 0 01/21/2023 Active acetaminophen (TYLENOL) 325 MG tabletIndications:S tatus post total knee replacement, left Take 3 tablets (975 mg) by mouth every 6 hours as needed for mild pain 100 tablet 0 01/21/2023 Active celecoxib (CELEBREX) 200 MG capsuleIndications: Status post total knee replacement, left Take 1 capsule (200 mg) by mouth daily for 42 days 42 capsule 0 01/21/2023 Active colchicine (COLCYRS) 0.6 MG tablet Take 0.6 mg by mouth daily 0 Active oxyCODONE (ROXICODONE) 5 MG tabletIndications:S tatus post total knee replacement, left Take 0.5 tablets (2.5 mg) by mouth every 4 hours as needed 33 tablet 0 01/22/2023 Active Active Problems Problem Noted Date Diagnosed Date Status post total knee replacement, left 023 Abdominal pain, generalized 01/29/2022 Acute renal insufficiency 01/29/2022 Abscess of finger of left hand 01/29/2022 Elevated lactic acid level 01/29/2022 Acute pancreatitis, unspecified 12/11/2015 Social History Tobacco Use Types Packs/Day Years Used Date Smoking Tobacco: Never Assessed Adolescent Education Answer Date Record ed Getting School Help Needed Not on file 06/17 Sex and Gender Information Value Date Recorded Sex Assigned at Not on file Gender Identity Not on file Sexual Orientation Not on file Last Filed Vital Signs Vital Sign Reading Time Taken Comments Blood Pressure 103/46 01/22/2023 8:06 AM CDT Pulse 61 01/22/2023 8:06 AM CDT Temperature 36.7 ??C (98.1 ??F) 01/22/2023 8:06 AM CD T Respiratory Rate 16 01/22/2023 8:06 AM CDT Oxygen Saturation 96% 01/22/2023 8:06 AM CDT Inhaled Oxygen Concentration - - Weight 50.5 kg (111 lb 6.4 oz) 01/21/2023 8:58 A M CDT Height 154.9 cm (5' 1) 01/21/2023 8:58 AM CDT Body Mass Index 21.05 01/21/2023 8:58 AM CDT Plan of Treatment Health Maintenance Due Date Last Done Comments ADVANCE CARE PLANNING 1945 ANNUAL REVIEW OF HM ORDERS 1945 LIPID 1983 ZOSTER IMMUNIZATION (1 of 2) 1993 RSV VACCINE ( & 60+) (1 - 1-dose 60+ series) 2003 FALL RISK ASSESSMENT 01/06/2008 MEDICARE ANNUAL WELLNESS VISIT 01/06/2008 COVID-19 Vaccine ( season) 2023 11/29/2020, 11/08/2020 INFLUENZA VACCINE (#1) 2023 , 07/28/2020, 06/18/2019, Additional history exists PHQ-2 (once per calendar year) 2023 GLUCOSE 01/22/2026 01/22/2023, 12/26, 02/01/2022, Additional history exists DTAP/TDAP/TD IMMUNIZATION (2 - Td or Tdap) 12/27/2027 12/26/2017, 02/22/1980, 07/17/1979 COLORECTAL CANCER SCREENING Discontinued FIT Discontinued 09/05/2019 Pneumococcal Vaccine: 65+ Years Completed 11/11/2021, 07/28/2020, 12/26/[address] COLONOGRAPHY Discontinued FLEX SIG Discontinued HPV IMMUNIZATION Aged Out No longer e ligible based on patient's age to complete this topic IPV IMMUNIZATION Aged Out No longer e ligible based on patient's age to complete this topic MENINGITIS IMMUNIZATION Aged Out No l onger eligible based on patient's age to complete this topic RSV MONOCLONAL ANTIBODY Aged Out No l onger eligible based on patient's age to complete this topic sDNA (Cologuard) Discontinued Medical Devices Implanted Type Area Beam Doffer Device Identifier Shelf Expiration Date Model / Serial / Lot Bone Cement Radiopaque Simplex Hv Full Dose 6194-1-001 - [id number] Implanted:Qty : 1 on 01/21/2023 by Rickie Boles MD at [facility] Cement, Bone Left: Knee [employer] 02/24/2024 6194- / / [id number] Bone Cement Radiopaque Simplex Hv Full Dose 6194-1-001 - [id number] Implanted:Qty : 1 on 01/21/2023 by Rickie Boles MD at [facility] Cement, Bone Left: Knee [employer] 02/24/2024 6194-- / / [id number] Imp Tibial Zim Psn Pit Furnace Melter Stm 5deg Sz Dl 50-8370-030-0 1 - [id number] Implanted:Qty : 1 on 01/21/2023 by Rickie Boles MD at [facility] Total Joint Componen t/Insert Left: Knee [employer] [id number] 02/28/2032 00-2258-213-0 [id number] Knee Femur Cr Cement Ccr Std Sz 6 L - [id number] Implanted:Qty : 1 on 01/21/2023 by Rickie Boles MD at [facility] Total Joint Componen t/Insert Left: Knee [employer] [id number] 10/19/2032 [id number] / / [id number] Imp Patella Zim Knee All Winsome 38mm 03-1664-733-3 8 - [id number] Implanted:Qty : 1 on 01/21/2023 by Rickie Boles MD at [facility] Total Joint Componen t/Insert Left: Knee [employer] [id number] 11/18/2027 80-3539-898-3 8 / / [id number] Surface Artc 13mm Juanis Yoder Cngr 6-7 C-D Kn Lt Vivacit-E - [id number] Implanted:Qty : 1 on 01/21/2023 by Rickie Boles MD at [facility] Total Joint Componen t/Insert Left: Knee [employer] [id number] 08/10/2027 63-1647-062-1 3 / [id number] Advance Directives For more information, please contact: [phone] Latest Code Status on File Code Status Date Activated Date Inactivated Comments Full Code 01/21/2023 4:02 PM 01/22/2023 2:38 PM All b asic and advanced life-sustaining interventions are performed as appropriate Question Answer Comments Code status determined by: Unable to determine; FULL CODE until documents or legal decision maker available Code Status History Code Status Date Activated Date Inactivated Comments Full Code 01/30/2022 1:13 AM 02/01/2022 4:16 PM All bas ic and advanced life-sustaining interventions are performed as appropriate Question Answer Comments Code status determined by: Discussion with patient/ legal decision maker Full Code 12/11/2015 4:17 AM 12/12/2015 6:39 PM Care Teams Vice President Consulting Services Relationship Specialty Start Date End Date Florentino Luna MD PCP - General Family Medicine 01/31/22
--- OUTSIDE RECORDS SUMMARY | 2023-12-30 11:56 | XMS_ITS | Clinical Summary ---
Author Name Unknown Organization [facility] Address [place], [place] [address] Care Team Providers Care Half Backer Name Role Phone Feliciano Lynch MD Primary Care Provider [phone] Allergies No known active allergies Medications Medication Sig Dispensed Refills Start Date End Date Status atorvastatin (LIPITOR) 20 mg tabletIndications:ST elevation myocardial infarction involving right coronary artery (HC) Take 1 tablet by mouth at bedtime. 30 tablet 2 05/31/2016 Active nitroglycerin (NITROSTAT) 0.4 mg sublingual tabletIndications:ST elevation myocardial infarction involving right coronary artery (HC) Place 1 tablet under the tongue every 5 minutes if needed for Chest Pain (first choice for chest pain, up to 3 doses). 25 tablet 2 05/31/2016 Active metoprolol succinate (TOPROL XL) 25 mg Sustained-Release tablet Take 25 mg by mouth once daily. 12/21/2017 Active triamcinolone 0.5% (ARISTOCORT) 0.5 % cream Apply topically to affected area(s) 2 times daily if needed. 12/21/2017 Active diclofenac (VOLTAREN) 75 mg delayed-release tablet Take 75 mg by mouth once daily if needed. 12/21/2017 Active aspirin (ECOTRIN) 81 mg enteric coated tablet Take 81 mg by mouth once daily. Active MAPAP ARTHRITIS PAIN 650 mg Extended-Release tablet TAKE 1 TABLET BY MOUTH EVERY 6 8 HOURS NEEDED FOR PAIN IB HNUB NOJ 1 LUB TXHUA 6 8 TEEV YOG MOB 4 05/04/2018 Active gabapentin (NEURONTIN) 300 mg capsule TAKE 1 CAPSULE BY MOUTH TWICE DAILY NEEDED FOR NECK PAIN IB ZAUG NOJ 1 LUB, IB HNUB NOJ 2 ZAUG YOG MOB 4 05/04/2018 Active capsaicin (ZOSTRIX) 0.025 % cream APPLY TO THE AFFECTED AREA TWICE DAILY NEEDED 1 HNUB PLEEV 2 ZAUG SABINE THAJ TSHAM MOB LOS TAU 4 05/04/2018 Active clopidogrel (PLAVIX) 75 mg tablet TAKE 1 TABLET BY MOUTH EVERY DAY 1 HNUB NOJ 1 LUB KOM NTSHAV TXOB NPLAUM 4 05/04/2018 Active lisinopril (PRINIVIL; ZESTRIL) 10 mg tablet Take 10 mg by mouth once daily. 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 Bilateral pseudophakia 01/19/2018 ST elevation myocardial infa rction involving right coronary artery 05/30/2016 ASHD (arteriosclerotic heart disease) 05/30/2016 CVA (cerebral infarction) 01/15/2010 Encounters Date Type Department Care Team Description 12/01/2023 Lab Requisition [facility] [phone] Mena Contreras MD 11/30/2023 Lab Requisition [facility] [phone] Singh Ross MD 11/28/2023 Lab Requisition [facility] [phone] Singh Ross MD from Last 3 Months Immunizations Name Administration Dates Next Due Influenza, IIV3 (Age >=3 years) 07/17/2012 Pneumococcal conj 13-Valent (Prevnar 13) 018 Td (Age >=7 Years) 02/22/1980,07/17/1979 Tdap 12/26/2017 Family History Medical History Relation Name Comments Unknown Father Unknown Mother Other Other No pertinent pa st family medical history Relation Name Status Comments Father Mother Other Social History Tobacco Use Types Packs/Day Years Used Date Smoking Tobacco: Never Smokeless Tobacco: Never Alcohol Use Standard Drinks/Week Comments Yes 0 (1 standard drink = 0.6 oz pur e alcohol) Sex and Gender Information Value Date Recorded Sex Assigned at Not on file Gender Identity Not on file Sexual Orientation Not on file Obstetrics History Last Filed Vital Signs Vital Sign Reading Time Taken Comments Blood Pressure 142/67 09/11/2019 7:26 AM POLLUTION CONTROL TECHNICIAN Pulse 61 09/11/2019 7:26 AM POLLUTION CONTROL TECHNICIAN Temperature 36.7 ??C (98.1 ??F) 09/11/2019 7:26 AM CS T Respiratory Rate 16 09/11/2019 7:26 AM POLLUTION CONTROL TECHNICIAN Oxygen Saturation 96% 09/11/2019 7:26 AM POLLUTION CONTROL TECHNICIAN Inhaled Oxygen Concentration - - Weight 53.3 kg (117 lb 8.1 oz) 09/07/2019 6:00 A M POLLUTION CONTROL TECHNICIAN Height 155.6 cm (5' 1.25) 09/05/2019 10:[address] Body Mass Index 22.02 09/05/2019 10:49 PM POLLUTION CONTROL TECHNICIAN Plan of Treatment Health Maintenance Due Date Last Done Comments Zoster (shingles) series for age 50+ (1 of 2) 1993 Medicare Wellness for age 65+ 01/06/2008 Depression screening for age 12+ 01/26/2018 01/27/20 17 Pneumococcal series for age 65+ (2 of 2 - PPSV23 or PCV20) 12/26/2018 12/26/2017 BMI (ht and wt on same day) for age 18+ 06/01/2019 06/01/2018, 12/26/2017, 01/26/2017, Additional history exists COVID-19 vaccine series () 05/27/2023 Influenza for age 65+ 05/27/2024 07/17/2012 Tetanus booster 12/27/2027 12/26/2017, 01/25, 07/17/1979 Tdap Completed 12/26/2017 Medical Devices Implanted Type Area Cap Sizer Device Identifier Shelf Expiration Date Model / Serial / Lot Iol [place] +20.5 Tecnis Zcb00 - [id number] Implanted:Qty: 1 on 01/04/2018 by Venkata Tejeda MD at [facility] Left: Eye [employer] 09/05/2021 ZCB00# / [id number] / Iol [place] +20 Tecnis Zcb00 - [id number] Implanted:Qty: 1 on 01/18/2018 by Venkata Tejeda MD at [facility] Right: Eye [employer] 10/15/2021 ZCB00# / [id number] / Procedures Procedure Name Priority Date/Time Associated Diagnosis Comments LAB TRACKING EVENT Routine 12/01/2023 10 :40 AM POLLUTION CONTROL TECHNICIAN PATH TISSUE EXAM Routine 12/01/2023 10:4 0 AM POLLUTION CONTROL TECHNICIAN LEGIONELLA AND PNEUMOCOCCAL URINE ANTIGEN Routine 11/29/2023 4:50 PM POLLUTION CONTROL TECHNICIAN LEGIONELLA AND PNEUMOCOCCAL URINE ANTIGEN Routine 11/28/2023 2:40 PM POLLUTION CONTROL TECHNICIAN from Last 3 Months Results * LAB TRACKING EVENT (12/01/2023 10:40 AM POLLUTION CONTROL TECHNICIAN) Other (Other) Client Collect / Unknown 12/01/2023 10:40 AM POLLUTION CONTROL TECHNICIAN 12/01/2023 9:01 PM POLLUTION CONTROL TECHNICIAN Mena Contreras MD LAB BILL ONLY [facility] [address] [place] [address], * PATH TISSUE EXAM (12/01/2023 10:40 AM POLLUTION CONTROL TECHNICIAN) Case Report Pathology Report ?Case: [id number] ? Authorizing Provider: ??Mena Contreras MD ?Collected: ? 12/01/2023 1040 ? Ordering Location: ? [facility] ?Received: ?12/02/2023 1023 ? Pathologist: ? Felisha, Amado Reyes, ? MD ? Specimens: ?? A) - Duodenum Biopsy ? B) - Antrum Biopsy ? C) - Gastric Biopsy ? D) - Esophageal Biopsy ? E) - Esophageal Biopsy, Mid Esophagus ? 4 3:44 PM CDT [facility] Final Diagnosis A) DUODENUM, BIOPSY: 1. Duodenal mucosa with mild regenerative change, favor mild peptic or NSAID injury 2. Negative for celiac disease B) STOMACH, ANTRUM, BIOPSY: 1. Reactive gastropathy, endoscopically erosive (see comment) ?? a. Sampling: Antral mucosa ?? b. Distribution: Antral mucosa 2. Negative for chronic inflammation, atrophy and Helicobacter C) STOMACH, BIOPSY: 1. Non-erosive reactive gastropathy (see comment) ?? a. Sampling: Antrum and body ?? b. Distribution: Antrum 2. Negative for Helicobacter (Helicobacter immunohistochemistry negative) 3. Negative for chronic inflammation, and atrophy D) ESOPHAGUS, DISTAL, BIOPSY: 1. Normal esophageal squamous mucosa 2. Negative for reflux changes and eosinophilic esophagitis 3. Negative for columnar mucosa E) ESOPHAGUS, MID, BIOPSY: 1. Normal esophageal squamous mucosa 2. Negative for reflux changes and eosinophilic esophagitis 3. Negative for columnar mucosa 4 3:44 PM T [facility] Comment B, C) The likely etiology is an ongoing non-inflammatory type mucosal injury due to a chemical type of injury; this may be due to ingestion of non-steroidal anti-inflammatory drugs, aspirin (via prostaglandin-mediated injury), excess alcohol, corticosteroids, or bile/alkaline reflux, the latter usually in the setting of a gastroenteric anastomosis. 4 3:44 PM CDT [facility] Clinical Information Mr. Durham is a 78 y.o. who presents with upper abdominal symptoms that persist despite appropriate trial therapy. Patient also has epigastric abdominal pain. EGD reveals irregular Z-line at 34 cm. No gross lesions are identified in the entire esophagus. The stomach is notable for erosive gastropathy. The duodenum shows erythematous duodenopathy. 4 3:44 PM CDT [facility] Gross Description A) Received in formalin are 4 short mucosal fragments ranging from 2 mm to 4 mm in greatest dimension, which are entirely submitted in one cassette. It is labeled with the patient's name and designated duodenitis biopsy. B) Received in formalin are 3 short mucosal fragments averaging 3 mm in greatest dimension, which are entirely submitted in one cassette. It is labeled with the patient's name and designated antral erosions biopsy. C) Received in formalin are 5 short mucosal fragments ranging from 3 mm to 4 mm in greatest dimension, which are entirely submitted in one cassette. It is labeled with the patient's name and designated random gastric biopsies. D) Received in formalin are 4 short mucosal fragments averaging 3 mm in greatest dimension, which are entirely submitted in one cassette. It is labeled with the patient's name and designated distal esophagus. E) Received in formalin are 4 short mucosal fragments averaging 3 mm in greatest dimension, which are entirely submitted in one cassette. It is labeled with the patient's name and designated mid esophagus. Mecca Kenny 12/02/2023 10:34 AM 4 3:44 PM CDT [facility] Microscopic Description The final diagnosis is based on microscopic examination of appropriate sections of all specimens. 4 3:44 PM T [facility] Additional Information Interpreted at [facility] - [address] [facility] [address], [place] [address] 4 3:44 PM T [facility] Other (Duodenum Biopsy) 12/01/2023 10:40 AM POLLUTION CONTROL TECHNICIAN 12/02/2023 10:23 AM POLLUTION CONTROL TECHNICIAN Specimen (specimen) (Antrum Biopsy) 12/01/2023 10:40 AM POLLUTION CONTROL TECHNICIAN 12/02/2023 10:23 AM POLLUTION CONTROL TECHNICIAN Specimen (specimen) GASTRIC BIOPSY SPECIMEN / Unknown 12/01/2023 10:40 AM POLLUTION CONTROL TECHNICIAN 12/02/2023 10:23 AM POLLUTION CONTROL TECHNICIAN Specimen (specimen) (Esophageal Biopsy) 12/01/2023 10:40 AM POLLUTION CONTROL TECHNICIAN 12/02/2023 10:23 AM POLLUTION CONTROL TECHNICIAN Specimen (specimen) (Esophageal Biopsy) 12/01/2023 10:40 AM POLLUTION CONTROL TECHNICIAN 12/02/2023 10:23 AM POLLUTION CONTROL TECHNICIAN Mena Contreras MD PATHOLOGY/CYTOLOGY Performing Organization Address [facility] Co de Phone Number [facility] [address] [place] [address], * LEGIONELLA AND PNEUMOCOCCAL URINE ANTIGEN (11/29/2023 4:50 PM POLLUTION CONTROL TECHNICIAN) Only the most recent of2 resultswithin the time period is included. STREP PNEUMO ANTIGEN Negative 11/30/2023 4:02 PM POLLUTION CONTROL TECHNICIAN [facility] Comment:Presumptive negative for pneumococcal pneumonia, suggesting no current or recent pneumococcal infection. Infection due to S. pneumoniae cannot be ruled out since the antigen present in the sample may be below the detection limit of the test. LEGIONELLA ANTIGEN Negative 11/30/2023 4:02 PM POLLUTION CONTROL TECHNICIAN [facility] Comment:Negative for L.pneum ophila serogroup 1 antigen, suggesting no recent or current infection. Infection due to Legionella cannot be ruled out since other serogroups and species may cause disease, antigen may not be present in urine in early infection, and the level of antigen present may be below the detection limit of the test. Low test sensitivity in patients with mild pneumonia. Urine URINE SPECIMEN / Unknown Client Collect / Unknown 11/29/2023 4:50 PM POLLUTION CONTROL TECHNICIAN 11/30/2023 3:34 PM POLLUTION CONTROL TECHNICIAN Singh Ross MD MICROBIOLOGY Performing Organization Address [facility] Co de Phone Number [facility] [address] [place] [address], from Last 3 Months Advance Directives * Full Code (Latest Code Status on File) Date Activated Date Inactivated Comments 09/06/2019 1:37 AM 09/11/2019 3:05 PM With famil y Question Answer Comments Code Status Discussion: Discussed * Full Code Date Activated Date Inactivated Comments 01/18/2018 10:42 AM 01/18/2018 5:22 PM * Full Code Date Activated Date Inactivated Comments 01/04/2018 12:52 PM 01/04/2018 5:34 PM * Full Code Date Activated Date Inactivated Comments 05/29/2016 8:46 PM 05/31/2016 4:40 PM * Full Code Date Activated Date Inactivated Comments 01/14/2010 2:11 PM 01/15/2010 6:20 PM Care Teams Half Backer Relationship Specialty Start Date End Date Feliciano Lynch MD [address] [place] [address] PCP - General Family Practice 01/26/17
--- OUTSIDE RECORDS SUMMARY | 2023-12-30 11:56 | XMS_ITS | Referral Summary ---
Author Name Unknown Organization [place] Address [address] [place] [address] Care Team Providers Care Dry Mixer Name Role Phone Florentino Luna MD Primary Care Provider [phone] Allergies No known active allergies Medications Medication [...] 01/21/2023 8:58 AM CDT Plan of Treatment Not on file Medical Devices Implanted Type Area Personal Care Worker Device Identifier Shelf Expiration Date Model / Serial / Lot Bone Cement Radiopaque Simplex Hv Full Dose 6194-1-001 - [id number] Implanted:Qty : 1 on 01/21/2023 by Rickie Boles MD at [facility] Cement, Bone Left: Knee [employer] 02/24/2024 6194-1-001 / / [id number] Bone Cement Radiopaque Simplex Hv Full Dose 6194-1-001 - [id number] Implanted:Qty : 1 on 01/21/2023 by Rickie Boles MD at [facility] Cement, Bone Left: Knee [employer] 02/24/2024 6194-1-001 / / [id number] Imp Tibial Zim Psn Industrial Economics Teacher Stm 5deg Sz Dl 49-0132-757-0 1 - [id number] Implanted:Qty : 1 on 01/21/2023 by Rickie Boles MD at [facility] Total Joint Componen t/Insert Left: Knee [employer] [id number] 02/28/2032 44-9031-164-0 1 [id number] Knee Femur Cr Cement Ccr Std Sz 6 L - [id number] Implanted:Qty : 1 on 01/21/2023 by Rickie Boles MD at [facility] Total Joint Componen t/Insert Left: Knee [employer] [id number] 10/19/2032 [id number] / / [id number] Imp Patella Zim Knee All Winsome 38mm 88-2958-560-3 8 - [id number] Implanted:Qty : 1 on 01/21/2023 by Rickie Boles MD at [facility] Total Joint Componen t/Insert Left: Knee [employer] [id number] 11/18/2027 34-0839-743-3 8 / / [id number] Surface Artc 13mm Juanis Yoder Cngr 6-7 C-D Kn Lt Vivacit-E - [id number] Implanted:Qty : 1 on 01/21/2023 by Rickie Boles MD at [facility] Total Joint Componen t/Insert Left: Knee [employer] [id number] 08/10/2027 00-3966-145-1 3 [id number] Advance Directives For more information, please contact: [phone] Latest Code Status on File Code Status [...] 4:17 AM 12/12/2015 6:39 PM Care Teams Dry Mixer Relationship Specialty Start Date End Date Florentino Luna MD PCP - General Family Medicine 01/31/22
== END 2023-12-22 10:16 | disposition home or self-care (01) ==
LOC: NFLDREF 12-23 06:48
PROVIDERS: PCP Family Medicine; Referring Provider Family Medicine; Visit Provider Family Medicine
DX: I10 Essential (primary) hypertension (principal); I25.10 Atherosclerotic heart disease of native coronary artery without angina pectoris
CPT/HCPCS: 80048; 80053; 80061

== ENCOUNTER 2025-04-01 07:55 | Outpatient (CLI) | payer MEDICARE, MEDICAID, SELFPAY | END 2025-04-01 07:56 | disposition home or self-care (01) | LOC: NFLDREF 04-03 15:11 | PROVIDERS: PCP Family Medicine; Referring Provider Family Medicine; Visit Provider Family Medicine | DX: I25.10 Atherosclerotic heart disease of native coronary artery without angina pectoris (principal); E87.1 Hypo-osmolality and hyponatremia; R74.8 Abnormal levels of other serum enzymes; I10 Essential (primary) hypertension; R53.83 Other fatigue | CPT/HCPCS: 80053; 80061 ==

== ENCOUNTER 2025-04-25 14:12 | Emergency (ER) | payer MEDICARE, MEDICAID, SELFPAY ==
--- OUTSIDE RECORDS SUMMARY | 2025-04-25 14:16 | XMS_ITS | Clinical Summary ---
Author Organization [facility] Address [address] [place] [address]. [place] [address] Care Team Providers Care Garment Form Assembler Name Role Phone Florentino Luna MD Primary Care Provider [phone] Allergies No known active allergies Medications lisinopril (ZESTRIL) 10 MG tablet Take 10 mg by mouth daily Active nitroGLYcerin (NITROSTAT) 0.[address] 0.4 mg under the tongue every 5 minutes as needed for chest pain For chest pain place 1 tablet under the tongue every 5 minutes for 3 doses. If symptoms persist 5 minutes after 1st dose call 911. Active metoprolol succinate ER (TOPROL XL) 25 MG 24 hr tablet Take 25 mg by mouth daily Active senna-docusate (SENOKOT-S/MANDEEP COLACE) 8.6-50 MG tabletIndicatio ns:Status post total knee replacement, left Take 1-2 tablets by mouth 2 times daily Take while on oral narcotics to prevent or treat constipation. 30 tablet 3 Active acetaminophen (TYLENOL) 325 MG tabletIndicatio ns:Status post total knee replacement, left Take 3 tablets (975 mg) by mouth every 6 hours as needed for mild pain 100 tablet 3 Active celecoxib (CELEBREX) 200 MG capsuleIndicati ons:Status post total knee replacement, left Take 1 capsule (200 mg) by mouth daily for 42 days 42 capsule 3 Active colchicine (COLCYRS) 0.6 MG tablet Take 0.6 mg by mouth daily Active oxyCODONE (ROXICODONE) 5 MG tabletIndicatio ns:Status post total knee replacement, left Take 0.5 tablets (2.5 mg) by mouth every 4 hours as needed 33 tablet 3 Active Active Problems Problem Noted Date Diagnosed [...] Recorded Sex Assigned at Not on file Legal Sex Male 11:03 PM CDT Gender Identity Not on file Sexual Orientation Not on file Last Filed Vital Signs Vital Sign Reading Time Taken Comments Blood Pressure 103/46 01/22/2023 8:06 AM CDT Pulse 61 01/22/2023 8:06 AM CDT Temperature 36.7 C (98.1 F) 01/22/2023 8:06 AM CDT Respiratory Rate 16 01/22/2023 8:06 AM CDT [...] 1943 ANNUAL REVIEW OF HM ORDERS 1943 ZOSTER VACCINE (1 of 2) 1993 FALL RISK ASSESSMENT 01/06/2008 MEDICARE ANNUAL WELLNESS VISIT 01/06/2008 RSV VACCINE (1 - 1-dose 75+ series) 2018 COVID-19 VACCINE ( season) 2024 11/29/2020, 11/08/2020 PHQ-2 (once per calendar year) 2024 INFLUENZA VACCINE (#1) 2025 2, 07/28/2020, 06/18/2019, Additional history exists DTAP/TDAP/TD VACCINE (2 - Td or Tdap) 12/27/2027 12/26/2017, 02/22/1980, 07/17/1979 COLORECTAL CANCER SCREENING Discontinued FIT Discontinued 09/05/2019 PNEUMOCOCCAL VACCINE 50+ YEARS Completed 11/11/2021, 07/28/2020, 12/26/[address] COLONOGRAPHY Discontinued FLEX SIG Discontinued HPV VACCINE (No Doses Required) Completed MENINGITIS VACCINE Aged Out No longer eligible based on patient's age to complete this topic sDNA (Cologuard) Discontinued Medical Devices Implanted Type Area Dining Room Host/Hostess Device Identifier Shelf Expiration Date Model / Serial / Lot Bone Cement Radiopaque Simplex Hv Full Dose 6194-1-001 - [id number] Implanted:Qty : 1 on 01/21/2023 by Rickie Boles MD at [facility] Cement, Bone Left: Knee [employer] 02/24/2024 6194-1-001 / / [id number] Bone Cement Radiopaque Simplex Hv Full Dose 6194-1-001 - [id number] Implanted:Qty : 1 on 01/21/2023 by Rickie Boles MD at [facility] Cement, Bone Left: Knee [employer] 02/24/2024 6194-1-001 / / [id number] Imp Tibial Zim Psn Healthcare Educator Stm 5deg Sz Dl [id number] 1 - [id number] Implanted:Qty : 1 on 01/21/2023 by Rickie Boles MD at [facility] Total Joint Componen t/Insert Left: Knee [employer] [id number] 02/28/2032 [id number] 1 / / [id number] Knee Femur Cr Cement Ccr Std Sz 6 L - [id number] Implanted:Qty : 1 on 01/21/2023 by Rickie Boles MD at [facility] Total Joint Componen t/Insert Left: Knee [employer] [id number] 10/19/2032 [id number] / / [id number] Imp Patella Zim Knee All Winsome 38mm 13-6241-806-3 8 - [id number] Implanted:Qty : 1 on 01/21/2023 by Rickie Boles MD at [facility] Total Joint Componen t/Insert Left: Knee [employer] [id number] 11/18/2027 [id number] Surface Artc 13mm Juanis Yoder Cngr 6-7 [facility] - [id number] Implanted:Qty : 1 on 01/21/2023 by Rickie Boles MD at [facility] Total Joint Componen t/Insert Left: Knee [employer] [id number] 08/10/2027 [id number] [place] [id number] [facility] Advance Directives For more information, please contact: [phone] * Full Code (Latest Code Status on File) Date Activated Date Inactivated Comments 01/21/2023 4:02 PM 01/22/2023 2:38 PM All basic an d advanced life-sustaining interventions are performed as appropriate Question Answer Comments Code status determined by: Unable to det ermine; FULL CODE until documents or legal decision maker available * Full Code Date Activated Date Inactivated Comments 01/30/2022 1:13 AM 02/01/2022 4:16 PM All basic and advanced life-sustaining interventions are performed as appropriate Question Answer Comments Code status determined by: Discussion with patie nt/ legal decision maker * Full Code Date Activated Date Inactivated Comments 12/11/2015 4:17 AM 12/12/2015 6:39 PM Care Teams Garment Form Assembler Relationship Specialty Start Date End Date Florentino Luna MD PCP - General Family Medicine 01/31/22
--- OUTSIDE RECORDS SUMMARY | 2025-04-25 14:16 | XMS_ITS | Clinical Summary ---
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 25 tablet 2 06/02/2016 3:49 PM CDT 6 Active metoprolol succinate (TOPROL XL) 25 mg Sustained-Relea se tablet Take 25 mg by mouth once daily. 8 Active triamcinolone 0.5% (ARISTOCORT) 0.5 % cream Apply topically to affected area(s) 2 times daily if needed. 8 Active diclofenac (VOLTAREN) 75 mg delayed-release tablet Take 75 mg by mouth once daily if needed. 8 Active aspirin (ECOTRIN) 81 mg enteric coated tablet Take 81 mg by mouth once daily. Active MAPAP ARTHRITIS PAIN 650 mg Extended-Releas e tablet TAKE 1 TABLET BY MOUTH EVERY 6 8 HOURS NEEDED FOR PAIN IB HNUB NOJ 1 LUB TXHUA 6 8 TEEV YOG MOB 4 8 Active gabapentin (NEURONTIN) 300 mg capsule TAKE 1 CAPSULE BY MOUTH TWICE DAILY NEEDED FOR NECK PAIN IB ZAUG NOJ 1 LUB, IB HNUB NOJ 2 ZAUG YOG MOB 4 8 Active capsaicin (ZOSTRIX) 0.025 % cream APPLY TO THE AFFECTED AREA TWICE DAILY NEEDED 1 HNUB PLEEV 2 ZAUG SABINE THAJ TSHAM MOB LOS TAU 4 8 Active clopidogrel (PLAVIX) 75 mg tablet TAKE 1 TABLET BY MOUTH EVERY DAY 1 HNUB NOJ 1 LUB KOM NTSHAV TXOB NPLAUM 4 8 Active lisinopril (PRINIVIL; ZESTRIL) 10 mg tablet [...] disease) 05/30/2016 CVA (cerebral infarction) 01/15/2010 Immunizations Immunization Administration Dates Next Due Influenza, IIV3 (Age [...] at Not on file Legal Sex Male 2:36 PM CDT Gender Identity Not on file Sexual Orientation Not on file Obstetrics History Last Filed Vital Signs Vital Sign Reading Time Taken Comments Blood Pressure 142/67 09/11/2019 7:26 AM RAZOR SHARPENER Pulse 61 09/11/2019 7:26 AM RAZOR SHARPENER Temperature 36.7 C (98.1 F) 09/11/2019 7:26 AM RAZOR SHARPENER Respiratory Rate 16 09/11/2019 7:26 AM RAZOR SHARPENER Oxygen Saturation 96% 09/11/2019 7:26 AM RAZOR SHARPENER Inhaled Oxygen Concentration - - Weight 53.3 kg (117 lb 8.1 oz) 09/07/2019 6:00 A M RAZOR SHARPENER Height 155.6 cm (5' 1.25) 09/05/2019 10:[address] Body Mass Index 22.02 09/05/2019 10:49 PM RAZOR SHARPENER Plan of Treatment Health Maintenance Due Date Last Done Comments Zoster (shingles) series for age 50+ (1 of 2) 1993 Medicare Wellness for age 65+ 01/06/2008 RSV vaccine for adults or (1 - 1-dose 75+ series) 2018 Depression screening for age 12+ 01/26/2018 01/26/2017 Pneumococcal series for age 50+ (2 of 2 - PPSV23) 12/26/2018 12/26/2017 BMI (ht and wt on same day) for age 18+ 06/01/2019 06/01/2018, 12/26/2017, 01/26/2017, Additional history exists COVID-19 vaccine series ( season) 2024 Influenza Vaccine (#1) 2025 07/17/2012 Tetanus booster 12/27/2027 12/26/2017, 01/25, 07/17/1979 Hepatitis B series for 19+ Aged Out N o longer eligible based on patient's age to complete this topic Medical Devices Implanted Type Area Polymer Specialist Device Identifier Shelf Expiration Date Model / Serial / Lot Iol Parker +20.5 Tecnis Zcb00 - [id number] Implanted:Qty: 1 on 01/04/2018 by Venkata Tejeda MD at [facility] Left: Eye [employer] 09/05/2021 ZCB00# / [id number] / Iol Parker +20 Tecnis Zcb00 - [id number] Implanted:Qty: 1 on 01/18/2018 by Venkata Tejeda MD at [facility] Right: Eye [employer] 10/15/2021 ZCB00# / [id number] / Insurance MEDICARE PART A HB ONLY MEDICARE PART B HB ONLY MEDICARE PB ONLY [facility] JAIL PLUS Advance Directives * Full Code (Latest Code [...] 2:11 PM 01/15/2010 6:20 PM Care Teams Boat Ride Operator Relationship Specialty Start Date End Date Feliciano Lynch MD PCP - General Family Practice 01/26/17
[2025-04-25 14:19] VITALS: BP 161/69; PULSE 77; RESP 18; TEMP 37.3; O2SAT 95; BMI 20.8
--- NOTE | 2025-04-25 15:34 | ED.GENADULT ---
HPI - General Adult General Date Seen: 04/25/25 Chief complaint: Unspecified Complaint, Adult Stated complaint: gout, infection Time Seen by Provider: 04/25/25 14:37 Source: patient and family Mode of arrival: ambulatory Limitations: no limitations History of Present Illness HPI narrative: Patient is an 80-year-old male who is using his daughter for interpretation. He presents to the emergency department for left foot pain. He has pain in the plantar aspect of his left midfoot. There were concerned about possible infection because 3 days ago he tripped and fell and then started to have pain in his left foot. 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 Has not had gout pain this area before. Went to urgent care yesterday was started on prednisone and antibiotics as he has an elevated white blood cell count. There is abrasions to his foot but no pain other than to the mid plantar aspect. Has not had any fevers. They were concerned his typically gets better after a couple doses of prednisone but has not gotten better yet this time. No other concerns noted Related Data Previous Rx's ?Medication ?Instructions ?Recorded triamcinolone acetonide 0.5 % 1 applic topical BID PRN itching 07/11/24 topical cream #15 grams acetaminophen 500 mg tablet 500 - 1,000 mg (1 - 2 x 500 mg) PO 03/12/25 Q6H PRN pain #100 tabs diclofenac sodium 1 % topical gel 2 g topical QID #50 grams 03/20/25 cephalexin 500 mg capsule 500 mg PO QID 10 days #40 caps 04/24/25 prednisone 10 mg tablet 30 mg (3 x 10 mg) PO QDAY 5 days 04/24/25 #15 tabs Allergies Allergy/AdvReac Type Severity Reaction Status Date / Time No Known Drug Allergies Allergy Verified 04/25/25 14:24 Review of Systems Narrative: Pertinent systems reviewed and were negative unless stated in HPI PFSH PFSH Medical History Generalized pain ?R52 - Pain, unspecified (ICD-10) Diarrhea ?R19.7 - Diarrhea, unspecified (ICD-10) Malnutrition ?E46 - Unspecified protein-calorie malnutrition (ICD-10) Bronchitis ?J40 - Bronchitis, not specified as acute or chronic (ICD-10) Arthritis ?M19.90 - Unspecified osteoarthritis, unspecified site (ICD-10) CAD (coronary artery disease) ?I25.10 - Atherosclerotic heart disease of [place] coronary artery without angina pectoris (ICD-10) Surgical History History of cholecystectomy ?Z90.49 - Acquired absence of other specified parts of digestive tract (ICD-10) History of cataract extraction ?Z98.49 - Cataract extraction status, unspecified eye (ICD-10) Social History Narrative: Patient lives with his and nephew in [place]. 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 Code status is full. Daughter is healthcare power of immigration attorney. No history of smoking. He does not drink alcohol. What is your current living situation?: I presently have a place to live Problems where you live: no known problems Problems where you live details: None noted In the past 12 months, utilities in danger of being shut off: no In past 12 months, lack of transportation kept you from medical appts, meetings, work, or getting things needed for daily living: no In the past 12 mos, have been you worried that your food would run out before you had money to buy more?: never true In the past 12 mos, the food you bought just didn't last and you didn't have money to buy more?: never true Highest level of school completed/degree received: don't know Smoking Status: Never smoker Do you use any of these nicotine containing products: None Second hand tobacco smoke exposure: No How often do you have a drink containing alcohol: never How often do you have six or more drinks on one occasion: Never AUDIT-C Alcohol total score: 0 Non-prescribed substance use: denies use Caffeine: No How often does anyone, including family, friends and others, physically hurt you: never How often does anyone, including family, friends and others, insult or talk down to you: never How often does anyone, including family, friends and others, threaten you with harm: never How often does anyone, including family, friends and others, scream or curse at you: never service: No Exam Narrative: Exam Narrative: Const: Well-nourished, Well-developed, in mild distress Eyes: PERRL, no conjunctival injection, and symmetrical lids HENT: Atraumatic external nose and ears. Moist mucous membranes. MSK:Extremities w/o deformity, Normal Active ROM Skin: Warm, Dry. Multiple abrasions noted to left foot mostly on the 4th toe and bases of the 2nd and 3rd toe. Tenderness noted to the plantar aspect of the left midfoot. No tenderness noted to the calcaneus. No tenderness noted to top of foot or around the abrasions. No obvious warmth felt. Neuro: Normal Muscle tone, No focal neurological deficits. Psych: Awake, Alert, & Oriented x3. Appropriate mood and affect. Const: Vital Signs, click to edit/add: Vital Signs - 24 hr 04/25/25 14:19 Temperature 99.2 F Pulse Rate [Right Pulse Oximeter] 77 Respiratory Rate 18 Blood Pressure [Ri ght Upper Arm] 161/69 H Pulse Oximetry 95 Oxygen Delivery Me thod Room Air Course Vital Signs Vital signs: Initial Vital Signs Temperature 99.2 F 04/25/25 14:19 Temperature Source Temporal Artery Scan 04/25/25 14:19 Pulse Rate 77 04/25/25 14:19 Pulse Rhythm Regular 04/25/25 14:19 Pulse Strength 3+ Normal 04/25/25 14:19 Respiratory Rate 18 04/25/25 14:19 Blood Pressure 161/69 H 04/25/25 14:19 Blood Pressure Mean 99 04/25/25 14:19 Blood Pressure Position Sitting 04/25/25 14:19 Pulse Oximetry 95 04/25/25 14:19 Oxygen Delivery Method Room Air 04/25/25 14:19 Vital Signs Temperature 99.2 F 04/25/25 14:19 Pulse Rate 77 04/25/25 14:19 Respiratory Rate 18 04/25/25 14:19 Blood Pressure 161/69 H 04/25/25 14:19 Pulse Oximetry 95 04/25/25 14:19 Oxygen Delivery Method Room Air 04/25/25 14:19 Temperature 99.2 F 04/25/25 14:19 Pulse Rate 77 04/25/25 14:19 Respiratory Rate 18 04/25/25 14:19 Blood Pressure 161/69 H 04/25/25 14:19 Pulse Oximetry 95 04/25/25 14:19 Oxygen Delivery Method Room Air 04/25/25 14:19 Medications Administered Medications: Discontinued Medications Generic Name Dose Route Start Last Admin Trade Name Lawrence PRN Reason Stop Dose Admin Oxycodone HCl 5 mg 04/25/25 14:51 04/25/25 15:36 Oxycodone 5 Mg Tablet PO 04/25/25 14:52 5 mg ONCE ONE Administration Medical Decision Making MDM Narrative Medical decision making narrative: Patient is a 80-year-old male presenting for left foot pain. Does not have pain in the area lower expect for plantar fascitis. There was some thought but possible septic joint with his elevated white blood cell count but he is having no systemic symptoms no obvious warmth to the area and the area of pain is in even where his abrasions are. I considered doing an ESR and CRP to see those elevated but they can be elevated for both septic joint and gout so would not be obviously beneficial. Oxycodone given for pain. He states multiple times this feels just like his previous gout pain just in a different spot. His x-ray also showed signs concerning for gout. Lab work shows his white count is about 17.11. This is roughly what it was yesterday. He did take steroids yesterday for his gout. His pain is improved with medication. I do not believe he has a septic joint at this time I do believe he is safe for discharge. They are agreeable to this plan. Lab Data Labs: Lab Results 04/25/25 Range/Units 15:51 WBC 17.11 H (4.50-11.00) K/uL RBC 4.77 (4.30-5.90) m/uL Hgb 14.0 (13.5-17.5) gm/dL Hct 43.1 (37.0-53.0) % MCV 90 (80-100) fL MCH 29 (26-34) pg MCHC 33 (32-36) gm/dL RDW Coeff of Mickey 12.7 (11.5-15.5) % Plt Count 254 (140-440) K/uL Neut % (Auto) 85.5 H (42.0-72.0) % Lymph % (Auto) 8.2 L (20-44) % [place] % (Auto) 5.7 (0.0-11.0) % Eos % (Auto) 0.1 (0.0-7.0) % Baso % (Auto) 0.1 (0.0-3.0) % Neut # (Auto) 14.60 H (1.7-7.0) K/uL Lymph # (Auto) 1.40 (0.90-2.90) K/uL [place] # (Auto) 1.00 H (0.00-0.90) K/UL Eos # (Auto) 0.00 (0.00-0.50) K/uL Baso # (Auto) 0.00 (0.00-0.30) K/uL Abs Immat Gran (auto) 0.10 (0.00-0.30) K/uL Imm/Tot Granulo (auto) 0.4 % Sodium 136 (135-149) mmol/L Potassium 4.5 (3.6-5.1) mmol/L Chloride 102 (96-114) mmol/L Carbon Dioxide 27 (20-32) mmol/L Anion Gap 7 (7-15) mEq/L BUN 17 (7-30) mg/dL Creatinine 0.8 (0.5-1.5) mg/dL Estimated Creat Clear 40.19 Estimated GFR 88 ml/min Glucose 128 H (60-115) mg/dL Calcium 8.7 (8.4-10.6) mg/dL Discharge Plan Discharge Clinical Impression: Gout Qualifiers: Gout site: foot Gout etiology: unspecified cause Chronicity: acute Laterality: unspecified laterality Qualified Code(s): M10.9 - Gout, unspecified Patient Disposition: Home, Self-Care Condition: Improved Instructions: Gout (ED) Additional Instructions: Continue take the prednisone antibiotics previously prescribed. You also take Tylenol and ibuprofen for pain. If that is not helping you can use the oxycodone. Pick it up from instymeds. It can increase fall risk so be careful. Return to emergency department for new or worsening symptoms. Prescriptions: No Action diclofenac sodium 1 % gel 2 g topical QID Qty: 50 1RF prednisone 10 mg tablet 30 mg PO QDAY 5 Days Qty: 15 0RF cephalexin 500 mg capsule 500 mg PO QID 10 Days Qty: 40 0RF triamcinolone acetonide 0.5 % cream 1 applic topical BID PRN (Reason: itching) Qty: 15 0RF acetaminophen 500 mg tablet 500 - 1,000 mg PO Q6H PRN (Reason: pain) Qty: 100 1RF Follow Up/Referrals: Florentino Luna MD [Primary Care Provider, Family Practice] Stand Alone Forms: MyHealth Info Instructions
[2025-04-25 16:14] LABS: Chloride* 102 mmol/L (96-114); Potassium* 4.5 mmol/L (3.6-5.1); Sodium* 136 mmol/L (135-149)
[2025-04-25 16:17] LABS: Anion Gap 7 mEq/L (7-15); Blood Urea Nitrogen* 17 mg/dL (7-30); Calcium* 8.7 mg/dL (8.4-10.6); Carbon Dioxide* 27 mmol/L (20-32); Creatinine* 0.8 mg/dL (0.5-1.5); Est. Creatinine Clearance* 40.19; Estimated Glomerular Filt Rate 88 ml/min; Glucose* 128 mg/dL (60-115)
[2025-04-25 16:37] LABS: Hematocrit 43.1 % (37.0-53.0); Hemoglobin* 14.0 gm/dL (13.5-17.5); Immature Granulocytes Pct Auto 0.4 %; Lymphocytes Absolute Auto 1.40 K/uL (0.90-2.90); Mean Corpuscular HGB Conc 33 gm/dL (32-36); Mean Corpuscular Hemoglobin 29 pg (26-34); Mean Corpuscular Volume 90 fL (80-100); RDW Coefficient of Variation % 12.7 % (11.5-15.5); Red Blood Count 4.77 m/uL (4.30-5.90); White Blood Count* 17.11 K/uL (4.50-11.00)
[2025-04-25 16:47] LABS: Immature Granulocytes Abs Auto 0.10 K/uL (0.00-0.30)
[2025-04-25 16:48] LABS: Slide Review Reflex No
[2025-04-25 17:10] VITALS: BP 192/90; PULSE 72; RESP 20
== END 2025-04-25 17:11 | disposition home or self-care (01) ==
PROVIDERS: Emergency Provider Student in an Organized Health Care Education/Training Program; PCP Family Medicine
DX: M10.9 Gout, unspecified (principal)
CPT/HCPCS: 36415; 80048; 85025; 99283; A9270

== ENCOUNTER 2025-05-02 11:13 | Emergency (ER) | payer MEDICARE, MEDICAID, SELFPAY ==
--- OUTSIDE RECORDS SUMMARY | 2025-05-02 11:15 | XMS_ITS | Clinical Summary ---
Author Organization [facility] Address [address] [place] [address]. [place] [address] Care Team Providers Care Dry Cell And Battery Assembler Name Role Phone Florentino Luna MD Primary Care Provider [phone] Allergies No known active allergies Medications lisinopril [...] (Cologuard) Discontinued Medical Devices Implanted Type Area Informatics Developer Device Identifier Shelf Expiration Date Model / Serial / Lot Bone Cement Radiopaque Simplex Hv Full Dose 6194-1-001 - [id number] Implanted:Qty : 1 on 01/21/2023 by Rickie Bloes MD at [facility] Cement, Bone Left: Knee [employer] 02/24/2024 6194-1-001 / / [id number] Bone Cement Radiopaque Simplex Hv Full Dose 6194-1-001 - [id number] Implanted:Qty : 1 on 01/21/2023 by Rickie Boles MD at [facility] Cement, Bone Left: Knee [employer] 02/24/2024 6194-1-001 / / [id number] Imp Tibial Zim Psn Spanish Interpreter Stm 5deg Sz Dl 59-3635-392-0 1 - [id number] Implanted:Qty : 1 on 01/21/2023 by Rickie Boles MD at [facility] Total Joint Componen t/Insert Left: Knee [employer] [id number] 02/28/2032 58-8943-769-0 1 / / [id number] Knee Femur Cr Cement Ccr Std Sz 6 L - [id number] Implanted:Qty : 1 on 01/21/2023 by Rickie Boles MD at [facility] Total Joint Componen t/Insert Left: Knee [employer] [id number] 10/19/2032 [id number] / / [id number] Imp Patella Zim Knee All Winsome 38mm 63-8228-474-3 8 - [id number] Implanted:Qty : 1 on 01/21/2023 by Rickie Boles MD at [facility] Total Joint Componen t/Insert Left: Knee [employer] [id number] 11/18/2027 [id number] Surface Artc 13mm Juanis Yoder Cngr 6-7 [facility] - [id number] Implanted:Qty : 1 on 01/21/2023 by Rickie Boles MD at [facility] Total Joint Componen t/Insert Left: Knee [employer] [id number] 08/10/2027 [id number] Insurance [place] [address] [address] [place] [address] [place] [id number] [facility] Advance Directives For more information, please contact: [phone] * Full Code (Latest Code Status on [...] AM 12/12/2015 6:39 PM Care Teams Dry Cell And Battery Assembler Relationship Specialty Start Date End Date Florentino Luna MD PCP - General Family Medicine 01/31/22
--- OUTSIDE RECORDS SUMMARY | 2025-05-02 11:15 | XMS_ITS | Clinical Summary ---
Author Organization [facility] Address [facility] [place] [address] Care Team Providers Care Recruiting Internship Name Role Phone Feliciano Lynch MD Primary [...] Comments Blood Pressure 142/67 09/11/2019 7:26 AM SCALPING MACHINE OPERATOR Pulse 61 09/11/2019 7:26 AM SCALPING MACHINE OPERATOR Temperature 36.7 C (98.1 F) 09/11/2019 7:26 AM SCALPING MACHINE OPERATOR Respiratory Rate 16 09/11/2019 7:26 AM SCALPING MACHINE OPERATOR Oxygen Saturation 96% 09/11/2019 7:26 AM SCALPING MACHINE OPERATOR Inhaled Oxygen Concentration - - Weight 53.3 kg (117 lb 8.1 oz) 09/07/2019 6:00 A M SCALPING MACHINE OPERATOR Height 155.6 cm (5' 1.25) 09/05/2019 10:[address] Body Mass Index 22.02 09/05/2019 10:49 PM SCALPING MACHINE OPERATOR Plan of Treatment Health Maintenance Due Date [...] this topic Medical Devices Implanted Type Area Legal Administrative Secretary Device Identifier Shelf Expiration Date Model / Serial / Lot Iol [place] +20.5 Tecnis Zcb00 - [id number] Implanted:Qty: 1 on 01/04/2018 by Venkata Tejeda MD at [facility] Left: Eye [employer] 09/05/2021 ZCB00# / [id number] / Iol [place] +20 Tecnis Zcb00 - [id number] Implanted:Qty: 1 on 01/18/2018 by Venkata Tejeda MD at [facility] Right: Eye [employer] 10/15/2021 ZCB00# / [id number] / Insurance MEDICARE PART A HB ONLY MEDICARE PART B HB ONLY MEDICARE PB ONLY [facility] JAIL PLUS Advance Directives * Full Code [...] 2:11 PM 01/15/2010 6:20 PM Care Teams Recruiting Internship Relationship Specialty Start Date End Date Feliciano Lynch MD PCP - General Family Practice 01/26/17
[2025-05-02 11:23] VITALS: BP 154/71; PULSE 68; RESP 14; TEMP 36.4; O2SAT 93
--- NOTE | 2025-05-02 11:59 | CRLHL7_ITS ---
For Patients: As a result of the Cures Act, medical imaging exams and procedure reports are released immediately into your electronic medical record. You may view this report before your referring provider. If you have questions, please contact your health care provider. INDICATION: Pain at the base of the 2nd and 3rd metatarsals COMPARISON: 04/24/2025 TECHNIQUE: Three views left foot, nonweightbearing. FINDINGS: No acute or healing fracture. No dislocation. Multifocal periarticular erosions and demineralization. Hyperdense soft tissue swelling along the medial aspect of the left great toe MTP joint, between the 2nd and 3rd metatarsal head, and at the lateral aspect of the left 5th MTP joint. No new focally destructive bone lesion since the previous exam. No foreign body. 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 Dictated by Katerin Guerra MD @ 05/02/2025 12:27:44 PM (Electronically Signed)
[2025-05-02 12:23] LABS: Hematocrit 45.5 % (37.0-53.0); Hemoglobin* 14.7 gm/dL (13.5-17.5); Immature Granulocytes Pct Auto 1.4 %; Mean Corpuscular HGB Conc 32 gm/dL (32-36); Mean Corpuscular Hemoglobin 29 pg (26-34); Mean Corpuscular Volume 90 fL (80-100); RDW Coefficient of Variation % 12.5 % (11.5-15.5); Red Blood Count 5.08 m/uL (4.30-5.90); White Blood Count* 12.79 K/uL (4.50-11.00)
[2025-05-02 12:25] LABS: Immature Granulocytes Abs Auto 0.20 K/uL (0.00-0.30); Lymphocytes Absolute Auto 1.60 K/uL (0.90-2.90); Slide Review Reflex No
[2025-05-02 12:37] LABS: Chloride* 97 mmol/L (96-114); Potassium* 5.1 mmol/L (3.6-5.1); Sodium* 132 mmol/L (135-149)
[2025-05-02 12:41] LABS: Anion Gap 4 mEq/L (7-15); Blood Urea Nitrogen* 28 mg/dL (7-30); Calcium* 9.3 mg/dL (8.4-10.6); Carbon Dioxide* 31 mmol/L (20-32); Creatinine* 0.9 mg/dL (0.5-1.5); Estimated Glomerular Filt Rate 85 ml/min; Glucose* 234 mg/dL (60-115)
--- NOTE | 2025-05-02 12:58 | ED.GENADULT ---
HPI - General Adult General Date Seen: 05/02/25 Chief complaint: Extremity Pain/Injury, Lower Stated complaint: left foot infection Time Seen by Provider: 05/02/25 11:38 Source: patient and family (wants daughter to interpret) Mode of arrival: ambulatory Limitations: no limitations History of Present Illness HPI narrative: Patient is an 80-year-old male presenting for left foot pain. He was seen here 8 days ago for the symptoms. Was discharged on prednisone and Keflex for gout and possible cellulitis due to recent abrasions. Since then he feels like the foot, better for a short amount of time but now has gotten worse. The foot is more swollen than prior. Pain is on the plantar aspect of the foot pain seems to be around the heads of the 2nd and 3rd metatarsals. He is now having pain to his left great toe at the MCP. The great toe is where he has had gout in the past. Previously a couple doses of prednisone will improve the gout but it has not helped this time. He is still on the prednisone on a tapered dose. Denies fevers, chills, chest pain, shortness of breath, weakness, lightheadedness, dizziness. No other concerns noted. Does not take chronic gout medication Related Data Previous Rx's ?Medication ?Instructions ?Recorded triamcinolone acetonide 0.5 % 1 applic topical BID PRN itching 07/11/24 topical cream #15 grams acetaminophen 500 mg tablet 500 - 1,000 mg (1 - 2 x 500 mg) PO 03/12/25 Q6H PRN pain #100 tabs diclofenac sodium 1 % topical gel 2 g topical QID #50 grams 03/20/25 cephalexin 500 mg capsule 500 mg PO QID 10 days #40 caps 04/24/25 Allergies Allergy/AdvReac Type Severity Reaction Status Date / Time No Known Drug Allergies Allergy Verified 05/02/25 11:22 Review of Systems Narrative: Pertinent systems reviewed and were negative unless stated in HPI PFSH PFSH Medical History Generalized pain ?R52 - Pain, unspecified (ICD-10) Diarrhea ?R19.7 - Diarrhea, unspecified (ICD-10) Malnutrition ?E46 - Unspecified protein-calorie malnutrition (ICD-10) Bronchitis ?J40 - Bronchitis, not specified as acute or chronic (ICD-10) Arthritis ?M19.90 - Unspecified osteoarthritis, unspecified site (ICD-10) CAD (coronary artery disease) ?I25.10 - Atherosclerotic heart disease of [place] coronary artery without angina pectoris (ICD-10) Surgical History History of cholecystectomy ?Z90.49 - Acquired absence of other specified parts of digestive tract (ICD-10) History of cataract extraction ?Z98.49 - Cataract extraction status, unspecified eye (ICD-10) Social History Narrative: Patient lives with his and nephew in [place]. 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 Code status is full. Daughter is healthcare power of employment law attorney. No history of smoking. He does not drink alcohol. What is your current living situation?: I presently have a place to live Problems where you live: no known problems Problems where you live details: None noted In the past 12 months, utilities in danger of being shut off: no In past 12 months, lack of transportation kept you from medical appts, meetings, work, or getting things needed for daily living: no In the past 12 mos, have been you worried that your food would run out before you had money to buy more?: never true In the past 12 mos, the food you bought just didn't last and you didn't have money to buy more?: never true Highest level of school completed/degree received: don't know Smoking Status: Never smoker Do you use any of these nicotine containing products: None Second hand tobacco smoke exposure: No How often do you have a drink containing alcohol: never How often do you have six or more drinks on one occasion: Never AUDIT-C Alcohol total score: 0 Non-prescribed substance use: denies use Caffeine: No How often does anyone, including family, friends and others, physically hurt you: never How often does anyone, including family, friends and others, insult or talk down to you: never How often does anyone, including family, friends and others, threaten you with harm: never How often does anyone, including family, friends and others, scream or curse at you: never service: No Exam Narrative: Exam Narrative: Const: Well-nourished, Well-developed, in mild distress Eyes: PERRL, no conjunctival injection, and symmetrical lids HENT: Atraumatic external nose and ears. Moist mucous membranes. MSK: Swelling noted to the left foot most notably on the dorsal aspect near the 2nd and 3rd DI PEs. There is tenderness on the plantar aspect of the foot near the 2nd and 3rd metatarsal heads. No obvious erythema or warmth Skin: Warm, Dry. No rashes or lesions. Neuro: Normal Muscle tone, No focal neurological deficits. Psych: Awake, Alert, & Oriented x3. Appropriate mood and affect. Const: Vital Signs, click to edit/add: Vital Signs - 24 hr 05/02/25 11:23 05/02/25 14:54 05/02/25 19:04 Temperature 97.5 F L Pulse Rate [Pulse Oximeter] 68 51 L 72 Respiratory Rate 14 18 Blood Pressure [Ri ght Upper Arm] 154/71 H 176/92 H 147/65 H Pulse Oximetry 93 99 Oxygen Delivery Me thod Room Air Room Air Course Vital Signs Vital signs: Initial Vital Signs Temperature 97.5 F L 05/02/25 11:23 Temperature Source Temporal Artery Scan 05/02/25 11:23 Pulse Rate 68 05/02/25 11:23 Respiratory Rate 14 05/02/25 11:23 Blood Pressure 154/71 H 05/02/25 11:23 Blood Pressure Mean 98 05/02/25 11:23 Blood Pressure Position Sitting 05/02/25 11:23 Pulse Oximetry 93 05/02/25 11:23 Oxygen Delivery Method Room Air 05/02/25 11:23 Vital Signs Temperature 97.5 F L 05/02/25 11:23 Pulse Rate 68 05/02/25 11:23 Respiratory Rate 14 05/02/25 11:23 Blood Pressure 154/71 H 05/02/25 11:23 Pulse Oximetry 93 05/02/25 11:23 Oxygen Delivery Method Room Air 05/02/25 11:23 Temperature 97.5 F L 05/02/25 11:23 Pulse Rate 72 05/02/25 19:04 Respiratory Rate 18 05/02/25 14:54 Blood Pressure 147/65 H 05/02/25 19:04 Pulse Oximetry 99 05/02/25 14:54 Oxygen Delivery Method Room Air 05/02/25 14:54 Medical Decision Making MDM Narrative Medical decision making narrative: Patient is an 80-year-old male presenting for left foot pain. This is seems most likely gout as he is having a history of gout and now is having pain in his left great toe where he typically has gout. Will do further workup though as last time he was here he did have an elevated white blood cell count even before he was started on the prednisone. The swab look for signs of septic joint and osteomyelitis. Will order ESR, CRP, BMP, CBC along with an x-ray of the left foot. His pain is tolerable at this time. BMP shows a white count of 12.79. This actually is much improved even though he is on steroids. Still elevated at 12.79. ESR is elevated at 40 and CRP is slightly elevated 1.5. I did speak to Ortho to get their opinion on if MRI is recommended at this time they do think it is reasonable to check an MRI for signs of osteomyelitis. States the joints are too small for arthrocentesis. Patient did request some oxycodone for pain. Preliminary report of the MRI shows consistency with gout. There is also a large partially imaged peripherally enhancing ovoid fluid collection being the flexor tendon within the midfoot. Findings suspicious for tenosynovitis. This is likely infectious or inflammatory. Considering the history of gout this is most likely inflammatory. No clear signs of infection at this time. Although I will put him on antibiotics. I did speak to the on-call orthopedic PA who recommends follow-up with Podiatry. I gave the patient information for Podiatry for follow-up. They are agreeable to this plan. Will prescribe doxycycline oxycodone via [facility] Lab Data Labs: Lab Results 05/02/25 Range/Units 12:18 WBC 12.79 H (4.50-11.00) K/uL RBC 5.08 (4.30-5.90) m/uL Hgb 14.7 (13.5-17.5) gm/dL Hct 45.5 (37.0-53.0) % MCV 90 (80-100) fL MCH 29 (26-34) pg MCHC 32 (32-36) gm/dL RDW Coeff of Mickey 12.5 (11.5-15.5) % Plt Count 319 (140-440) K/uL Neut % (Auto) 80.2 H (42.0-72.0) % Lymph % (Auto) 12.6 L (20-44) % Cavalier % (Auto) 5.7 (0.0-11.0) % Eos % (Auto) 0.1 (0.0-7.0) % Baso % (Auto) 0.0 (0.0-3.0) % Neut # (Auto) 10.30 H (1.7-7.0) K/uL Lymph # (Auto) 1.60 (0.90-2.90) K/uL Cavalier # (Auto) 0.70 (0.00-0.90) K/UL Eos # (Auto) 0.00 (0.00-0.50) K/uL Baso # (Auto) 0.00 (0.00-0.30) K/uL Abs Immat Gran (auto) 0.20 (0.00-0.30) K/uL Imm/Tot Granulo (auto) 1.4 % ESR 40 H (2-15) mm/hr Sodium 132 L (135-149) mmol/L Potassium 5.1 (3.6-5.1) mmol/L Chloride 97 (96-114) mmol/L Carbon Dioxide 31 (20-32) mmol/L Anion Gap 4 L (7-15) mEq/L BUN 28 (7-30) mg/dL Creatinine 0.9 (0.5-1.5) mg/dL Estimated GFR 85 ml/min Glucose 234 H (60-115) mg/dL Calcium 9.3 (8.4-10.6) mg/dL C-Reactive Protein 1.5 H (0.5-1.0) mg/dL Imaging Data Left foot x-ray: Attestation: I have reviewed the pertinent imaging results. 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 Dictated by Katerin Guerra MD @ 05/02/2025 12:27:44 PM Left foot MRI: Attestation: I have reviewed the pertinent imaging results. Radiologist's impression: Preliminary Impression: Numerous erosions and heterogeneous tophi about the metatarsophalangeal and interphalangeal joints, most notably along the great toe, compatible with gout. There are similar findings within the midfoot, particularly at the bases of the 3rd through 5th metatarsals. Large, partially imaged, peripherally enhancing ovoid fluid collection beneath the flexor tendons within the midfoot. Findings suspicious for tenosynovitis, likely infectious/inflammatory. Read by:?Silverio Charles MD @05/02/2025 7:02:48 PM Discharge Plan Discharge Clinical Impression: Gout Qualifiers: Gout site: foot Gout etiology: unspecified cause Chronicity: acute Laterality: unspecified laterality Qualified Code(s): M10.9 - Gout, unspecified Patient Disposition: Home, Self-Care Condition: Stable Instructions: Gout (ED) Additional Instructions: The MRI shows gout but there is also some concern for inflammation of 1 of his tendons. Cannot say for certain this is infectious or inflammatory but does seem most likely inflammatory. I spoke to Ortho who recommends outpatient follow-up with Podiatry. Call [phone] to set up an appointment. Tell them that you have gout and possible tenosynovitis. Take the oxycodone as prescribed. Continue to take NSAIDs [id number]. Take the anti biotic as prescribed. Return to emergency department for new or worsening symptom Prescriptions: No Action diclofenac sodium 1 % gel 2 g topical QID Qty: 50 1RF cephalexin 500 mg capsule 500 mg PO QID 10 Days Qty: 40 0RF triamcinolone acetonide 0.5 % cream 1 applic topical BID PRN (Reason: itching) Qty: 15 0RF acetaminophen 500 mg tablet 500 - 1,000 mg PO Q6H PRN (Reason: pain) Qty: 100 1RF Follow Up/Referrals: Florentino Luna MD [Primary Care Provider, Family Practice] Stand Alone Forms: MyHealth Info Instructions
[2025-05-02 13:04] LABS: Erythrocyte SedimentationRate* 40 mm/hr (2-15)
--- NOTE | 2025-05-02 13:59 | CRLHL7_ITS ---
For Patients: As a result of the Century Cures Act, medical imaging exams and procedure reports are released immediately into your electronic medical record. You may view this report before your referring provider. If you have questions, please contact your health care provider. EXAM: MRI OF THE LEFT FOOT, WITHOUT AND WITH IV CONTRAST CLINICAL INDICATION: Pain at the 2nd and 3rd metatarsal heads. History of gout. COMPARISON PLAIN FILMS: 05/02/2025. COMPARISON CROSS-SECTIONAL IMAGING STUDIES: None. TECHNICAL: Axial, sagittal and coronal T1, PD and STIR images precontrast. Postcontrast T1 weighted imaging with fat saturation. Contrast: Gadavist 10 mL IV. FINDINGS: Multiple tophi are present throughout the foot. Extensive erosive change at multiple joints including the 2nd through 5th TMT joints 1st, 2nd and 5th MTP joints and multiple IP joints. Erosive change is most prominent in the 1st MTP joint and the 2nd toe proximal phalanx. Enhancement is present adjacent to the tophi throughout the foot. In addition there is a fluid collection between the flexor digitorum longus and flexor digitorum brevis tendons extending from the distal metatarsal region to the medial margin of the calcaneus. Findings are likely inflammatory. Diffuse subcutaneous edema most prominent in the dorsum of the foot. No retracted tendon tear. No fracture or contusion. IMPRESSION: 1. Extensive changes of gouty arthropathy throughout the foot with multiple tophi erosions and fluid collection between the flexor digitorum brevis and flexor digitorum longus tendon sheaths. 2. Diffuse subcutaneous edema most prominent in the dorsum of the foot. Dictated by Tyshawn Saba MD @ 05/03/2025 7:53:17 AM (Electronically Signed)
[2025-05-02 14:54] VITALS: BP 176/92; PULSE 51; RESP 18; O2SAT 99
[2025-05-02 19:04] VITALS: BP 147/65; PULSE 72
== END 2025-05-02 19:49 | disposition home or self-care (01) ==
PROVIDERS: Emergency Provider Student in an Organized Health Care Education/Training Program; PCP Family Medicine
DX: M10.9 Gout, unspecified (principal)
CPT/HCPCS: 36415; 73630; 73720; 80048; 85025; 85651; 86140; 99284; A9575

== ENCOUNTER 2025-05-30 05:36 | Emergency (ER) | payer MEDICARE, MEDICAID, SELFPAY ==
--- OUTSIDE RECORDS SUMMARY | 2025-05-30 05:38 | XMS_ITS | Clinical Summary ---
Author Organization [facility] Address [address] [place] [address]. [place] [address] Care Team Providers Care Card Game Operator Name Role Phone Florentino Luna MD Primary Care Provider [phone] Allergies No known active allergies Medications lisinopril [...] (Cologuard) Discontinued Medical Devices Implanted Type Area French Drawer Device Identifier Shelf Expiration Date Model / Serial / Lot Bone Cement Radiopaque Simplex Hv Full Dose 6194-1-001 - [id number] Implanted:Qty : 1 on 01/21/2023 by Rickie Boles MD at [facility] Cement, Bone Left: Knee [employer] 02/24/2024 6194-1-001 / / [id number] Bone Cement Radiopaque Simplex Hv Full Dose 6194-1-001 - [id number] Implanted:Qty : 1 on 01/21/2023 by Rickie Boles MD at [facility] Cement, Bone Left: Knee [employer] 02/24/2024 6194-1-001 / / [id number] Imp Tibial Zim Psn Merchandising Specialist Stm 5deg Sz Dl [id number] 1 - [id number] Implanted:Qty : 1 on 01/21/2023 by Rickie Boles MD at [facility] Total Joint Componen t/Insert Left: Knee [employer] [id number] 02/28/2032 [id number] 1 / / [id number] Knee Femur Cr Cement Ccr Std Sz 6 L - [id number] Implanted:Qty : 1 on 01/21/2023 by Rickie Boles MD at [facility] Total Joint Componen t/Insert Left: Knee [employer] [id number] 10/19/2032 [id number] / / [id number] Imp Patella Zim Knee All Winsome 38mm [id number] 8 - [id number] Implanted:Qty : 1 on 01/21/2023 by Rickie Boles MD at [facility] Total Joint Componen t/Insert Left: Knee [employer] [id number] 11/18/2027 [id number] Surface Artc 13mm Juanis Yoder Cngr 6-7 [facility] - [id number] Implanted:Qty : 1 on 01/21/2023 by Rickie Boles MD at [facility] Total Joint Componen t/Insert Left: Knee [employer] [id number] 08/10/2027 [id number] Insurance [place] [address] [address] [place] [id number] [facility] Advance Directives For more information, please contact: [phone] * Full Code (Latest Code Status on [...] 4:17 AM 12/12/2015 6:39 PM Care Teams Card Game Operator Relationship Specialty Start Date End Date Florentino Luna MD PCP - General Family Medicine 01/31/22
--- OUTSIDE RECORDS SUMMARY | 2025-05-30 05:38 | XMS_ITS | Clinical Summary ---
Author Organization [employer] [facility] [employer] [facility] Address [facility] [place] [address] Care Team Providers Care Tile Inspector Name Role Phone Feliciano Lynch MD Primary Care Provider Unavai lable Allergies No known active allergies Medications acetaminophen SR (TYLENOL ARTHRITIS) 650 mg Extended-Releas e tablet Take 650 mg by mouth every 8 hours if needed. 4 05/04/20 18 Active doxycycline 100 mg tablet Take 100 mg by mouth two times daily before meals. X 7 DAYS 05/02/20 25 Active oxyCODONE-aceta minophen (PERCOCET) 5-325 mg per tablet Take 1 Tablet by mouth 3 times daily if needed for Pain. Max acetaminophen dose: 4000mg in 24 hrs. Active colchicine 0.6 mg tabletIndicatio ns:Left foot pain For Gout Flare, Take by mouth 3 tablets (1.8mg) total on one day (which is 2 tablets (1.2mg) at once then wait one hour and take 1 tablet (0.6mg)). Wait 12 hours before resuming your prophylactic dose. 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 25 tablet 2 6 3:49 PM CDT 05/31/20 16 025 Discontinu ed(*Patien t states no longer taking) metoprolol succinate (TOPROL XL) 25 mg Sustained-Relea se tablet Take 25 mg by mouth once daily. 12/22/19 18 025 Discontinu ed(*Patien t states no longer taking) triamcinolone 0.5% (ARISTOCORT) 0.5 % cream Apply topically to affected area(s) 2 times daily if needed. 12/22/19 18 025 Discontinu ed(*Patien t states no longer taking) diclofenac (VOLTAREN) 75 mg delayed-release tablet Take 75 mg by mouth once daily if needed. 12/22/19 18 025 Discontinu ed(*Patien t states no longer taking) aspirin (ECOTRIN) 81 mg enteric coated tablet Take 81 mg by mouth once daily. 025 Discontinu ed(*Patien t states no longer taking) gabapentin (NEURONTIN) 300 mg capsule TAKE 1 CAPSULE BY MOUTH TWICE DAILY NEEDED FOR NECK PAIN IB ZAUG NOJ 1 LUB, IB HNUB NOJ 2 ZAUG YOG MOB 4 05/04/20 18 025 Discontinu ed(*Patien t states no longer taking) capsaicin (ZOSTRIX) 0.025 % cream APPLY TO THE AFFECTED AREA TWICE DAILY NEEDED 1 HNUB PLEEV 2 ZAUG SABINE THAJ TSHAM MOB LOS TAU 4 05/04/20 18 025 Discontinu ed(*Patien t states no longer taking) clopidogrel (PLAVIX) 75 mg tablet TAKE 1 TABLET BY MOUTH EVERY DAY 1 HNUB NOJ 1 LUB KOM NTSHAV TXOB NPLAUM 4 05/04/20 18 025 Discontinu ed(*Patien t states no longer taking) lisinopril (PRINIVIL; ZESTRIL) 10 mg tablet Take 10 mg by mouth once daily. 025 Discontinu ed(*Patien t states no longer taking) predniSONE (DELTASONE) 20 mg tabletIndicatio ns:Acute idiopathic gout, unspecified site Take 1 Tablet (20 mg) by mouth once daily with a meal for 5 days, THEN 0.5 Tablets (10 mg) once daily with a meal for 5 days. 7.5 Tablet 05/04/20 25 025 Active Problems Problem Noted Date Diagnosed Date [...] Encounters Date Type Department Care Team Description 05/04/2025 7:32 PM CDT - 05/04/2025 11:36 PM CDT Emergency [facility] Emergency Department [address] [place] [address] Sergei Landry MD Left foot pain (Primary Dx); Acute idiopathic gout, unspecified site Discharge Disposition: Home Self Care 05/04/2025 Travel from Last 3 Months Immunizations Immunization Administration Dates Next Due Influenza, [...] drink = 0.6 oz pur e alcohol) Interpersonal Safety Answer Date Record ed Are you being hit, kicked, p ushed or yelled at (see row info)? No 05/04/2025 Interpersonal Safety Abuse 12 - 18 Not on file 05/04/2025 Interpersonal Safety Ambulatory Vulnerability No t on file 05/04/2025 Sex and Gender Information Value Date Recorded Sex Assigned at Not on file Legal Sex Male 2:36 PM CDT Gender Identity Not on file Sexual Orientation Not on file Obstetrics History Last Filed Vital Signs Vital Sign Reading Time Taken Comments Blood Pressure 151/72 05/04/2025 10:16 PM CDT Pulse 82 05/04/2025 10:16 PM CDT Temperature 37.6 C (99.6 F) 05/04/2025 5:36 PM CDT Respiratory Rate 16 05/04/2025 10:16 PM CDT Oxygen Saturation 94% 05/04/2025 10:16 PM CDT Inhaled Oxygen Concentration - - Weight 50.8 kg (112 lb) 05/04/2025 5:36 PM CDT Height 149.9 cm (4' 11) 05/04/2025 5:36 PM CDT Body Mass Index 22.62 05/04/2025 5:36 PM CDT Plan of Treatment Health Maintenance Due Date Last Done Comments Zoster (shingles) series for age 50+ (1 of 2) 1993 Medicare Wellness for age 65+ 01/06/2008 RSV vaccine for adults or (1 - 1-dose 75+ series) 2018 Depression screening for age 12+ 01/26/2018 01/26/2017 Pneumococcal series for age 50+ (2 of 2 - PPSV23) 02/20/2018 12/26/2017 BMI (ht and wt on same day) for age 18+ 06/01/2019 06/01/2018, 12/26/2017, 01/26/2017, Additional history exists COVID-19 vaccine series ( season) 2024 11/29/2020, 11/08/2020 Influenza Vaccine (#1) 2025 07/17/2012 Tetanus booster 12/27/2027 12/26/2017, 01/25, 07/17/1979 Hepatitis B series for 19+ Aged Out N o longer eligible based on patient's age to complete this topic Medical Devices Implanted Type Area Cargo Services Coordinator Device Identifier Shelf Expiration Date Model / Serial / Lot Iol Isabela +20.5 Salome Zcb00 - [id number] Implanted:Qty: 1 on 01/04/2018 by Venkata Tejeda MD at [facility] Left: Eye [employer] 09/05/2021 [id number]# / [id number] / Iol Isabela +20 [employer] Zcb00 - [id number] Implanted:Qty: 1 on 01/18/2018 by Venkata Tejeda MD at [facility] Right: Eye [employer] 10/15/2021 [id number]# / [id number] / Procedures Procedure Name Priority Date/Time Associated Diagnosis Comments US ARTERIAL LOWER EXTREMITY W KAROLINE LEFT PORTABLE STAT 05/04/2025 10:15 PM CDT C-REACTIVE PROTEIN STAT 05/04/2025 8: 11 PM CDT SEDIMENTATION RATE STAT 05/04/2025 8: 11 PM CDT URIC ACID STAT 05/04/2025 8:11 PM CDT BASIC METABOLIC PANEL STAT 05/04/2025 8:11 PM CDT CBC W PLT NO DIFF STAT 05/04/2025 8:1 1 PM CDT from Last 3 Months Results * US ARTERIAL LOWER EXTREMITY W KAROLINE LEFT PORTABLE (05/04/2025 10:15 PM CDT) Anatomical Region Laterality Modality LEG L Ultrasound 05/04/2025 10:4 7 PM CDT Impressions 05/04/2025 10:47 PM CDT 1. 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 2. Normal ankle-brachial index in the left dorsalis pedis artery but with noncompressible posterior tibial artery. 3. Nondiagnostic right ankle-brachial index due to noncompressible vessels. Dictated by Wilver Colon MD @ 05/04/2025 10:47:38 PM (Electronically Signed) Narrative 05/04/2025 10:47 PM CDT For Patients: As a result of the 21st Century Cures Act, medical imaging exams and procedure reports are released immediately into your electronic medical record. You may view this report before your referring provider. If you have questions, please contact your health care provider. INDICATION: Decreased extremity pulses. TECHNIQUE: Routine duplex arterial examination of the left lower extremity including 2D and spectral analysis, and color Doppler imaging was performed. In addition, resting ankle-brachial indices were obtained. COMPARISON: None. FINDINGS: In the left lower extremity, there are multiphasic waveforms within the common femoral artery, profunda femoral artery, and superficial femoral artery. There is <4:1 velocity shift in the distal superficial femoral artery in the region of the adductor canal. There are monophasic waveforms in the popliteal artery. At the ankle, there are monophasic waveforms in the posterior tibial artery, anterior tibial artery, and dorsalis pedis artery. The contralateral ankle was examined for comparison and demonstrates multiphasic waveforms in the right posterior tibial and dorsalis pedis arteries. Right Brachial: 160 mmHg Left Brachial: 160 mmHg Right DIVISION MANAGER: Noncompressible Right DPA: Noncompressible Left DIVISION MANAGER: Noncompressible Left DPA: 165 mmHg (KAROLINE 1.03) Procedure Note Wilver Colon MD - 05/04/2025 For Patients: As a result of the Cures Act, medical imagingexams and procedure reports are released immediately into your electronicmedical record. You may view this report before your referring provider.If you have questions, please contact your health care provider. INDICATION: Decreased extremity pulses. TECHNIQUE: Routine duplex arterial examination of the left lower extremity [id number] and spectral analysis, and color Doppler imaging was performed. Inaddition, resting ankle-brachial indices were obtained. COMPARISON: None. FINDINGS: In the left lower extremity, there are multiphasic waveforms within thecommon femoral artery, profunda femoral artery, and superficial femoralartery. There is <4:1 velocity shift in the distal superficial femoralartery in the region of the adductor canal. There are monophasic waveformsin the popliteal artery. At the ankle, there are monophasic waveforms inthe posterior tibial artery, anterior tibial artery, and dorsalis pedisartery. The contralateral ankle was examined for comparison and demonstratesmultiphasic waveforms in the right posterior tibial and dorsalis pedisarteries. Right Brachial: 160 mmHg Left Brachial: 160 mmHg Right DIVISION MANAGER: Noncompressible Right DPA: Noncompressible Left DIVISION MANAGER: Noncompressible Left DPA: 165 mmHg (KAROLINE 1.03) IMPRESSION: 1. 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 2. Normal ankle-brachial index in the left dorsalis pedis artery but withnoncompressible posterior tibial artery. 3. Nondiagnostic right ankle-brachial index due to noncompressiblevessels. Dictated by Wilver Colon MD @ 05/04/2025 10:47:38 PM (Electronically Signed) Sergei Landry MD US Final Result * (ABNORMAL) SEDIMENTATION RATE (05/04/2025 8:11 PM CDT) [facility] SEDIMENTATION RATE 51(H) <20 mm/hr 2024 8:36 PM CDT [facility] Blood BLOOD SPECIMEN / Unknown Non-Lab Venipuncture / Unknown 05/04/2025 8:11 PM CDT 05/04/2025 8:16 PM CDT Sergei Landry MD HEMATOLOGY Final Result [facility] [address] [place] [address], * (ABNORMAL) CBC W PLT NO DIFF (05/04/2025 8:11 PM CDT) Pathologist [facility] WHITE BLOOD COUNT 16.7(H) 4.5 - 11.0 thou/cu mm 05/04/2025 8:29 PM CDT [facility] RED BLOOD COUNT 5.46 4.30 - 5.90 mil/cu mm 05/04/2025 8:29 PM CDT [facility] HEMOGLOBIN 15.8 13.5 - 17.5 g/dL 05/04/2025 8:29 PM CDT [facility] HEMATOCRIT 48.5 37.0 - 53.0 % 05/04/2025 8:29 PM CDT [facility] MCV 89 80 - 100 fL 05/04/2025 8:29 PM CDT [facility] MCH 28.9 26.0 - 34.0 pg 05/04/2025 8:29 PM CDT [facility] MCHC 32.6 32.0 - 36.0 g/dL 05/04/2025 8:29 PM CDT [facility] RDW 12.9 11.5 - 15.5 % 05/04/2025 8:29 PM CDT [facility] PLATELET COUNT 302 140 - 440 thou/cu mm 05/04/2025 8:29 PM CDT [facility] MPV 9.3 6.5 - 11.0 fL 05/04/2025 8:29 PM CDT [facility] NRBC 0.0 % 05/04/2025 8:29 PM CDT [facility] ABS NRBC 0.0 thou /cu mm 05/04/2025 8:29 PM CDT [facility] Blood BLOOD SPECIMEN / Unknown Non-Lab Venipuncture / Unknown 05/04/2025 8:11 PM CDT 05/04/2025 8:16 PM CDT Sergei Landry MD HEMATOLOGY Final Result [facility] [address] [address], * (ABNORMAL) C-REACTIVE PROTEIN (05/04/2025 8:11 PM CDT) C-REACTIVE PROTEIN 2.8(H) <0.5 mg/dL 05/04/2025 9:08 PM CDT [facility] Blood BLOOD SPECIMEN / Unknown Non-Lab Venipuncture / Unknown 05/04/2025 8:11 PM CDT 05/04/2025 8:16 PM CDT Sergei Landry MD CHEMISTRY Final Result Performing Organization Address City/[facility]/ZIP Co de Phone Number [facility] [address] [place] [id number], [place] * (ABNORMAL) URIC ACID (05/04/2025 8:11 PM CDT) URIC ACID 9.1(H) 3.4 - 7.0 mg/dL 05/04/2025 8:54 PM CDT [facility] Blood BLOOD SPECIMEN / Unknown Non-Lab Venipuncture / Unknown 05/04/2025 8:11 PM CDT 05/04/2025 8:16 PM CDT Sergei Landry MD CHEMISTRY Final Result Performing Organization Address [facility] Co de Phone Number [facility] [address] [place] [id number], [place] * (ABNORMAL) BASIC METABOLIC PANEL (05/04/2025 8:11 PM CDT) SODIUM 137 136 - 145 mmol/L 05/04/2025 8:54 PM CDT [facility] POTASSIUM 4.2 3.5 - 5.1 mmol/L 05/04/2025 8:54 PM CDT [facility] CHLORIDE 100 98 - 107 mmol/L 05/04/2025 8:54 PM CDT [facility] CO2,TOTAL 25 22 - 29 mmol/L 05/04/2025 8:54 PM CDT [facility] ANION GAP 12 5 - 18 05/04/2025 8:54 PM CDT [facility] GLUCOSE 94 70 - 99 mg/dL 05/04/2025 8:54 PM CDT [facility] CALCIUM 9.0 8.8 - 10.4 mg/dL 05/04/2025 8:54 PM CDT [facility] Comment: Reference ranges for this test were updated on 07/31/2024 to reflect our healthy population more accurately. Reference range changes are not retroactively applied to results, but previous results using the same methodology can be interpreted in the context of the new reference range. BUN 16 8 - 23 mg/dL 05/04/2025 8:54 PM CDT [facility] CREATININE 1.09 0.70 - 1.20 mg/dL 05/04/2025 8:54 PM CDT [facility] BUN/CREAT RATIO 15 10 - 20 8:54 PM CDT [facility] eGFR 68(L) >90 mL/min/1.7 3m2 05/04/2025 8:54 PM CDT [facility] Comment:As of 2021, eG FR is calculated by the CKD-EPI creatinine equation without race adjustment. eGFR can be influenced by muscle mass, exercise, and diet. The reported eGFR is an estimation only and is only applicable if the renal function is stable. Blood BLOOD SPECIMEN / Unknown Non-Lab Venipuncture / Unknown 05/04/2025 8:11 PM CDT 05/04/2025 8:16 PM CDT us Sergei Landry MD CHEMISTRY Final Result [facility] [address] [place] [address], from Last 3 Months Insurance MEDICARE PART A HB ONLY MEDICARE PART B HB ONLY MEDICARE PB ONLY [facility] PLUS Advance Directives * Full Code (Latest [...] 2:11 PM 01/15/2010 6:20 PM Care Teams Tile Inspector Relationship Specialty Start Date End Date Feliciano Lynch MD PCP - General Family Practice 05/04/25
[2025-05-30 05:44] VITALS: BP 118/76; PULSE 76; RESP 18; TEMP 37.1; O2SAT 96; BMI 21.5
--- NOTE | 2025-05-30 05:47 | ED_ITS ---
HPI - General Adult General Time Seen by Provider: 05:47 Date Seen: 05/30/25 Chief complaint: Chest Pain Stated complaint: Chest pain Time Seen by Provider: 05/30/25 05:46 Source: patient, family and translator and interpreter (daughter ) Mode of arrival: ambulatory History of Present Illness HPI narrative: 80-year-old male with a past medical history of coronary artery disease, arthritis who presents the emergency department for evaluation chest pain. Patient is here tonight with his daughter who interprets for him (declined translator and interpreter). Daughter reports that patient has had some intermittent chest pain, back pain, abdominal pain that started last night. Reports chest pain is located in the center of his chest and occasionally goes to his back into his shoulder blade. Pain is intermittent in nature with no aggravating or relieving factors. Denies any weakness, dizziness, fever, chills. Also complains of some abdominal pain but denies any nausea, vomiting, diarrhea. Patient has had body aches, headache prior to going to bed, took Tylenol, oxycodone with some improvement of symptoms. Daughter reports history of coronary disease with stents in place, does not take any medications on a daily basis. History of cholecystectomy in the past. No other complaints. Related Data Previous Rx's ?Medication ?Instructions ?Recorded oxycodone 5 mg capsule 2.5 mg (1/2 x 5 mg) PO Q8H P RN 05/30/25 severe pain #7 caps Allergies Allergy/AdvReac Type Severity Reaction Status Date / Time No Known Drug Allergies Allergy Verified 05/30/25 05:47 Review of Systems Narrative: Past medical history, past surgical history, medications, allergies, family history, and social history were reviewed with the patient. No additional pertinent items. A medically appropriate review of systems was performed with pertinent positives and negatives noted in HPI, all other systems negative. PFS PFS Medical History Generalized pain ?R52 - Pain, unspecified (ICD-10) Diarrhea ?R19.7 - Diarrhea, unspecified (ICD-10) Malnutrition ?E46 - Unspecified protein-calorie malnutrition (ICD-10) Bronchitis ?J40 - Bronchitis, not specified as acute or chronic (ICD-10) Arthritis ?M19.90 - Unspecified osteoarthritis, unspecified site (ICD-10) CAD (coronary artery disease) ?I25.10 - Atherosclerotic heart disease of [place] coronary artery without angina pectoris (ICD-10) Surgical History History of cholecystectomy ?Z90.49 - Acquired absence of other specified parts of digestive tract (ICD- 10) History of cataract extraction ?Z98.49 - Cataract extraction status, unspecified eye (ICD-10) Social History Narrative: Patient lives with his and nephew in [place]. 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 Code status is full. Daughter is healthcare power of [employer] manufacturing supervisor. No history of smoking. He does not drink alcohol. What is your current living situation?: I presently have a place to live Problems where you live: no known problems Problems where you live details: None noted In the past 12 months, utilities in danger of being shut off: no In past 12 months, lack of transportation kept you from medical appts, meetings, work, or getting things needed for daily living: no In the past 12 mos, have been you worried that your food would run out before you had money to buy more?: never true In the past 12 mos, the food you bought just didn't last and you didn't have money to buy more?: never true Highest level of school completed/degree received: don't know Smoking Status: Never smoker Do you use any of these nicotine containing products: None Second hand tobacco smoke exposure: No How often do you have a drink containing alcohol: never How often do you have six or more drinks on one occasion: Never AUDIT-C Alcohol total score: 0 Non-prescribed substance use: denies use Caffeine: No How often does anyone, including family, friends and others, physically hurt you : never How often does anyone, including family, friends and others, insult or talk down to you: never How often does anyone, including family, friends and others, threaten you with harm: never How often does anyone, including family, friends and others, scream or curse at you: never service: No Exam Narrative: Exam Narrative: General: Afebrile, no acute distress HEENT: Normocephalic, atraumatic, conjunctiva normal. MMM Neck: non-tender, supple Cardio: regular rate. regular rhythm Resp: Normal work of breathing, no respiratory distress, lungs clear bilaterally, no wheezing, rhonchi, rales Chest/Back: no visual signs of trauma, no midline tenderness, no CVA tenderness Abdomen: soft, non distension, no tenderness, no peritoneal signs Neuro: alert and fully oriented. CN II-XII grossly intact. Grossly normal strength and sensation in all extremities. MSK: no deformities. Normal range of motion Integumentary/Skin: no rash visualized, normal color Psych: normal affect, normal behavior Const: Vital Signs, click to edit/add: Vital Signs - 24 hr 05/30/25 05:44 05/30/25 07:32 Temperature 98.7 F 96.4 F L Pulse Rate [Pulse Oximeter] 76 68 Respiratory Rate 18 16 Blood Pressure [Ri ght Upper Arm] 118/76 144/78 H Pulse Oximetry 96 100 Oxygen Delivery Me thod Room Air Room Air Course Vital Signs Vital signs: Initial Vital Signs Temperature 98.7 F 05/30/25 05:44 Temperature Source Temporal Artery Scan 05/30/25 05:44 Pulse Rate 76 05/30/25 05:44 Respiratory Rate 18 05/30/25 05:44 Blood Pressure 118/76 05/30/25 05:44 Blood Pressure Mean 90 05/30/25 05:44 Blood Pressure Position Sitting 05/30/25 05:44 Pulse Oximetry 96 05/30/25 05:44 Oxygen Delivery Method Room Air 05/30/25 05:44 Vital Signs Temperature 98.7 F 05/30/25 05:44 Pulse Rate 76 05/30/25 05:44 Respiratory Rate 18 05/30/25 05:44 Blood Pressure 118/76 05/30/25 05:44 Pulse Oximetry 96 05/30/25 05:44 Oxygen Delivery Method Room Air 05/30/25 05:44 Temperature 96.4 F L 05/30/25 07:32 Pulse Rate 68 05/30/25 07:32 Respiratory Rate 16 05/30/25 07:32 Blood Pressure 144/78 H 05/30/25 07:32 Pulse Oximetry 100 05/30/25 07:32 Oxygen Delivery Method Room Air 05/30/25 07:32 Medications Administered Medications: Discontinued Medications Generic Name Dose Route Start Last Admin Trade Name Freq PRN Reason Stop Dose Admin Sodium Chloride 1,000 mls @ 1,000 mls/hr 05/30/25 06:30 05/30/25 07:33 0.9 % Sodium Chloride 1000 Ml IV 05/30/25 07:29 Infused .Q1H MEMO Infusion Medical Decision Making MDM Narrative Medical decision making narrative: 80-year-old male with a past medical history of coronary artery disease, arthritis who presents the emergency department for evaluation chest pain. Upon arrival patient is nontoxic appearing, afebrile, no distress. Patient hemodynamically stable vital signs within normal limits. Patient currently pain free upon arrival. Differential diagnosis includes but is not limited to ACS versus atypical chest pain versus pneumonia versus pleural effusion versus gastritis versus pancreatitis versus peptic ulcer disease versus viral illness versus COVID versus influenza among others. I reviewed EKG which demonstrates normal sinus rhythm with a ventricular rate of 73 beats per minute, normal axis, QTC 4 with no in follow-up, no acute ischemic change. No significant change when compared to prior EKG. Comprehensive labs remarkable for no leukocytosis white blood cell count 7.4, hemoglobin 14.9 urinalysis with no evidence of acute infection, + blood. I personally reviewed interpreted chest x-ray which is unremarkable with no focal infiltrate, pleural effusion, pneumothorax. Given microscopic hematuria, abdominal pain, back pain, CT scan without contrast was performed. I personally reviewed interpreted CT scan of the abdomen pelvis which demonstrates no acute intra-abdominal findings. No evidence of acute infection, no evidence of hydronephrosis, hydroureter, or calcified calculus. No evidence of bowel obstruction. Overall patient's ED workup is unremarkable and reassuring. I discussed results with patient and daughter. On re-evaluation patient continues 3 resting comfortably, sleeping, no distress. Patient remains pain free, reports improvement of body aches. At this time patient and daughter feel comfortable with discharge home. Recommend close outpatient follow-up with primary care provider, supportive care with Tylenol, ibuprofen. Daughter and patient requested a short course of oxycodone with patient occasionally takes this as needed for his pain (reports typically cuts in quarters or half). Short course of oxycodone provided as needed for severe pain. Encouraged outpatient follow- up and strict return precautions discussed. Medical Records Medical records reviewed: Yes I reviewed the patient's medical records Lab Data Lab results reviewed: Yes I reviewed the patient's lab results Labs: Lab Results 05/30/25 05/30/25 05/30/25 Range/Units 05:48 06:11 06:15 WBC 7.40 (4.50-11.00) K/uL RBC 5.21 (4.30-5.90) m/uL Hgb 14.9 (13.5-17.5) gm/dL Hct 47.1 (37.0-53.0) % MCV 90 (80-100) fL MCH 29 (26-34) pg MCHC 32 (32-36) gm/dL RDW Coeff of Mickey 13.5 (11.5-15.5) % Plt Count 246 (140-440) K/uL Neut % (Auto) 61.8 (42.0-72.0) % Lymph % (Auto) 27.4 (20-44) % [place] % (Auto) 8.9 (0.0-11.0) % Eos % (Auto) 0.9 (0.0-7.0) % Baso % (Auto) 0.5 (0.0-3.0) % Neut # (Auto) 4.56 (1.7-7.0) K/uL Lymph # (Auto) 2.03 (0.90-2.90) K/uL [place] # (Auto) 0.70 (0.00-0.90) K/UL Eos # (Auto) 0.07 (0.00-0.50) K/uL Baso # (Auto) 0.04 (0.00-0.30) K/uL Abs Immat Gran (auto) 0.04 (0.00-0.30) K/uL Imm/Tot Granulo (auto) 0.5 % Sodium 135 (135-149) mmol/L Potassium 4.2 (3.6-5.1) mmol/L Chloride 104 (96-114) mmol/L Carbon Dioxide 27 (20-32) mmol/L Anion Gap 4 L (7-15) mEq/L BUN 10 (7-30) mg/dL Creatinine 0.8 (0.5-1.5) mg/dL Estimated Creat Clear 40.19 Estimated GFR 88 ml/min Glucose 96 (60-115) mg/dL Calcium 8.6 (8.4-10.6) mg/dL Total Bilirubin 1.0 (0.1-1.5) mg/dL AST 73 H (12-35) U/L ALT 46 (4-50) U/L Alkaline Phosphatase 141 (40-150) U/L Troponin I 0.01 (0.01-0.04) ng/mL Total Protein 7.0 (6.0-8.3) g/dL Albumin 3.7 (3.3-5.0) g/dL Lipase 24 (23-300) U/L Urine Color Yellow (Yellow) Urine Appearance Clear (Clear) Urine pH 7.0 (5.0-8.5) Ur Specific [place] 1.015 (1.000-1.030) Urine Protein 1+ A (Negative) Urine Glucose (UA) Negative (Negative) Urine Ketones Trace A (Negative) Urine Blood 3+ A (Negative) Urine Nitrite Negative (Negative) Urine Bilirubin Negative (Negative) Urine Urobilinogen 0.2 (0.2-1.0) Ur Leukocyte Esterase Negative (Negative) Urine RBC 2-5 A (0-2) Urine WBC 0-2 (0-5) Ur Squamous Epith Cells None (None-Few) Urine Bacteria None (None) SARS-CoV-2 (PCR) Negative SARS-CoV-2 (Negative) Influenza Type A (PCR) Negative PCR FLU A (Negative) Influenza Type B (PCR) Negative PCR FLU B (Negative) RSV (PCR) Negative PCR RSV (Negative) Discharge Plan Discharge Clinical Impression: Chest pain, Body aches Patient Disposition: Home, Self-Care Condition: Stable Additional Instructions: Please follow-up with your primary care provider in the next 3-5 days for further evaluation and follow-up. Please call to schedule an appointment. Please continue on medications. We recommend Tylenol 1000 mg every 6 hours as needed for pain. You may also try [id number] anti-inflammatories (example ibuprofen). Please use oxycodone only as needed for severe pain. Please return to the emergency department if you develop recurrent or worsening chest pain, shortness of breath, abdominal pain, or worsening symptoms. It was a pleasure taking care of you today. We hope you feel better soon. Prescriptions: New oxycodone 5 mg capsule 2.5 mg PO Q8H PRN (Reason: severe pain) Qty: 7 0RF Follow Up/Referrals: Florentino Luna MD [Primary Care Provider, Family Practice] Stand Alone Forms: [employer] Info Instructions
--- NOTE | 2025-05-30 05:58 | CRLHL7_ITS ---
For Patients: As a result of the Century Cures Act, medical imaging exams and procedure reports are released immediately into your electronic medical record. You may view this report before your referring provider. If you have questions, please contact your health care provider. INDICATION: Back pain. Abdominal pain. Chest pain. COMPARISON: None TECHNIQUE: PA and lateral views of the chest were acquired FINDINGS: TUBES AND LINES: None. HEART AND MEDIASTINUM: The heart size is top-normal. Mediastinal contours within normal limits. LUNGS AND PLEURAL SPACES: The lungs appear normal.The pleural spaces are unremarkable. OSSEOUS STRUCTURES: Age-appropriate appearance. No acute focal finding. IMPRESSION: Top-normal size heart. Lungs and pleural spaces appear normal. Dictated by Abimael Eldridge MD @ 05/30/2025 7:18:37 AM (Electronically Signed)
[2025-05-30 06:18] LABS: Appearance Urine Clear (Clear)
[2025-05-30 06:19] LABS: Hematocrit 47.1 % (37.0-53.0); Hemoglobin* 14.9 gm/dL (13.5-17.5); Immature Granulocytes Abs Auto 0.04 K/uL (0.00-0.30); Immature Granulocytes Pct Auto 0.5 %; Lymphocytes Absolute Auto 2.03 K/uL (0.90-2.90); Mean Corpuscular HGB Conc 32 gm/dL (32-36); Mean Corpuscular Hemoglobin 29 pg (26-34); Mean Corpuscular Volume 90 fL (80-100); RDW Coefficient of Variation % 13.5 % (11.5-15.5); Red Blood Count 5.21 m/uL (4.30-5.90); White Blood Count* 7.40 K/uL (4.50-11.00)
[2025-05-30 06:20] LABS: Slide Review Reflex No
[2025-05-30 06:32] LABS: Albumin* 3.7 g/dL (3.3-5.0); Chloride* 104 mmol/L (96-114); Potassium* 4.2 mmol/L (3.6-5.1); Sodium* 135 mmol/L (135-149)
[2025-05-30 06:34] LABS: PCR FLU A Negative PCR FLU A (Negative); PCR FLU B Negative PCR FLU B (Negative); PCR RSV Negative PCR RSV (Negative); SARS PCR* Negative SARS-CoV-2 (Negative)
[2025-05-30 06:34] LABS: Blood Urea Nitrogen* 10 mg/dL (7-30); Creatinine* 0.8 mg/dL (0.5-1.5); Est. Creatinine Clearance* 40.19; Estimated Glomerular Filt Rate 88 ml/min
[2025-05-30 06:35] LABS: Alanine Aminotransferase* 46 U/L (4-50); Alkaline Phosphatase* 141 U/L (40-150); Anion Gap 4 mEq/L (7-15); Aspartate Amino Transferase* 73 U/L (12-35); Bilirubin Total* 1.0 mg/dL (0.1-1.5); Calcium* 8.6 mg/dL (8.4-10.6); Carbon Dioxide* 27 mmol/L (20-32); Glucose* 96 mg/dL (60-115); Total Protein* 7.0 g/dL (6.0-8.3)
--- NOTE | 2025-05-30 06:44 | CRLHL7_ITS ---
For Patients: As a result of the 21st Century Cures Act, medical imaging exams and procedure reports are released immediately into your electronic medical record. You may view this report before your referring provider. If you have questions, please contact your health care provider. INDICATION: Back pain. Abdominal pain. Hematuria. COMPARISON: None TECHNIQUE: CT examination of the abdomen and pelvis was performed without intravenous contrast. Thin section axial images were obtained from the lung bases through the pubic symphysis. Oral contrast was not administered. TECHNICAL NOTE: Substantial limitations due to patient related motion artifact Please note that all CT scans at this facility use dose modulation, iterative reconstruction, and/or weight-based dosing when appropriate to reduce radiation dose to as low as reasonably achievable. FINDINGS: LUNG BASES: Limited evaluation due to motion. Linear opacities probably due to atelectasis or scarring.Heart size normal the lung bases LIVER/BILIARY SYSTEM:Poorly evaluated due to lack of contrast and motion. No obvious abnormality. The gallbladder is not visualized and is presumably surgically absent. ADRENALS: Normal non-contrast appearance KIDNEYS, URETERS and BLADDER:No calcified calculus. No hydronephrosis or hydroureter. The unopacified bladder is visualized appears normal. Mildly prominent prostate SPLEEN:Poorly evaluated due to lack of contrast and motion. No gross abnormalities noted PANCREAS: No gross abnormalities noted RETROPERITONEUM and MESENTERY: There is no mass, adenopathy or aortic aneurysm. Atherosclerotic vascular calcifications GASTROINTESTINAL SYSTEM: There is no evidence of diverticulitis, colitis, mechanical obstruction, or appendicitis. The small bowel as visualized appears normal.Scattered diverticulosis PELVIS: No mass, adenopathy or free fluid. OSSEOUS STRUCTURES and ABDOMINAL WALL: No acute appearing osseous abnormality. Unusual sclerosis of the dorsal aspect of the sacrum which may be reactive. If this is point tender in the midline from about S1 through S5, consider additional imaging such as MRI. This does not appear to be an acute abnormality.No significant body wall abnormality OTHER: No free fluid or free air. IMPRESSION: 1. Significant limitations due to motion artifact 2. No specific visible cause for hematuria. 3. Degenerative changes of the lumbar spine without acute appearing abnormality which may explain back pain. 4. Unusual sclerosis of the dorsal midline sacrum which may be a chronic reactive change. Consider additional imaging such as MRI if this is the exact area of back pain. Please note that all CT scans at this facility use dose modulation, iterative reconstruction, and/or weight-based dosing when appropriate to reduce radiation dose to as low as reasonably achievable. Dictated by Abimael Eldridge MD @ 05/30/2025 7:24:35 AM (Electronically Signed)
[2025-05-30 07:32] VITALS: BP 144/78; PULSE 68; RESP 16; TEMP 35.8; O2SAT 100
== END 2025-05-30 07:46 | disposition home or self-care (01) ==
PROVIDERS: Emergency Provider Emergency Medicine; PCP Family Medicine
DX: R07.9 Chest pain, unspecified (principal); M79.10 Myalgia, unspecified site
CPT/HCPCS: 36415; 71046; 74176; 80053; 81001; 83690; 84484; 85025; 87631; 93005; 99285; J7030

== ENCOUNTER 2025-06-24 12:46 | Emergency (ER) | payer MEDICARE, MEDICAID, SELFPAY ==
--- OUTSIDE RECORDS SUMMARY | 2025-06-24 12:49 | XMS_ITS | Clinical Summary ---
Author Organization [facility] Address [facility] [place] [address] Care Team Providers Care Welding Estimator Name Role Phone Feliciano Lynch MD Primary Care Provider Unavai lable Allergies No known active allergies Medications acetaminophen SR (TYLENOL ARTHRITIS) 650 mg Extended-Relea se tablet Take 650 mg by mouth every 8 hours if needed. 4 8 Active doxycycline 100 mg tablet Take 100 mg by mouth two times daily before meals. X 7 DAYS 5 Active oxyCODONE-acet aminophen (PERCOCET) 5-325 mg per tablet Take 1 Tablet by mouth 3 times daily if needed for Pain. Max acetaminophen dose: 4000mg in 24 hrs. Active colchicine 0.6 mg tabletIndicati ons:Left foot pain For Gout Flare, Take by mouth 3 tablets (1.8mg) total on one day (which is 2 tablets (1.2mg) at once then wait one hour and take 1 tablet (0.6mg)). Wait 12 hours before resuming your prophylactic dose. 15 Tablet 5 5 Active Active Problems Problem Noted Date Diagnosed [...] CDT - 05/04/2025 11:36 PM CDT Emergency [facility] Emergency Department [address] [place] [address] Sergei Landry MD Left foot pain (Primary [...] for age 50+ (2 of 2 - PPSV23, PCV20, or PCV21) 02/20/2018 12/26/2017 BMI (ht and wt on same day) for age 18+ 06/01/2019 06/01/2018, 12/26/2017, 01/26/2017, Additional history exists COVID-19 vaccine series ( season) 2025 11/29/2020, 11/08/2020 Influenza Vaccine (#1) 2025 07/17/2012 Tetanus booster 12/27/2027 12/26/2017, 01/25, 07/17/1979 Hepatitis B series for 19+ Aged Out N o longer eligible based on patient's age to complete this topic Medical Devices Implanted Type Area Paste Maker Device Identifier Shelf Expiration Date Model / Serial / Lot Iol Hinds +20.5 Tecnis [id number] - [id number] Implanted:Qty: 1 on 01/04/2018 by Venkata Tejeda MD at [facility] Left: Eye [employer] 09/05/2021 ZCB00# / [id number] / Iol Hinds +20 Tecnis [id number] - [id number] Implanted:Qty: 1 on 01/18/2018 by Venkata Tejeda MD at [facility] Right: Eye [employer] 10/15/2021 ZCB00# / [id number] / Procedures Procedure Name Priority Date/Time Associated [...] a result of the Cures Act, medical imaging exams and procedure [...] 160 mmHg Left Brachial: 160 mmHg Right RAIL TRACK LAYER: Noncompressible Right DPA: Noncompressible Left RAIL TRACK LAYER: Noncompressible Left DPA: 165 mmHg (KAROLINE 1.03) Procedure Note Wilver Colon MD - 05/04/2025 For Patients: As a result of the Century Cures Act, medical imagingexams and procedure reports are released immediately into your electronicmedical record. You may view this report before your referring provider.If you have questions, please contact your health care provider. INDICATION: Decreased extremity pulses. TECHNIQUE: Routine duplex arterial examination of the left lower extremity [id number] and spectral analysis, and color Doppler imaging [...] 160 mmHg Left Brachial: 160 mmHg Right RAIL TRACK LAYER: Noncompressible Right DPA: Noncompressible Left RAIL TRACK LAYER: Noncompressible Left DPA: 165 mmHg (KAROLINE 1.03) IMPRESSION: 1. 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 2. Normal ankle-brachial index in the left dorsalis pedis artery but withnoncompressible posterior tibial artery. 3. Nondiagnostic right ankle-brachial index due to noncompressiblevessels. Dictated by Wilver Colon MD @ 05/04/2025 10:47:38 PM (Electronically Signed) us Sergei Landry MD Final Result * (ABNORMAL) SEDIMENTATION RATE (05/04/2025 8:11 PM CDT) SEDIMENTATION RATE 51(H) <20 mm/hr 2024 8:36 PM CDT [facility] Blood BLOOD SPECIMEN / Unknown Non-Lab Venipuncture / Unknown 05/04/2025 8:11 PM CDT 05/04/2025 8:16 PM CDT us Sergei Landry MD HEMATOLOGY Final Result [facility] [address] [place] [address], * (ABNORMAL) CBC W PLT NO DIFF (05/04/2025 8:11 PM CDT) WHITE BLOOD COUNT 16.7(H) 4.5 - 11.0 thou/cu mm 05/04/2025 8:29 PM CDT [facility] RED BLOOD COUNT 5.46 4.30 - 5.90 mil/cu mm 05/04/2025 8:29 PM CDT [facility] HEMOGLOBIN 15.8 13.5 - 17.5 g/dL 05/04/2025 8:29 PM CDT [facility] HEMATOCRIT 48.5 37.0 - 53.0 % 05/04/2025 8:29 PM CDT [facility] MCV 89 80 - 100 fL 05/04/2025 8:29 PM CDT [facility] MCH 28.9 26.0 - 34.0 pg 05/04/2025 8:29 PM CDT [facility] MCHC 32.6 32.0 - 36.0 g/dL 05/04/2025 8:29 PM CDT [facility] RDW 12.9 11.5 - 15.5 % 05/04/2025 8:29 PM CDT [facility] PLATELET COUNT 302 140 - 440 thou/cu mm 05/04/2025 8:29 PM CDT [facility] MPV 9.3 6.5 - 11.0 fL 05/04/2025 8:29 PM CDT [facility] NRBC 0.0 % 05/04/2025 8:29 PM CDT [facility] ABS NRBC 0.0 thou /cu mm 05/04/2025 8:29 PM CDT [facility] Blood BLOOD SPECIMEN / Unknown Non-Lab Venipuncture / Unknown 05/04/2025 8:11 PM CDT 05/04/2025 8:16 PM CDT Sergei Landry MD HEMATOLOGY Final Result [facility] [address] [place] [address], [place] * (ABNORMAL) C-REACTIVE PROTEIN (05/04/2025 8:11 PM CDT) C-REACTIVE PROTEIN 2.8(H) <0.5 mg/dL 05/04/2025 9:08 PM CDT [facility] Blood BLOOD SPECIMEN / Unknown Non-Lab Venipuncture / Unknown 05/04/2025 8:11 PM CDT 05/04/2025 8:16 PM CDT Sergei Landry MD CHEMISTRY Final Result [facility] [address] [place] [address], [place] * (ABNORMAL) URIC ACID (05/04/2025 8:11 PM CDT) URIC ACID 9.1(H) 3.4 - 7.0 mg/dL 05/04/2025 8:54 PM CDT [facility] Blood BLOOD SPECIMEN / Unknown Non-Lab Venipuncture / Unknown 05/04/2025 8:11 PM CDT 05/04/2025 8:16 PM CDT Sergei Landry MD CHEMISTRY Final Result [facility] [address] [place] [address], * (ABNORMAL) BASIC METABOLIC PANEL (05/04/2025 8:11 PM CDT) SODIUM 137 136 - 145 mmol/L 05/04/2025 8:54 PM CDT [facility] POTASSIUM 4.2 3.5 - 5.1 mmol/L 05/04/2025 8:54 PM CDT [facility] CHLORIDE 100 98 - 107 mmol/L 05/04/2025 8:54 PM CDT [facility] CO2,TOTAL 25 22 - 29 mmol/L 05/04/2025 8:54 PM CDT [facility] ANION GAP 12 5 - 18 05/04/2025 8:54 PM CDT [facility] GLUCOSE 94 70 - 99 mg/dL 05/04/2025 8:54 PM CDT [facility] CALCIUM 9.0 8.8 - 10.4 mg/dL 05/04/2025 8:54 PM CDT [facility] Comment: Reference ranges for this test were updated on 07/31/2024 to reflect our healthy population more accurately. Reference range changes are not retroactively applied to results, but previous results using the same methodology can be interpreted in the context of the new reference range. BUN 16 8 - 23 mg/dL 05/04/2025 8:54 PM CDT [facility] CREATININE 1.09 0.70 - 1.20 mg/dL 05/04/2025 8:54 PM CDT [facility] BUN/CREAT RATIO 15 10 - 20 8:54 PM CDT [facility] eGFR 68(L) >90 mL/min/1.7 3m2 05/04/2025 8:54 PM CDT [facility] Comment:As of 2021, eG FR is calculated by the CKD-EPI creatinine equation without race adjustment. eGFR can be influenced by muscle mass, exercise, and diet. The reported eGFR is an estimation only and is only applicable if the renal function is stable. Blood BLOOD SPECIMEN / Unknown Non-Lab Venipuncture / Unknown 05/04/2025 8:11 PM CDT 05/04/2025 8:16 PM CDT us Sergie Landry MD CHEMISTRY Final Result [facility] [address] [place] [address], from Last 3 Months Insurance MEDICARE PART A HB ONLY Member Subscriber Plan / Payer (Ef fective 2007-Present) Name:Mery Durham Say Member ID:[id number] Relation to Subscriber:Self Name:Mery Durham Say Subscriber ID:[id number] Payer ID:Not on file Group ID:Not on file Type:Not on file Address: ATTN: CLAIMS [address] [place] [phone] MEDICARE PART B HB ONLY MEDICARE PB ONLY Member Subscriber Plan / Payer (Ef fective 2007-Present) Name:Mery Durham Say Member ID:[id number] Relation to Subscriber:Self Name:Marva Mery Say Subscriber ID:[id number] Payer ID:Not on file Group ID:Not on file Type:Not on file Address: ATTN: CLAIMS [address] [place] [phone] [facility] PL[facility] Advance Directives * Full Code (Latest [...] 2:11 PM 01/15/2010 6:20 PM Care Teams Welding Estimator Relationship Specialty Start Date End Date Feliciano Lynch MD PCP - General Family Practice 05/04/25
--- OUTSIDE RECORDS SUMMARY | 2025-06-24 12:49 | XMS_ITS | Clinical Summary ---
Author Organization [facility] Address [address] [place] [address]. [place] [address] Care Team Providers Care Security Infrastructure Engineer Name Role Phone Florentino Luna MD Primary Care Provider [phone] Allergies No known active allergies Medications lisinopril [...] VACCINE (1 - 1-dose 75+ series) 2018 PHQ-2 (once per calendar year) 2024 COVID-19 VACCINE (3 - season) 2025 11/29/2020, 11/08/2020 INFLUENZA VACCINE (#1) 2025 2, 07/28/2020, 06/18/2019, [...] (Cologuard) Discontinued Medical Devices Implanted Type Area Retail Marketing Manager Device Identifier Shelf Expiration Date Model / Serial / Lot Bone Cement Radiopaque Simplex Hv Full Dose 6194-1-001 - [id number] Implanted:Qty : 1 on 01/21/2023 by Rickie Boles MD at [facility] Cement, Bone Left: Knee [employer] 02/24/2024 6194-1-001 / / [id number] Bone Cement Radiopaque Simplex Hv Full Dose 6194-1-001 - [id number] Implanted:Qty : 1 on 01/21/2023 by Rickie Boles MD at [facility] Cement, Bone Left: Knee [employer] 02/24/2024 6194-1-001 / / [id number] Imp Tibial Zim Psn Tearoom Host/Hostess Stm 5deg Sz Dl 85-8819-178-0 1 - [id number] Implanted:Qty : 1 on 01/21/2023 by Rickie Boles MD at [facility] Total Joint Componen t/Insert Left: Knee [employer] [id number] 02/28/2032 08-8596-834-0 1 / / [id number] Knee Femur Cr Cement Ccr Std Sz 6 L - [id number] Implanted:Qty : 1 on 01/21/2023 by Rickie Boles MD at [facility] Total Joint Componen t/Insert Left: Knee [employer] [id number] 10/19/2032 [id number] / / [id number] Imp Patella Zim Knee All Winsome 38mm 06-6393-713-3 8 - [id number] Implanted:Qty : 1 on 01/21/2023 by Rickie Boles MD at [facility] Total Joint Componen t/Insert Left: Knee [employer] [id number] 11/18/2027 [id number] Surface Artc 13mm Juanis Yoder Cngr 6-7 [facility] - [id number] Implanted:Qty : 1 on 01/21/2023 by Rickie Boles MD at [facility] Total Joint Componen t/Insert Left: Knee [employer] [id number] 08/10/2027 [id number] [place] [id number] [facility] Advance Directives For more information, please contact: [phone] * Full Code (Latest Code Status on [...] 4:17 AM 12/12/2015 6:39 PM Care Teams Security Infrastructure Engineer Relationship Specialty Start Date End Date Florentino Luna MD PCP - General Family Medicine 01/31/22
[2025-06-24 12:54] VITALS: BP 146/68; PULSE 83; RESP 20; TEMP 36.6; O2SAT 93
--- NOTE | 2025-06-24 13:13 | CT_ITS ---
Patient: DAVIDA BUSH Facility:?[facility] R[facility] Patient ID:?[id number] Site Patient ID:?[id number]. Site :?1945 Study:?CT-Neck Angio W/ 95CC [id number]/29/2025 2:17:53 PM Ordering Physician:Ronald Aceves Final Report: CT ANGIOGRAM HEAD AND NECK DATE: 06/24/2025. CLINICAL HISTORY: Patient with slurred speech. TECHNIQUE: Standard helical CT image acquisition through the head and neck was performed after intravenous contrast bolus enhancement. 2D and 3D MIP images for post-processing were performed and interpreted on an independent workstation and 3D images were permanently archived. COMPARISON: CT same day. FINDINGS: The origins of the great vessels from the aortic arch are patent. 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 The origin of the left vertebral artery demonstrates severe narrowing. The common carotid arteries are patent. There is a mild (less than 50%) stenosis at the origin of the right internal carotid artery by NASCET criteria. This is caused by primarily non-calcified plaque with a greater than 2mm residual lumen. There is plaque without stenosis at the origin of the left internal carotid artery by NASCET criteria. The rest of the cervical segments of the internal carotid arteries are patent up to their intracranial segments. The intracranial segments of the internal carotid arteries are patent. The left vertebral artery is dominant. The cervical segments of the vertebral arteries are patent. The intracranial segments of the vertebral arteries are patent. The middle cerebral arteries demonstrate intracranial atherosclerosis with moderate narrowing in the right M1 segment. The anterior cerebral arteries are normal without aneurysm or proximal occlusion identified. The anterior communicating artery is well visualized and appears normal. The basilar artery is normal without aneurysm or occlusion. The posterior cerebral arteries are normal without aneurysm or proximal occlusion. There is normal opacification of major intracranial venous structures. The visualized lung apices are unremarkable. The thyroid gland is unremarkable. The soft tissues of the neck are unremarkable. There are degenerative changes in the cervical spine. IMPRESSION: 1. No proximal intracranial large vessel occlusion. 2. Intracranial atherosclerosis with moderate narrowing in the right M1 segment. 3. 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 The origin of the left vertebral artery demonstrates severe narrowing. 4. Mild (less than 50%) stenosis at the origin of the right internal carotid artery by NASCET criteria. This is caused by primarily non-calcified plaque with a greater than 2mm residual lumen. Please note that all CT scans at this facility use dose modulation, iterative reconstruction, and/or weight-based dosing when appropriate to reduce radiation dose to as low as reasonably achievable. Dictated by: Shanika Warner MD @ 06/24/2025 14:44:44 Signed by:?Shanika Warner MD @06/24/2025 2:44:44 PM (Electronic Signature)
--- NOTE | 2025-06-24 13:13 | CT_ITS ---
Patient: DAVIDA BUSH Facility:?[facility] R[facility] Patient ID:?[id number] Site Patient ID:?[id number]. Site :?1945 Study:?CT-Head Angio W/ 95CC [id number]/29/2025 2:17:48 PM Ordering Physician:Ronald Aceves Final Report: CT ANGIOGRAM HEAD AND NECK DATE: 06/24/2025. CLINICAL HISTORY: Patient with slurred speech. TECHNIQUE: Standard helical CT image acquisition through the head and neck was performed after intravenous contrast bolus enhancement. 2D and 3D MIP images for post-processing were performed and interpreted on an independent workstation and 3D images were permanently archived. COMPARISON: CT same day. FINDINGS: The origins of the great vessels from the aortic arch are patent. 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 The origin of the left vertebral artery demonstrates severe narrowing. The common carotid arteries are patent. There is a mild (less than 50%) stenosis at the origin of the right internal carotid artery by NASCET criteria. This is caused by primarily non-calcified plaque with a greater than 2mm residual lumen. There is plaque without stenosis at the origin of the left internal carotid artery by NASCET criteria. The rest of the cervical segments of the internal carotid arteries are patent up to their intracranial segments. The intracranial segments of the internal carotid arteries are patent. The left vertebral artery is dominant. The cervical segments of the vertebral arteries are patent. The intracranial segments of the vertebral arteries are patent. The middle cerebral arteries demonstrate intracranial atherosclerosis with moderate narrowing in the right M1 segment. The anterior cerebral arteries are normal without aneurysm or proximal occlusion identified. The anterior communicating artery is well visualized and appears normal. The basilar artery is normal without aneurysm or occlusion. The posterior cerebral arteries are normal without aneurysm or proximal occlusion. There is normal opacification of major intracranial venous structures. The visualized lung apices are unremarkable. The thyroid gland is unremarkable. The soft tissues of the neck are unremarkable. There are degenerative changes in the cervical spine. IMPRESSION: 1. No proximal intracranial large vessel occlusion. 2. Intracranial atherosclerosis with moderate narrowing in the right M1 segment. 3. 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 The origin of the left vertebral artery demonstrates severe narrowing. 4. Mild (less than 50%) stenosis at the origin of the right internal carotid artery by NASCET criteria. This is caused by primarily non-calcified plaque with a greater than 2mm residual lumen. Please note that all CT scans at this facility use dose modulation, iterative reconstruction, and/or weight-based dosing when appropriate to reduce radiation dose to as low as reasonably achievable. Dictated by: Shanika Warner MD @ 06/24/2025 14:44:55 Signed by:?Shanika Warner MD @06/24/2025 2:44:55 PM (Electronic Signature)
--- NOTE | 2025-06-24 13:13 | CT_ITS ---
Patient: DAVIDA BUSH Facility:?[facility] R[facility] Patient ID:?[id number] Site Patient ID:?[id number]. Site :?1945 Study:?CT-Head w/o-06/24/2025 2:15:58 PM Ordering Physician:Ronald Aceves Final Report: CT HEAD DATE: 06/24/2025 CLINICAL HISTORY: Patient with focal neurological deficits. TECHNIQUE: Standard CT scanning of the head was performed. COMPARISON: None. FINDINGS: There is no definite intracranial hemorrhage. There is a 5mm linear area of hyperdensity in the left frontal subcortical white matter. There is no territorial infarction. There are mild microangiopathic changes. There is diffuse parenchymal volume loss. There is no mass effect or midline shift. The calvarium is unremarkable. The orbits are unremarkable. The paranasal sinuses are unremarkable. The mastoid air cells are unremarkable. The soft tissues are unremarkable. IMPRESSION: 1. No definite intracranial hemorrhage or territorial infarction. 2. 5mm linear area of hyperdensity in the left frontal subcortical white matter is most likely dystrophic calcifications, although a small intracranial hemorrhage is also a possibility. A follow-up head CT in 4 hours is recommended to assess for any interval change. Findings were discussed with Dr. Staples at 2:30 PM. Please note that all CT scans at this facility use dose modulation, iterative reconstruction, and/or weight-based dosing when appropriate to reduce radiation dose to as low as reasonably achievable. Dictated by: Shanika Warner MD @ 06/24/2025 14:32:23 Signed by:?Shanika Warner MD @06/24/2025 2:32:23 PM (Electronic Signature)
--- NOTE | 2025-06-24 13:25 | ED.GENADULT ---
HPI - General Adult General Date Seen: 06/24/25 <Yola Staples MD - Last Filed: 06/26/25 11:02> Chief complaint: Extremity Pain/Injury, Lower <Yola Staples MD - Last Filed: 06/26/25 11:02> Stated complaint: slurring, dozing off, L foot laceration <Yola Staples MD - Last Filed: 06/26/25 11:02> Time Seen by Provider: 06/24/25 12:55 <Yola Staples MD - Last Filed: 06/26/25 11:02> History of Present Illness HPI narrative: Patient is an 80-year-old [facility] Eastern man here with his daughter for evaluation of couple different things. 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 She tells me that he dropped a knife on his foot this morning and cut his toe. He had put some kind of Eastern topical treatment on it and they did not think much more of it. However, about a 1/2 hour prior to coming in his daughter says that he became somewhat lethargic and less responsive, his speech was little slurred. He does sometimes take oxycodone but she says he has not taken anything today and is requesting pain medication now. At the same time that he was having this lethargy she said he was complaining of body aches. They do not have a thermometer and she does not know whether he had a fever. He isn't complaining of cough, shortness of breath, abdominal pain. His daughter was concerned he might have gotten an infection from the cut on his foot. He seems more awake now and his speech is back to normal. He does have a history of coronary artery disease, no prior history of stroke. No medications aside from occasional oxycodone. He was last given 7 tablets on May 30 when he was seen here for chest pain. <Yola Staples MD - Last Filed: 06/26/25 11:02> Related Data Home medications: Home Medications ?Medication ?Instructions ?Recorded ?Confirmed No Known Home Medications 06/24/25 06/24/25 <Yola Staples MD - Last Filed: 06/26/25 11:02> Allergies/adverse reactions: Allergies Allergy/AdvReac Type Severity Reaction Status Date / Time No Known Drug Allergies Allergy Verified 06/24/25 13:02 <Yola Staples MD - Last Filed: 06/26/25 11:02> Review of Systems Status of ROS: Reports: 10 or more systems reviewed and unremarkable except as noted in History and below <Yola Staples MD - Last Filed: 06/26/25 11:02> [facility] Medical History: Medical History Generalized pain ?R52 - Pain, unspecified (ICD-10) Diarrhea ?R19.7 - Diarrhea, unspecified (ICD-10) Malnutrition ?E46 - Unspecified protein-calorie malnutrition (ICD-10) Bronchitis ?J40 - Bronchitis, not specified as acute or chronic (ICD-10) Arthritis ?M19.90 - Unspecified osteoarthritis, unspecified site (ICD-10) CAD (coronary artery disease) ?I25.10 - Atherosclerotic heart disease of [place] coronary artery without angina pectoris (ICD-10) <Yola Staples MD - Last Filed: 06/26/25 11:02> Surgical History: Surgical History History of cholecystectomy ?Z90.49 - Acquired absence of other specified parts of digestive tract (ICD-10) History of cataract extraction ?Z98.49 - Cataract extraction status, unspecified eye (ICD-10) <Yola Staples MD - Last Filed: 06/26/25 11:02> Social History: Social History Narrative: Patient lives with his and nephew in [place]. 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 Code status is full. Daughter is healthcare power of real estate associate attorney. No history of smoking. He does not drink alcohol. What is your current living situation?: I presently have a place to live Problems where you live: no known problems Problems where you live details: None noted In the past 12 months, utilities in danger of being shut off: no In past 12 months, lack of transportation kept you from medical appts, meetings, work, or getting things needed for daily living: no In the past 12 mos, have been you worried that your food would run out before you had money to buy more?: never true In the past 12 mos, the food you bought just didn't last and you didn't have money to buy more?: never true Highest level of school completed/degree received: don't know Smoking Status: Never smoker Do you use any of these nicotine containing products: None Second hand tobacco smoke exposure: No How often do you have a drink containing alcohol: never How often do you have six or more drinks on one occasion: Never AUDIT-C Alcohol total score: 0 Non-prescribed substance use: denies use Caffeine: No How often does anyone, including family, friends and others, physically hurt you: never How often does anyone, including family, friends and others, insult or talk down to you: never How often does anyone, including family, friends and others, threaten you with harm: never How often does anyone, including family, friends and others, scream or curse at you: never service: No <Yola Staples MD - Last Filed: 06/26/25 11:02> Exam Narrative: Exam Narrative: Vital signs reviewed In general, alert, nontoxic elderly man. Head: Normocephalic, atraumatic. Eyes: Sclera clear. Pupils equal and reactive. ENT: Mucous membranes moist. Neck: Supple without adenopathy. Heart: Regular rate and rhythm without murmur. Lungs: Clear. No increased work of breathing, crackles or wheezes. Abdomen: Soft, nontender to palpation. Extremities: Well perfused, pulses intact. No significant edema. There is a small abrasion on his right great toe, not require repair. Neurologic: Alert, conversant. Speech fluent, face symmetric. Moves all extremities equally. Skin: Warm, dry well perfused. Affect: Normal. <Yola Staples MD - Last Filed: 06/26/25 11:02> Const: Vital Signs, click to edit/add: Vital Signs - 24 hr 06/24/25 12:54 06/24/25 15:44 Temperature 97.8 F Pulse Rate 94 Pulse Rate [Right Pulse Oximeter] 83 Respiratory Rate 20 20 Blood Pressure 171/75 H Blood Pressure [Ri ght Upper Arm] 146/68 H Pulse Oximetry 93 93 Oxygen Delivery Me thod Room Air Room Air <Yola Staples MD - Last Filed: 06/26/25 11:02> Vital Signs, click to edit/add: Vital Signs - 24 hr 06/24/25 12:54 06/24/25 15:44 Temperature 97.8 F Pulse Rate 94 Pulse Rate [Right Pulse Oximeter] 83 Respiratory Rate 20 20 Blood Pressure 171/75 H Blood Pressure [Ri ght Upper Arm] 146/68 H Pulse Oximetry 93 93 Oxygen Delivery Me thod Room Air Room Air <Malgorzata Varghese MD - Last Filed: 06/24/25 18:25> Course Course ED Course: I considered broad diagnoses initially including stroke or TIA, viral or bacterial infection, sepsis, metabolic derangement. I checked a number of labs, his lactate was elevated at 2.5 but quit procalcitonin was normal, his white blood cell count was minimally elevated at 11 and other labs were normal. He had 500 mL of normal saline. He had head CT as well as a CT of the head and neck. CT angiogram is read as negative, CT head I talked to the radiologist about, he says that there is some linear development writer signal in the frontal lobe which is likely dystrophic calcification, but early hemorrhage cannot be ruled out, therefore he did recommend a repeat head CT in about 4 hours. Patient has not been febrile here, I did do blood cultures but overall I do not see signs of sepsis. He has appeared comfortable, initially was requesting a lot of blankets but seems to feel less chilled now. He has not had shaking chills. His neurologic exam is normal at this time, unclear exactly what happened at home, but I think the likelihood of stroke is low. He had an EKG here, this shows a normal sinus rhythm ventricular rate of [address] segment changes. Plan will be to repeat his head CT and if still appearing well and feeling improved, I think he can be safely discharged home.Signed out to oncoming physician to follow-up on head CT. <Yola Staples MD - Last Filed: 06/26/25 11:02> Reevaluation(s) Time of Reevaluation #1: 18:24 <Malgorzata Varghese MD - Last Filed: 06/24/25 18:25> Reevaluation #1: Did review with patient's daughter that his subsequent head CT showing no evidence of any intracranial bleed. Plan is for him to discharge to home. She did ask if we could prescribe oxycodone for him. I did decline, she should contact his primary care provider if he needs further narcotics. He does have a history of gout and gout issues. This does not seem to be the acute problem right now and thus feel it would be safest for this to be managed with his primary clinic. From sign-out from Dr. Staples, hospitalist has declined hospitalization. No etiology for his symptoms has been found, will continue to follow with that plan. <Malgorzata Varghese MD - Last Filed: 06/24/25 18:25> Vital Signs Vital signs: Initial Vital Signs Temperature 97.8 F 06/24/25 12:54 Temperature Source Temporal Artery Scan 06/24/25 12:54 Pulse Rate 83 06/24/25 12:54 Pulse Rhythm Regular 06/24/25 12:54 Pulse Strength 3+ Normal 06/24/25 12:54 Respiratory Rate 20 06/24/25 12:54 Blood Pressure 146/68 H 06/24/25 12:54 Blood Pressure Mean 94 06/24/25 12:54 Blood Pressure Position Sitting 06/24/25 12:54 Pulse Oximetry 93 06/24/25 12:54 Oxygen Delivery Method Room Air 06/24/25 12:54 Vital Signs Temperature 97.8 F 06/24/25 12:54 Pulse Rate 83 06/24/25 12:54 Respiratory Rate 20 06/24/25 12:54 Blood Pressure 146/68 H 06/24/25 12:54 Pulse Oximetry 93 06/24/25 12:54 Oxygen Delivery Method Room Air 06/24/25 12:54 Temperature 98.5 F 06/24/25 18:34 Pulse Rate 93 06/24/25 18:34 Respiratory Rate 18 06/24/25 18:34 Blood Pressure 121/56 L 06/24/25 18:34 Pulse Oximetry 98 06/24/25 18:34 Oxygen Delivery Method Room Air 06/24/25 18:34 <Yola Staples MD - Last Filed: 06/26/25 11:02> Initial Vital Signs Temperature 97.8 F 06/24/25 12:54 Temperature Source Temporal Artery Scan 06/24/25 12:54 Pulse Rate 83 06/24/25 12:54 Pulse Rhythm Regular 06/24/25 12:54 Pulse Strength 3+ Normal 06/24/25 12:54 Respiratory Rate 20 06/24/25 12:54 Blood Pressure 146/68 H 06/24/25 12:54 Blood Pressure Mean 94 06/24/25 12:54 Blood Pressure Position Sitting 06/24/25 12:54 Pulse Oximetry 93 06/24/25 12:54 Oxygen Delivery Method Room Air 06/24/25 12:54 Vital Signs Temperature 97.8 F 06/24/25 12:54 Pulse Rate 83 06/24/25 12:54 Respiratory Rate 20 06/24/25 12:54 Blood Pressure 146/68 H 06/24/25 12:54 Pulse Oximetry 93 06/24/25 12:54 Oxygen Delivery Method Room Air 06/24/25 12:54 Temperature 98.5 F 06/24/25 18:34 Pulse Rate 93 06/24/25 18:34 Respiratory Rate 18 06/24/25 18:34 Blood Pressure 121/56 L 06/24/25 18:34 Pulse Oximetry 98 06/24/25 18:34 Oxygen Delivery Method Room Air 06/24/25 18:34 <Malgorzata Varghese MD - Last Filed: 06/24/25 18:25> Medications Administered Medications: Discontinued Medications Generic Name Dose Route Start Last Admin Trade Name Freq PRN Reason Stop Dose Admin Sodium Chloride 500 mls @ 500 mls/hr 06/24/25 13:14 06/24/25 15:14 0.9 % Sodium Chloride 500 Ml IV 06/24/25 14:13 Infused .Q1H ONE Infusion Oxycodone HCl 5 mg 06/24/25 13:14 06/24/25 13:20 Oxycodone 5 Mg Tablet PO 06/24/25 13:15 5 mg ONCE ONE Administration <Yola Staples MD - Last Filed: 06/26/25 11:02> Discontinued Medications Generic Name Dose Route Start Last Admin Trade Name Freq PRN Reason Stop Dose Admin Sodium Chloride 500 mls @ 500 mls/hr 06/24/25 13:14 06/24/25 15:14 0.9 % Sodium Chloride 500 Ml IV 06/24/25 14:13 Infused .Q1H ONE Infusion Oxycodone HCl 5 mg 06/24/25 13:14 06/24/25 13:20 Oxycodone 5 Mg Tablet PO 06/24/25 13:15 5 mg ONCE ONE Administration <Malgorzata Varghese MD - Last Filed: 06/24/25 18:25> Medical Decision Making Lab Data Labs: Lab Results 06/24/25 06/24/25 06/24/25 Range/Units 13:42 14:15 15:10 WBC 11.07 H (4.50-11.00) K/uL RBC 4.91 (4.30-5.90) m/uL Hgb 14.2 (13.5-17.5) gm/dL Hct 43.3 (37.0-53.0) % MCV 88 (80-100) fL MCH 29 (26-34) pg MCHC 33 (32-36) gm/dL RDW Coeff of Mickey 13.3 (11.5-15.5) % Plt Count 224 (140-440) K/uL Neut % (Auto) 64.4 (42.0-72.0) % Lymph % (Auto) 26.6 (20-44) % Edgar % (Auto) 8.1 (0.0-11.0) % Eos % (Auto) 0.3 (0.0-7.0) % Baso % (Auto) 0.2 (0.0-3.0) % Neut # (Auto) 7.10 H (1.7-7.0) K/uL Lymph # (Auto) 2.90 (0.90-2.90) K/uL Edgar # (Auto) 0.90 (0.00-0.90) K/UL Eos # (Auto) 0.00 (0.00-0.50) K/uL Baso # (Auto) 0.00 (0.00-0.30) K/uL Abs Immat Gran (auto) 0.00 (0.00-0.30) K/uL Imm/Tot Granulo (auto) 0.4 % Sodium 137 (135-149) mmol/L Potassium 3.4 L (3.6-5.1) mmol/L Chloride 106 (96-114) mmol/L Carbon Dioxide 22 (20-32) mmol/L Anion Gap 9 (7-15) mEq/L BUN 13 (7-30) mg/dL Creatinine 0.7 (0.5-1.5) mg/dL Estimated GFR 92 ml/min Glucose 127 H (60-115) mg/dL Lactate 2.5 H (0.5-1.9) mmol/L Calcium 8.5 (8.4-10.6) mg/dL Total Bilirubin 0.7 (0.1-1.5) mg/dL Direct Bilirubin 0.3 (0.0-0.5) mg/dL AST 41 H (12-35) U/L ALT 35 (4-50) U/L Alkaline Phosphatase 98 (40-150) U/L C-Reactive Protein 1.6 H (0.5-1.0) mg/dL Total Protein 6.7 (6.0-8.3) g/dL Albumin 3.7 (3.3-5.0) g/dL Procalcitonin (<0.50) ng/mL Urine Color Yellow (Yellow) Urine Appearance Clear (Clear) Urine pH 7.0 (5.0-8.5) Ur Specific [place] 1.010 (1.000-1.030) Urine Protein Negative (Negative) Urine Glucose (UA) Negative (Negative) Urine Ketones Negative (Negative) Urine Blood 1+ A (Negative) Urine Nitrite Negative (Negative) Urine Bilirubin Negative (Negative) Urine Urobilinogen 0.2 (0.2-1.0) Ur Leukocyte Esterase Negative (Negative) Urine RBC 0-2 (0-2) Urine WBC 0-2 (0-5) Ur Squamous Epith Cells Few (None-Few) Urine Bacteria Few A (None) SARS-CoV-2 (PCR) Negative SARS-CoV-2 (Negative) Influenza Type A (PCR) Negative PCR FLU A (Negative) Influenza Type B (PCR) Negative PCR FLU B (Negative) RSV (PCR) Negative PCR RSV (Negative) 06/24/25 06/24/25 Range/Units 15:13 16:10 WBC (4.50-11.00) K/uL RBC (4.30-5.90) m/uL Hgb (13.5-17.5) gm/dL Hct (37.0-53.0) % MCV (80-100) fL MCH (26-34) pg MCHC (32-36) gm/dL RDW Coeff of Mickey (11.5-15.5) % Plt Count (140-440) K/uL Neut % (Auto) (42.0-72.0) % Lymph % (Auto) (20-44) % Edgar % (Auto) (0.0-11.0) % Eos % (Auto) (0.0-7.0) % Baso % (Auto) (0.0-3.0) % Neut # (Auto) (1.7-7.0) K/uL Lymph # (Auto) (0.90-2.90) K/uL Edgar # (Auto) (0.00-0.90) K/UL Eos # (Auto) (0.00-0.50) K/uL Baso # (Auto) (0.00-0.30) K/uL Abs Immat Gran (auto) (0.00-0.30) K/uL Imm/Tot Granulo (auto) % Sodium (135-149) mmol/L Potassium (3.6-5.1) mmol/L Chloride (96-114) mmol/L Carbon Dioxide (20-32) mmol/L Anion Gap (7-15) mEq/L BUN (7-30) mg/dL Creatinine (0.5-1.5) mg/dL Estimated GFR ml/min Glucose (60-115) mg/dL Lactate 1.4 (0.5-1.9) mmol/L Calcium (8.4-10.6) mg/dL Total Bilirubin (0.1-1.5) mg/dL Direct Bilirubin (0.0-0.5) mg/dL AST (12-35) U/L ALT (4-50) U/L Alkaline Phosphatase (40-150) U/L C-Reactive Protein (0.5-1.0) mg/dL Total Protein (6.0-8.3) g/dL Albumin (3.3-5.0) g/dL Procalcitonin 0.08 (<0.50) ng/mL Urine Color (Yellow) Urine Appearance (Clear) Urine pH (5.0-8.5) Ur Specific [place] (1.000-1.030) Urine Protein (Negative) Urine Glucose (UA) (Negative) Urine Ketones (Negative) Urine Blood (Negative) Urine Nitrite (Negative) Urine Bilirubin (Negative) Urine Urobilinogen (0.2-1.0) Ur Leukocyte Esterase (Negative) Urine RBC (0-2) Urine WBC (0-5) Ur Squamous Epith Cells (None-Few) Urine Bacteria (None) SARS-CoV-2 (PCR) (Negative) Influenza Type A (PCR) (Negative) Influenza Type B (PCR) (Negative) RSV (PCR) (Negative) <Yola Staples MD - Last Filed: 06/26/25 11:02> Lab Results 06/24/25 06/24/25 06/24/25 Range/Units 13:42 14:15 15:10 WBC 11.07 H (4.50-11.00) K/uL RBC 4.91 (4.30-5.90) m/uL Hgb 14.2 (13.5-17.5) gm/dL Hct 43.3 (37.0-53.0) % MCV 88 (80-100) fL MCH 29 (26-34) pg MCHC 33 (32-36) gm/dL RDW Coeff of Mickey 13.3 (11.5-15.5) % Plt Count 224 (140-440) K/uL Neut % (Auto) 64.4 (42.0-72.0) % Lymph % (Auto) 26.6 (20-44) % Edgar % (Auto) 8.1 (0.0-11.0) % Eos % (Auto) 0.3 (0.0-7.0) % Baso % (Auto) 0.2 (0.0-3.0) % Neut # (Auto) 7.10 H (1.7-7.0) K/uL Lymph # (Auto) 2.90 (0.90-2.90) K/uL Edgar # (Auto) 0.90 (0.00-0.90) K/UL Eos # (Auto) 0.00 (0.00-0.50) K/uL Baso # (Auto) 0.00 (0.00-0.30) K/uL Abs Immat Gran (auto) 0.00 (0.00-0.30) K/uL Imm/Tot Granulo (auto) 0.4 % Sodium 137 (135-149) mmol/L Potassium 3.4 L (3.6-5.1) mmol/L Chloride 106 (96-114) mmol/L Carbon Dioxide 22 (20-32) mmol/L Anion Gap 9 (7-15) mEq/L BUN 13 (7-30) mg/dL Creatinine 0.7 (0.5-1.5) mg/dL Estimated GFR 92 ml/min Glucose 127 H (60-115) mg/dL Lactate 2.5 H (0.5-1.9) mmol/L Calcium 8.5 (8.4-10.6) mg/dL Total Bilirubin 0.7 (0.1-1.5) mg/dL Direct Bilirubin 0.3 (0.0-0.5) mg/dL AST 41 H (12-35) U/L ALT 35 (4-50) U/L Alkaline Phosphatase 98 (40-150) U/L C-Reactive Protein 1.6 H (0.5-1.0) mg/dL Total Protein 6.7 (6.0-8.3) g/dL Albumin 3.7 (3.3-5.0) g/dL Procalcitonin (<0.50) ng/mL Urine Color Yellow (Yellow) Urine Appearance Clear (Clear) Urine pH 7.0 (5.0-8.5) Ur Specific [place] 1.010 (1.000-1.030) Urine Protein Negative (Negative) Urine Glucose (UA) Negative (Negative) Urine Ketones Negative (Negative) Urine Blood 1+ A (Negative) Urine Nitrite Negative (Negative) Urine Bilirubin Negative (Negative) Urine Urobilinogen 0.2 (0.2-1.0) Ur Leukocyte Esterase Negative (Negative) Urine RBC 0-2 (0-2) Urine WBC 0-2 (0-5) Ur Squamous Epith Cells Few (None-Few) Urine Bacteria Few A (None) SARS-CoV-2 (PCR) Negative SARS-CoV-2 (Negative) Influenza Type A (PCR) Negative PCR FLU A (Negative) Influenza Type B (PCR) Negative PCR FLU B (Negative) RSV (PCR) Negative PCR RSV (Negative) 06/24/25 06/24/25 Range/Units 15:13 16:10 WBC (4.50-11.00) K/uL RBC (4.30-5.90) m/uL Hgb (13.5-17.5) gm/dL Hct (37.0-53.0) % MCV (80-100) fL MCH (26-34) pg MCHC (32-36) gm/dL RDW Coeff of Mickey (11.5-15.5) % Plt Count (140-440) K/uL Neut % (Auto) (42.0-72.0) % Lymph % (Auto) (20-44) % Edgar % (Auto) (0.0-11.0) % Eos % (Auto) (0.0-7.0) % Baso % (Auto) (0.0-3.0) % Neut # (Auto) (1.7-7.0) K/uL Lymph # (Auto) (0.90-2.90) K/uL [place] # (Auto) (0.00-0.90) K/UL Eos # (Auto) (0.00-0.50) K/uL Baso # (Auto) (0.00-0.30) K/uL Abs Immat Gran (auto) (0.00-0.30) K/uL Imm/Tot Granulo (auto) % Sodium (135-149) mmol/L Potassium (3.6-5.1) mmol/L Chloride (96-114) mmol/L Carbon Dioxide (20-32) mmol/L Anion Gap (7-15) mEq/L BUN (7-30) mg/dL Creatinine (0.5-1.5) mg/dL Estimated GFR ml/min Glucose (60-115) mg/dL Lactate 1.4 (0.5-1.9) mmol/L Calcium (8.4-10.6) mg/dL Total Bilirubin (0.1-1.5) mg/dL Direct Bilirubin (0.0-0.5) mg/dL AST (12-35) U/L ALT (4-50) U/L Alkaline Phosphatase (40-150) U/L C-Reactive Protein (0.5-1.0) mg/dL Total Protein (6.0-8.3) g/dL Albumin (3.3-5.0) g/dL Procalcitonin 0.08 (<0.50) ng/mL Urine Color (Yellow) Urine Appearance (Clear) Urine pH (5.0-8.5) Ur Specific [place] (1.000-1.030) Urine Protein (Negative) Urine Glucose (UA) (Negative) Urine Ketones (Negative) Urine Blood (Negative) Urine Nitrite (Negative) Urine Bilirubin (Negative) Urine Urobilinogen (0.2-1.0) Ur Leukocyte Esterase (Negative) Urine RBC (0-2) Urine WBC (0-5) Ur Squamous Epith Cells (None-Few) Urine Bacteria (None) SARS-CoV-2 (PCR) (Negative) Influenza Type A (PCR) (Negative) Influenza Type B (PCR) (Negative) RSV (PCR) (Negative) <Malgorzata Varghese MD - Last Filed: 06/24/25 18:25> Imaging Data CT scan - head: Attestation: I have reviewed the pertinent imaging results. <Malgorzata Varghese MD - Last Filed: 06/24/25 18:25> Radiologist's impression: Patient: [facility] Facility:?[facility] Patient ID:?[id number] Site Patient ID:?[id number]. Site :?[id number] Study:?CT-Head WITHOUT-06/24/2025 5:35:16 PM Ordering Physician:Ronald Aceves Final Report: CT HEAD DATE: 06/24/2025 CLINICAL HISTORY: Patient with focal neurological deficits and possible left frontal hemorrhage. TECHNIQUE: Standard CT scanning of the head was performed. COMPARISON: CT same day. FINDINGS: There is no definite intracranial hemorrhage. There is an unchanged 5mm linear area of hyperdensity in the left frontal subcortical white matter. There is no territorial infarction. There are mild microangiopathic changes. There is diffuse parenchymal volume loss. There is no mass effect or midline shift. The calvarium is unremarkable. The orbits are unremarkable. The paranasal sinuses are unremarkable. The mastoid air cells are unremarkable. The soft tissues are unremarkable. IMPRESSION: 1. No definite intracranial hemorrhage or territorial infarction. 2. 5mm linear area of hyperdensity in the left frontal subcortical white matter is most likely dystrophic calcifications. Please note that all CT scans at this facility use dose modulation, iterative reconstruction, and/or weight-based dosing when appropriate to reduce radiation dose to as low as reasonably achievable. Dictated by: Shanika Warner MD @ 06/24/2025 17:43:46 (Electronic Signature) <Malgorzata Varghese MD - Last Filed: 06/24/25 18:25> Discharge Plan Discharge Clinical Impression: Body aches <Yola Staples MD - Last Filed: 06/26/25 11:02> Patient Disposition: Home w/ Parent or Adult <Yola Staples MD - Last Filed: 06/26/25 11:02> Condition: Improved <Yola Staples MD - Last Filed: 06/26/25 11:02> Additional Instructions: Return to the ER at any time for recurrent symptoms of decreased responsiveness, or any new symptoms such as fever, shaking chills, vomiting, or other worsening. <Yola Staples MD - Last Filed: 06/26/25 11:02> Prescriptions: No Action No Known Home Medications <Yola Staples MD - Last Filed: 06/26/25 11:02> Follow Up/Referrals: Florentino Luna MD [Primary Care Provider, Family Practice] <Yola Staples MD - Last Filed: 06/26/25 11:02> Stand Alone Forms: MyHealth Info Instructions <Yola Staples MD - Last Filed: 06/26/25 11:02>
[2025-06-24 13:48] LABS: Lactate Sepsis w/Reflex* 2.5 mmol/L (0.5-1.9)
[2025-06-24 13:50] LABS: Hematocrit* 43.3 % (37.0-53.0); Hemoglobin* 14.2 gm/dL (13.5-17.5); Immature Granulocytes Pct Auto 0.4 %; Mean Corpuscular HGB Conc 33 gm/dL (32-36); Mean Corpuscular Hemoglobin 29 pg (26-34); Mean Corpuscular Volume 88 fL (80-100); RDW Coefficient of Variation % 13.3 % (11.5-15.5); Red Blood Count* 4.91 m/uL (4.30-5.90); White Blood Count* 11.07 K/uL (4.50-11.00)
[2025-06-24] MEDS: 0.9 % SODIUM CHLORIDE 500 ML 500 ML IV (14:14)
[2025-06-24 14:25] LABS: Immature Granulocytes Abs Auto 0.00 K/uL (0.00-0.30); Lymphocytes Absolute Auto 2.90 K/uL (0.90-2.90); Slide Review Reflex No
[2025-06-24 14:27] LABS: Albumin* 3.7 g/dL (3.3-5.0); Chloride* 106 mmol/L (96-114); Sodium* 137 mmol/L (135-149)
[2025-06-24 14:28] LABS: Potassium* 3.4 mmol/L (3.6-5.1)
[2025-06-24 14:30] LABS: Alanine Aminotransferase* 35 U/L (4-50); Anion Gap 9 mEq/L (7-15); Aspartate Amino Transferase* 41 U/L (12-35); Bilirubin Direct* 0.3 mg/dL (0.0-0.5); Bilirubin Total* 0.7 mg/dL (0.1-1.5); Blood Urea Nitrogen* 13 mg/dL (7-30); Carbon Dioxide* 22 mmol/L (20-32); Creatinine* 0.7 mg/dL (0.5-1.5); Estimated Glomerular Filt Rate 92 ml/min
[2025-06-24 14:31] LABS: Alkaline Phosphatase* 98 U/L (40-150); Calcium* 8.5 mg/dL (8.4-10.6); Glucose* 127 mg/dL (60-115); Total Protein* 6.7 g/dL (6.0-8.3)
[2025-06-24 15:11] LABS: PCR FLU A Negative PCR FLU A (Negative); PCR FLU B Negative PCR FLU B (Negative); PCR RSV Negative PCR RSV (Negative); SARS PCR* Negative SARS-CoV-2 (Negative)
[2025-06-24 15:21] LABS: Appearance Urine Clear (Clear)
[2025-06-24 15:44] VITALS: BP 171/75; PULSE 94; RESP 20; O2SAT 93
[2025-06-24 15:55] LABS: Procalcitonin* 0.08 ng/mL (<0.50)
[2025-06-24 16:13] LABS: Lactate Sepsis 2 Hour 1.4 mmol/L (0.5-1.9)
--- NOTE | 2025-06-24 16:57 | CT_ITS ---
Patient: DAVIDA BUSH Facility:?[facility] Patient ID:?[id number] Site Patient ID:?[id number]. Site :?[id number] Study:?CT-Head WITHOUT-06/24/2025 5:35:16 PM Ordering Physician:Ronald Aceves Final Report: CT HEAD DATE: 06/24/2025 CLINICAL HISTORY: Patient with focal neurological deficits and possible left frontal hemorrhage. TECHNIQUE: Standard CT scanning of the head was performed. COMPARISON: CT same day. FINDINGS: There is no definite intracranial hemorrhage. There is an unchanged 5mm linear area of hyperdensity in the left frontal subcortical white matter. There is no territorial infarction. There are mild microangiopathic changes. There is diffuse parenchymal volume loss. There is no mass effect or midline shift. The calvarium is unremarkable. The orbits are unremarkable. The paranasal sinuses are unremarkable. The mastoid air cells are unremarkable. The soft tissues are unremarkable. IMPRESSION: 1. No definite intracranial hemorrhage or territorial infarction. 2. 5mm linear area of hyperdensity in the left frontal subcortical white matter is most likely dystrophic calcifications. Please note that all CT scans at this facility use dose modulation, iterative reconstruction, and/or weight-based dosing when appropriate to reduce radiation dose to as low as reasonably achievable. Dictated by: Shanika Warner MD @ 06/24/2025 17:43:46 Signed by:?Shanika Warner MD @06/24/2025 5:43:46 PM (Electronic Signature)
[2025-06-24 18:34] VITALS: BP 121/56; PULSE 93; RESP 18; TEMP 36.9; O2SAT 98
== END 2025-06-24 18:42 | disposition home or self-care (01) ==
PROVIDERS: Emergency Provider Emergency Medicine; PCP Family Medicine
DX: S90.411A Abrasion, right great toe, initial encounter (principal); W45.8XXA Other foreign body or object entering through skin, initial encounter; M79.10 Myalgia, unspecified site
CPT/HCPCS: 36415; 70450; 70496; 70498; 80048; 80076; 81001; 83605; 84145; 85025; 86140; 87040; 87086; 87631; 93005; 99284; 99285; A9270; J7030; Q9967